=== PATIENT | male | born 1955 | race Caucasian/White ===

== ENCOUNTER 2017-04-13 12:36 | Inpatient (IN) | payer MEDICAID, OTHER ==
--- NOTE | 2017-04-13 12:58 | CPEKG ---
Heart Rate: 99 RR Interval: 606 P-R Interval: 136 QRSD Interval: 82 QT Interval: 348 QTC Interval: 447 P Stanton: 87 QRS Stanton: 95 T Wave Stanton: 62 EKG Severity - BORDERLINE ECG - EKG Impression: SINUS RHYTHM EKG Impression: RIGHT AXIS DEVIATION EKG Impression: BORDERLINE INFERIOR Q WAVES Electronically Signed By: Yaneli Mcfadden 13-Apr-2017 15:07:59
[2017-04-13] MEDS ORDERED: IPRATROPIUM/ALBUTEROL 3 ML DEYVIAL IH ONE (13:04)
[2017-04-13] MEDS ORDERED: ALBUTEROL 3 ML DEYVIAL IH ONE (13:04)
--- NOTE | 2017-04-13 13:04 | EDPHY ---
H & P Stated Complaint: SOB, difficulty with breathing for 2 weeks. Time Seen by Provider: 04/13/17 12:47 HPI/ROS: CHIEF COMPLAINT: "I can't breathe" HISTORY OF PRESENT ILLNESS: The patient is a 61 y/o male with a history of COPD complaining of progressive dyspnea and productive cough for the last 3 weeks. He describes profuse green sputum when coughing. SOB at rest and unable to sleep because of difficulty breathing. Sx similar, but worse than prior episodes of pneumonia. Admitted to [facility] in 2015 with septic shock and hypoxemic respiratory failure due to pneumonia. He denies fever , vomiting, diarrhea, abdominal pain, chest pain, urinary symptoms. He does not use home O2 normally nor does he use inhalers or other medication for his COPD. He is a daily smoker. He has some difficulty communicating history due to pronounced dyspnea and tachypnea. REVIEW OF SYSTEMS: Constitutional: No fever, no chills Eyes: No visual changes ENT: No sore throat Respiratory: see HPI Cardiac: No chest pain Gastrointestinal: No nausea, no vomiting, no abdominal pain Genitourinary: No hematuria, no dysuria Musculoskeletal: No leg pain or swelling Skin: No rash Neurological: No headache Psychiatric: depression - Personal History Current Tetanus Diphtheria and Acellular Pertussis (TDAP): Yes - Medical/Surgical History PMH: PMH includes: 1. COPD 2. Hepatitis C 3. Prior pneumonia admissions with septic shock and acute hypoxemic failure 4. Chronic back pain 5. History of IV drug abuse and active tobacco abuse Prior medical records reviewed including admission 01/17/16 for septic shock secondary to pneumonia Hx Asthma: No Hx Chronic Respiratory Disease: Yes Hx Diabetes: No Hx Cardiac Disease: No Hx Renal Disease: No Hx Cirrhosis: No Hx Alcoholism: No Hx HIV/AIDS: No Hx Splenectomy or Spleen Trauma: No Other PMH: chronic back pain. COPD. Pnuemonia - Social History Smoking Status: Current some day smoker Additional Social History: Daily smoker. Partner at bedside. Lives in [place]. Disabled. - Physical Exam Exam: General Appearance: Alert, moderate respiratory distress, 2-3 word dyspnea. HR 106, RR 28, 89% on room air Eyes: Pupils equal and round, no conjunctival pallor or injection ENT, Mouth: Mucous membranes moist Neck: Normal inspection Respiratory: Decreased air exchange diffusely, occasional expiratory wheezing, tachypneic, increased work of breathing. Cardiovascular: Regular tachycardia Gastrointestinal: Abdomen is soft and non-tender Neurological: A&O, nonfocal exam Skin: Warm and dry Extremities: Nontender, no pedal edema Psychiatric: Anxious Constitutional: Initial Vital Signs Temperature (C) 36.7 C 04/13/17 12:37 Heart Rate 106 H 04/13/17 12:37 Respiratory Rate 28 H 04/13/17 12:37 Blood Pressure 111/87 H 04/13/17 12:37 O2 Sat (%) 89 L 04/13/17 12:37 O2 Delivery Mode Room Air O2 (L/minute) 2 Allergies/Adverse Reactions: No Known Allergies Allergy (Unverified 09/20/10 21:06) Home Medications: Medication Instructions Recorded NK [No Known Home Meds] 04/13/17 Medical Decision Making - Diagnostics EKG Interpretation: EKG interpreted by me reveals normal sinus rhythm, rate 99, inferior Q-waves, no ST or T segment changes. Imaging Results: Imaging Impressions Chest X-Ray 04/13/17 12:47 Impression: Diffuse bilateral lower lobe interstitial infiltrates suggesting interstitial pneumonitis. Small left apical pneumothorax. Results called to Dr. Mcfadden at 2:00 PM. Imaging: I viewed and interpreted images myself ED Course/Re-evaluation: This is a n ill-appearing 61 y/o male with COPD and prior pneumonia who is a daily smoker and presents with a 3-week history of progressive productive cough and dyspnea. On exam, he is quite tachypneic with increased respiratory effort, hypoxemia at 89% on room air, and diminished air movement bilateral with some expiratory wheezes. He meets initial SIRS criteria. Plan for IV, sepsis labs, respiratory pathogen panel, chest x-ray, continuous nebulizer treatment, and 125mg IV Solumedrol. Lactate elevated 2.2, will repeat. 1L IV NS currently infusing. Plan for frequent reassessments. 1330: continuous Albuterol, O2 sat 99%, still quite tachypneic, better air exchange, more expiratory wheezing Chest x-ray-no definite infiltrate. Blood cultures drawn and Levaquin IV given for possible pneumonia. Spoke with hospitalist service. Dr. Franco accepts admission to the [facility] for COPD exacerbation. 750mg IV Levaquin ordered. Chest x-ray shows possible apical pneumothorax. Discussed with Dr. Ramirez and Dr. Franco. Plan for repeat chest x-ray during admission to monitor. Repeat lactate is normal at 1.7. Repeat x-ray reveals no evidence of pneumothorax. 3pm: repeat exam, much more comfortable and less tachypneic, on O2 2l NC, O2 sat 93%, Chest-diffuse expiratory wheezing. Critical care time spent by me, Dr. Mcfadden, exclusively with this patient was 35 minutes, exclusive of PA time and exclusive of procedures. The organ system at risk was pulmonary. Time spent in serial assessments of the patient, consideration of interventions, and review of imaging and labs. Differential Diagnosis: Differential diagnosis includes though it is not limited to pneumonia, pneumothorax, pulmonary embolism, aortic dissection, pericarditis, acute coronary syndrome. - Data Points Laboratory Results: Laboratory Results 04/13/17 12:56 04/13/17 12:56 04/13/17 04/13/17 04/13/17 13:50 12:56 12:56 WBC RBC Hgb Hct MCV MCH MCHC RDW Plt Count MPV Neut % (Auto) Lymph % (Auto) [place] % (Auto) Eos % (Auto) Baso % (Auto) Nucleat RBC Rel Count Absolute Neuts (auto) Absolute Lymphs (auto) Absolute Monos (auto) Absolute Eos (auto) Absolute Basos (auto) Absolute Nucleated RBC Immature Gran % Immature Gran # VBG Lactic Acid 1.7 mmol/L mmol/L 2.2 mmol/L H mmol/L (0.7-2.1) (0.7-2.1) Sodium 140 mEq/L mEq/L (135-145) Potassium 4.1 mEq/L mEq/L (3.5-5.2) Chloride 102 mEq/L mEq/L (97-110) Carbon Dioxide 26 mEq/l mEq/l (22-31) Anion Gap 12 mEq/L mEq/L (8-16) BUN 4 mg/dL L mg/dL (7-23) Creatinine 0.6 mg/dL L mg/dL (0.7-1.3) Estimated GFR > 60 Glucose 109 mg/dL H mg/dL (70-100) Calcium 8.7 mg/dL mg/dL (8.5-10.4) 04/13/17 12:56 WBC 14.31 10^3/uL H 10^3/uL (3.80-9.50) RBC 5.55 10^6/uL 10^6/uL (4.40-6.38) Hgb 15.9 g/dL g/dL (13.7-17.5) Hct 48.2 % % (40.0-51.0) MCV 86.8 fL fL (81.5-99.8) MCH 28.6 pg pg (27.9-34.1) MCHC 33.0 g/dL g/dL (32.4-36.7) RDW 15.0 % % (11.5-15.2) Plt Count 352 10^3/uL 10^3/uL (150-400) MPV 9.0 fL fL (8.7-11.7) Neut % (Auto) 82.4 % H % (39.3-74.2) Lymph % (Auto) 9.2 % L % (15.0-45.0) [place] % (Auto) 6.0 % % (4.5-13.0) Eos % (Auto) 1.3 % % (0.6-7.6) Baso % (Auto) 0.5 % % (0.3-1.7) Nucleat RBC Rel Count 0.0 % % (0.0-0.2) Absolute Neuts (auto) 11.81 10^3/uL H 10^3/uL (1.70-6.50) Absolute Lymphs (auto) 1.31 10^3/uL 10^3/uL (1.00-3.00) Absolute Monos (auto) 0.86 10^3/uL H 10^3/uL (0.30-0.80) Absolute Eos (auto) 0.18 10^3/uL 10^3/uL (0.03-0.40) Absolute Basos (auto) 0.07 10^3/uL 10^3/uL (0.02-0.10) Absolute Nucleated RBC 0.00 10^3/uL 10^3/uL (0-0.01) Immature Gran % 0.6 % % (0.0-1.1) Immature Gran # 0.08 10^3/uL 10^3/uL (0.00-0.10) VBG Lactic Acid Sodium Potassium Chloride Carbon Dioxide Anion Gap BUN Creatinine Estimated GFR Glucose Calcium Microbiology Results: MICROBIOLOGY 04/13/17 12:58 Nasal, Sinus - Swab Respiratory Panel (PCR) - Final No Organism Detected Medications Given: Discontinued Medications Albuterol (Proventil Neb) 9 ml IH EDNOW ONE Stop: 04/13/17 13:05 Last Admin: 04/13/17 13:23 Dose: 9 ml Albuterol/Ipratropium (Duoneb) 3 ml IH EDNOW ONE Stop: 04/13/17 13:05 Last Admin: 04/13/17 13:26 Dose: 3 ml Sodium Chloride (Ns) 1,000 mls @ 0 mls/hr IV ONCE ONE; Wide Open PRN Reason: Protocol Stop: 04/13/17 13:19 Last Admin: 04/13/17 13:27 Dose: 1,000 mls Methylprednisolone Sodium Succinate (Solu-Medrol) 125 mg IVP EDNOW ONE Stop: 04/13/17 13:06 Last Admin: 04/13/17 13:25 Dose: 125 mg Departure - Departure Disposition: [facility] Inpatient Acute Clinical Impression: COPD exacerbation Sepsis Qualifiers: Sepsis type: sepsis due to unspecified organism Qualified Code(s): A41.9 - Sepsis, unspecified organism Respiratory failure with hypoxia Qualifiers: Chronicity: acute Qualified Code(s): J96.01 - Acute respiratory failure with hypoxia Condition: Serious Report Scribed for: Yaneli Mcfadden Report Scribed by: Tricia Tripathi Date of Report: 04/13/17 Time of Report: 13:06 Physician Review and Approval Statement: 04/13/17 13:06 Portions of this note were transcribed by a medical staff director. I personally performed a history, physical exam, medical decision making, and confirmed accuracy of information the transcribed note.
[2017-04-13] MEDS ORDERED: methylPREDNISolone SOD SUCC 125 MG/2 ML VIAL IVP ONE (13:05)
[2017-04-13 13:10] LABS: PLATELET COUNT 352 10^3/uL (150-400)
[2017-04-13] MEDS ORDERED: NS 1,000 ML IV ONE (13:18)
[2017-04-13] MEDS ORDERED: ALBUTEROL 3 ML DEYVIAL IH PRN (14:13)
[2017-04-13] MEDS ORDERED: ONDANSETRON DISINTEGRATING 4 MG TAB PO PRN (14:13)
[2017-04-13] MEDS ORDERED: ONDANSETRON 4 MG/2 ML VIAL IVP PRN (14:13)
[2017-04-13] MEDS ORDERED: NS 1,000 ML IV SCH (14:15)
--- NOTE | 2017-04-13 15:02 | GHP ---
[f rep st] HISTORY AND PHYSICAL DATE OF ADMISSION: 04/13/2017 The patient is a 61-year-old gentleman with a history of COPD and hepatitis C, who presented to the E with increased work of breathing. He was admitted here in January with pneumonia. The patient notes that his breathing has been getting progressively worse over the last 3 weeks. He is only smoking 2 or 3 cigarettes a day. He has had chills. No fever. Did not get a flu shot this year. He has had a cough productive of green sputum. He is down to just 2 or 3 cigarettes a day. D enies alcohol, vomiting. He has pain in his chest. He has not fallen. REVIEW OF SYSTEMS: Complete 10-point review of systems conducted, negative as noted in the HPI. PAST MEDICAL HISTORY: 1. COPD. He has borderline chronic hypoxemic respiratory failure. 2. Chronic back pain. 3. Hepatitis C. 4. History of IV drug use. MEDICATIONS: None. ALLERGIES: None. CODE: Full. SOCIAL HISTORY: He had been homeless previously. Got an apartment. He has a friend present with geronimo gonzalez. FAMILY HISTORY: Parents . PHYSICAL EXAM: VITAL SIGNS: Temp 36.7, blood pressure 111/87, pulse 106. Breathing 20 times a keri te, 89% on room air. GENERAL: Thin, cachectic. Increased work of breathing. HEENT: Sclerae anict akiko. Oropharynx clear. Mucous membranes dry. NECK: Supple without lymphadenopathy or JVD. LUNGS : Decreased air movement with scattered wheezes bilaterally. Per the ER doctor with whom I discusse d the case, it is improved from presentation. HEART: S1, S2. Tachycardic. ABDOMEN: Soft, nontend er, nondistended. LOWER EXTREMITIES: Without edema. Calves nontender. SKIN: Without rash. NEURO LOGIC: Nonfocal. LABS: Sodium 140, potassium 4.1, chloride 102, bicarb 26, BUN 4, creatinine 0.6, glucose 109. White count 14, hematocrit 48, platelets are 352,000. Lactate was 2.2, now 1.7. He has a history of hepatitis C antibody positive in January. EKG interpreted by oh shows sinus at 99 with normal axis and intervals. There are no ST or T-wave ch anges. Chest x-ray interpreted by me shows hyperinflation, small apical left pneumothorax. I discussed the case Dr. Angeles Mcfadden. ASSESSMENT AND PLAN: A 61-year-old gentleman with chronic obstructive pulmonary disease presents wit h chronic obstructive pulmonary disease exacerbation, increased work of breathing, small pneumothorax . 1. Pneumothorax. We will follow his chest x-ray today, repeat it today and then follow it daily. C ertainly, I think at its current size it is probably low risk for contributing to his increased work of breathing, but certainly if it becomes larger it can cause respiratory collapse. He does not need a chest tube at this time. 2. Chronic obstructive pulmonary disease exacerbation. I suspect viral illness. Will check influen za and a respiratory panel. I will give him doxycycline, steroids and nebulizer. I recommend smokin g cessation. 3. Hepatitis C. Patient does not have cirrhosis. Will follow. 4. Prophylaxis. Pharmacologic prophylaxis indicated. 5. Code status: A brief code status discussion with this patient yielded full code. I think it may be worth pursuing discussing the risks, benefits of intubation in this gentleman with advanced lung disease, but too tachypneic and acute right now to do so. I will defer that to the day provider. DISPOSITION: Step-down unit, inpatient status. /[id number]/MODL
[2017-04-13] MEDS ORDERED: levOFLOXACIN 750 MG/DEXTROSE/150 ML BAG IV ONE (16:06)
[2017-04-13] MEDS: ACETAMINOPHEN 325 MG TAB PO PRN (16:18)
[2017-04-13] MEDS: IPRATROPIUM/ALBUTEROL 3 ML DEYVIAL IH SCH ×2 (16:30→19:51)
[2017-04-13] MEDS ORDERED: DOXYCYCLINE INJ 100 MG in NS 250 ML IV ONE (17:15)
--- NOTE | 2017-04-13 18:29 | HOSPPROG ---
Hospitalist Progress Note Assessment/Plan: follow up cxr demonstrates no pneumothorax Objective: Vital Signs Temp Pulse Resp BP Pulse Ox 36.5 C 92 40 H 87/45 L 92 04/13/17 18:18 04/13/17 18:18 04/13/17 18:18 04/13/17 18:18 04/13/17 18:18 04/12/17 04/13/17 04/14/17 05:59 05:59 05:59 Intake Total 2250 Balance 2250 ICD10 Worksheet Patient Problems: Problems Problem Status Onset COPD exacerbation Acute Respiratory failure with hypoxia Acute Sepsis Acute Pneumonia Acute
[2017-04-13] MEDS ORDERED: NS 500 ML IV ONE (22:19)
[2017-04-13] MEDS: methylPREDNISolone SOD SUCC 125 MG/2 ML VIAL IVP SCH (22:26)
[2017-04-13] MEDS: NICOTINE 14 MG/24 HR PATCH TD SCH (22:26)
[2017-04-13] MEDS: MELATONIN 3 MG TAB PO PRN (22:33)
[2017-04-14] MEDS: methylPREDNISolone SOD SUCC 125 MG/2 ML VIAL IVP SCH ×5 (04:20→23:21)
[2017-04-14 05:16] LABS: PLATELET COUNT 279 10^3/uL (150-400)
[2017-04-14] MEDS: IPRATROPIUM/ALBUTEROL 3 ML DEYVIAL IH SCH ×4 (05:32→21:02)
[2017-04-14] MEDS: DOXYCYCLINE INJ 100 MG in NS 250 ML IV SCH ×2 (05:52→17:36)
--- NOTE | 2017-04-14 08:29 | HOSPPROG ---
Hospitalist Progress Note Assessment/Plan: DIAGNOSES: -acute resp failure, hypoxemic -hypotension, pleuritic CP, raises concern for PE -chronic interstitial pulmonary infiltrates on CXR appear similar to 2016, likely chronic pulm fibrosis but will check CT chest; -? current pulm infection: no fever, procalcitonin is upper limit nl, resp pathogen panel negative -is on antibiotic empirically for now -past hx IVDA -chronic Hep C, appears stable -homelessness I have reviewed this case in detail today with Dr Renny Tong Also seen by me on multidisc rounds PLANS: -CT angio chest to look for PE, further assess possible pneumonia -For now continue empiric abx -continue steroid and bronchodilators -follow BPs closely, consider need for specific therapy for that; at present this does not appear to represent sepsis, not really clear he has any infection -will recheck chemistry to see if sugars are increasing on steroid; follow white blood cell count closely SUBJECTIVE: Patient still feels short of breath Does admit to some sharp pleuritic type chest pain as well as feeling that his breathing is "tight " Still has cough, nonproductive No chills or sweats OBJECTIVE Vitals reviewed: No fever, blood pressures have been low throughout the night and remain low the morning, quite tachypneic on oxygen [employer]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[employer], 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 rhythm variable rate Exam: alert oriented skin warm dry color ok resps not labored lungs clear BSs heart regular abd soft nondistended nontender, bowel sounds present limbs warm, no edema iv site ok I reviewed CXR from ER: I see diffuse emphysematous change and diffuse abnormal interstitial markings, and I compared last xray of 2016 which shows similar markings Lab data: White blood cell count remains elevated 13,000 Mild anemia now apparent, normocytic Renal function and electrolytes good; sugar slightly high likely due to steroids I ordered procalcitonin and this comes back at 0.11 right at the upper limit of normal Respiratory pathogen panel and cultures are all negative so far Objective: Vital Signs Temp Pulse Resp BP Pulse Ox 36.4 C 64 30 H 120/83 H 100 04/13/17 20:00 04/14/17 05:32 04/14/17 05:32 04/13/17 20:00 04/14/17 05:32 Laboratory Results 04/14/17 05:05 04/14/17 05:05 02/10/2104/14/17 04/15/17 06:59 06:59 06:59 Intake Total 4019 Output Total 950 Balance 3069 - Time Spent With Patient Time Spent with Patient: greater than 35 minutes Time Spent with Patient: Greater than 35 minutes spent on this patients care, greater than 50% of time spent counseling, educating, and coordinating care regarding the above mentioned plan. ICD10 Worksheet Patient Problems: Problems Problem Status Onset COPD exacerbation Acute Respiratory failure with hypoxia Acute Sepsis Acute Pneumonia Acute
[2017-04-14] MEDS ORDERED: IOPAMIDOL (ISOVUE 370) 100 ML BTL IV ONE (08:32)
--- NOTE | 2017-04-14 09:34 | ASMTCASEMG ---
Living Arrangements What is your living Answers: Alone arrangement? Who do you live with? Type Of Residence What kind of residence do Answers: Apartment you live in? Discharge Plan Comments Coordination Status Comments Notes: Patient is a 61yo single male who was admitted for chronic obstructive pulmonary disease and a pneumothorax. Patient was homeless but has recently secured an apartment. PT/OT have been ordered. D/C needs TBD. CM will follow. Date Signed: 04/14/2017 09:33 AM Electronically Signed By:Anu Acevedo LCSW
[2017-04-14] MEDS ORDERED: PNEUMOCOCCAL 0.5ML VACCINE VIAL IM ONE (10:49)
[2017-04-14] MEDS: ENOXAPARIN 40 MG/0.4 ML SYR SC SCH (10:52)
[2017-04-14] MEDS: LORazepam 0.5 MG TAB PO PRN ×3 (10:53→22:03)
[2017-04-14] MEDS: NICOTINE 14 MG/24 HR PATCH TD SCH (10:54)
--- NOTE | 2017-04-14 11:14 | PDMN ---
Medical Necessity Medical necessity: est los>2mn for COPD exacerbation, and small pneumothorax; admit for IV abx, IV steroids, and nebs; comorbid hep C, chronic back pain, and hx IVDA; per order and H&P 04/13/17
[2017-04-14] MEDS: FAMOTIDINE 20 MG TAB PO SCH ×2 (11:23→22:02)
--- NOTE | 2017-04-14 14:36 | GCON ---
[f rep st] CONSULTATION PULMONARY CRITICAL CARE NOTE. DATE OF CONSULTATION: 04/14/2017 REASON FOR CONSULTATION: Chronic obstructive pulmonary disease exacerbation. HISTORY: The patient is a pleasant 61-year-old gentleman who has severe underlying COPD and emphysem a. He states he has had a cough productive of green sputum over the last 3 weeks. Symptoms have bee n progressive and he has been increasingly short of breath. He presented to the emergency department . Chest x-ray was unremarkable for evidence of pneumonia. He was started on antibiotics, steroids, and bronchodilator therapy and admitted to the intensive care unit. Initial chest x-ray suggested a possible small pneumothorax, however, followup chest x-ray showed this likely to be artifactual. He has had a subsequent CT angiogram of the chest. There are no infiltrates, no pulmonary emboli. Ther e is severe emphysema with bullous changes and marked bronchial wall thickening. The patient remains somewhat dyspneic. He is on 3 L of oxygen. He was last admitted to [facility] in 2016 with pneumonia. He was discharged on inha lers and apparently was given a prescription for oxygen which he never filled. Once he finished the inhalers he did not refill them. He does not recall whether they resulted in any benefit. He has be en followed at [facility] in the past, apparently not recently. PAST MEDICAL HISTORY: Remarkable only for his lung disease. MEDICATIONS: He was on no medications at that time of admission. REVIEW OF SYSTEMS: Negative except as mentioned above. He denies hypertension, diabetes, known hear t disease, thromboembolic disease or other problems. 10-point review of systems is negative. He sylvie arently did not get the flu vaccine this year but likely had pneumococcal vaccines in the past. DRUG ALLERGIES: None known. SOCIAL HISTORY: Originally from [facility]. He has been in [place] for over 35 years. He had a [employer] business. He is . His ex- and 2 of his 4 children live in [place]. The o ther children are in other states. He continues to smoke cigarettes but has recently cut down. He d enies significant alcohol or drugs. He apparently lives in an apartment or home now with roommates. FAMILY HISTORY: Negative/noncontributory. PHYSICAL EXAMINATION: GENERAL: Reveals a gentleman who is mildly dyspneic, lying in bed. He is thi n, with a barrel chest. VITAL SIGNS: Respiratory rate is approximately 25 to 30. Blood pressure is 100/60, heart rate 90 with sinus rhythm on the monitor. He is afebrile. On 3 L saturations are 96% . HEENT: Unremarkable for lymphadenopathy or thyromegaly. Mucous membranes are somewhat dry. Jugu lar venous pressure is increased. The chest reveals markedly decreased breath sounds bilaterally wit h a prolonged expiratory phase. There is some central congestion/rhonchi with cough and a few scatte red forced expiratory wheezes. The heart tones are distant. P2 appears to be increased. A gallop c ould not be heard. ABDOMEN: Scaphoid, soft, nontender. Bowel sounds are present. EXTREMITIES: Un remarkable for edema, or cords. SKIN: Without significant lesions or rash. NEUROLOGIC: Nonfocal. DATA BASE: Radiologic studies are as outlined above. LABORATORY: White blood cell count is 13,000, hematocrit 38, platelets 279,000. Venous lactates hav e been about 2. Basic metabolic panel is within normal limits with the exception of a mildly elevate d glucose and an albumin of 2.4. Procalcitonin was borderline elevated on admission at 0.11. ASSESSMENT: 1. Acute bronchitis. 2. Exacerbation of severe underlying chronic obstructive pulmonary disease/emphysema. 3. Hypoxemia: Likely chronic. I would imagine he likely has needed oxygen as an outpatient for kirstie te some time but this has never been initiated. 4. Prophylaxis: On enoxaparin and famotidine. 5. Ongoing tobacco abuse: He is currently on a nicotine patch. PLAN AND RECOMMENDATIONS: The patient will be kept in the intensive care unit on step-down status fo r now. He can be transitioned to a medical-surgical bed possibly later today or tomorrow depending o n his progress. Doxycycline will be continued. A sputum culture will be ordered. Steroids can be c ontinued but reduced. Bronchodilator therapies will be continued. Further plans and recommendations will be made based on his progress over the next 12-24 hours. Post discharge I will offer him followup in our Pulmonary Clinic. Inhaled therapies as an outpatient prob ably are going to be beneficial. He likely will require oxygen on discharge. /[id number]/MODL
[2017-04-14] MEDS: MELATONIN 3 MG TAB PO PRN (22:02)
[2017-04-15] MEDS: LORazepam 0.5 MG TAB PO PRN ×4 (01:37→23:58)
[2017-04-15] MEDS: methylPREDNISolone SOD SUCC 125 MG/2 ML VIAL IVP SCH ×2 (05:13→11:39)
[2017-04-15] MEDS: DOXYCYCLINE INJ 100 MG in NS 250 ML IV SCH (05:13)
[2017-04-15] MEDS: IPRATROPIUM/ALBUTEROL 3 ML DEYVIAL IH SCH ×4 (05:30→21:29)
[2017-04-15 06:03] LABS: PLATELET COUNT 299 10^3/uL (150-400)
[2017-04-15] MEDS: NICOTINE 14 MG/24 HR PATCH TD SCH (08:47)
[2017-04-15] MEDS: ENOXAPARIN 40 MG/0.4 ML SYR SC SCH (08:47)
[2017-04-15] MEDS: FAMOTIDINE 20 MG TAB PO SCH ×2 (08:47→21:02)
--- NOTE | 2017-04-15 09:59 | HOSPPROG ---
Hospitalist Progress Note Assessment/Plan: DIAGNOSES: -acute resp failure, hypoxemic -hypotension, pleuritic CP, raises concern for PE -chronic interstitial pulmonary infiltrates on CXR appear similar to 2016, likely chronic pulm fibrosis but will check CT chest; -? current pulm infection: no fever, procalcitonin is upper limit nl, resp pathogen panel negative -is on antibiotic empirically for now -past hx IVDA -chronic Hep C, appears stable -homelessness I have reviewed this case in detail today with Dr Renny Tong Also seen by me on multidisc rounds PLANS: -For now continue empiric abx -continue steroid and bronchodilators -follow BPs closely, consider need for specific therapy for that; at present this does not appear to represent sepsis, not really clear he has any infection -can move out of ICU today He should be on some chronic long-acting bronchodilator steroid combination for prevention of hospital admission and other severe exacerbations on a chronic basis. I have discussed this with the patient in detail. Will probably need to work directly with [facility] to trying get him on such medicine and I did encourage him that he will need very close ongoing follow-up in order to be able to stay on this medication at home. 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, 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 rhythm variable rate Exam: alert oriented skin warm dry color ok resps not labored lungs nearly absent but otherwise clear BSs heart regular abd soft nondistended nontender, bowel sounds present limbs warm, no edema iv site ok I reviewed his CT scan images of the chest, and there is no notable P pneumonia or pulmonary embolism; there is severe emphysema as the primary abnormality and again I question a possible pleural-based mass on the left Lab data: White blood cell count notably higher likely due to steroid Mild anemia now apparent, normocytic stable today Chemistries are stable Respiratory pathogen panel and cultures are all negative so far Objective: Vital Signs Temp Pulse Resp BP Pulse Ox 36.6 C 83 24 H 106/67 96 04/15/17 08:00 04/15/17 09:14 04/15/17 09:14 04/15/17 09:14 04/15/17 09:14 Microbiology 04/14/17 17:35 - Final Sputum, Expectorated Laboratory Results 04/15/17 05:20 04/15/17 05:20 04/14/17 04/15/17 04/16/17 06:59 06:59 06:59 Intake Total 4019 3803 400 Output Total 950 1650 1100 Balance 3069 2153 -700 - Time Spent With Patient Time Spent with Patient: greater than 35 minutes Time Spent with Patient: Greater than 35 minutes spent on this patients care, greater than 50% of time spent counseling, educating, and coordinating care regarding the above mentioned plan. ICD10 Worksheet Patient Problems: Problems Problem Status Onset COPD exacerbation Acute Respiratory failure with hypoxia Acute Sepsis Acute Pneumonia Acute
--- NOTE | 2017-04-15 11:25 | PDINTPN ---
[facility] Progress Note Assessment/Plan: Assessment: Severe underlying COPD and emphysema. With exacerbation.. On steroids, bronchodilator therapies. Acute bronchitis. Possible mild left lower lobe infiltrate/pneumonia by CT scan. On doxycycline Hypoxemia: Secondary to 1. He does not have oxygen at home and he did not need this on discharge with his pneumonia and COPD exacerbation in January of 2016. He may need this on discharge now? Prophylaxis: On enoxaparin, famotidine. Ongoing tobacco abuse: On a nicotine patch. Metabolic: No issues identified. Disposition: He now lives in a house with roommates. He has his own room that he shares with his girlfriend. Plan: Continue present therapies. Can decrease steroids. Continue doxycycline and bronchodilator therapies. Increase mobilization, ambulate. Wean oxygen as tolerated. Can transfer to a medical-surgical bed/status today. I would be happy to follow the patient as an outpatient in our pulmonary clinic. 25 min of critical care time spent directly with the patient. Discussed issues with the patient, hospitalist, in the ICU multi disciplinary team. Subjective: Feels that his breathing is somewhat better. Remains short of breath. Still coughing up some green mucus. Objective: Vital Signs Temp Pulse Resp BP Pulse Ox 36.6 C 86 22 H 106/67 95 04/15/17 08:00 04/15/17 11:01 04/15/17 11:01 04/15/17 09:14 04/15/17 11:01 Microbiology 04/14/17 17:35 - Final Sputum, Expectorated Laboratory Results 04/15/17 05:20 04/15/17 05:20 04/14/17 04/15/17 04/16/17 05:59 05:59 05:59 Intake Total 4019 3803 400 Output Total 950 1650 1300 Balance 3069 2153 -900 Laboratory Tests 04/15/17 05:20 Calcium 8.2 L Physical Exam - Physical Exam General Appearance: alert, no apparent distress, thin, other (Up in the chair eating breakfast) EENT: PERRL/EOMI, other (Nasal cannula in place at 2 L) Neck: normal inspection (No JVD) Respiratory: lungs clear, decreased breath sounds (Markedly decreased breath sounds bilaterally), prolonged expiration, No rales, No rhonchi Cardiac/Chest: regular rate, rhythm, other (Distant heart tones, increased P2) Abdomen: normal bowel sounds, non-tender, soft Male Genitalia: other (Using urinal, good urine output.) Skin: normal color, warm/dry Extremities: No pedal edema Neuro/Psych: no motor/sensory deficits, No cognition abnormalities ICD10 Worksheet Patient Problems: Problems Problem Status Onset COPD exacerbation Acute Respiratory failure with hypoxia Acute Sepsis Acute Pneumonia Acute
[2017-04-15] MEDS: predniSONE 20 MG TAB PO SCH (18:00)
[2017-04-15] MEDS: DOXYCYCLINE HYCLATE 100 MG CAP/TAB PO SCH (21:00)
[2017-04-15] MEDS: MELATONIN 3 MG TAB PO PRN (23:59)
[2017-04-16] MEDS: LORazepam 0.5 MG TAB PO PRN ×3 (04:52→20:52)
[2017-04-16] MEDS: IPRATROPIUM/ALBUTEROL 3 ML DEYVIAL IH SCH ×4 (05:39→21:36)
[2017-04-16] MEDS: FAMOTIDINE 20 MG TAB PO SCH ×2 (09:49→20:53)
[2017-04-16] MEDS: DOXYCYCLINE HYCLATE 100 MG CAP/TAB PO SCH ×2 (09:49→20:53)
[2017-04-16] MEDS: predniSONE 20 MG TAB PO SCH ×2 (09:49→23:46)
[2017-04-16] MEDS: ENOXAPARIN 40 MG/0.4 ML SYR SC SCH (09:49)
[2017-04-16] MEDS: NICOTINE 14 MG/24 HR PATCH TD SCH (09:51)
--- NOTE | 2017-04-16 14:25 | HOSPPROG ---
Hospitalist Progress Note Assessment/Plan: DIAGNOSES: -acute resp failure, hypoxemic -acute COPD exacerbation -chronic interstitial pulmonary infiltrates on CXR appear similar to 2016, likely chronic pulm fibrosis -? current pulm infection: no fever, procalcitonin is upper limit nl, resp pathogen panel negative, cultures remain negative -is on antibiotic empirically for now -deconditioning and gait instability -past hx IVDA -chronic Hep C, appears stable -homelessness PLANS: -For now continue empiric abx -continue steroid and bronchodilators -increase activity as able -currently requiring oxygen therapy -requires ongoing inpatient care at this time due to weakness and dyspnea He should be on some chronic long-acting bronchodilator steroid combination for prevention of hospital admission and other severe exacerbations on a chronic basis. I have discussed this with the patient in detail. Will probably need to work directly with [facility] to trying get him on such medicine and I did encourage him that he will need very close ongoing follow-up in order to be able to stay on this medication at home. SUBJECTIVE: Feels the same today, no improvement in dyspnea or weakness since yesterday Less cough No fever symptoms and no chest pain OBJECTIVE Vitals reviewed: No fever, still with tachypnea, blood pressure is notably better Machine Tender, 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 rhythm variable rate Exam: alert oriented skin warm dry color ok resps not labored lungs nearly absent but otherwise clear BSs heart regular abd soft nondistended nontender, bowel sounds present limbs warm, no edema Lab data: Metabolic panel stable today Microbiology data: Respiratory pathogen panel and cultures are all negative so far Objective: Vital Signs Temp Pulse Resp BP Pulse Ox 36.3 C 78 15 112/73 95 04/16/17 09:34 04/16/17 09:34 04/16/17 09:34 04/16/17 09:34 04/16/17 09:34 Microbiology 04/14/17 17:35 - Final Sputum, Expectorated Sputum Culture - Final Laboratory Results 04/15/17 05:20 04/16/17 04:50 04/15/17 04/16/17 04/17/17 06:59 06:59 06:59 Intake Total 3803 3041 Output Total 1650 2525 550 Balance 2153 516 -550 ICD10 Worksheet Patient Problems: Problems Problem Status Onset COPD exacerbation Acute Respiratory failure with hypoxia Acute Sepsis Acute Pneumonia Acute
--- NOTE | 2017-04-16 18:40 | SOAPPROG ---
SOAP Progress Note Assessment/Plan: Assessment: 61-year-old with severe underlying COPD/emphysema admitted 04/13 with bronchitis/pneumonia Severe underlying COPD and emphysema. With exacerbation. On steroids, bronchodilator therapies. Acute bronchitis/left lower lobe infiltrate/pneumonia by CT scan and follow-up x -ray. On doxycycline. Sputum culture mixed meche. Hypoxemia: Secondary to 1. He does not have oxygen at home and he did not need this on discharge with his pneumonia and COPD exacerbation in January of 2016. He may need this on discharge now? Prophylaxis: On enoxaparin, famotidine. Ongoing tobacco abuse: On a nicotine patch. Metabolic: No issues identified. Disposition: He now lives in a house with roommates. He has his own room that he shares with his girlfriend. Plan: Continue present therapies as an inpatient. Continue doxycycline and bronchodilator therapies, and prednisone. Increase mobilization, ambulate. Wean oxygen as tolerated. I would be happy to follow the patient as an outpatient in our pulmonary clinic. Subjective: Remains short of breath however he has been more ambulatory, walked in the halls. Cough and mucus are improving Objective: Vital Signs Temp Pulse Resp BP Pulse Ox 36.4 C 104 H 28 H 93/59 L 90 L 04/16/17 15:17 04/16/17 16:10 04/16/17 16:10 04/16/17 15:17 04/16/17 16:10 Microbiology 04/14/17 17:35 - Final Sputum, Expectorated Sputum Culture - Final Laboratory Results 04/15/17 05:20 04/16/17 04:50 04/15/17 04/16/17 04/17/17 05:59 05:59 05:59 Intake Total 3803 3041 900 Output Total 1650 2525 730 Balance 2153 516 170 Physical Exam - Physical Exam General Appearance: alert, mild distress (To kidney a) EENT: PERRL/EOMI, other (Nasal cannula in place at 2-3 L) Neck: normal inspection Respiratory: lungs clear, decreased breath sounds, prolonged expiration, No rales, No rhonchi, No wheezing Cardiac/Chest: regular rate, rhythm (Distant heart tones, a probable increased P2) Abdomen: normal bowel sounds, non-tender, soft Skin: normal color, warm/dry Extremities: No pedal edema Neuro/Psych: no motor/sensory deficits, No cognition abnormalities ICD10 Worksheet Patient Problems: Problems Problem Status Onset Pneumonia Acute COPD exacerbation Acute Sepsis Acute Respiratory failure with hypoxia Acute
[2017-04-16] MEDS: MELATONIN 3 MG TAB PO PRN (20:52)
[2017-04-17] MEDS: IPRATROPIUM/ALBUTEROL 3 ML DEYVIAL IH SCH ×4 (06:12→20:16)
[2017-04-17] MEDS: DOXYCYCLINE HYCLATE 100 MG CAP/TAB PO SCH (10:53)
[2017-04-17] MEDS: ENOXAPARIN 40 MG/0.4 ML SYR SC SCH (10:54)
[2017-04-17] MEDS: FAMOTIDINE 20 MG TAB PO SCH ×2 (10:54→21:17)
[2017-04-17] MEDS: NICOTINE 14 MG/24 HR PATCH TD SCH (10:54)
[2017-04-17] MEDS: predniSONE 20 MG TAB PO SCH ×2 (10:59→18:43)
[2017-04-17] MEDS: LORazepam 0.5 MG TAB PO PRN ×3 (11:00→21:18)
[2017-04-17] MEDS: ACETAMINOPHEN 325 MG TAB PO PRN ×2 (13:31→21:17)
[2017-04-17] MEDS: BENZONATATE 100 MG CAP PO PRN ×2 (15:58→21:17)
[2017-04-17] MEDS: guaiFENesin/CODEINE PHOS 10 ML UDCUP PO PRN ×2 (15:58→21:16)
[2017-04-17] MEDS: guaiFENesin 600 MG TAB.ER PO SCH ×2 (16:01→21:18)
--- NOTE | 2017-04-17 16:52 | ASMTCMCOM ---
CM Note CM Note Notes: Reviewed chart. Pt cleared by PT to dc home. Anticipate pt will dc home independantly when medically ready. CM will follow for needs/changes. Date Signed: 04/17/2017 04:51 PM Electronically Signed By:Yolis Clifford RN
--- NOTE | 2017-04-17 17:31 | HOSPPROG ---
Hospitalist Progress Note Assessment/Plan: Assessment: 61 yo M p/w acute hypoxic resp failure in setting of acute COPD exacerbation, possible pneumonia Plan: # Acute resp failure, hypoxemic. Acutely worsening today, evidenced by SpO2 84% , objective tachypnea (RR 40+), symptomatic shortness of breath, pursed lip breathing, use of accessory muscles, 2/2 acute COPD exacerbation - cont tx COPD, adjust Abx to cover atypicals - repeat CXR now to evaluate for evolving infiltrate - CTA w/o PE - repeat labs - recommend outpt f/u w/ Dr. Tong # Possible PNA. CXR w/ diffuse interstitial infiltrates (personally interpreted ) w/o focal consolidation, adjust from doxy to levofloxacin 750 given that he has significant sx today - RVP neg - D#03/10 Levo # Acute COPD exacerbation. Poor exp air movement, tachypnea, cough - cont duonebs scheduled - add anti-tussives and mucolytic - will require likely chronic Advair - will need outpt f/u appt at [facility] # HCV. Chronic, rec outpt ID f/u Diet. Reg PPx. High risk, lovenox 40 Code. Full Dispo. ADD uncertain, remains clinically unresolved Subjective: patient significantly short of breath w/ minimal ambulation Objective: Vital Signs Temp Pulse Resp BP Pulse Ox 36.3 C 100 30 H 97/62 L 92 04/17/17 15:36 04/17/17 15:36 04/17/17 15:36 04/17/17 15:36 04/17/17 15:36 Microbiology 04/14/17 17:35 - Final Sputum, Expectorated Sputum Culture - Final Laboratory Results 04/15/17 05:20 04/16/17 04:50 04/16/17 04/17/17 04/18/17 05:59 05:59 05:59 Intake Total 3041 1600 Output Total 2525 1580 1440 Balance 516 20 -1440 - Physical Exam Constitutional: chronically ill appearing, uncomfortable, cachectic, No no apparent distress (moderate distress) Cardiovascular: tachycardia, No systolic murmur, No irregularly irregular, No edema Respiratory: reduced air movement (on exp bilat, triggers cough), respiratory distress (pursed lip breathing, accessory muscle use), No inspiratory crackles Gastrointestinal: normoactive bowel sounds, soft, non-tender abdomen, no palpable masses, No distension Neurologic: AAOx3, sensation intact bilaterally, No weakness Psychiatric: not encephalopathic, thought process linear, anxious, flat affect, No agitated ICD10 Worksheet Patient Problems: Problems Problem Status Onset COPD exacerbation Acute Respiratory failure with hypoxia Acute Sepsis Acute Pneumonia Acute
--- NOTE | 2017-04-17 19:02 | SOAPPROG ---
SOAP Progress Note Assessment/Plan: Assessment: 61-year-old with severe underlying COPD/emphysema admitted 04/13 with bronchitis/pneumonia Severe underlying COPD and emphysema. With exacerbation. On steroids, bronchodilator therapies. Overall improved however he continues to complain of shortness of breath. On 2 L of oxygen. I expect him to remain relatively dyspneic due to his severe underlying disease. He is approaching end stage. Acute bronchitis/left lower lobe infiltrate/pneumonia by CT scan and follow-up x -ray. On doxycycline initially, changed to Levaquin empirically today but likely will not add much. Sputum culture mixed meche. Hypoxemia: Secondary to 1. He does not have oxygen at home and he did not need this on discharge with his pneumonia and COPD exacerbation in January of 2016. He likely will need low flow oxygen at discharge. Prophylaxis: On enoxaparin, famotidine. Ongoing tobacco abuse: On a nicotine patch. Metabolic: No issues identified. Disposition: He now lives in a house with roommates. He has his own room that he shares with his girlfriend. Plan: Continue present therapies as an inpatient. Continue antibiotics, bronchodilator therapies, and prednisone. Increase mobilization, ambulate. Continue oxygen, keeping saturations approximately 90 as he is likely a significant CO2 retainer. Recommend discharge to home on oxygen, completion of antibiotics, bronchodilator therapy by nebulizer, and a slow steroid taper in the next 1 -2 days. I would be happy to follow the patient as an outpatient in our pulmonary clinic. Subjective: Overall about the same. Remains dyspneic. Has some cough in residual mucus but seems to be improved. Objective: Vital Signs Temp Pulse Resp BP Pulse Ox 36.3 C 100 30 H 97/62 L 92 04/17/17 15:36 04/17/17 15:36 04/17/17 15:36 04/17/17 15:36 04/17/17 15:36 Microbiology 04/14/17 17:35 - Final Sputum, Expectorated Sputum Culture - Final Laboratory Results 04/15/17 05:20 04/16/17 04:50 04/16/17 04/17/17 04/18/17 05:59 05:59 05:59 Intake Total 3041 1600 600 Output Total 2525 1580 1440 Balance 516 20 -840 Physical Exam - Physical Exam General Appearance: alert, no apparent distress, thin EENT: PERRL/EOMI, other (Nasal cannula oxygen in place at 2 L) Neck: normal inspection (No obvious jugular venous distension) Respiratory: lungs clear (Anteriorly), decreased breath sounds, rales (Few, scattered comma basilar lung zones. Nonspecific), prolonged expiration, No rhonchi, No wheezing Cardiac/Chest: regular rate, rhythm (High 90s), other Abdomen: normal bowel sounds, non-tender, soft Skin: normal color, warm/dry Extremities: No pedal edema Neuro/Psych: no motor/sensory deficits, No cognition abnormalities ICD10 Worksheet Patient Problems: Problems Problem Status Onset Pneumonia Acute COPD exacerbation Acute Sepsis Acute Respiratory failure with hypoxia Acute
[2017-04-17] MEDS: MELATONIN 3 MG TAB PO PRN (21:18)
[2017-04-18 05:41] LABS: PLATELET COUNT 280 10^3/uL (150-400)
[2017-04-18] MEDS: IPRATROPIUM/ALBUTEROL 3 ML DEYVIAL IH SCH ×4 (05:59→20:30)
[2017-04-18] MEDS: predniSONE 20 MG TAB PO SCH ×2 (09:15→18:39)
[2017-04-18] MEDS: FAMOTIDINE 20 MG TAB PO SCH ×2 (09:15→21:05)
[2017-04-18] MEDS: LORazepam 0.5 MG TAB PO PRN ×3 (09:15→21:04)
[2017-04-18] MEDS: guaiFENesin 600 MG TAB.ER PO SCH ×2 (09:16→21:04)
[2017-04-18] MEDS: NICOTINE 14 MG/24 HR PATCH TD SCH (09:16)
[2017-04-18] MEDS: ENOXAPARIN 40 MG/0.4 ML SYR SC SCH (09:21)
[2017-04-18] MEDS: guaiFENesin/CODEINE PHOS 10 ML UDCUP PO PRN ×3 (09:33→21:05)
--- NOTE | 2017-04-18 12:48 | PDHOMEO2F ---
Home Oxygen Face to Face Home Orders: I certify that a physician or a nurse practitioner or physician's senior agricultural assistant has had a [id number] encounter with this patient on the date of this order due to the diagnosis listed, which relates to the primary reason the patient requires home oxygen. Alternative treatments have been tried, or considered, and deemed ineffective. It is anticipated that supplemental oxygen will result in improvement with treatment. Home oxygen qualifying diagnosis: COPD SpO2 on room air (%): 88 Frequency of home oxygen needed: continuous Home oxygen liters per minute: 2 Home oxygen delivery device: nasal cannula Concentrator: Yes E-tanks for mobility and back up: Yes If ordering portable O2, is the patient mobile in the home?: Yes I certify that, based on these findings, the home oxygen is medically necessary for this patient for the following length of time. Length of time home oxygen needed: 99 years
--- NOTE | 2017-04-18 17:42 | HOSPPROG ---
Hospitalist Progress Note Assessment/Plan: Assessment: 61 yo M p/w acute hypoxic resp failure in setting of acute COPD exacerbation, possible pneumonia Plan: # Acute resp failure, hypoxemic. Evidenced by SpO2 84%, objective tachypnea (RR 40+), symptomatic shortness of breath, pursed lip breathing, use of accessory muscles, 2/2 acute COPD exacerbation - cont tx COPD, adjusted Abx to cover atypicals - CTA w/o PE - recommend outpt f/u w/ Dr. Tong after he establishes care at [facility] , needs outpt PFTs -d/w RT, plan for home o2, F2F and Rx written # Possible PNA. CXR w/ diffuse interstitial infiltrates w/o focal consolidation , adjusted from doxy to levofloxacin 750 given that he had ongoing significant sx - RVP neg - D#2 Levo # Acute COPD exacerbation. Poor exp air movement, tachypnea, cough - cont duonebs scheduled, plan to send home w/ Rx for scheduled duonebs q6, plan for steroid taper given duration of symptoms - added anti-tussives and mucolytic - will require likely chronic Advair, can be ordered through [facility] - will need outpt f/u appt at [facility], arranging for this Monday # HCV. Chronic, rec outpt ID f/u Diet. Reg PPx. High risk, lovenox 40 Code. Full Dispo. ADD 04/19, patient does not feel well enough to safely discharge today, encouraged to continue strength training w/ PT/OT Subjective: patient reports ongoing SOB w/ exertion, gen weakness Objective: Vital Signs Temp Pulse Resp BP Pulse Ox 36.3 C 105 H 22 H 99/65 L 91 L 04/18/17 16:44 04/18/17 16:44 04/18/17 16:44 04/18/17 16:44 04/18/17 16:44 Laboratory Results 04/18/17 05:15 04/18/17 05:15 04/17/17 04/18/17 04/19/17 05:59 05:59 05:59 Intake Total 1600 1640 650 Output Total 1580 2940 600 Balance 20 -1300 50 - Pending Discharge Pending Discharge Within 24 Hours: Yes Pending Discharge Date: 04/19/17 Pending Discharge Time: 11:00 - Physical Exam Constitutional: no apparent distress, not in pain, chronically ill appearing, No uncomfortable Cardiovascular: regular rate and rhythym, no murmur, rub, or gallop, No edema Respiratory: reduced air movement (on expiration), other (overall improved from day prior), No expiratory wheeze, No inspiratory crackles, No bronchial breath sounds, No respiratory distress Gastrointestinal: normoactive bowel sounds, soft, non-tender abdomen, no palpable masses Neurologic: AAOx3, sensation intact bilaterally, No weakness Psychiatric: not anxious, not encephalopathic, flat affect, No agitated ICD10 Worksheet Patient Problems: Problems Problem Status Onset Pneumonia Acute COPD exacerbation Acute Sepsis Acute Respiratory failure with hypoxia Acute
[2017-04-18] MEDS: MELATONIN 3 MG TAB PO PRN (21:05)
[2017-04-18] MEDS: BENZONATATE 100 MG CAP PO PRN (21:08)
[2017-04-19] MEDS: guaiFENesin/CODEINE PHOS 10 ML UDCUP PO PRN ×2 (02:17→08:24)
[2017-04-19] MEDS: LORazepam 0.5 MG TAB PO PRN ×2 (02:17→08:25)
[2017-04-19] MEDS: BENZONATATE 100 MG CAP PO PRN (04:57)
[2017-04-19] MEDS: IPRATROPIUM/ALBUTEROL 3 ML DEYVIAL IH SCH ×2 (05:56→12:05)
[2017-04-19 06:01] VITALS: O2SAT 92
[2017-04-19] MEDS: guaiFENesin 600 MG TAB.ER PO SCH (08:19)
[2017-04-19] MEDS: ENOXAPARIN 40 MG/0.4 ML SYR SC SCH (08:20)
[2017-04-19] MEDS: FAMOTIDINE 20 MG TAB PO SCH (08:20)
[2017-04-19] MEDS: predniSONE 20 MG TAB PO SCH (08:20)
[2017-04-19] MEDS: NICOTINE 14 MG/24 HR PATCH TD SCH (08:21)
[2017-04-19 08:40] VITALS: BP 123/82; PULSE 87; RESP 22; TEMP 96.9
--- NOTE | 2017-04-19 20:15 | GDS ---
[f rep st] DISCHARGE SUMMARY DISCHARGE DIAGNOSES: 1. Chronic obstructive pulmonary disease exacerbation. 2. Acute bronchitis. HISTORY: This is a 61-year-old male presenting with increasing shortness of breath. HOSPITAL COURSE: The patient was admitted, initially appeared that he might have a pneumothorax on c hest x-ray, although CT scan did not confirm this. Did not have significant amounts of infiltrate. He was treated with steroids as well as nebulizers. He slowly improved, although he requires oxygen currently he is moving fair amounts of air without any wheezing. He will need home oxygen. He is fe eling well and has been stable and will be discharged home. DISPOSITION: Home. DISCHARGE MEDICATIONS: Prednisone taper, Levaquin 750 mg daily for 4 more days, Combivent 4 times a day, Flovent, guaifenesin, Tessalon Perles, home nebulizer has been also ordered for the patient as w ell as home oxygen. FOLLOW UP INSTRUCTIONS: He has an appointment with [facility] tomorrow. TIME SPENT: Greater than 35 minutes was spent on discharge. /[id number]
== END 2017-04-19 15:14 | disposition home or self-care (01) | DRG 192 ==
LOC: F2N 18:29 → F1N 04-15 17:00
PROVIDERS: ADMIT Student in an Organized Health Care Education/Training Program; ATTEND Student in an Organized Health Care Education/Training Program
DX: J44.1 Chronic obstructive pulmonary disease with (acute) exacerbation (principal); G89.29 Other chronic pain; B19.20 Unspecified viral hepatitis C without hepatic coma; Z72.0 Tobacco use; Z23 Encounter for immunization
CPT/HCPCS: 96374; 97110-GP; 97116-GP; 97161-GP; 97165-GO; 97530-GO; 97530-GP; 97535-GO; G0009; J1650; J1956; J2930; J7512; J7613; Q9967

== ENCOUNTER 2017-05-01 11:48 | Inpatient (IN) | payer MEDICAID ==
[2017-05-01] MEDS ORDERED: IPRATROPIUM/ALBUTEROL 3 ML DEYVIAL IH ONE ×2 (12:28→12:29)
--- NOTE | 2017-05-01 13:02 | EDPHY ---
H & P Time Seen by Provider: 05/01/17 12:58 HPI/ROS: Chief complaint. Shortness of breath HPI. Patient is a 61-year-old male with history of COPD. He was discharged April 19 for COPD exacerbation. He says he has continued to be short of breath since then. He is using his nebulizer. He was prescribed home oxygen but he is not using it because his roommates all smoke and they do not want an explosion from him using his oxygen so he has not been using it. He continues to have productive cough of green sputum. No fever. He has some tightness in his chest. No abdominal pain or nausea vomiting. ROS Constitutional. no fever/chills, no weakness Eyes. no problems with vision ENT. no sore throat, no nasal drainage Cardiovascular. Chest tightness Respiratory. Shortness of breath with cough Abdominal. no abdominal pain, no nausea/vomiting, no diarrhea . no problems urinating MS. no calf pain/swelling, no neck/back pain, no joint pain Skin. no rash Lymph. no swollen glands Neuro. no headache, no dizziness, no difficulty walking or with speech Past Medical/Surgical History: COPD, hep C, IVDA, pneumonia Social History: [place], daily smoker, no alcohol Smoking Status: Current every day smoker Physical Exam: General Appearance: Alert well-developed male moderate distress vital signs significant for Respiratory rate of about 30 Eyes: Pupils equal and round no pallor or injection. ENT, Mouth: Mucous membranes are moist. Respiratory: Tachypnea and inspiratory expiratory rhonchi Cardiovascular: Regular rate and rhythm. Gastrointestinal: Abdomen is soft and nontender, no masses, bowel sounds normal. Neurological: Awake and alert, sensory and motor exams grossly normal. Skin: Warm and dry, no rashes. Musculoskeletal: Neck is supple nontender. Extremities symmetrical, full range of motion. Psychiatric: Patient is oriented X 3, there is no agitation. Constitutional: Initial Vital Signs Temperature (C) 36.3 C 05/01/17 12:01 Heart Rate 89 05/01/17 12:01 Respiratory Rate 30 H 05/01/17 12:01 Blood Pressure 125/86 H 05/01/17 12:01 O2 Sat (%) 93 05/01/17 12:01 O2 Delivery Mode Nasal Cannula O2 (L/minute) 3 Allergies/Adverse Reactions: No Known Allergies Allergy (Verified 05/01/17 15:49) Home Medications: Medication Instructions Recorded NK [No Known Home Meds] 05/01/17 Medical Decision Making - Diagnostics EKG Interpretation: EKG interpreted by me shows normal sinus rhythm with normal interval and axis. QRS is normal there is no significant ST elevation or depression. There is no arrhythmia. The rate is 75 Imaging Results: Imaging Impressions Chest X-Ray 05/01/17 12:30 Impression: Improvement but mild persistent pneumonia in the lingula. Underlying emphysema. Chest x-ray reviewed by me shows persistent pneumonia in the lingula with underlying COPD Procedures: DuoNeb updraft x2. Septic workup including blood cultures. IV Solu-Medrol 3:10 p.m. Severe sepsis declared now. Fluid bolus is ordered. Rocephin ordered. ED Course/Re-evaluation: Serial evaluations patient is stable. Respiratory rate is coming down somewhat. I discussed imaging and lab results with the patient. We discussed treatment plan including recommendation for admission. He expresses understanding and agreement I consulted and discussed the case with , hospitalist, who agrees to the admission. Differential Diagnosis: Patient has severe COPD. He has been given multiple nebulizer treatments without improvement of his tachypnea. It has been given IV Solu-Medrol. Chest x-ray shows pneumonia. Sepsis workup shows increase lactate and evidence of severe sepsis. Critical Care Time: Critical care time exclusive procedures 40 min - Data Points Laboratory Results: Laboratory Results 05/01/17 13:45 05/01/17 13:45 05/01/17 05/01/17 05/01/17 13:45 13:45 13:20 WBC 16.56 10^3/uL H 10^3/uL (3.80-9.50) RBC 5.75 10^6/uL 10^6/uL (4.40-6.38) Hgb 16.9 g/dL g/dL (13.7-17.5) Hct 50.1 % % (40.0-51.0) MCV 87.1 fL fL (81.5-99.8) MCH 29.4 pg pg (27.9-34.1) MCHC 33.7 g/dL g/dL (32.4-36.7) RDW 17.5 % H % (11.5-15.2) Plt Count 148 10^3/uL L 10^3/uL (150-400) MPV 9.6 fL fL (8.7-11.7) Neut % (Auto) 78.7 % H % (39.3-74.2) Lymph % (Auto) 15.5 % % (15.0-45.0) [place] % (Auto) 4.3 % L % (4.5-13.0) Eos % (Auto) 0.8 % % (0.6-7.6) Baso % (Auto) 0.2 % L % (0.3-1.7) Nucleat RBC Rel Count 0.0 % % (0.0-0.2) Absolute Neuts (auto) 13.02 10^3/uL H 10^3/uL (1.70-6.50) Absolute Lymphs (auto) 2.56 10^3/uL 10^3/uL (1.00-3.00) Absolute Monos (auto) 0.71 10^3/uL 10^3/uL (0.30-0.80) Absolute Eos (auto) 0.14 10^3/uL 10^3/uL (0.03-0.40) Absolute Basos (auto) 0.04 10^3/uL 10^3/uL (0.02-0.10) Absolute Nucleated RBC 0.00 10^3/uL 10^3/uL (0-0.01) Immature Gran % 0.5 % % (0.0-1.1) Immature Gran # 0.09 10^3/uL 10^3/uL (0.00-0.10) VBG Lactic Acid 2.2 mmol/L H mmol/L (0.7-2.1) Sodium 141 mEq/L mEq/L (135-145) Potassium 4.2 mEq/L mEq/L (3.5-5.2) Chloride 109 mEq/L mEq/L (97-110) Carbon Dioxide 18 mEq/l L mEq/l (22-31) Anion Gap 14 mEq/L mEq/L (8-16) BUN 13 mg/dL mg/dL (7-23) Creatinine 0.6 mg/dL L mg/dL (0.7-1.3) Estimated GFR > 60 Glucose 86 mg/dL mg/dL (70-100) Calcium 9.2 mg/dL mg/dL (8.5-10.4) Medications Given: Albuterol/Ipratropium (Duoneb) 3 ml IH Q6 ARLETTE Stop: 10/28/17 17:59 Last Admin: 05/01/17 17:48 Dose: 3 ml Sodium Chloride (Ns) 1,000 mls @ 100 mls/hr IV CONT ARLETTE Stop: 10/28/17 17:29 Last Admin: 05/01/17 19:30 Dose: 1,000 mls Azithromycin 500 mg/ Dextrose 255 mls @ 255 mls/hr IV DAILY ARLETTE PRN Reason: Protocol Stop: 05/02/17 10:00 Last Admin: 05/01/17 19:30 Dose: 255 mls Discontinued Medications Albuterol/Ipratropium (Duoneb) 3 ml IH EDNOW ONE Stop: 05/01/17 12:29 Last Admin: 05/01/17 12:28 Dose: 3 ml Albuterol/Ipratropium (Duoneb) 3 ml IH EDNOW ONE Stop: 05/01/17 12:30 Last Admin: 05/01/17 12:29 Dose: 3 ml Sodium Chloride (Ns) 1,000 mls @ 0 mls/hr IV ONCE ONE; Wide Open PRN Reason: Protocol Stop: 05/01/17 13:15 Last Admin: 05/01/17 14:48 Dose: 1,000 mls Ceftriaxone Sodium/Dextrose (Rocephin 1 Gm (Premix)) 50 mls @ 100 mls/hr IV EDNOW ONE PRN Reason: Protocol Stop: 05/01/17 15:43 Last Admin: 05/01/17 15:20 Dose: 50 mls Sodium Chloride (Ns) 1,900 mls @ 3,800 mls/hr 30 ml/kg infuse over 30 min ( 1900 ml) IV EDNOW ONE PRN Reason: Protocol Stop: 05/01/17 15:43 Last Admin: 05/01/17 15:21 Dose: 900 mls Azithromycin 500 mg/ Sodium (Chloride) 255 mls @ 255 mls/hr IV DAILY ARLETTE PRN Reason: Protocol Stop: 05/31/17 17:29 Last Admin: 05/01/17 18:29 Dose: Not Given Sodium Chloride (Ns) 1,000 mls @ 0 mls/hr IV ONCE ONE PRN Reason: Wide Open Stop: 05/01/17 19:23 Last Admin: 05/01/17 20:18 Dose: 1,000 mls Methylprednisolone Sodium Succinate (Solu-Medrol) 125 mg IVP EDNOW ONE Stop: 05/01/17 13:15 Last Admin: 05/01/17 14:48 Dose: 125 mg Departure - Departure Disposition: [facility] Acute Clinical Impression: Severe sepsis Pneumonia Qualifiers: Pneumonia type: due to unspecified organism Lung location: lower lobe of lung Condition: Fair
[2017-05-01] MEDS ORDERED: NS 1,000 ML IV ONE ×2 (13:14→19:22)
[2017-05-01] MEDS ORDERED: methylPREDNISolone SOD SUCC 125 MG/2 ML VIAL IVP ONE (13:14)
[2017-05-01 13:52] LABS: PLATELET COUNT 148 10^3/uL (150-400)
[2017-05-01] MEDS ORDERED: NS 1,900 ML IV ONE (15:14)
--- NOTE | 2017-05-01 16:53 | CPEKG ---
Heart Rate: 75 RR Interval: 800 P-R Interval: 164 QRSD Interval: 76 QT Interval: 388 QTC Interval: 434 P [place]: 73 QRS [place]: 95 T Wave [place]: 67 EKG Severity - OTHERWISE NORMAL ECG - EKG Impression: SINUS RHYTHM EKG Impression: RIGHT AXIS DEVIATION Electronically Signed By: Kang Jay 01-May-2017 22:34:38
[2017-05-01] MEDS ORDERED: ONDANSETRON 4 MG/2 ML VIAL IVP PRN (17:23)
[2017-05-01] MEDS ORDERED: ACETAMINOPHEN 325 MG TAB PO PRN (17:23)
[2017-05-01] MEDS ORDERED: PROMETHAZINE HCL 25 MG/ML INJ IVP PRN (17:23)
[2017-05-01] MEDS ORDERED: oxyCODONE IR 5 MG TAB PO PRN (17:23)
[2017-05-01] MEDS ORDERED: IBUPROFEN 600 MG TAB PO PRN (17:23)
[2017-05-01] MEDS ORDERED: HYDROmorphONE/DILAUDID 2 MG/ML INJ IVP PRN (17:23)
[2017-05-01] MEDS ORDERED: AZITHROMYCIN IV 500 MG in NS 250 ML IV SCH (17:30)
[2017-05-01] MEDS: IPRATROPIUM/ALBUTEROL 3 ML DEYVIAL IH SCH ×2 (17:48→23:47)
--- NOTE | 2017-05-01 18:00 | GHP ---
[f rep st] HISTORY AND PHYSICAL DATE OF ADMISSION: 05/01/2017 CHIEF COMPLAINT: Shortness of breath. HISTORY: The patient is a 61-year-old male just discharged from the hospital April 19 with COPD e xacerbation. He was discharged on steroids, nebulizers, home oxygen, and a course of antibiotics. Shannan vargas completed his course of Levaquin, as well as his steroids. He wore his oxygen for the first couple of days. He lives with some roommates who all smoke. His roommates told him that, if he continues to wear oxygen, they will kick him out of the home with only 3 days notice because they are all smoke rs, and they do not want the house to blow up. The patient also continues to smoke 2 cigarettes per day. He never got all the way back to normal since last hospital discharge and has persistent shortn ess of breath throughout that entire time. He did not notice this worsening when he stopped wearing the oxygen. He has persistent cough since discharge of a green sputum. He denies any fever. He kimball s have some persistent midsternal chest pain due to cough. PAST MEDICAL HISTORY: 1. COPD. 2. Hepatitis C. MEDICATIONS: Please see computer record for full detailed list. ALLERGIES: No known drug allergies. SOCIAL HISTORY: He was a heavy smoker in the past, currently down to 2 cigarettes per day. Previous history of IV drug abuse, but I do not think it is current. He was previously homeless but now live s with roommates in an apartment. REVIEW OF SYSTEMS: Complete review of systems obtained. Review of systems negative for constitution al, HEENT, GI, pulmonary, vascular, , hematology, skin, musculoskeletal, endocrine, psych except fo r positives as in HPI. FAMILY HISTORY: Reviewed, noncontributory to presenting complaint. PHYSICAL EXAMINATION: GENERAL: Well-developed, well-nourished male, in no distress. VITAL SIGNS: Temperature 36.6, pulse 65, blood pressure 106/68, satting 97% on 3 L. Eyes: Normal c onjunctivae. Pupils equal and react to light. ENT: Normal ears and nose. Hearing intact. Normal teeth. Oropharynx moist. NECK: Trachea midline. No thyromegaly. CHEST: Normal respiratory effor t. Decreased breath sounds bilaterally. No wheeze. CARDIOVASCULAR: Regular rhythm. No murmur. N o extremity edema. ABDOMEN: Soft, nontender. No hepatosplenomegaly. SKIN: Warm, dry, intact. No rash. MUSCULOSKELETAL: No cyanosis or clubbing. Strength 5/5 upper and lower extremities. NEURO: Cranial nerves intact. Normal sensation to light touch. PSYCH: Alert and oriented x3. Normal af fect. Normal judgment. Normal memory. LABORATORY/IMAGING DATA: White count 16.56, hematocrit 50.1, platelets 158. Sodium 141, potassium 4 .2, chloride 109, bicarb 18, BUN 13, creatinine 0.6, glucose 86, lactate 2.2. Chest x-ray shows COPD with an improved infiltrate in the lingula. EKG shows normal sinus rhythm with right axis deviation , no acute ST-T wave changes. Medical record reviewed. He recently had a CT angiogram of the chest, performed April 14, 2017, presumably during his last hospitalization. It does show severe bullous emphysema and no pulmonary embolus. ASSESSMENT/PLAN: 1. Chronic obstructive pulmonary disease exacerbation. This persists possibly due to his oxygen non compliance. He did have a CTA of the chest which was negative for pulmonary embolus during this last hospitalization, so I do not think it needs to be repeated. I will check a respiratory PCR. Will r esume steroids and nebulizer treatments. Will need to involve Case Management, as he may need a diff erent living situation, as I anticipate he will need lifelong home O2. 2. Pneumonia. Patient is re-initiated on antibiotics, ceftriaxone and azithromycin. 3. Tobacco dependence. Will offer nicotine patch. 4. Hepatitis C, previous IV drug abuse. I do not believe that he is currently using. 5. Lactic acid elevation. I really do not think he is septic. He may be a little hypovolemic. Solis l hydrate with IV fluid and recheck. CODE STATUS: Full. ADMISSION STATUS: Will admit to inpatient. Anticipate greater than 2 midnights for stabilization. DVT PROPHYLAXIS: He is high risk. Will place him on subcu Lovenox. /[id number]/MODL
[2017-05-01] MEDS ORDERED: AZITHROMYCIN IV 500 MG in D5W 250 ML IV SCH (18:30)
[2017-05-01] MEDS: NS 1,000 ML IV SCH (19:30)
[2017-05-02 05:02] LABS: PLATELET COUNT 129 10^3/uL (150-400)
[2017-05-02 05:23] LABS: INR 0.98 (0.83-1.16); PROTIME(PATIENT) 13.2 SEC (12.0-15.0)
[2017-05-02] MEDS: IPRATROPIUM/ALBUTEROL 3 ML DEYVIAL IH SCH ×4 (05:24→21:55)
[2017-05-02] MEDS: NS 1,000 ML IV SCH ×2 (07:45→18:33)
[2017-05-02] MEDS ORDERED: NS 1,000 ML IV ONE (08:58)
[2017-05-02] MEDS ORDERED: cefTRIAXone 1 GM in STERILE WATER INJ 10 ML IV SCH ×2 (09:00→19:15)
[2017-05-02] MEDS: predniSONE 20 MG TAB PO SCH (09:15)
[2017-05-02] MEDS: ENOXAPARIN 40 MG/0.4 ML SYR SC SCH (09:16)
[2017-05-02] MEDS: NICOTINE 7 MG/24 HR PATCH TD SCH (09:17)
--- NOTE | 2017-05-02 10:31 | ASMTCASEMG ---
Living Arrangements What is your living Answers: Alone arrangement? Who do you live with? Type Of Residence What kind of residence do Answers: House you live in? Discharge Plan Comments Coordination Status Comments Notes: Patient is a 61yo single male who was just discharged from the hospital April 19, 2017 with a COPD exacerbation. He has returned for pneumonia, COPD exacerbation, Hep C, and lactic acid elevation. Patient has a living situation where his roommates are smoking in the house and do not want an explosion. As a result patient has not been using his home oxygen. OT/PT have been ordered. D/C needs TBD. CM will follow. Date Signed: 05/02/2017 10:30 AM Electronically Signed By:Anu Acevedo LCSW
--- NOTE | 2017-05-02 12:18 | PDMN ---
Medical Necessity Medical necessity: est los>2 mn for COPD exacerbation, and PNA; admit for IV abx , steroids, supplemental O2, IVF; comorbid hep C, tobacco abuse; current living situation incompatible with O2 use; per order and H&P 05/01/17
[2017-05-02] MEDS ORDERED: ALBUTEROL 3 ML DEYVIAL IH PRN (13:26)
[2017-05-02] MEDS ORDERED: BENZONATATE 100 MG CAP PO PRN (13:30)
[2017-05-02] MEDS: guaiFENesin/CODEINE PHOS 10 ML UDCUP PO PRN ×2 (13:39→22:34)
[2017-05-02] MEDS ORDERED: IOPAMIDOL (ISOVUE 370) 100 ML BTL IV ONE (13:41)
--- NOTE | 2017-05-02 16:29 | ECHO ---
[email or web address] [address] [address] Main: [phone] Fax: [email or web address] Echocardiogram Name: ALEXA ROBERTSON MR#: [id number] Study Date: 05/02/2017 Study Time: 01:49 PM Date of : 1955 Age: 61 year(s) Height: 172.7 cm (68 in.) Weight: 56.25 kg (124 lb.) BSA: 1.67 m2 Gender: Male Examination: Indication: COPD, Sepsis, Pnemonia Image Quality: Contrast: Requested by: Davon Priest BP: 113 mmHg/65 mmHg Heart Rate: Rhythm: Normal sinus rhythm Indication: COPD, Sepsis, Pnemonia Procedure Staff Business Analytics Manager: Sergei Whitfield RDCS Reading Physician: Flavio Smith MD Requesting Provider: Conclusions: Normal size left ventricle. No LV hypertrophy. Global hypercontractility of the left ventricle. No regional wall motion abnormality. Diastolic dysfunction is present. . Normal RV function. The mitral valve is normal in appearance and function. No mitral stenosis is present. There is no mitral valve regurgitation. Mild aortic cusp calcification is noted. There is no aortic valve regurgitation. Trivial tricuspid valve regurgitation. Measurements: Chambers Valvular Assessment AV/MV Valvular Assessment TV/PV Normal Normal Normal Name Value Range Name Value Range Name Value Range IVSd (2D): 0.7 cm (0.6 cm-1.1 AV Vmax: 2.10 m/s (1 m/s-1.7 PV Vmax: 1.40 m/s (0.6 m/s-0.9 cm) m/s) m/s) LVDd (2D): 3.8 cm (4.2 cm-5.9 AV maxP mmHg ( - ) PV PGmax: 8 mmHg ( - ) cm) LVOT Vmax: 0.96 m/s (0.7 m/s-1.1 LVDs (2D): 2.5 cm (2.1 cm-4 m/s) cm) MV E Vmax: 0.44 m/s ( - ) LVPWd (2D): 0.9 cm (0.6 cm-1 MV A Vmax: 0.55 m/s ( - ) cm) MV E/A: 0.80 ( - ) Continued Measurements: Valvular Assessment AV/MV Patient: ALEXA ROBERTSON Study Date: 05/02/2017 Page 1 of 2 01:49 PM Name Value MV E' Septal: 0.07 m/s MV E/E' Septal: 6.20 MV E/E' Lateral: 4.70 Findings: Left Ventricle: Normal size left ventricle. No LV hypertrophy. Global hypercontractility of the left ventricle. No regional wall motion abnormality. Diastolic dysfunction is present. . Right Ventricle: Upper normal size right ventricle. Normal RV function. Left Atrium: The left atrium is normal in size. Right Atrium: The right atrium is normal in size. Mitral Valve: The mitral valve is normal in appearance and function. No mitral stenosis is present. There is no mitral valve regurgitation. Aortic Valve: The aortic valve is tri-leaflet. Mild aortic cusp calcification is noted. There is no aortic valve regurgitation. Tricuspid Valve: The tricuspid valve appears normal. Trivial tricuspid valve regurgitation. Pulmonic Valve: The pulmonic valve is normal in appearance and function. Aorta: The aorta is normal. Pericardium: Trivial pericardial effusion. (No Signature Object) Patient: ALEXA ROBERTSON Study Date: 05/02/2017 Page 2 of 2 01:49 PM [id number]
--- NOTE | 2017-05-02 18:53 | HOSPPROG ---
Hospitalist Progress Note Assessment/Plan: Assessment: 61-year-old male presents with acute COPD exacerbation in the setting of suspected chronic hypoxic respiratory failure, complicated by acute lactic acidosis Plan: 1. Acute COPD exacerbation. Evidenced by poor expiratory air movement comma expiratory wheezes, shortness of breath, most likely secondary to incompletely resolved initial COPD exacerbation as well as ongoing smoke exposure, kinney virus -day 2 prednisone 40, consider prolonged taper given that this is his 2nd hospitalization for this issue -continue scheduled duo nebs, p.r.n. Albuterol -supportive care with antitussives, mucolytic -given that is most likely from a viral precipitant, will hold on additional antibiotics -chest x-ray demonstrated decreasing prominence of lingular airspace disease, personally interpreted -CT angiogram ruled out pulmonary embolism, ruled out pneumonia 2. Metabolic/Lactic acidosis. Acute, new problem this provider, further workup indicated. Most likely secondary to hypovolemia and hypoperfusion with systolic blood pressures ranging in the 80-90 range, lactic peaking at 4, intermittently elevated -downtrending, repeat level at 8:00 p.m. -infectious workup included negative procalcitonin, normal ESR, normal CT of the abdomen -hemodynamic workup included echocardiogram with diastolic dysfunction but no other valvular issues, no evidence of CHF -increase IV fluid rate to normal saline 150 an hour, trending lactic acid -currently receiving steroid challenge, cortisol level abnormally low, will attempt an a.m. Cosyntropin stim test, but the result should be viewed in context of receiving prednisone 3. Kinney virus. Viral syndrome, continue supportive care with antitussives, mucolytic, likely provoking cause of COPD exacerbation 4. Suspected chronic hypoxic respiratory failure. Patient recently discharged on supplemental oxygen, has underlying history of COPD, will likely require ongoing supplemental oxygen and has roommates who are not supportive of this -recommend case management involvement tomorrow to start working on alternative living situations for the patient as well as a temporary [place] [facility] facility placement given that his roommates have essentially given him notice and told him that he will not be able to live with them 5. Peripheral arterial disease. Chronic iliac occlusion on CT, get lipid panel , initiate aspirin 81 mg daily -given his ongoing shortness of breath, evaluate for cardiac ischemic causes with a troponin level, EKG -if patient's respiratory status has stabilized tomorrow a.m., would recommend cardiac risk stratification given the possibility of underlying coronary disease contributing to his ongoing shortness of breath Diet. Regular Prophylaxis. High risk patient, Lovenox 40 Code. Full Disposition. Anticipated discharge uncertain, continues to have lactic acidosis , continue to evaluate Subjective: ongoing shortness of breath w/ any movement Objective: Vital Signs Temp Pulse Resp BP Pulse Ox 36.5 C 98 18 94/66 L 94 05/02/17 16:03 05/02/17 18:07 05/02/17 18:07 05/02/17 16:03 05/02/17 18:07 Microbiology 05/01/17 17:26 - Final Sputum, Expectorated 05/01/17 20:00 Respiratory Panel (PCR) - Final Nasal, Sinus - Swab Coronavirus [id number] Detected Laboratory Results 05/02/17 14:38 05/02/17 04:35 05/01/17 05/02/17 05/03/17 05:59 05:59 05:59 Intake Total 1140 3633 Output Total 875 2250 Balance 265 1383 PT 13.2 SEC (12.0-15.0) 05/02/17 04:35 INR 0.98 (0.83-1.16) 05/02/17 04:35 - Physical Exam Constitutional: not in pain, chronically ill appearing, uncomfortable, unkempt Cardiovascular: No systolic murmur (distant heart sounds), No irregularly irregular, No tachycardia, No edema Respiratory: reduced air movement (on expiration bilat), respiratory distress ( pursed lip breathing w/ visible tachypnea), No expiratory wheeze, No inspiratory crackles, No bronchial breath sounds Gastrointestinal: normoactive bowel sounds, soft, non-tender abdomen, no palpable masses, No distension Neurologic: AAOx3, sensation intact bilaterally, No weakness Psychiatric: interacting appropriately, not anxious, not encephalopathic, thought process linear ICD10 Worksheet Patient Problems: Problems Problem Status Onset Pneumonia Acute COPD exacerbation Acute Sepsis Acute Respiratory failure with hypoxia Acute COPD (chronic obstructive pulmonary disease) Acute Severe sepsis Acute
[2017-05-02] MEDS ORDERED: AZITHROMYCIN IV 500 MG in NS 250 ML IV SCH (19:30)
[2017-05-02] MEDS: ASPIRIN EC 81 MG TAB PO SCH (20:43)
[2017-05-02] MEDS: guaiFENesin 600 MG TAB.ER PO SCH (20:43)
[2017-05-02] MEDS: MELATONIN 3 MG TAB PO SCH (20:43)
[2017-05-03] MEDS: NS 1,000 ML IV SCH ×2 (02:56→10:12)
[2017-05-03 05:35] LABS: PLATELET COUNT 103 10^3/uL (150-400)
[2017-05-03] MEDS: IPRATROPIUM/ALBUTEROL 3 ML DEYVIAL IH SCH ×4 (05:40→21:48)
[2017-05-03] MEDS ORDERED: COSYNTROPIN 0.25 MG/2 ML SYRINGE IVP ONE (06:00)
[2017-05-03] MEDS ORDERED: AZITHROMYCIN IV 500 MG in NS 250 ML IV SCH (09:00)
--- NOTE | 2017-05-03 09:10 | CPEKG ---
Heart Rate: 75 RR Interval: 800 P-R Interval: 160 QRSD Interval: 70 QT Interval: 388 QTC Interval: 434 P [place]: 81 QRS [place]: 82 T Wave [place]: 69 EKG Severity - OTHERWISE NORMAL ECG - EKG Impression: SINUS RHYTHM EKG Impression: BORDERLINE RIGHT AXIS DEVIATION Electronically Signed By: Davon Mason 03-May-2017 09:08:14
[2017-05-03] MEDS: NICOTINE 7 MG/24 HR PATCH TD SCH (10:06)
[2017-05-03] MEDS: predniSONE 20 MG TAB PO SCH (10:06)
[2017-05-03] MEDS: guaiFENesin 600 MG TAB.ER PO SCH ×2 (10:07→20:46)
[2017-05-03] MEDS: ASPIRIN EC 81 MG TAB PO SCH (10:07)
[2017-05-03] MEDS: ENOXAPARIN 40 MG/0.4 ML SYR SC SCH (10:08)
--- NOTE | 2017-05-03 16:26 | HOSPPROG ---
Hospitalist Progress Note Assessment/Plan: DIAGNOSES: -acute hypoxemic respiratory failure, with known COPD and likely chronic hypoxemic respiratory failure -acute COPD exacerbation -acute kinney virus infection -recent pneumonia with possible bacterial infection, completed course of Levaquin -acute lactic acidosis likely due to above -severe peripheral artery disease with bilateral severe iliac disease, chronic with collaterals formed At this time the patient is improving as expected with steroids and bronchodilators. Given his normalized procalcitonin and his improved lung imaging studies as well as his completed course of Levaquin, I do not think there is any evidence that further bacterial infection is present or that further antibiotics will be of any value. Notably the patient was recently discharged with prescriptions for some inhalers and he reports that only the Flovent haler was available to him at the pharmacy when he arrived there. As he came back to the hospital for this admission he listed that is is only home medication. Clearly he would benefit greatly from having and albuterol and should also be on a long-acting steroid bronchodilator inhaler. Will look into his Medicaid drug coverage and see what his benefits will cover for him in the outpatient setting and make sure he gets these and falls up closely in clinic. He does mention to me that his symptoms do include some orthopnea and some significant exertional dyspnea as well as having had some significant leg swelling at home. Given his severe peripheral artery disease in his smoking history would strongly suspect coronary disease. At this point a Lexiscan stress test would be the most beneficial assessment for that, however we will not want to do that when he is in the midst of this severe respiratory exacerbation. Will need see better improvement before scheduling that. Will check a lipid panel however and he clearly should be on statins PLANS: -continue current steroids and inhaled medications -discharge when he is ready on albuterol as well as long-acting inhaled medications -will slowly taper oral steroids at discharge -check lipid panel now and begin statin therapy -Lexiscan stress test probably at the time of this discharge given better improvement in his respiratory status SUBJECTIVE: Still quite short of breath but slowly improving No chest pains Does admit that at home he was getting leg swelling and some orthopnea OBJECTIVE Vitals reviewed: Still tachypneic in needing oxygen otherwise stable without fever Exam: alert oriented skin warm dry color ok resps remain labored lungs markedly diminished breath sounds with significant expiratory wheeze and prolonged expiration heart regular: No jugular venous distension abd soft nondistended nontender, bowel sounds present limbs warm, no edema at this time iv site ok Laboratory data: Notably his procalcitonin here is normal at this time I reviewed echocardiogram from his previous hospitalization and that look very good I reviewed his CT scan images from this hospitalization in the previous hospitalization. Is not clear to me that a ever really had an alveolar infiltrate. Certainly there is evidence of bronchitis and severe COPD with market emphysema Objective: Vital Signs Temp Pulse Resp BP Pulse Ox 36.5 C 102 H 24 H 98/68 L 93 05/03/17 14:43 05/03/17 14:43 05/03/17 14:43 05/03/17 14:43 05/03/17 14:43 Microbiology 05/01/17 17:26 - Final Sputum, Expectorated Sputum Culture - Final Laboratory Results 05/03/17 05:10 05/03/17 05:10 05/02/17 05/03/17 05/04/17 06:59 06:59 06:59 Intake Total 1140 5528 Output Total 1150 3450 1475 Balance -10 2078 -1475 PT 13.2 SEC (12.0-15.0) 05/02/17 04:35 INR 0.98 (0.83-1.16) 05/02/17 04:35 - Time Spent With Patient Time Spent with Patient: greater than 35 minutes Time Spent with Patient: Greater than 35 minutes spent on this patients care, greater than 50% of time spent counseling, educating, and coordinating care regarding the above mentioned plan. ICD10 Worksheet Patient Problems: Problems Problem Status Onset Pneumonia Acute Severe sepsis Acute COPD (chronic obstructive pulmonary disease) Acute COPD exacerbation Acute Respiratory failure with hypoxia Acute Sepsis Acute
[2017-05-03] MEDS: LIDOCAINE 4%/MENTHOL 1% PATCH TD SCH (16:28)
[2017-05-03] MEDS: traMADol 50 MG TAB PO PRN (16:28)
[2017-05-03] MEDS: PATCH REMOVAL 1 EA PATCH TD SCH (20:46)
[2017-05-03] MEDS: MELATONIN 3 MG TAB PO SCH (20:46)
[2017-05-04 05:32] LABS: PLATELET COUNT 114 10^3/uL (150-400)
[2017-05-04] MEDS: IPRATROPIUM/ALBUTEROL 3 ML DEYVIAL IH SCH ×4 (05:46→21:27)
[2017-05-04] MEDS: NICOTINE 7 MG/24 HR PATCH TD SCH (08:36)
[2017-05-04] MEDS: guaiFENesin 600 MG TAB.ER PO SCH ×2 (08:36→20:13)
[2017-05-04] MEDS: ASPIRIN EC 81 MG TAB PO SCH (08:36)
[2017-05-04] MEDS: predniSONE 20 MG TAB PO SCH (08:36)
[2017-05-04] MEDS: LIDOCAINE 4%/MENTHOL 1% PATCH TD SCH (08:37)
[2017-05-04] MEDS: ENOXAPARIN 40 MG/0.4 ML SYR SC SCH (08:38)
--- NOTE | 2017-05-04 12:50 | HOSPPROG ---
Hospitalist Progress Note Assessment/Plan: DIAGNOSES: -acute hypoxemic respiratory failure, with known COPD and likely chronic hypoxemic respiratory failure -acute COPD exacerbation -acute kinney virus infection -orthopnea and edema he experience at home raise question of possible left ventricular heart disease, and with his known peripheral vascular disease worry about coronary disease -recent pneumonia with possible bacterial infection, completed course of Levaquin -acute lactic acidosis likely due to above -severe peripheral artery disease with bilateral severe iliac disease, chronic with collaterals formed Little change from yesterday, still with rest dyspnea as well as increased exertional dyspnea. Again giving his imaging studies, his recent Levaquin, and has normalized procalcitonin I do not think he has bacterial infection at this time and will keep off antibiotics. I did review the medication situation at home between admissions with our case management coordinator and she is going to look into his medication benefits from Medicaid to be sure that he will be able to get the recommended inhalers which can be quite expensive. He does mention to me that his symptoms do include some orthopnea and some significant exertional dyspnea as well as having had some significant leg swelling at home. Given his severe peripheral artery disease in his smoking history would strongly suspect coronary disease. At this point a Lexiscan stress test would be the most beneficial assessment for that, however we will not want to do that when he is in the midst of this severe respiratory exacerbation. Will need see better improvement before scheduling that. Will check a lipid panel however and he clearly should be on statins PLANS: -continue current steroids and inhaled medications -discharge when he is ready on albuterol as well as long-acting inhaled medications -will slowly taper oral steroids at discharge -check lipid panel now and begin statin therapy -Lexiscan stress test probably at the time of this discharge given better improvement in his respiratory status -will begin Lipitor at this time -daily aspirin SUBJECTIVE: Overall no real change in his swelling from yesterday. No angina type symptoms no leg swelling, still with some orthopnea OBJECTIVE Vitals reviewed: Still tachypneic in needing oxygen otherwise stable without fever Oxygen decreased from 3 L to 2 L Exam: alert oriented skin warm dry color ok resps remain labored lungs markedly diminished breath sounds less wheeze today than yesterday heart regular: No jugular venous distension abd soft nondistended nontender, bowel sounds present limbs warm, no edema at this time iv site ok Laboratory data: Notably his procalcitonin here is normal at this time Slightly decreased white blood cell count today, stable anemia and thrombocytopenia Metabolic panel stable Microbiology data: Blood and sputum cultures negative at this point with blood cultures not final yet Objective: Vital Signs Temp Pulse Resp BP Pulse Ox 37.1 C 84 2 L 101/72 94 05/04/17 10:13 05/04/17 11:30 05/04/17 11:30 05/04/17 10:13 05/04/17 11:30 Microbiology 05/01/17 17:26 - Final Sputum, Expectorated Sputum Culture - Final Laboratory Results 05/04/17 04:40 05/04/17 04:40 05/03/17 05/04/17 05/05/17 06:59 06:59 06:59 Intake Total 5528 2136 Output Total 3450 3450 700 Balance 2078 -1314 -700 PT 13.2 SEC (12.0-15.0) 05/02/17 04:35 INR 0.98 (0.83-1.16) 05/02/17 04:35 ICD10 Worksheet Patient Problems: Problems Problem Status Onset Pneumonia Acute Severe sepsis Acute COPD (chronic obstructive pulmonary disease) Acute COPD exacerbation Acute Respiratory failure with hypoxia Acute Sepsis Acute
--- NOTE | 2017-05-04 17:45 | ASMTCMCOM ---
CM Note CM Note Notes: Met w/pt to discuss dc poc. Pt states he will dc back to apt that he is staying in with roomates. They received a notice to vacate in 1 month. CM questioned pt if he got his inhalers at last dc, he said yes he had an ihaler and a steroid, but also says when he went to [facility] to [facility], they were not there. So pt's memory of his discharge is not completely clear as he went to the ER the next day and may be confusing events. In any case, CM will work with pt to make sure he has all inhalers before discharging home. PT/OT recommend home, no therapies. DC Plan: Independent Date Signed: 05/04/2017 05:44 PM Electronically Signed By:Zena Ramirez RN
[2017-05-04] MEDS: MELATONIN 3 MG TAB PO SCH (20:13)
[2017-05-04] MEDS: PATCH REMOVAL 1 EA PATCH TD SCH (20:13)
[2017-05-05] MEDS: IPRATROPIUM/ALBUTEROL 3 ML DEYVIAL IH SCH ×4 (05:32→23:07)
[2017-05-05 05:37] LABS: PLATELET COUNT 120 10^3/uL (150-400)
[2017-05-05] MEDS: ATORVASTATIN CALCIUM 10 MG TAB PO SCH (08:06)
[2017-05-05] MEDS: ENOXAPARIN 40 MG/0.4 ML SYR SC SCH (08:06)
[2017-05-05] MEDS: predniSONE 20 MG TAB PO SCH (08:06)
[2017-05-05] MEDS: ASPIRIN EC 81 MG TAB PO SCH (08:06)
[2017-05-05] MEDS: NICOTINE 7 MG/24 HR PATCH TD SCH (08:07)
[2017-05-05] MEDS: LIDOCAINE 4%/MENTHOL 1% PATCH TD SCH (08:07)
[2017-05-05] MEDS: guaiFENesin 600 MG TAB.ER PO SCH ×2 (08:07→21:05)
--- NOTE | 2017-05-05 11:28 | HOSPPROG ---
Hospitalist Progress Note Assessment/Plan: DIAGNOSES: -acute hypoxemic respiratory failure, with known COPD and likely chronic hypoxemic respiratory failure -acute COPD exacerbation -acute kinney virus infection -orthopnea and edema he experience at home raise question of possible left ventricular heart disease, and with his known peripheral vascular disease worry about coronary disease -recent pneumonia with possible bacterial infection, completed course of Levaquin -acute lactic acidosis likely due to above -severe peripheral artery disease with bilateral severe iliac disease, chronic with collaterals formed Continues very slow improvement in terms of his respiratory issues Will plan on proceeding with myocardial perfusion imaging stress test to assess his respiratory symptoms and vascular disease PLANS: -continue current steroids and inhaled medications -discharge when he is ready on albuterol as well as long-acting inhaled medications -will slowly taper oral steroids at discharge -statin therapy -Lexiscan stress test tomorrow, had caffeine this morning -daily aspirin SUBJECTIVE: Still has fair bit of dyspnea at rest though does not notice that he walked more easily yesterday afternoon and this morning than prior No chest discomfort, cough, fever symptoms OBJECTIVE Vitals reviewed: Still tachypneic and needing oxygen otherwise stable without fever Oxygen remains at 2 L Exam: alert oriented skin warm dry color ok resps remain labored lungs markedly diminished breath sounds but no audible wheeze today heart regular: No jugular venous distension abd soft nondistended nontender, bowel sounds present limbs warm, no edema at this time iv site ok Laboratory data: White blood cell count the slightly decreased but remains elevated at 11.8 Platelets slightly improved Chem panel stable Microbiology data: Blood and sputum cultures negative at this point with blood cultures not final yet Kinney virus on viral test confirmed Objective: Vital Signs Temp Pulse Resp BP Pulse Ox 36.6 C 84 16 107/68 92 05/05/17 07:46 05/05/17 07:46 05/05/17 07:46 05/05/17 07:46 05/05/17 07:46 Laboratory Results 05/05/17 04:45 05/05/17 04:45 05/04/17 05/05/17 05/06/17 06:59 06:59 06:59 Intake Total 2136 800 Output Total 3450 1300 625 Balance -1314 -500 -625 PT 13.2 SEC (12.0-15.0) 05/02/17 04:35 INR 0.98 (0.83-1.16) 05/02/17 04:35 ICD10 Worksheet Patient Problems: Problems Problem Status Onset Pneumonia Acute Severe sepsis Acute COPD (chronic obstructive pulmonary disease) Acute COPD exacerbation Acute Respiratory failure with hypoxia Acute Sepsis Acute
[2017-05-05] MEDS: PATCH REMOVAL 1 EA PATCH TD SCH (21:05)
[2017-05-05] MEDS: MELATONIN 3 MG TAB PO SCH (21:05)
[2017-05-06] MEDS: IPRATROPIUM/ALBUTEROL 3 ML DEYVIAL IH SCH ×4 (05:13→21:30)
[2017-05-06] MEDS: ENOXAPARIN 40 MG/0.4 ML SYR SC SCH (08:42)
[2017-05-06] MEDS: NICOTINE 7 MG/24 HR PATCH TD SCH (08:42)
[2017-05-06] MEDS: predniSONE 20 MG TAB PO SCH (08:43)
[2017-05-06] MEDS: ASPIRIN EC 81 MG TAB PO SCH (08:43)
[2017-05-06] MEDS: LIDOCAINE 4%/MENTHOL 1% PATCH TD SCH (08:43)
[2017-05-06] MEDS: ATORVASTATIN CALCIUM 10 MG TAB PO SCH (08:43)
[2017-05-06] MEDS: guaiFENesin 600 MG TAB.ER PO SCH ×2 (08:44→20:29)
[2017-05-06] MEDS ORDERED: REGADENOSON 0.4 MG/5 ML SYR IVP ONE (09:52)
--- NOTE | 2017-05-06 10:47 | CPR ---
[f rep st] NONINVASIVE CARDIAC PROCEDURE REPORT Lexiscan injection of Lexiscan MPI study INDICATION FOR STRESS TESTING: Dyspnea, orthopnea, unable to run on treadmill. PROCEDURE IN DETAIL: After obtaining informed consent and ensuring patient's n.p.o. status of caffei ne for greater than 12 hours, patient was placed on electrocardiogram. Initial electrocardiogram zachery ws sinus rhythm, normal axis, nonspecific Q-wave abnormalities in lead II and III, and inverted T-wav es in aVL. The patient denies any chest pain, does report shortness of breath, but reports this has been this way since his admission. No other symptoms suggesting cardiac ischemia. Initial blood pre ssure is 100/66, saturating 92% on 2 L nasal cannula. INJECTION: Patient was given Lexiscan slow IV push followed by nuclear isotope, within 2 minutes, ahsan jon reporting increased shortness of breath, but no chest pressure or pain, saturation remained sta ble at 93%, no significant electrocardiographic besides increased heart rate, no other significant EK G changes. Within 4 minutes, patient reports continuation of symptoms. Caffeine beverage was given, and within 5-6 minutes post injection, patient reported symptoms subsided, back to baseline. Final heart rate was 109 BPM, no significant EKG changes, final blood pressure 106/73 and saturation 93%. IMPRESSION: A 61-year-old male with noted respiratory disease, being evaluated for coronary artery d isease, unable to run on treadmill. No significant electrocardiogram changes with Lexiscan injection . Mild shortness of breath which resolved within 6 minutes post injection. No other symptoms. Curr ently, vital signs are stable. He is asymptomatic. His symptoms suggest ischemia. He will be taken down to Nuclear Medicine for post-stress injection. /[id number]/MODL
--- NOTE | 2017-05-06 12:51 | HOSPPROG ---
Hospitalist Progress Note Assessment/Plan: DIAGNOSES: -acute hypoxemic respiratory failure, with known COPD and likely chronic hypoxemic respiratory failure -acute COPD exacerbation -acute kinney virus infection -orthopnea and edema he experience at home raise question of possible left ventricular heart disease, and with his known peripheral vascular disease worry about coronary disease * abnormal stress myocardial perfusion imaging, concern for coronary artery disease with exertional dyspnea, * will need to get resting imaging tomorrow -recent pneumonia with possible bacterial infection, completed course of Levaquin -acute lactic acidosis likely due to above -severe peripheral artery disease with bilateral severe iliac disease, chronic with collaterals formed Continues very slow improvement in terms of his respiratory issues PLANS: -continue current steroids and inhaled medications -discharge when he is ready on albuterol as well as long-acting inhaled medications -will slowly taper oral steroids at discharge -statin therapy -resting myocardial perfusion images tomorrow, had caffeine this morning -daily aspirin SUBJECTIVE: His breathing is noticeably better today, and he is able to get up and walk No angina Has had his Lexiscan stress which was well tolerated OBJECTIVE Vitals reviewed: Less tachypneic still needing oxygen otherwise stable without fever Oxygen remains at 2 L Exam: alert oriented skin warm dry color ok resps somewhat last labored lungs markedly diminished breath sounds but no audible wheeze today heart regular: No jugular venous distension abd soft nondistended nontender, bowel sounds present limbs warm, no edema at this time iv site ok I reviewed the Lexiscan nuclear stress images with Dr. Ochoa, there is evidence of some perfusion abnormality and he will need resting images Microbiology data: Blood and sputum cultures negative at this point with blood cultures not final yet Kinney virus on viral test confirmed Objective: Vital Signs Temp Pulse Resp BP Pulse Ox 35.9 C L 88 20 96/74 L 94 05/06/17 08:00 05/06/17 10:30 05/06/17 10:30 05/06/17 08:00 05/06/17 10:30 Laboratory Results 05/05/17 04:45 05/05/17 04:45 05/05/17 05/06/17 05/07/17 06:59 06:59 06:59 Intake Total 800 500 Output Total 1300 1200 Balance -500 -700 PT 13.2 SEC (12.0-15.0) 05/02/17 04:35 INR 0.98 (0.83-1.16) 05/02/17 04:35 ICD10 Worksheet Patient Problems: Problems Problem Status Onset Pneumonia Acute Severe sepsis Acute COPD (chronic obstructive pulmonary disease) Acute COPD exacerbation Acute Respiratory failure with hypoxia Acute Sepsis Acute
--- NOTE | 2017-05-06 17:03 | ASMTCMCOM ---
CM Note CM Note Notes: Pt had abnormal stress test, further testing required. Otherwise pt is independent and told CM that he will dc back to the apt that he shares with roomates. CM to make sure pt has rx for short and long acting inhalers filled before leaving hospital. PT/OT cleared pt for home DC Plan: Independent Date Signed: 05/06/2017 05:02 PM Electronically Signed By:Zena Ramirez RN
[2017-05-06] MEDS: PATCH REMOVAL 1 EA PATCH TD SCH (20:29)
[2017-05-06] MEDS: MELATONIN 3 MG TAB PO SCH (20:29)
[2017-05-07] MEDS: IPRATROPIUM/ALBUTEROL 3 ML DEYVIAL IH SCH ×4 (06:10→22:20)
[2017-05-07] MEDS: LIDOCAINE 4%/MENTHOL 1% PATCH TD SCH (09:11)
[2017-05-07] MEDS: predniSONE 20 MG TAB PO SCH (09:11)
[2017-05-07] MEDS: ATORVASTATIN CALCIUM 10 MG TAB PO SCH (09:11)
[2017-05-07] MEDS: NICOTINE 7 MG/24 HR PATCH TD SCH (09:11)
[2017-05-07] MEDS: ENOXAPARIN 40 MG/0.4 ML SYR SC SCH (09:11)
[2017-05-07] MEDS: guaiFENesin 600 MG TAB.ER PO SCH ×2 (09:11→20:57)
[2017-05-07] MEDS: ASPIRIN EC 81 MG TAB PO SCH (09:11)
--- NOTE | 2017-05-07 13:24 | HOSPPROG ---
Hospitalist Progress Note Assessment/Plan: DIAGNOSES: -acute hypoxemic respiratory failure, with known COPD and likely chronic hypoxemic respiratory failure -acute COPD exacerbation -acute kinney virus infection -reversible myocardial perfusion imaging with stress anterior wall, orthopnea and edema he experience at home raise question of possible left ventricular heart disease, and with his known peripheral vascular disease worry about coronary disease * I reviewed with Dr. Jarrell Argueta today, cardiology will consult in the morning and consider angiography * Will leave NPO in case he is going to have angiography * Have added Lipitor continue aspirin -recent pneumonia with possible bacterial infection, completed course of Levaquin -severe peripheral artery disease with bilateral severe iliac disease, chronic with collaterals formed, currently asymptomatic; Lipitor added Continues very slow improvement in terms of his respiratory issues Is probably as close to baseline as we can get him in the inpatient setting, may have some further resolution of pulmonary issues over time with appropriate inhalers and a slow taper of steroid, abstinence from tobacco Will want to do angiogram before he leaves the hospital if he is going to have PLANS: -continue current steroids and inhaled medications -Cardiology consultation in the morning, consider angiography to evaluate LAD disease -will slowly taper oral steroids at discharge -statin therapy has been started -continue daily aspirin -upon discharge he should be prescribed albuterol inhalers and would recommend also long acting combination steroid bronchodilator; his Pulmicort was not holding him at home after his most recent discharge last week and for some reason albuterol inhaler had not been sent to pharmacy as was expected by the patient DISPO: Should be able to discharge the patient once we have all of his cardiology assessments and acute treatments complete SUBJECTIVE: Little change today still with some shortness of breath both at rest and ambulation but better than at admission No chest pains overnight or leg swelling No fever symptoms OBJECTIVE Vitals reviewed: Vitals overall stable without fever Oxygen remains at 2 L today but did require 5 L overnight Exam: alert oriented skin warm dry color ok resps mildly labored lungs markedly diminished breath sounds but no audible wheeze today heart regular: No jugular venous distension abd soft nondistended nontender, bowel sounds present limbs warm, no edema at this time iv site ok I reviewed the Lexiscan nuclear stress images with [place], he has a reversible perfusion defect along the anterior wall from about the apex to 2/[address] up to the base Microbiology data: Blood and sputum cultures negative at this point Kinney virus on viral test confirmed Objective: Vital Signs Temp Pulse Resp BP Pulse Ox 36.8 C 102 H 24 H 99/75 L 94 05/07/17 07:44 05/07/17 11:30 05/07/17 11:30 05/07/17 07:44 05/07/17 11:30 Laboratory Results 05/05/17 04:45 05/05/17 04:45 05/06/17 05/07/17 05/08/17 06:59 06:59 06:59 Intake Total 500 820 Output Total 1200 475 Balance -700 345 PT 13.2 SEC (12.0-15.0) 05/02/17 04:35 INR 0.98 (0.83-1.16) 05/02/17 04:35 - Time Spent With Patient Time Spent with Patient: greater than 35 minutes Time Spent with Patient: Greater than 35 minutes spent on this patients care, greater than 50% of time spent counseling, educating, and coordinating care regarding the above mentioned plan. ICD10 Worksheet Patient Problems: Problems Problem Status Onset Pneumonia Acute Severe sepsis Acute COPD (chronic obstructive pulmonary disease) Acute COPD exacerbation Acute Respiratory failure with hypoxia Acute Sepsis Acute
--- NOTE | 2017-05-07 16:18 | ASMTCMCOM ---
CM Note CM Note Notes: CM met with patient, he states he is aware of stress test tomorrow. Patient had difficult time carrying conversation without shortness of breath. CM asked if patient about housing plans after the lease is up, he states he hopes to find another place. He receives SSDI and recently re-certified. He states his Primary Care is at [facility], CM informed member they have Case Management and also gave patient contact info to [facility] [phone](Medicaid CM). Patient does not have a working phone at this time, he had a [employer] phone in the past and states he should be eligible for a new phone. CM left message at [phone] [employer] to place a LTC Medicaid referral. Per hospitalist progress notes patient should be able to discharge when acute treatments and cardiology assessments are complete. CM to follow for discharge needs. Date Signed: 05/07/2017 04:17 PM Electronically Signed By:Laquita Delgadillo
[2017-05-07] MEDS: MELATONIN 3 MG TAB PO SCH (20:57)
[2017-05-07] MEDS: PATCH REMOVAL 1 EA PATCH TD SCH (20:58)
[2017-05-08] MEDS: IPRATROPIUM/ALBUTEROL 3 ML DEYVIAL IH SCH ×3 (06:06→16:01)
[2017-05-08] MEDS: FLUTICASONE/SALMETER 250/50MCG DISKUS IH SCH ×3 (09:52→22:06)
[2017-05-08] MEDS: TIOTROPIUM INHALER 18 MCG/DOSE 5 DOSE/MDI IH SCH ×2 (09:53→11:24)
[2017-05-08] MEDS: LIDOCAINE 4%/MENTHOL 1% PATCH TD SCH (10:42)
[2017-05-08] MEDS: ATORVASTATIN CALCIUM 10 MG TAB PO SCH (10:44)
[2017-05-08] MEDS: guaiFENesin 600 MG TAB.ER PO SCH ×2 (10:44→20:26)
[2017-05-08] MEDS: ALBUTEROL 60 PUFFS/8 GM MDI IH PRN ×2 (11:23→22:05)
[2017-05-08] MEDS ORDERED: DIAZEPAM 5 MG TAB PO ONE (12:44)
[2017-05-08] MEDS ORDERED: NITROGLYCERIN 0.4 MG BTL SL PRN (12:44)
[2017-05-08] MEDS ORDERED: ASPIRIN EC 325 MG TAB PO ONE (12:44)
[2017-05-08] MEDS ORDERED: FAMOTIDINE 20 MG TAB PO ONE ×2 (12:44→14:00)
[2017-05-08] MEDS ORDERED: diphenhydrAMINE 25 MG CAP PO ONE ×2 (12:44→14:00)
[2017-05-08] MEDS ORDERED: TEMAZEPAM 15 MG CAP PO PRN (12:44)
[2017-05-08] MEDS ORDERED: NS 1,000 ML IV SCH ×2 (12:45→14:00)
--- NOTE | 2017-05-08 13:32 | CPEKG ---
Heart Rate: 63 RR Interval: 952 P-R Interval: 140 QRSD Interval: 72 QT Interval: 416 QTC Interval: 426 P [place]: 80 QRS [place]: 84 T Wave [place]: 74 EKG Severity - BORDERLINE ECG - EKG Impression: SINUS RHYTHM EKG Impression: BORDERLINE RIGHT AXIS DEVIATION EKG Impression: BORDERLINE ST ELEVATION, INFERIOR LEADS Electronically Signed By: Davon Mason 09-May-2017 11:09:33
[2017-05-08] MEDS ORDERED: LIDOCAINE 1% 300 MG/30 ML SDV ONE (13:50)
[2017-05-08] MEDS ORDERED: fentaNYL 100 MCG/2 ML INJ ONE (13:50)
[2017-05-08] MEDS ORDERED: MIDAZOLAM 2 MG/2 ML VIAL ONE (13:50)
[2017-05-08] MEDS ORDERED: IOPAMIDOL (ISOVUE-370) 150 ML BTL IV ONE (13:50)
--- NOTE | 2017-05-08 14:05 | PDPROPOC ---
Sedation Plan of Care Sedation Plan of Care: vital signs stable, mental status noted, patient educated of risks, benefits, alternatives, patient can tolerate sedation ASA Classification: ASA 2 Planned drugs: fentanyl, midazolam Mallampati Score: Class 2 Mallampati Reference Image: Patient passed 3-3-2 rule?: Yes
--- NOTE | 2017-05-08 14:10 | PDCARCONS ---
Cardiology Consult Reason for Consult: Abnormal stress testing with ischaemia Chief Complaint: shortness of breath (admission on 05-01-17) Requesting Physician: Hospitalist crew History of Present Illness: Patient is a 61 y/o male with history of COPD (ongoing tobacco use), Hep C ( from prior IV drug abuse), but no prior history of CAD, HTN, HLP, or DM, who represented to [facility] with complaints of shortness of breath. Patient with recent admission on 04-19-17, thought to be a COPD exacerbation with concomitant pneumonia. Treatment with antibiotics, steroids, and supplemental oxygen did make the patient feel somewhat better, but the shortness of breath returned, and continued to be noted with minimal activity. Over the weekend, the patient had MPI testing, which revealed a perfusion defect to the anterior wall (distal ) with extension into the anteroapical region. This region was completely reversible. Ejection fraction was noted to be normal (hyperdynamic). No olimpia complaints of chest pains or pressure, but the ongoing, progressive nature of the shortness of breath, in the setting of well treated pulmonary issues was of concern. The patient also has ongoing coronavirus pulmonary infection. Today, the patient is doing fair, but is moderately upset with the NPO status ( understandable). 12 point review of systems is otherwise unremarkable (no fevers or chills, no nausea or emesis, no lower extremity swelling, no PND or orthopnea). History Information - Allergies/Home Medication List Allergies/Adverse Reactions: No Known Allergies Allergy (Verified 05/01/17 15:49) Home Medications: NK [No Known Home Meds] 05/01/17 [Last Taken Unknown] I have personally reviewed and updated: family history, medical history, social history, surgical history Past Medical History: - Past Medical History COPD Additional medical history: pneumonia. Hep C - Surgical History Reports: no pertinent surgical hx - Family History Positive for: non-pertinent - Social History Smoking Status: Current every day smoker Alcohol Use: None Drug Use: None Cardiac History - Cardiac History Cardiac Risk Factors: current cigarette smoker, male Timing/Duration: Weeks Severity: moderate Severity Scale: 4 Location: substernal Activities at Onset: activity Modifying Factors: improves with: oxygen, rest Associated Symptoms: cough, shortness of breath NAHUM Risk Evaluation age greater or equal to 65: no greater or equal to 3 CAD risk factors: no known CAD(stenosis greater or eqaul to 50%): no ASA use in past 7 days: yes severe angina(greater or equal to 2 episodes in 24hrs): no EKG ST changes greater or equal to 0.5mm: no positive cardiac marker: no Total Score: 1 NAHUM Score: 4.7% risk Physical Exam Physical Exam: Temp Pulse Resp BP Pulse Ox 36.9 C 67 12 96/62 L 95 05/08/17 07:55 05/08/17 11:33 05/08/17 11:33 05/08/17 08:37 05/08/17 11:33 O2 (L/minute) 3 Constitutional: no apparent distress, not in pain, chronically ill appearing, unkempt Eyes: PERRL Ears, Nose, Mouth, Throat: moist mucous membranes, hearing normal Cardiovascular: regular rate and rhythym, no murmur, rub, or gallop, systolic murmur, pulses symmetric bilaterally, No JVD, No edema Peripheral Pulses: 2+: dorsalis-pedis (R), dorsalis-pedis (L) Respiratory: reduced air movement, expiratory wheeze, inspiratory crackles Gastrointestinal: normoactive bowel sounds Skin: warm, normal color, No rash Musculoskeletal: full muscle strength, normal joint ROM Neurologic: AAOx3, sensation intact bilaterally, CN II-XII Intact, No weakness Psychiatric: interacting appropriately, anxious Lab and Imaging 05/05/17 04:45 05/05/17 04:45 WBC 11.46 10^3/uL (3.80-9.50) H 05/05/17 04:45 RBC 4.46 10^6/uL (4.40-6.38) 05/05/17 04:45 Hgb 13.0 g/dL (13.7-17.5) L 05/05/17 04:45 Hct 39.0 % (40.0-51.0) L 05/05/17 04:45 MCV 87.4 fL (81.5-99.8) 05/05/17 04:45 MCH 29.1 pg (27.9-34.1) 05/05/17 04:45 MCHC 33.3 g/dL (32.4-36.7) 05/05/17 04:45 RDW 16.7 % (11.5-15.2) H 05/05/17 04:45 Plt Count 120 10^3/uL (150-400) L 05/05/17 04:45 MPV 9.9 fL (8.7-11.7) 05/05/17 04:45 Neut % (Auto) 70.7 % (39.3-74.2) 05/05/17 04:45 Lymph % (Auto) 22.6 % (15.0-45.0) 05/05/17 04:45 [place] % (Auto) 5.5 % (4.5-13.0) 05/05/17 04:45 Eos % (Auto) 0.5 % (0.6-7.6) L 05/05/17 04:45 Baso % (Auto) 0.1 % (0.3-1.7) L 05/05/17 04:45 Nucleat RBC Rel Count 0.0 % (0.0-0.2) 05/05/17 04:45 Absolute Neuts (auto) 8.10 10^3/uL (1.70-6.50) H 05/05/17 04:45 Absolute Lymphs (auto) 2.59 10^3/uL (1.00-3.00) 05/05/17 04:45 Absolute Monos (auto) 0.63 10^3/uL (0.30-0.80) 05/05/17 04:45 Absolute Eos (auto) 0.06 10^3/uL (0.03-0.40) 05/05/17 04:45 Absolute Basos (auto) 0.01 10^3/uL (0.02-0.10) L 05/05/17 04:45 Absolute Nucleated RBC 0.00 10^3/uL (0-0.01) 05/05/17 04:45 Immature Gran % 0.6 % (0.0-1.1) 05/05/17 04:45 Immature Gran # 0.07 10^3/uL (0.00-0.10) 05/05/17 04:45 ESR 8 MM/HR (0-20) 05/02/17 14:38 PT 13.2 SEC (12.0-15.0) 05/02/17 04:35 INR 0.98 (0.83-1.16) 05/02/17 04:35 D-Dimer 1.48 ug/mLFEU (0.00-0.50) H 05/02/17 04:35 VBG Lactic Acid 1.2 mmol/L (0.7-2.1) D 05/03/17 05:10 Sodium 141 mEq/L (135-145) 05/05/17 04:45 Potassium 4.6 mEq/L (3.5-5.2) 05/05/17 04:45 Chloride 104 mEq/L (97-110) 05/05/17 04:45 Carbon Dioxide 29 mEq/l (22-31) D 05/05/17 04:45 Anion Gap 8 mEq/L (8-16) 05/05/17 04:45 BUN 20 mg/dL (7-23) 05/05/17 04:45 Creatinine 0.6 mg/dL (0.7-1.3) L 05/05/17 04:45 Estimated GFR > 60 05/05/17 04:45 Glucose 80 mg/dL (70-100) 05/05/17 04:45 Calcium 8.3 mg/dL (8.5-10.4) L 05/05/17 04:45 Total Bilirubin 0.1 mg/dL (0.1-1.4) 05/02/17 04:35 Conjugated Bilirubin 0.1 mg/dL (0.0-0.5) 05/02/17 04:35 Unconjugated Bilirubin 0.0 mg/dL (0.0-1.1) 05/02/17 04:35 AST 14 IU/L (17-59) L 05/02/17 04:35 ALT 27 IU/L (21-72) 05/02/17 04:35 Alkaline Phosphatase 60 IU/L (38-126) 05/02/17 04:35 Lactate Dehydrogenase 343 IU/L (313-618) 05/02/17 14:38 Troponin I < 0.012 ng/mL (0.000-0.034) 05/02/17 19:24 Total Protein 5.0 g/dL (6.3-8.2) L 05/02/17 04:35 Albumin 2.5 g/dL (3.5-5.0) L 05/02/17 04:35 Triglycerides 137 mg/dL (40-150) 05/03/17 05:10 Cholesterol 142 mg/dL (140-220) 05/03/17 05:10 Cholesterol Risk Factr 0.8 (0.2-1.0) 05/03/17 05:10 LDL Cholesterol, Calc 79 mg/dL (80-100) L 05/03/17 05:10 LDL Risk Factor 0.8 (0.2-1.0) 05/03/17 05:10 VLDL Cholesterol 27 mg/dL (8-25) H 05/03/17 05:10 Non-HDL Cholesterol 106 mg/dL (90-129) 05/03/17 05:10 HDL Cholesterol 36 mg/dL (40-65) L 05/03/17 05:10 LDL/HDL Ratio 2.19 RATIO (1.00-3.64) 05/03/17 05:10 Cholesterol/HDL Ratio 3.94 RATIO (1.00-4.97) 05/03/17 05:10 Procalcitonin 0.03 ng/mL (0.02-0.10) 05/02/17 14:38 TSH 0.477 uIU/mL (0.465-4.680) 05/02/17 14:38 Cortisol AM Sample 16.3 ug/dL (4.5-22.7) 05/03/17 06:10 Visualized and Interpreted Chest x-ray results: Yes Chest X-ray Interpretation: no infiltrate, normal heart size Visualized and Interpreted imaging results: Yes EKG Interpretation: Positive for: normal sinsus rhythm, NS ST wave abnormalities Telemetry: normal sinus rhythm Echocardiogram: normal LVEF. no gross valve pathology was noted A/P Assessment: Patient is a 61 y/o male with Hep C, COPD, and ongoing, progressive dyspnea. Initial thoughts of COPD exacerbation with concomitant pneumonia was treated, but patient continued to have symptoms. MPI testing with reversibility noted ( anterior wall). Plans over weekend, with abnormal stress testing, were for patient to have angiogram today. Risks and benefits of the procedure were discussed with the patient, who was in agreement with these plans. Plan: Angiogram is scheduled. Further recommendations to follow ASA therapy should continue Statins to continue (with annual assessment of cholesterol and LFTs) Strong recommendations for smoking cessation.
[2017-05-08] MEDS: ENOXAPARIN 40 MG/0.4 ML SYR SC SCH (14:27)
[2017-05-08] MEDS: ASPIRIN EC 81 MG TAB PO SCH (14:27)
[2017-05-08 14:36] LABS: PLATELET COUNT 143 10^3/uL (150-400)
[2017-05-08 14:48] LABS: INR 0.95 (0.83-1.16); PROTIME(PATIENT) 12.9 SEC (12.0-15.0)
--- NOTE | 2017-05-08 14:49 | PDDXCAT ---
Diagnostic Cath Note - . Date: 05/08/17 Eligibility Services Representative: Isabella High-risk criteria on non-invasive testing: stress-induced moderate-size multiple perfusion defects - Procedure Access: right groin Procedure: left heart catheterization, coronary angiography, left ventriculogram - Materials Left Heart Cath size: 6F Left Heart Cath materials: standard multipack (JL4, JR4, pigtail) - Findings-Left Heart Catheterization LM: Medium diameter vessel with bifurcation into the LAD and LCX. No luminal irregularities were noted. LAD: Medium diameter vessel with an early, large diagonial (D1). D1 with bifurcation into similar sized vessel mid vessl. Calcification is noted in the proximal portion of the vessel. There was diffuse disease of 10-20% throughout the LAD. There is a smallish D2 noted very distally. LCX: Small diameter vessel with two obtuse marginals. No significant luminal irregularities were noted. RCA: Large diameter vessel with 40% stenosis in the mid and distal vessel. Calcium noted proximal and mid vessel. PDA and KVNG are supplied by this vessel. EDP: 10 mm Hg LVEF: 65% Wall motion: normal wall motion Complications: none Estimated blood loss: <50ml Closure method: manual pressure (given the degree of PVD noted in the area of access) Assessment: 61 y/o male with history of Hep C, COPD (on supplemental oxygen occasionally), with abnromal MPI (anterior wall). No critical CAD was noted, but diffused CAD to the LAD and RCA was noted (up to 40% in the RCA). Normal LVEF. There was a gradient on pull back of the LV cath (about 18 mm Hg). Echocardiogram did not reveal , but sclerosis was appreciated. Plan: Strong recommendations for patient to discontinue smoking. Would maintain therapy on ASA and statins given the CAD that was noted - no critical, but present, nonetheless. Would continue current therapy for COPD exacerbation in the setting of viral infection. Outpatient follow up with cardiology PA in one week is recommended. Intervention: none Patient Problems: Problems Problem Status Onset Pneumonia Acute Severe sepsis Acute COPD (chronic obstructive pulmonary disease) Acute COPD exacerbation Acute Respiratory failure with hypoxia Acute Sepsis Acute
[2017-05-08] MEDS ORDERED: ATROPINE SULFATE 1 MG/10 ML SYR IVP PRN (15:50)
[2017-05-08] MEDS: predniSONE 20 MG TAB PO SCH (17:02)
[2017-05-08] MEDS: guaiFENesin/CODEINE PHOS 10 ML UDCUP PO PRN (17:14)
[2017-05-08] MEDS: NICOTINE 7 MG/24 HR PATCH TD SCH (17:29)
--- NOTE | 2017-05-08 18:56 | HOSPPROG ---
Hospitalist Progress Note Assessment/Plan: Assessment: 61-year-old male presents with acute COPD exacerbation in the setting of chronic hypoxic respiratory failure, complicated by acute lactic acidosis Plan: 1. Acute COPD exacerbation. Evidenced by poor expiratory air movement, expiratory wheezes, shortness of breath, most likely secondary to incompletely resolved initial COPD exacerbation as well as ongoing smoke exposure, kinney virus viral syndrome - CTA r/o PE and PNA (personally interpreted) - cont pred, plan 10 day taper - added spiriva/advair/alb inhalers today, educated patient 2. Metabolic/Lactic acidosis. Acute, likely 2/2 hypovolemia, received IVF, resolved 3. Kinney virus Viral syndrome, continue supportive care with antitussives, mucolytic, likely provoking cause of COPD exacerbation 4. Chronic hypoxic respiratory failure. D/w patient, he will be permitted to return to previous residence w/ plan to relocate in 1 month 5. Peripheral arterial disease. Chronic iliac occlusion on CT, cont ASA/statin 6. CAD. Acute ischemia on nuc stress, new problem to this provider, further w/u indicated. Chest pain on presentation - d/w Dr. Mason, cards consult appreciated, he will cath today to further eval Diet. Regular Prophylaxis. High risk patient, Lovenox 40 Code. Full Disposition. Anticipated discharge 05/09, s/p cath. Subjective: ongoing ant chest discomfort w/ cough Objective: Vital Signs Temp Pulse Resp BP Pulse Ox 36.9 C 64 20 130/74 H 96 05/08/17 17:17 05/08/17 17:17 05/08/17 17:17 05/08/17 17:17 05/08/17 17:17 Laboratory Results 05/08/17 14:30 05/07/17 05/08/17 05/09/17 05:59 05:59 05:59 Intake Total 820 Output Total 475 1450 Balance 345 -1450 PT 12.9 SEC (12.0-15.0) 05/08/17 14:30 INR 0.95 (0.83-1.16) 05/08/17 14:30 - Physical Exam Constitutional: no apparent distress, not in pain, chronically ill appearing, uncomfortable Cardiovascular: regular rate and rhythym, no murmur, rub, or gallop, No tachycardia, No edema Respiratory: reduced air movement (poor exp air movement), No expiratory wheeze , No inspiratory crackles, No bronchial breath sounds, No respiratory distress Gastrointestinal: normoactive bowel sounds, soft, non-tender abdomen, no palpable masses Neurologic: AAOx3, sensation intact bilaterally, No weakness Psychiatric: interacting appropriately, not anxious, not encephalopathic, thought process linear ICD10 Worksheet Patient Problems: Problems Problem Status Onset Pneumonia Acute COPD exacerbation Acute Sepsis Acute Respiratory failure with hypoxia Acute COPD (chronic obstructive pulmonary disease) Acute Severe sepsis Acute
[2017-05-08] MEDS: PATCH REMOVAL 1 EA PATCH TD SCH (20:26)
[2017-05-08] MEDS: MELATONIN 3 MG TAB PO SCH (20:26)
[2017-05-09] MEDS: IPRATROPIUM/ALBUTEROL 3 ML DEYVIAL IH SCH ×4 (02:35→18:15)
[2017-05-09] MEDS: ALBUTEROL 60 PUFFS/8 GM MDI IH PRN ×2 (05:39→10:33)
[2017-05-09] MEDS: ASPIRIN EC 81 MG TAB PO SCH (08:06)
[2017-05-09] MEDS: ATORVASTATIN CALCIUM 10 MG TAB PO SCH (08:06)
[2017-05-09] MEDS: predniSONE 20 MG TAB PO SCH (08:07)
[2017-05-09] MEDS: guaiFENesin 600 MG TAB.ER PO SCH ×2 (08:07→20:21)
[2017-05-09] MEDS: traMADol 50 MG TAB PO PRN ×2 (08:08→14:18)
[2017-05-09] MEDS: NICOTINE 7 MG/24 HR PATCH TD SCH (08:09)
[2017-05-09] MEDS: ENOXAPARIN 40 MG/0.4 ML SYR SC SCH (08:09)
[2017-05-09] MEDS: LIDOCAINE 4%/MENTHOL 1% PATCH TD SCH (08:10)
[2017-05-09] MEDS: TIOTROPIUM INHALER 18 MCG/DOSE 5 DOSE/MDI IH SCH (10:32)
[2017-05-09] MEDS: FLUTICASONE/SALMETER 250/50MCG DISKUS IH SCH ×2 (10:32→20:22)
[2017-05-09] MEDS ORDERED: HYDROmorphONE/DILAUDID 1 MG/ML INJ IVP PRN (10:45)
[2017-05-09] MEDS ORDERED: HYDROmorphONE/DILAUDID 2 MG/ML INJ IVP PRN (10:48)
[2017-05-09] MEDS: HYDROmorphONE/DILAUDID 2 MG TAB PO PRN ×3 (10:55→20:21)
[2017-05-09] MEDS: guaiFENesin/CODEINE PHOS 10 ML UDCUP PO PRN (11:59)
--- NOTE | 2017-05-09 12:10 | ASMTCMCOM ---
CM Note CM Note Notes: CM met w/ pt for dispo planning. Pt is not interested in having HC at this time. Pt reports that he will wear oxygen if he needs to. Pt reports that he will find alternative housing once his lease is up. No needs identified at this time. CM available for changes. Plan: Independent Date Signed: 05/09/2017 12:09 PM Electronically Signed By:CASTRO Nunez
--- NOTE | 2017-05-09 12:18 | ASMTCMCOM ---
CM Note CM Note Notes: CM met w/ pt for dispo planning. PT is recommending SNF. Awaiting recommendation from OT. Pt reports that he is uncertain if he is agreeable to the 30 day stay at this time. CM to check in tomorrow. Plan: TBD Date Signed: 05/09/2017 12:18 PM Electronically Signed By:CASTRO Nunez
--- NOTE | 2017-05-09 16:35 | PDCARPN ---
Cardiology Progress Note Chief Complaint: Reports of right groin pains (post angiogram) this morning Assessment/Plan: Assessment: 05-09-17 Patient doing well this morning, but did have complaints of right groin discomfort in the region of the angiogram access. Mild ecchymosis was noted, but no overt swelling or clear evidence for haematoma. Uneventful night. Angiography yesterday without critical lesions identified (there was stenosis up to 40% in the RCA). Normal LVEF was also noted. Patient ate dinner last night and had no issues with sleep. Given the discomfort that was noted to the right groin, post angiogram, cardiology recommended ultrasound assessment for haematoma, aneurysm, and pseudoaneurysm. This was completed earlier today, and no pathology was appreciated. 05-08-17 Patient is a 61 y/o male with history of COPD (ongoing tobacco use), Hep C ( from prior IV drug abuse), but no prior history of CAD, HTN, HLP, or DM, who represented to [facility] with complaints of shortness of breath. Patient with recent admission on 04-19-17, thought to be a COPD exacerbation with concomitant pneumonia. Treatment with antibiotics, steroids, and supplemental oxygen did make the patient feel somewhat better, but the shortness of breath returned, and continued to be noted with minimal activity. Over the weekend, the patient had MPI testing, which revealed a perfusion defect to the anterior wall (distal ) with extension into the anteroapical region. This region was completely reversible. Ejection fraction was noted to be normal (hyperdynamic). No olimpia complaints of chest pains or pressure, but the ongoing, progressive nature of the shortness of breath, in the setting of well treated pulmonary issues was of concern. The patient also has ongoing coronavirus pulmonary infection. Today, the patient is doing fair, but is moderately upset with the NPO status ( understandable). Plan: (1) Aggressive CV risk factor modification (2) Smoking cessation is a must (3) Would continue therapy on ASA (male over the age of 50 with CV risks) (4) Continue therapy on statins for HLP, and have annual assessment of cholesterol and LFTs (5) Would have patient follow up with cardiology in one week Subjective: No cardiovascular complaints were voiced this morning, but there was some discomfort to the right groin Reviewed/Discussed With: hospitalist Objective: Vital Signs (8 Hrs) Temp Pulse Resp BP Pulse Ox 05/09/17 15:42 36.4 C 98 16 120/77 95 05/09/17 14:32 86 H 18 L 05/09/17 11:50 36.8 C 94 20 114/73 94 05/09/17 10:33 110 H 34 H 92 Intake/Output (24 Hrs) 05/08/17 05/09/17 05/10/17 05:59 05:59 05:59 Intake Total 1220 Output Total 1450 625 775 Balance -1450 -625 445 Intake: Oral (ml) 1220 Output: Urine (ml) 1450 625 775 Toilet 400 Urinal 1450 625 375 Other: Intake Quantity Yes Yes Yes Sufficient Number of Voids Urinal 3 Number of Stools Toilet 1 Result Diagrams: 05/08/17 14:30 05/08/17 13:30 EKG: normal sinus rhythm - Physical Exam Constitutional: WDWN, healthy appearing, no apparent distress Eyes: PERRL, EOMI Ears, Nose, Mouth, Throat: moist mucous membranes Cardiovascular: regular rate and rhythm, no murmurs, pulses symmetric bilat Peripheral Pulses: 2+: dorsalis-pedis (R), dorsalis-pedis (L) Respiratory: reduced air movement, expiratory wheeze Gastrointestinal: normoactive bowel sounds Skin: no rashes, no edema Musculoskeletal: no muscular tenderness Neurologic: AAOx3, CN II-XII grossly intact Psychiatric: cooperative, interactive, following commands ICD10 Worksheet Patient Problems: Problems Problem Status Onset Pneumonia Acute Severe sepsis Acute COPD (chronic obstructive pulmonary disease) Acute COPD exacerbation Acute Respiratory failure with hypoxia Acute Sepsis Acute
--- NOTE | 2017-05-09 18:36 | HOSPPROG ---
Hospitalist Progress Note Assessment/Plan: Assessment: 61-year-old male presents with acute COPD exacerbation in the setting of chronic hypoxic respiratory failure, complicated by acute lactic acidosis, abnormal stress test, and post-cath inguinal pain Plan: 1. Acute COPD exacerbation. Evidenced by poor expiratory air movement, expiratory wheezes, shortness of breath, most likely secondary to incompletely resolved initial COPD exacerbation as well as ongoing smoke exposure + kinney virus viral syndrome - cont pred, plan 10 day taper at discharge - added spiriva/advair/alb inhaler, educated patient, he will discharge w/ those physical inhalers to ensure adherence 2. Metabolic/Lactic acidosis. Acute, likely 2/2 hypovolemia, received IVF, resolved 3. Kinney virus Viral syndrome, continue supportive care with antitussives, mucolytic, likely provoking cause of COPD exacerbation 4. Chronic hypoxic respiratory failure. D/w patient, he will be permitted to return to previous residence w/ plan to relocate in 1 month - today patient expressed that his roommates may propose that he not use o2 at home, and this would be disastrous - I asked case mgmt/RN to revisit this w/ patient, b/c it would be unsafe to discharge him to a location where he cannot use o2 5. Peripheral arterial disease. Chronic iliac occlusion on CT, cont ASA/statin 6. CAD. Moderate multivessel disease on cath w/o culprit lesion, Cards rec ASA/ statin 7. Inguinal pain. Acute, new problem, further w/u indicated. At cath site, no physical e/o hematoma, but at risk for pseudoaneurysm/hematoma - d/w Dr. Mason, he recommends US - tx supportively w/ PO dilaudid PRN - cont reassess Diet. Regular Prophylaxis. High risk patient, Lovenox 40 Code. Full Disposition. Anticipated discharge 05/10, if groin site stable, can have home o2. Subjective: R groin pain Objective: Vital Signs Temp Pulse Resp BP Pulse Ox 36.4 C 98 16 120/77 95 05/09/17 15:42 05/09/17 15:42 05/09/17 15:42 05/09/17 15:42 05/09/17 15:42 Laboratory Results 05/08/17 14:30 05/08/17 14:30 05/08/17 05/09/17 05/10/17 05:59 05:59 05:59 Intake Total 1220 Output Total 1450 625 775 Balance -1450 -625 445 PT 12.9 SEC (12.0-15.0) 05/08/17 14:30 INR 0.95 (0.83-1.16) 05/08/17 14:30 - Pending Discharge Pending Discharge Within 24 Hours: Yes Pending Discharge Date: 05/10/17 Pending Discharge Time: 11:00 - Physical Exam Constitutional: chronically ill appearing, uncomfortable, cachectic, No not in pain (moderate) Cardiovascular: tachycardia, No systolic murmur, No irregularly irregular, No edema Respiratory: reduced air movement (poor exp air movement), respiratory distress (visible tachypnea), No expiratory wheeze, No inspiratory crackles, No bronchial breath sounds Gastrointestinal: normoactive bowel sounds, soft, non-tender abdomen, no palpable masses, No distension Skin: other (no fluctuance or ecchymoses/erythema, tenderness at cath site) Neurologic: AAOx3, sensation intact bilaterally, No weakness Psychiatric: interacting appropriately, not anxious, not encephalopathic, thought process linear ICD10 Worksheet Patient Problems: Problems Problem Status Onset Pneumonia Acute COPD exacerbation Acute Sepsis Acute Respiratory failure with hypoxia Acute COPD (chronic obstructive pulmonary disease) Acute Severe sepsis Acute
[2017-05-09] MEDS: MELATONIN 3 MG TAB PO SCH (20:21)
[2017-05-09] MEDS: PATCH REMOVAL 1 EA PATCH TD SCH (20:23)
[2017-05-09 22:34] VITALS: RESP 18
[2017-05-10] MEDS: guaiFENesin/CODEINE PHOS 10 ML UDCUP PO PRN ×2 (00:08→09:46)
[2017-05-10] MEDS: HYDROmorphONE/DILAUDID 2 MG TAB PO PRN ×4 (00:08→12:21)
[2017-05-10] MEDS: IPRATROPIUM/ALBUTEROL 3 ML DEYVIAL IH SCH ×3 (02:49→09:38)
[2017-05-10 07:52] VITALS: BP 102/76; TEMP 97.9
[2017-05-10] MEDS: ASPIRIN EC 81 MG TAB PO SCH (08:13)
[2017-05-10] MEDS: NICOTINE 7 MG/24 HR PATCH TD SCH (08:13)
[2017-05-10] MEDS: predniSONE 20 MG TAB PO SCH (08:13)
[2017-05-10] MEDS: ATORVASTATIN CALCIUM 10 MG TAB PO SCH (08:13)
[2017-05-10] MEDS: guaiFENesin 600 MG TAB.ER PO SCH (08:13)
[2017-05-10] MEDS: LIDOCAINE 4%/MENTHOL 1% PATCH TD SCH (08:14)
[2017-05-10] MEDS: ENOXAPARIN 40 MG/0.4 ML SYR SC SCH (08:15)
[2017-05-10] MEDS: ALBUTEROL 60 PUFFS/8 GM MDI IH PRN (09:36)
[2017-05-10] MEDS: FLUTICASONE/SALMETER 250/50MCG DISKUS IH SCH (09:36)
[2017-05-10] MEDS: TIOTROPIUM INHALER 18 MCG/DOSE 5 DOSE/MDI IH SCH (09:36)
[2017-05-10 09:44] VITALS: PULSE 85; O2SAT 92
--- NOTE | 2017-05-10 12:54 | HOSPPROG ---
Hospitalist Progress Note Assessment/Plan: Assessment: 61-year-old male presents with acute COPD exacerbation in the setting of chronic hypoxic respiratory failure, complicated by acute lactic acidosis, abnormal stress test, and post-cath inguinal pain Plan: 1. Acute COPD exacerbation. Evidenced by poor expiratory air movement, expiratory wheezes, shortness of breath, most likely secondary to incompletely resolved initial COPD exacerbation as well as ongoing smoke exposure + kinney virus viral syndrome - cont pred, plan 10 day taper at discharge - added spiriva/advair/alb inhaler, educated patient, he will discharge w/ those physical inhalers to ensure adherence 2. Metabolic/Lactic acidosis. Acute, likely 2/2 hypovolemia, received IVF, resolved 3. Kinney virus Viral syndrome, continue supportive care with antitussives, mucolytic, likely provoking cause of COPD exacerbation 4. Chronic hypoxic respiratory failure. D/w patient, he will be permitted to return to previous residence w/ plan to relocate in 1 month - today patient expressed that his roommates may propose that he not use o2 at home, and this would be disastrous - I asked case mgmt/RN to revisit this w/ patient, b/c it would be unsafe to discharge him to a location where he cannot use o2 5. Peripheral arterial disease. Chronic iliac occlusion on CT, cont ASA/statin 6. CAD. Moderate multivessel disease on cath w/o culprit lesion, Cards rec ASA/ statin 7. Inguinal pain. Acute, new problem, further w/u indicated. At cath site, no physical e/o hematoma, but at risk for pseudoaneurysm/hematoma - d/w Dr. Mason, he recommends US - tx supportively w/ PO dilaudid PRN - cont reassess Diet. Regular Prophylaxis. High risk patient, Lovenox 40 Code. Full Disposition. home today > 30 minutes Subjective: ready for dc. groin u/s neg for pseudoaneurysm Objective: Vital Signs Temp Pulse Resp BP Pulse Ox 36.6 C 85 18 102/76 92 05/10/17 07:50 05/10/17 09:30 05/10/17 09:30 05/10/17 07:50 05/10/17 09:30 Laboratory Results 05/08/17 14:30 05/08/17 14:30 05/09/17 05/10/17 05/11/17 05:59 05:59 05:59 Intake Total 1220 Output Total 625 1375 Balance -625 -155 PT 12.9 SEC (12.0-15.0) 05/08/17 14:30 INR 0.95 (0.83-1.16) 05/08/17 14:30 - Physical Exam Constitutional: no apparent distress, appears nourished Eyes: PERRL, anicteric sclera Ears, Nose, Mouth, Throat: moist mucous membranes, hearing normal Cardiovascular: regular rate and rhythym, no murmur, rub, or gallop Respiratory: no respiratory distress, no rales or rhonchi Gastrointestinal: normoactive bowel sounds, soft, non-tender abdomen Genitourinary: no bladder fullness, No barboza in urethra Skin: warm, normal color Musculoskeletal: full muscle strength Neurologic: AAOx3 ICD10 Worksheet Patient Problems: Problems Problem Status Onset Pneumonia Acute Severe sepsis Acute COPD (chronic obstructive pulmonary disease) Acute COPD exacerbation Acute Respiratory failure with hypoxia Acute Sepsis Acute
--- NOTE | 2017-05-10 13:04 | PDHOMEO2F ---
Home Oxygen Face to Face Home Orders: I certify that a physician or a nurse practitioner or physician's starch treating assistant has had a [id number] encounter with this patient on the date of this order due to the diagnosis listed, which relates to the primary reason the patient requires home oxygen. Alternative treatments have been tried, or considered, and deemed ineffective. It is anticipated that supplemental oxygen will result in improvement with treatment. Home oxygen qualifying diagnosis: copd SpO2 on room air (%): 81 Frequency of home oxygen needed: continuous Home oxygen liters per minute: 2 Home oxygen delivery device: nasal cannula Concentrator: No E-tanks for mobility and back up: Yes If ordering portable O2, is the patient mobile in the home?: Yes I certify that, based on these findings, the home oxygen is medically necessary for this patient for the following length of time. Length of time home oxygen needed: 99 years
--- NOTE | 2017-05-10 13:51 | PDCARPN ---
Cardiology Progress Note Chief Complaint: No cardiovascular complaints today. Ecchymosis to the cath site, but no swelling Assessment/Plan: Assessment: 05-10-17 Patient comfortable this morning. Ultrasound to the right groin site without gross pathology noted. Patient continues to have minor tenderness appreciated. No chest pains or pressure noted. Overall, patient doing well today. PO appetite has been good. Sleep overnight was good (per patient reports). 05-09-17 Patient doing well this morning, but did have complaints of right groin discomfort in the region of the angiogram access. Mild ecchymosis was noted, but no overt swelling or clear evidence for haematoma. Uneventful night. Angiography yesterday without critical lesions identified (there was stenosis up to 40% in the RCA). Normal LVEF was also noted. Patient ate dinner last night and had no issues with sleep. Given the discomfort that was noted to the right groin, post angiogram, cardiology recommended ultrasound assessment for haematoma, aneurysm, and pseudoaneurysm. This was completed earlier today, and no pathology was appreciated. 05-08-17 Patient is a 61 y/o male with history of COPD (ongoing tobacco use), Hep C ( from prior IV drug abuse), but no prior history of CAD, HTN, HLP, or DM, who represented to [facility] with complaints of shortness of breath. Patient with recent admission on 04-19-17, thought to be a COPD exacerbation with concomitant pneumonia. Treatment with antibiotics, steroids, and supplemental oxygen did make the patient feel somewhat better, but the shortness of breath returned, and continued to be noted with minimal activity. Over the weekend, the patient had MPI testing, which revealed a perfusion defect to the anterior wall (distal ) with extension into the anteroapical region. This region was completely reversible. Ejection fraction was noted to be normal (hyperdynamic). No olimpia complaints of chest pains or pressure, but the ongoing, progressive nature of the shortness of breath, in the setting of well treated pulmonary issues was of concern. The patient also has ongoing coronavirus pulmonary infection. Today, the patient is doing fair, but is moderately upset with the NPO status ( understandable). Plan: (1) Aggressive CV risk factor modification (2) Smoking cessation is a must (3) Would continue therapy on ASA (male over the age of 50 with CV risks) (4) Continue therapy on statins for HLP, and have annual assessment of cholesterol and LFTs (5) Would have patient follow up with cardiology in one week Subjective: No cardiovascular complaints Reviewed/Discussed With: multidisciplinary team Objective: Vital Signs (8 Hrs) Temp Pulse Resp BP Pulse Ox 05/10/17 09:30 85 18 92 05/10/17 07:50 36.6 C 78 18 102/76 91 L Intake/Output (24 Hrs) 05/09/17 05/10/17 05/11/17 05:59 05:59 05:59 Intake Total 1220 Output Total 625 1375 Balance -625 -155 Intake: Oral (ml) 1220 Output: Urine (ml) 625 1375 Toilet 400 Urinal 625 975 Other: Intake Quantity Yes Yes Sufficient Result Diagrams: 05/08/17 14:30 05/08/17 13:30 - Physical Exam Constitutional: WDWN, healthy appearing, no apparent distress Eyes: PERRL, EOMI Ears, Nose, Mouth, Throat: moist mucous membranes Cardiovascular: regular rate and rhythm, no murmurs Peripheral Pulses: 2+: dorsalis-pedis (R), dorsalis-pedis (L) Respiratory: reduced air movement, inspiratory crackles Skin: no edema Musculoskeletal: no muscular tenderness Neurologic: AAOx3, CN II-XII grossly intact Psychiatric: cooperative, interactive, following commands ICD10 Worksheet Patient Problems: Problems Problem Status Onset Pneumonia Acute Severe sepsis Acute COPD (chronic obstructive pulmonary disease) Acute COPD exacerbation Acute Respiratory failure with hypoxia Acute Sepsis Acute
--- NOTE | 2017-05-10 13:58 | GDS ---
[f rep st] DISCHARGE SUMMARY DISCHARGE DIAGNOSES: 1. Chronic obstructive pulmonary disease exacerbation. 2. Tobacco use. 3. Chronic hypoxemic respiratory failure. 4. Coronary artery disease. Please see admission History and Physical by Dr. Yamileth Pierre. Patient presented with shortness o f breath. He was recently hospitalized. He was felt to have a COPD exacerbation. He had negative C TA. He had an echocardiogram showing diastolic dysfunction only. Did not have pulmonary hypertensio n. 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 The patient was treated with steroids. He underwent a stress test, which showed inferior isch emia. Subsequent catheterization showed a 40% RCA lesion. No intervention was made. The patient ndiaye s chronic hypoxemic respiratory failure. He was given Spiriva, Advair, and albuterol, as well as an aspirin and statin. He is discharged home with home oxygen. /[id number]/MODL
--- NOTE | 2017-05-10 15:14 | ASMTCMCOM ---
CM Note CM Note Notes: Spoke w/, pt will dc home today. Medications, including inhalers delivered to pt, via [facility]. Appt scheduled with the [facility] for Monday at 12pm. CM will arrange for transport home with Medicaid. DC Plan: Independent Date Signed: 05/10/2017 03:13 PM Electronically Signed By:Zena Ramirez RN
--- NOTE | 2017-05-10 18:12 | ASDISCHSUM ---
Discharge Information Plan Status:Home with DME or Oxygen Medically Cleared to Leave: Discharge Date:05/10/2017 04:42 PM CM D/C Disposition:Home, Routine, Self-Care ADT D/C Disposition:Home, Routine, Self-Care Projected Discharge Date:05/07/2017 11:00 AM Transportation at D/C:Medicaid Transportation Discharge Delay Reason: Follow-Up Date:05/07/2017 11:00 AM Discharge Slot: Final Diagnosis: Placement Information Referral Type:*Home Health Care Services Referral ID:[id number] Provider Name: Address 1: Phone Number: Address 2: Fax Number: City: Selection Factors: State: Patient Contact Information Contact Name:MATT Relationship:Friend Address:[address] [place] [address] [facility] City:[place] Alternate Phone: [facility]/Zip Code:[place] [address] Email: Financial Information Financial Class:Medicaid Primary Plan Desc[place] Primary Plan Number:[id number] Secondary Plan Desc: Secondary Plan Number: Assessment Information [facility] Initial CM Assessment Living Arrangements What is your living Answers: Alone arrangement? Who do you live with? Type Of Residence What kind of residence do Answers: House you live in? Discharge Plan Comments Coordination Status Comments Notes: Patient is a 61yo single male who was just discharged from the hospital April 19, 2017 with a COPD exacerbation. He has returned for pneumonia, COPD exacerbation, Hep C, and lactic acid elevation. Patient has a living situation where his roommates are smoking in the house and do not want an explosion. As a result patient has not been using his home oxygen. OT/PT have been ordered. D/C needs TBD. CM will follow. Date Signed: 05/02/2017 10:30 AM Electronically Signed By:Anu Acevedo LCSW [facility] CM Progress Note CM Note CM Note Notes: Met w/pt to discuss dc poc. Pt states he will dc back to apt that he is staying in with lj. They received a notice to vacate in 1 month. CM questioned pt if he got his inhalers at last dc, he said yes he had an ihaler and a steroid, but also says when he went to [facility] to [facility] med[facility], they were not there. So pt's memory of his discharge is not completely clear as he went to the ER the next day and may be confusing events. In any case, CM will work with pt to make sure he has all inhalers before discharging home. PT/OT recommend home, no therapies. DC Plan: Independent Date Signed: 05/04/2017 05:44 PM Electronically Signed By:Zena Ramirez RN [facility] MARK Progress Note CM Note MARK Note Notes: Pt had abnormal stress test, further testing required. Otherwise pt is independent and told CM that he will dc back to the apt that he shares with lj. CM to make sure pt has rx for short and long acting inhalers filled before leaving hospital. PT/OT cleared pt for home DC Plan: Independent Date Signed: 05/06/2017 05:02 PM Electronically Signed By:Zena Ramirez RN [facility] MARK Progress Note CM Note CM Note Notes: CM met with patient, he states he is aware of stress test tomorrow. Patient had difficult time carrying conversation without shortness of breath. CM asked if patient about housing plans after the lease is up, he states he hopes to find another place. He receives SSDI and recently re-certified. He states his Primary Care is at [facility], CM informed member they have Case Management and also gave patient contact info to [facility] [phone](Medicaid CM). Patient does not have a working phone at this time, he had a [employer] phone in the past and states he should be eligible for a new phone. CM left message at [employer] to place a LT Medicaid referral. Per hospitalist progress notes patient should be able to discharge when acute treatments and cardiology assessments are complete. CM to follow for discharge needs. Date Signed: 05/07/2017 04:17 PM Electronically Signed By:Laquita Delgadillo [facility] CM Progress Note CM Note CM Note Notes: CM met w/ pt for dispo planning. Pt is not interested in having HC at this time. Pt reports that he will wear oxygen if he needs to. Pt reports that he will find alternative housing once his lease is up. No needs identified at this time. CM available for changes. Plan: Independent Date Signed: 05/09/2017 12:09 PM Electronically Signed By:CASTRO Nunez [facility] CM Progress Note CM Note CM Note Notes: Spoke w/, pt will dc home today. Medications, including inhalers delivered to pt, via [facility]. Appt scheduled with the [facility] for Monday at 12pm. CM will arrange for transport home with Medicaid. DC Plan: Independent Date Signed: 05/10/2017 03:13 PM Electronically Signed By:Zena Ramirez RN Case Management Discharge Plan Note Case Management Discharge Discharge Order Complete? Answers: Yes Patient to Obtain Answers: Other Notes: RXs given to patient Medications Transportation Arranged Answers: Other Notes: [place] (medicaid transportation) Transport will Pick (Date 05/10/2017 04:00 PM & Time) Discharge Comments Notes: Pt's transport arranged for pt with [facility], auth # [id number] Date Signed: 05/10/2017 03:41 PM Electronically Signed By:Zena Ramirez RN Intervention Information
== END 2017-05-10 16:42 | disposition home or self-care (01) | DRG 189 ==
LOC: INTOOBSV 15:22 → OBSVTOIN 15:35 → F3E 17:05
PROVIDERS: ADMIT Internal Medicine; ATTEND Internal Medicine
PROC: 4A023N7 Measurement of Cardiac Sampling and Pressure, Left Heart, Percutaneous Approach (ICD-10-PCS; principal; 2017-05-08)
PROC: B2111ZZ Fluoroscopy of Multiple Coronary Arteries using Low Osmolar Contrast (ICD-10-PCS; principal; 2017-05-08)
PROC: B2151ZZ Fluoroscopy of Left Heart using Low Osmolar Contrast (ICD-10-PCS; principal; 2017-05-08)
DX: J96.21 Acute and chronic respiratory failure with hypoxia (principal); J44.1 Chronic obstructive pulmonary disease with (acute) exacerbation; E87.2 Acidosis; I25.10 Atherosclerotic heart disease of native coronary artery without angina pectoris; F17.200 Nicotine dependence, unspecified, uncomplicated; B19.20 Unspecified viral hepatitis C without hepatic coma; I73.9 Peripheral vascular disease, unspecified; B97.29 Other coronavirus as the cause of diseases classified elsewhere; Z91.14 Patient's other noncompliance with medication regimen
CPT/HCPCS: 96374; 97116-GP; 97161-GP; 97165-GO; 97535-GO; A9500; J0456; J0696; J0834; J1644; J1650; J2250; J2270; J2785; J2930; J3010; J7512; Q9967

== ENCOUNTER 2017-06-18 10:00 | Inpatient (IN) | payer MEDICAID ==
[2017-06-18] MEDS ORDERED: IPRATROPIUM/ALBUTEROL 3 ML DEYVIAL ONE (10:09)
--- NOTE | 2017-06-18 10:09 | CPEKG ---
Heart Rate: 91 RR Interval: 659 P-R Interval: 144 QRSD Interval: 74 QT Interval: 348 QTC Interval: 429 P [place]: 83 QRS [place]: 95 T Wave [place]: 70 EKG Severity - ABNORMAL ECG - EKG Impression: SINUS RHYTHM EKG Impression: RIGHT AXIS DEVIATION EKG Impression: PROBABLE INFERIOR INFARCT, OLD EKG Impression: BORDERLINE T ABNORMALITIES, ANT-LAT LEADS Electronically Signed By: Yanna Mcdaniel 18-Jun-2017 14:45:50
[2017-06-18] MEDS ORDERED: NS 500 ML IV ONE ×2 (10:10→22:25)
[2017-06-18] MEDS ORDERED: methylPREDNISolone SOD SUCC 125 MG/2 ML VIAL IVP ONE (10:10)
[2017-06-18] MEDS ORDERED: IPRATROPIUM/ALBUTEROL 3 ML DEYVIAL IH ONE (10:10)
--- NOTE | 2017-06-18 10:15 | EDPHY ---
H & P Time Seen by Provider: 06/18/17 10:03 HPI/ROS: CHIEF COMPLAINT: Shortness of breath HISTORY OF PRESENT ILLNESS: Patient is a 61-year-old male with a history of COPD who presents emergency department with increasing shortness of breath. The patient was discharged from the hospital on 05/10/2017 after having a COPD exacerbation. The patient states he has been at his baseline. However, over the past 3 days had increasing shortness of breath. He has oxygen at home but has not been using it. He states his nebulized inhalers are not improving his symptoms. He does not know if he is currently taking steroids. He reports a nonproductive cough. Patient still smokes cigarettes heavily. He denies chest pain. No leg pain or swelling. No fevers or chills. REVIEW OF SYSTEMS: My complete review of systems is negative except as mentioned in the HPI. Past Medical/Surgical History: Includes COPD, tobacco use, hypoxemic respiratory failure, coronary artery disease, hepatitis-C Social history: The patient smokes cigarettes. Smoking Status: Current every day smoker Physical Exam: Vitals noted GENERAL: Moderate acute distress, alert. HEENT: Eyes normal to inspection, normal pharynx, no signs of dehydration. NECK: [No thyromegaly, no lymphadenopathy, supple. RESPIRATORY: Increased work of breathing. Pursing lips. Accessory muscle use. Diffuse wheeze. Poor air movement. No rales or rhonchi. CVS: Regular rate and rhythm, no rubs, murmurs, or gallops. ABDOMEN: Soft, nontender, nondistended, no organomegaly. BACK: Normal to inspection, no CVA tenderness. SKIN: Normal color, no rash, warm, dry. No pallor. EXTREMITIES: No pedal edema, no calf tenderness, no Homans sign or cords, no joint swelling. NEURO/PSYCH: Alert and oriented x3, normal mood and affect, normal motor sensory exam. No obvious cranial nerve deficit. Constitutional: Initial Vital Signs Temperature (C) 36.8 C 06/18/17 10:06 Heart Rate 97 06/18/17 10:06 Respiratory Rate 16 06/18/17 10:06 Blood Pressure 160/90 H 06/18/17 10:06 O2 Sat (%) 98 06/18/17 10:06 O2 Delivery Mode Room Air Allergies/Adverse Reactions: No Known Allergies Allergy (Verified 05/01/17 15:49) Home Medications: Medication Instructions Recorded Albuterol [Proventil Inhaler HFA 2 puffs IH Q4HRS PRN #1 mdi 05/10/17 (*)] Aspirin EC [Aspirin EC 81 mg (*)] 81 mg PO DAILY tab 05/10/17 Atorvastatin Calcium [Lipitor 10 10 mg PO DAILY #30 tab 05/10/17 mg (*)] Fluticasone/Salmeter 250/50Mcg 1 puffs IH BID #1 disk 05/10/17 [Advair 250/50 (*)] HYDROmorphone HCL [Dilaudid 2 mg 2 mg PO Q4HRS PRN #10 tab 05/10/17 (*)] Tiotropium Inhaler [Spiriva 18 mcg IH DAILY #1 mdi 05/10/17 Handihaler] guaiFENesin [Mucinex 600 MG (*)] 1,200 mg PO BID #60 tab.er 05/10/17 Medical Decision Making - Diagnostics Imaging Results: Imaging Impressions Chest X-Ray 06/18/17 10:10 Impression: COPD with chronic perihilar bronchitis and bibasilar interstitial changes, with continued interval improvement (though incomplete clearing) of a lingular infiltrate, compared to studies in April. ED Course/Re-evaluation: In the emergency department I met the patient on arrival. I was called to the patient's room by the nurse who felt that he was having significant respiratory distress. Patient was placed on a nasal cannula. His oxygen saturation was 97% . Patient had IV placed. EKG, chest x-ray and labs were ordered. The patient was given a DuoNeb. Patient was given Solu-Medrol 125 mg orally. I reviewed the patient's previous medical record. Of note on his previous hospitalization he did have a negative CTA. He had a cardiac echo which revealed diastolic dysfunction. He did not have any pulmonary hypertension. Sinus rhythm at 91. Right axis deviation. Q-wave in III and AVF. Flipped T- waves V1 through V3. This EKG is abnormal. Chest x-ray: Please refer the dictated report. Patient has COPD with chronic perihilar bronchitis and bibasilar interstitial changes with continued interval improvement of lingular infiltrate. I discussed the results with the patient. I answered all his questions. Patient's work of breathing improved. I do not feel he needs BiPAP or CPAP at this time. Patient was noted to have an improving x-ray from his previous, he is afebrile, his white count is 9. I discussed antibiotic treatment with Dr. Toscano. At this time we will hold off on antibiotics. He did have an elevated lactic acid but this could be secondary to his work of breathing. Differential Diagnosis: My differential includes but is not limited to COPD exacerbation, bronchitis, pneumonia, PE, ACS, acute LA, bacteremia, sepsis Critical Care Time: Patient required 35 min of critical care time. This was exclusive of any unbundled procedure. This was due to the patient's significant respiratory distress on arrival, time spent at the patient's bedside treating and assessing the patient, frequent rechecks, and admission. - Data Points Laboratory Results: Laboratory Results 06/18/17 10:20 06/18/17 10:20 06/18/17 06/18/17 06/18/17 10:20 10:20 10:20 WBC 9.48 10^3/uL 10^3/uL (3.80-9.50) RBC 5.50 10^6/uL 10^6/uL (4.40-6.38) Hgb 15.9 g/dL g/dL (13.7-17.5) Hct 48.6 % % (40.0-51.0) MCV 88.4 fL fL (81.5-99.8) MCH 28.9 pg pg (27.9-34.1) MCHC 32.7 g/dL g/dL (32.4-36.7) RDW 16.1 % H % (11.5-15.2) Plt Count 213 10^3/uL 10^3/uL (150-400) MPV 9.5 fL fL (8.7-11.7) Neut % (Auto) 75.9 % H % (39.3-74.2) Lymph % (Auto) 13.4 % L % (15.0-45.0) Barber % (Auto) 7.8 % % (4.5-13.0) Eos % (Auto) 1.8 % % (0.6-7.6) Baso % (Auto) 0.8 % % (0.3-1.7) Nucleat RBC Rel Count 0.0 % % (0.0-0.2) Absolute Neuts (auto) 7.19 10^3/uL H 10^3/uL (1.70-6.50) Absolute Lymphs (auto) 1.27 10^3/uL 10^3/uL (1.00-3.00) Absolute Monos (auto) 0.74 10^3/uL 10^3/uL (0.30-0.80) Absolute Eos (auto) 0.17 10^3/uL 10^3/uL (0.03-0.40) Absolute Basos (auto) 0.08 10^3/uL 10^3/uL (0.02-0.10) Absolute Nucleated RBC 0.00 10^3/uL 10^3/uL (0-0.01) Immature Gran % 0.3 % % (0.0-1.1) Immature Gran # 0.03 10^3/uL 10^3/uL (0.00-0.10) VBG Lactic Acid 3.3 mmol/L H mmol/L (0.7-2.1) Sodium 144 mEq/L mEq/L (135-145) Potassium 4.2 mEq/L mEq/L (3.5-5.2) Chloride 105 mEq/L mEq/L (97-110) Carbon Dioxide 23 mEq/l mEq/l (22-31) Anion Gap 16 mEq/L mEq/L (8-16) BUN 12 mg/dL mg/dL (7-23) Creatinine 0.7 mg/dL mg/dL (0.7-1.3) Estimated GFR > 60 Glucose 100 mg/dL mg/dL (70-100) Calcium 8.8 mg/dL mg/dL (8.5-10.4) Troponin I < 0.012 ng/mL ng/mL (0.000-0.034) NT-Pro-B Natriuret Pep 723 pg/mL H pg/mL (0-125) Medications Given: Discontinued Medications Albuterol/Ipratropium (Duoneb) 3 ml IH EDNOW ONE Stop: 06/18/17 10:11 Last Admin: 06/18/17 10:40 Dose: 3 ml Sodium Chloride (Ns) 500 mls @ 1,000 mls/hr IV EDNOW ONE PRN Reason: Protocol Stop: 06/18/17 10:39 Last Admin: 06/18/17 10:40 Dose: 500 mls Methylprednisolone Sodium Succinate (Solu-Medrol) 125 mg IVP EDNOW ONE Stop: 06/18/17 10:11 Last Admin: 06/18/17 10:40 Dose: 125 mg Departure - Departure Disposition: [facility] Inpatient Acute Clinical Impression: Chronic obstructive pulmonary disease with acute exacerbation Condition: Good Referrals: NONE *PRIMARY CARE P,. [Primary Care Provider] - As per Instructions
[2017-06-18 10:37] LABS: PLATELET COUNT 213 10^3/uL (150-400)
[2017-06-18] MEDS ORDERED: NICOTINE POLACRILEX 2 MG GUM B PRN (12:26)
[2017-06-18] MEDS ORDERED: ONDANSETRON 4 MG/2 ML VIAL IVP PRN (12:26)
[2017-06-18] MEDS ORDERED: ACETAMINOPHEN 325 MG TAB PO PRN (12:26)
[2017-06-18] MEDS ORDERED: ONDANSETRON DISINTEGRATING 4 MG TAB PO PRN (12:26)
[2017-06-18] MEDS ORDERED: ALBUTEROL 3 ML DEYVIAL IH PRN (12:26)
[2017-06-18] MEDS: NICOTINE 21 MG/24 HR PATCH TD SCH (13:20)
--- NOTE | 2017-06-18 15:08 | PDGENHP ---
History and Physical - Chief Complaint sob, cough - History of Present Illness 61 yo M with PMH of copd and hep c and recent admit for copd exacerbation admitted with sob, cough, increased sputum production. Patient is minimally verbally interactive with me at the time of my evaluation, states he is tired and needs to sleep. He does note that he felt better after his last hospitalization but then began feeling sob in the last several days. He states he has not been using o2 at home though after his last hospitalization he was discharged with supplemental o2. He denies fevers or chills, denies chest pain. History Information - Allergies/Home Medication List Allergies/Adverse Reactions: No Known Allergies Allergy (Verified 05/01/17 15:49) I have personally reviewed and updated: family history, medical history, social history, surgical history - Past Medical History coronary artery disease (non obstructive), COPD Additional medical history: pneumonia. Hep C - Surgical History Reports: no pertinent surgical hx - Family History Positive for: non-pertinent - Social History Smoking Status: Current every day smoker Alcohol Use: Occasionally Drug Use: None Review of Systems Review of Systems: ROS: 10pt was reviewed & negative except for what was stated in HPI & below Physical Exam Physical Exam: Temp Pulse Resp BP Pulse Ox 36.5 C 82 28 H 124/70 H 94 06/18/17 12:37 06/18/17 12:37 06/18/17 12:37 06/18/17 12:37 06/18/17 12:37 O2 (L/minute) 4 Constitutional: no apparent distress, appears nourished, unkempt Eyes: PERRL Ears, Nose, Mouth, Throat: moist mucous membranes, poor dentition Cardiovascular: regular rate and rhythym, no murmur, rub, or gallop Respiratory: no respiratory distress, reduced air movement, expiratory wheeze Gastrointestinal: normoactive bowel sounds, soft, non-tender abdomen Genitourinary: no bladder tenderness Skin: warm, normal color Musculoskeletal: full muscle strength Neurologic: AAOx3 Psychiatric: interacting appropriately, not anxious, not encephalopathic Lab Data & Imaging Review 06/18/17 10:20 06/18/17 10:20 WBC 9.48 10^3/uL (3.80-9.50) 06/18/17 10:20 RBC 5.50 10^6/uL (4.40-6.38) 06/18/17 10:20 Hgb 15.9 g/dL (13.7-17.5) 06/18/17 10:20 Hct 48.6 % (40.0-51.0) 06/18/17 10:20 MCV 88.4 fL (81.5-99.8) 06/18/17 10:20 MCH 28.9 pg (27.9-34.1) 06/18/17 10:20 MCHC 32.7 g/dL (32.4-36.7) 06/18/17 10:20 RDW 16.1 % (11.5-15.2) H 06/18/17 10:20 Plt Count 213 10^3/uL (150-400) 06/18/17 10:20 MPV 9.5 fL (8.7-11.7) 06/18/17 10:20 Neut % (Auto) 75.9 % (39.3-74.2) H 06/18/17 10:20 Lymph % (Auto) 13.4 % (15.0-45.0) L 06/18/17 10:20 [place] % (Auto) 7.8 % (4.5-13.0) 06/18/17 10:20 Eos % (Auto) 1.8 % (0.6-7.6) 06/18/17 10:20 Baso % (Auto) 0.8 % (0.3-1.7) 06/18/17 10:20 Nucleat RBC Rel Count 0.0 % (0.0-0.2) 06/18/17 10:20 Absolute Neuts (auto) 7.19 10^3/uL (1.70-6.50) H 06/18/17 10:20 Absolute Lymphs (auto) 1.27 10^3/uL (1.00-3.00) 06/18/17 10:20 Absolute Monos (auto) 0.74 10^3/uL (0.30-0.80) 06/18/17 10:20 Absolute Eos (auto) 0.17 10^3/uL (0.03-0.40) 06/18/17 10:20 Absolute Basos (auto) 0.08 10^3/uL (0.02-0.10) 06/18/17 10:20 Absolute Nucleated RBC 0.00 10^3/uL (0-0.01) 06/18/17 10:20 Immature Gran % 0.3 % (0.0-1.1) 06/18/17 10:20 Immature Gran # 0.03 10^3/uL (0.00-0.10) 06/18/17 10:20 VBG Lactic Acid 3.3 mmol/L (0.7-2.1) H 06/18/17 10:20 Sodium 144 mEq/L (135-145) 06/18/17 10:20 Potassium 4.2 mEq/L (3.5-5.2) 06/18/17 10:20 Chloride 105 mEq/L (97-110) 06/18/17 10:20 Carbon Dioxide 23 mEq/l (22-31) 06/18/17 10:20 Anion Gap 16 mEq/L (8-16) 06/18/17 10:20 BUN 12 mg/dL (7-23) 06/18/17 10:20 Creatinine 0.7 mg/dL (0.7-1.3) 06/18/17 10:20 Estimated GFR > 60 06/18/17 10:20 Glucose 100 mg/dL (70-100) 06/18/17 10:20 Calcium 8.8 mg/dL (8.5-10.4) 06/18/17 10:20 Troponin I < 0.012 ng/mL (0.000-0.034) 06/18/17 10:20 NT-Pro-B Natriuret Pep 723 pg/mL (0-125) H 06/18/17 10:20 Visualized and Interpreted Chest x-ray results: Yes Chest X-Ray results: other (copd, lingular opacity) Visualized and Interpreted EKG results: Yes EKG Interpretation: Positive for: normal sinsus rhythm Assessment & Plan Assessment: Chronic obstructive pulmonary disease with acute exacerbation (Acute) 61 yo M with hx of copd and recent admit for copd exacerbation admitted for copd exacerbation # copd exacerbation: with sob, wheeze and decreased bs noted. Given IV steroids and BD in ER without significant improvement. Recent admission for same. Does have small infiltrate appreciated as next. Resp pcr panel negative. # pna: lingular infiltrate improved from prior but still present, will start levofloxacin and repeat cxr in am to see if anything more evident post volume resuc. # acute hypoxic resp failure: requiring 3-4L to maintain o2 sats > 90, in setting of above, will monitor # hx of CAD: non obstructive on recent cath, ecg non ischemic # tobacco dependency: nicotine patch and gum # dispo: observation status Patient new to my care. Old records reviewed and summarized as above. Care plan reviewed with ER doc including plans for BD.
[2017-06-18] MEDS: IPRATROPIUM/ALBUTEROL 3 ML DEYVIAL IH SCH ×2 (15:39→21:43)
[2017-06-18] MEDS: predniSONE 20 MG TAB PO SCH (16:14)
[2017-06-18] MEDS: HYDROCODONE/APAP 5/325 TAB PO PRN ×3 (16:14→21:36)
[2017-06-18] MEDS ORDERED: NS 1,000 ML IV ONE (19:49)
[2017-06-18] MEDS: guaiFENesin 600 MG TAB.ER PO SCH (20:23)
[2017-06-18] MEDS: FLUTICASONE/SALMETER 250/50MCG DISKUS IH SCH (21:50)
[2017-06-18] MEDS: MELATONIN 3 MG TAB PO PRN (22:46)
[2017-06-19] MEDS: HYDROCODONE/APAP 5/325 TAB PO PRN ×4 (01:38→16:17)
[2017-06-19 04:54] LABS: PLATELET COUNT 157 10^3/uL (150-400)
[2017-06-19] MEDS: IPRATROPIUM/ALBUTEROL 3 ML DEYVIAL IH SCH ×4 (05:30→21:27)
[2017-06-19] MEDS ORDERED: NS 500 ML IV ONE (06:30)
[2017-06-19] MEDS: ATORVASTATIN CALCIUM 10 MG TAB PO SCH (09:05)
[2017-06-19] MEDS: NICOTINE 21 MG/24 HR PATCH TD SCH (09:06)
[2017-06-19] MEDS: guaiFENesin 600 MG TAB.ER PO SCH ×2 (09:06→20:10)
[2017-06-19] MEDS: predniSONE 20 MG TAB PO SCH (09:06)
[2017-06-19] MEDS: ASPIRIN EC 81 MG TAB PO SCH (09:06)
[2017-06-19] MEDS: ENOXAPARIN 40 MG/0.4 ML SYR SC SCH (09:07)
[2017-06-19] MEDS: FLUTICASONE/SALMETER 250/50MCG DISKUS IH SCH ×2 (09:13→21:29)
--- NOTE | 2017-06-19 10:49 | ASMTCASEMG ---
Living Arrangements What is your living Answers: With Other (Not Family) arrangement? Who do you live with? Type Of Residence What kind of residence do Answers: Long-Term you live in? Discharge Plan Comments Coordination Status Comments Notes: Patient is a 61yo single male with a hx of COPD and hep C who has been admitted obs for a COPD exacerbation. Patient had a recent hospitalization for COPD exacerbation and was discharged with supplemental O2. Patient states he has not been using his supplemental O2 at home. D/C plan TBD. CM will follow. Date Signed: 06/19/2017 10:49 AM Electronically Signed By:Anu Acevedo LCSW
--- NOTE | 2017-06-19 14:27 | HOSPPROG ---
Hospitalist Progress Note Assessment/Plan: 61 yo M with hx of copd and recent admit for copd exacerbation admitted for copd exacerbation # copd exacerbation: with sob, wheeze and decreased bs noted. Recent admission for same. Does have small infiltrate appreciated as next with pna likely etiology for recurrent exacerbation. Resp pcr panel negative. Some improvement in sxs overnight. # pna: lingular infiltrate improved from prior but still present, started on levofloxacin and monitoring # acute on chronic hypoxic resp failure: requiring 2L to maintain o2 sats > 90, in setting of above, patient does have o2 at home but states he does not use it , would consider using it this time if necessary. # hx of CAD: non obstructive on recent cath, ecg non ischemic # tobacco dependency: nicotine patch and gum # dispo: IP status, will need > 48 hours for eval/mgmt of above Subjective: no significant overnight events, patient feels a little better but still sob Objective: Vital Signs Temp Pulse Resp BP Pulse Ox 36.6 C 88 34 H 113/75 98 06/19/17 11:08 06/19/17 11:08 06/19/17 11:08 06/19/17 11:08 06/19/17 11:08 Microbiology 06/18/17 11:20 Respiratory Panel (PCR) - Final Nasal, Sinus - Swab No Organism Detected Laboratory Results 06/19/17 04:30 06/19/17 04:30 06/18/17 06/19/17 06/20/17 05:59 05:59 05:59 Intake Total 1570 Output Total 675 Balance 895 Constitutional: no apparent distress, appears nourished, unkempt Eyes: PERRL Ears, Nose, Mouth, Throat: moist mucous membranes, poor dentition Cardiovascular: regular rate and rhythym, no murmur, rub, or gallop Respiratory: no respiratory distress, reduced air movement, expiratory wheeze Gastrointestinal: normoactive bowel sounds, soft, non-tender abdomen Genitourinary: no bladder tenderness Skin: warm, normal color Musculoskeletal: full muscle strength Neurologic: AAOx3 Psychiatric: interacting appropriately, not anxious, not encephalopathic ICD10 Worksheet Patient Problems: Problems Problem Status Onset Chronic obstructive pulmonary disease with acute exacerbation Acute COPD (chronic obstructive pulmonary disease) Acute COPD exacerbation Acute Pneumonia Acute Respiratory failure with hypoxia Acute Sepsis Acute Severe sepsis Acute
--- NOTE | 2017-06-19 14:48 | PDMN ---
Medical Necessity Medical necessity: Change to IP, as of 06/19/17, per MD; los >2 mn for ongoing management of COPD exacerbation, pneumonia & acute on chronic respiratory failure; admit for further monitoring, respiratory supportive care & med management; hx COPD, pneumonia & hep C; per progress note & order 06/19/17
[2017-06-19] MEDS: MELATONIN 3 MG TAB PO PRN (20:10)
[2017-06-20] MEDS: HYDROCODONE/APAP 5/325 TAB PO PRN ×5 (00:02→19:32)
[2017-06-20] MEDS: IPRATROPIUM/ALBUTEROL 3 ML DEYVIAL IH SCH ×4 (06:13→20:57)
[2017-06-20] MEDS: NICOTINE 21 MG/24 HR PATCH TD SCH (08:12)
[2017-06-20] MEDS: guaiFENesin 600 MG TAB.ER PO SCH ×2 (08:12→20:01)
[2017-06-20] MEDS: ATORVASTATIN CALCIUM 10 MG TAB PO SCH (08:12)
[2017-06-20] MEDS: ASPIRIN EC 81 MG TAB PO SCH (08:12)
[2017-06-20] MEDS: ENOXAPARIN 40 MG/0.4 ML SYR SC SCH (08:13)
[2017-06-20] MEDS: predniSONE 20 MG TAB PO SCH (08:14)
[2017-06-20] MEDS: FLUTICASONE/SALMETER 250/50MCG DISKUS IH SCH ×2 (10:19→20:58)
--- NOTE | 2017-06-20 11:29 | HOSPPROG ---
Hospitalist Progress Note Assessment/Plan: 61 yo M with hx of copd and recent admit for copd exacerbation admitted for copd exacerbation. First encounter, chart reviewed. # copd exacerbation: with sob, wheeze and decreased bs noted. Recent admission for same. Does have small infiltrate appreciated as next with pna likely etiology for recurrent exacerbation. Resp pcr panel negative. # pna: lingular infiltrate improved from prior but still present, started on levofloxacin and monitoring # acute on chronic hypoxic resp failure: requiring 2L to maintain o2 sats > 90, in setting of above, patient does have o2 at home but states he does not use it, would consider using it this time if necessary. # hx of CAD: non obstructive on recent cath, ecg non ischemic # tobacco dependency: nicotine patch and gum # dispo: IP status, will need > 48 hours for eval/mgmt of above Subjective: Didn't sleep well last nght. Breathing feeling a bit better. Objective: Vital Signs Temp Pulse Resp BP Pulse Ox 37.0 C 85 18 112/70 93 06/20/17 11:04 06/20/17 11:04 06/20/17 11:04 06/20/17 11:04 06/20/17 11:04 Laboratory Results 06/19/17 04:30 06/19/17 04:30 06/19/17 06/20/17 06/21/17 05:59 05:59 05:59 Intake Total 1570 1500 Output Total 675 600 Balance 895 900 - Physical Exam Constitutional: not in pain, chronically ill appearing, cachectic Eyes: PERRL, anicteric sclera, EOMI Ears, Nose, Mouth, Throat: moist mucous membranes, hearing normal, ears appear normal Cardiovascular: No JVD, No tachycardia, No edema Respiratory: no respiratory distress, no rales or rhonchi, reduced air movement Gastrointestinal: No tenderness, No ascites, No guarding Skin: warm, normal color, No mottled Musculoskeletal: normal joint ROM, no joint effusions, generalized weakness Neurologic: AAOx3 Psychiatric: interacting appropriately, not anxious, poor insight, poor judgement ICD10 Worksheet Patient Problems: Problems Problem Status Onset Pneumonia Acute COPD exacerbation Acute Sepsis Acute Respiratory failure with hypoxia Acute COPD (chronic obstructive pulmonary disease) Acute Severe sepsis Acute Chronic obstructive pulmonary disease with acute exacerbation Acute
[2017-06-20] MEDS: MELATONIN 3 MG TAB PO PRN (21:56)
[2017-06-21] MEDS: HYDROCODONE/APAP 5/325 TAB PO PRN ×3 (02:31→15:43)
[2017-06-21] MEDS: IPRATROPIUM/ALBUTEROL 3 ML DEYVIAL IH SCH ×4 (05:22→21:27)
[2017-06-21] MEDS: guaiFENesin 600 MG TAB.ER PO SCH ×2 (09:16→21:18)
[2017-06-21] MEDS: predniSONE 20 MG TAB PO SCH (09:16)
[2017-06-21] MEDS: ATORVASTATIN CALCIUM 10 MG TAB PO SCH (09:16)
[2017-06-21] MEDS: ASPIRIN EC 81 MG TAB PO SCH (09:16)
[2017-06-21] MEDS: ENOXAPARIN 40 MG/0.4 ML SYR SC SCH (09:17)
[2017-06-21] MEDS: NICOTINE 21 MG/24 HR PATCH TD SCH (09:17)
[2017-06-21] MEDS: FLUTICASONE/SALMETER 250/50MCG DISKUS IH SCH ×3 (10:35→21:19)
[2017-06-21] MEDS ORDERED: IBUPROFEN 600 MG TAB PO PRN (11:12)
--- NOTE | 2017-06-21 12:47 | HOSPPROG ---
Hospitalist Progress Note Assessment/Plan: 61 yo M with hx of copd and recent admit for copd exacerbation admitted for copd exacerbation. # copd exacerbation: with sob, wheeze and decreased bs noted. Recent admission for same. Does have small infiltrate appreciated as next with pna likely etiology for recurrent exacerbation. Resp pcr panel negative. # pna: lingular infiltrate improved from prior but still present, started on levofloxacin and monitoring # acute on chronic hypoxic resp failure: requiring 2L to maintain o2 sats > 90, in setting of above, patient does have o2 at home but states he does not use it, refuses O2 at DC # hx of CAD: non obstructive on recent cath, ecg non ischemic # tobacco dependency: nicotine patch and gum # dispo: IP status, will need > 48 hours for eval/mgmt of above plan for DC in am if conts to do well D/W CM Subjective: Still feeling ill. No pain. Stil coughing. Objective: Vital Signs Temp Pulse Resp BP Pulse Ox 36.6 C 102 H 16 123/72 H 93 06/21/17 11:38 06/21/17 11:38 06/21/17 11:38 06/21/17 11:38 06/21/17 11:38 Laboratory Results 06/19/17 04:30 06/19/17 04:30 06/20/17 06/21/17 06/22/17 05:59 05:59 05:59 Intake Total 1500 500 Output Total 600 1200 Balance 900 -700 - Physical Exam Constitutional: no apparent distress, chronically ill appearing, cachectic Eyes: PERRL, anicteric sclera, EOMI Ears, Nose, Mouth, Throat: moist mucous membranes, hearing normal, ears appear normal Cardiovascular: tachycardia, No JVD, No edema Respiratory: reduced air movement, expiratory wheeze, rhonchi Gastrointestinal: normoactive bowel sounds, No tenderness, No ascites Skin: warm, normal color, No mottled Musculoskeletal: normal joint ROM, no joint effusions, generalized weakness Neurologic: AAOx3 Psychiatric: not anxious, not encephalopathic, poor insight, poor judgement ICD10 Worksheet Patient Problems: Problems Problem Status Onset Pneumonia Acute COPD exacerbation Acute Sepsis Acute Respiratory failure with hypoxia Acute COPD (chronic obstructive pulmonary disease) Acute Severe sepsis Acute Chronic obstructive pulmonary disease with acute exacerbation Acute
[2017-06-21] MEDS: MELATONIN 3 MG TAB PO PRN (22:45)
[2017-06-22] MEDS: IPRATROPIUM/ALBUTEROL 3 ML DEYVIAL IH SCH ×2 (05:19→10:15)
[2017-06-22] MEDS: HYDROCODONE/APAP 5/325 TAB PO PRN (08:39)
[2017-06-22] MEDS: ASPIRIN EC 81 MG TAB PO SCH (08:39)
[2017-06-22] MEDS: ATORVASTATIN CALCIUM 10 MG TAB PO SCH (08:39)
[2017-06-22] MEDS: guaiFENesin 600 MG TAB.ER PO SCH (08:39)
[2017-06-22] MEDS: predniSONE 20 MG TAB PO SCH (08:39)
[2017-06-22] MEDS: ENOXAPARIN 40 MG/0.4 ML SYR SC SCH (08:40)
[2017-06-22] MEDS: NICOTINE 21 MG/24 HR PATCH TD SCH (08:40)
[2017-06-22 08:51] VITALS: BP 142/99
[2017-06-22] MEDS: FLUTICASONE/SALMETER 250/50MCG DISKUS IH SCH (10:15)
--- NOTE | 2017-06-22 14:36 | GDS ---
[f rep st] DISCHARGE SUMMARY DISCHARGE DIAGNOSES: 1. Chronic obstructive pulmonary disease exacerbation. 2. Pneumonia. 3. Acute on chronic hypoxemic respiratory failure. 4. History of coronary artery disease. 5. Tobacco dependency. PHYSICAL EXAM: GENERAL: The patient is alert VITAL SIGNS: Afebrile at 36.2, pulse is 84, respirat ory rate is 20, blood pressure is 142/99. He is saturating 91% on room air. I have seen and evaluat ed the patient on the day of discharge. HOSPITAL COURSE: Patient is a 61-year-old male who presented to the emergency room with complaints o f shortness of breath. He was evaluated and diagnosed with: 1. Chronic obstructive pulmonary disease exacerbation. During this hospitalization, he has responde d to steroid treatment. His wheezing has resolved. He is tolerating room air and will continue ster oids at the time of disposition. 2. Community-acquired pneumonia. He has, again, responded to antibiotic therapy. He has been treat ed with Levaquin. We will continue Levaquin at the time of disposition. 3. Acute on chronic hypoxemic respiratory failure. The patient has been told in the past that he re quires supplemental oxygen. He refuses to wear this because he resides with people who smoke and/or is homeless. I have educated him with regard to the importance of oxygen therapy. He does understan d this. 4. History of coronary artery disease. This was stable. 5. Tobacco dependency. Cessation education has been provided during this hospitalization. DISPOSITION: Patient will be discharged to the homeless longterm. I have discussed this with Case Kendrick douglas, who is assisting in obtaining a bed for him. There are no pending studies. DISCHARGE MEDICATIONS: Please refer to EMR form. I have provided the patient a prescription for Lev aquin 750 mg as well as prednisone 20 mg. FOLLOWUP: Will be at [facility] with the patient's primary care physician. I spent greater than 35 minutes in the care, coordination, and management of this patient's dispositi on. /[id number]/MODL
--- NOTE | 2017-06-22 17:46 | ASMTCMCOM ---
CM Note CM Note Notes: CM spoke w/pt re; dc poc. Will discharge to skilled nursing, CM reserved bed. Offered bus pass but pt left before receiving it. DC Plan: [facility] Date Signed: 06/22/2017 05:45 PM Electronically Signed By:Zena Ramirez RN
--- NOTE | 2017-06-22 17:47 | ASMTLACE ---
LACE Length of stay for Answers: 3 days current admission Acuity / Level of Answers: Yes Care: Did the patient have an inpatient admission? Comorbidities - select Answers: Chronic pulmonary disease all that apply Other Notes: COPD exacerbation # of Emergency department Answers: 3-4 visits in the last 6 months Social determinants Answers: Homelessness (street, long term) Lack of community resources and/or lack of social support (no pcp, lives alone, transportation, luanne d) Score: 19 Date Signed: 06/22/2017 05:46 PM Electronically Signed By:Zena Ramirez RN
== END 2017-06-22 14:00 | disposition home or self-care (01) | DRG 140 ==
LOC: OBSVTOIN 11:13 → F3E 12:06
PROVIDERS: ADMIT Internal Medicine; ATTEND Internal Medicine
DX: J44.1 Chronic obstructive pulmonary disease with (acute) exacerbation (principal); J96.21 Acute and chronic respiratory failure with hypoxia; J18.8 Other pneumonia, unspecified organism; I25.10 Atherosclerotic heart disease of native coronary artery without angina pectoris; F17.200 Nicotine dependence, unspecified, uncomplicated; Z59.0 Homelessness; B19.20 Unspecified viral hepatitis C without hepatic coma
CPT/HCPCS: 96374; G0378; J1650; J2930; J7512

== ENCOUNTER 2017-07-11 15:31 | Inpatient (IN) | payer MEDICAID ==
[2017-07-11] MEDS ORDERED: IPRATROPIUM/ALBUTEROL 3 ML DEYVIAL ONE (15:58)
[2017-07-11] MEDS ORDERED: IPRATROPIUM/ALBUTEROL 3 ML DEYVIAL IH ONE (15:59)
[2017-07-11 16:00] LABS: PLATELET COUNT 243 10^3/uL (150-400)
--- NOTE | 2017-07-11 16:04 | CPEKG ---
Heart Rate: 100 RR Interval: 600 P-R Interval: 148 QRSD Interval: 74 QT Interval: 356 QTC Interval: 460 P [place]: 84 QRS [place]: 103 T Wave [place]: 68 EKG Severity - ABNORMAL ECG - EKG Impression: SINUS TACHYCARDIA EKG Impression: RIGHT AXIS DEVIATION EKG Impression: PROBABLE INFERIOR INFARCT, OLD Electronically Signed By: Yaneli Mcfadden 11-Jul-2017 18:47:11
[2017-07-11] MEDS ORDERED: methylPREDNISolone SOD SUCC 125 MG/2 ML VIAL IVP ONE (16:17)
[2017-07-11] MEDS ORDERED: ALBUTEROL 3 ML DEYVIAL IH ONE (16:17)
--- NOTE | 2017-07-11 16:28 | EDPHY ---
H & P Stated Complaint: SOB x 2 days, copd hx & recent pna admission Time Seen by Provider: 07/11/17 15:45 HPI/ROS: CHIEF COMPLAINT: Shortness of breath HISTORY OF PRESENT ILLNESS: 61-year-old male with oxygen-dependent COPD and recent pneumonia presents with shortness of breath. He was admitted in June 2017 for COPD exacerbation and community-acquired pneumonia. He was discharged home on prednisone and Levaquin. He was doing well until 4 days ago when he developed recurrent shortness of breath. Associated with a chronic cough, newly productive of yellowish sputum. No fever. He has an inhaler at home, but has not used it recently. He is also supposed to use oxygen at home, but has not been using oxygen. REVIEW OF SYSTEMS: complete 10 point ROS negative except at noted in the HPI - Medical/Surgical History Hx Asthma: No Hx Chronic Respiratory Disease: Yes Hx Diabetes: No Hx Cardiac Disease: No Hx Renal Disease: No Hx Cirrhosis: No Hx Alcoholism: No Hx HIV/AIDS: No Hx Splenectomy or Spleen Trauma: No Other PMH: chronic back pain. COPD. Pneumonia - Social History Smoking Status: Current every day smoker Additional Social History: Homeless - Physical Exam Exam: General Appearance: Alert, pleasant, speaks in full sentences Eyes: Pupils equal and round, no conjunctival pallor or injection ENT, Mouth: Mucous membranes moist Neck: Normal inspection Respiratory: Tachypnea, decreased air exchange, expiratory wheezing at the bases Cardiovascular: Regular rate and rhythm Gastrointestinal: Abdomen is soft and nontender Neurological: A&O, nonfocal exam Skin: Warm and dry Extremities: Normal inspection Psychiatric: Mood and affect normal Constitutional: Initial Vital Signs Temperature (C) 36.5 C 07/11/17 15:35 Heart Rate 108 H 07/11/17 15:35 Respiratory Rate 26 H 07/11/17 15:35 Blood Pressure 125/96 H 07/11/17 15:35 O2 Sat (%) 92 07/11/17 15:35 O2 Delivery Mode Nasal Cannula O2 (L/minute) 2 Allergies/Adverse Reactions: No Known Allergies Allergy (Verified 05/01/17 15:49) Home Medications: Medication Instructions Recorded NK [No Known Home Meds] 07/11/17 Medical Decision Making - Diagnostics EKG Interpretation: EKG interpreted by me reveals sinus tachycardia, rate 100, inferior Q-waves consistent with old inferior [place]. Interpretation: Abnormal EKG Imaging Results: Imaging Impressions Chest X-Ray 07/11/17 15:46 Impression: 1. Diffuse chronic interstitial lung disease with chronically large lung volumes. 2. If it is clinically important to exclude acute superimposed infiltrate, then consider noncontrast CT. Imaging: I viewed and interpreted images myself ED Course/Re-evaluation: Patient presents with shortness of breath, consistent with COPD exacerbation. He has increased work of breathing and a normal oxygen saturation. He was placed on oxygen by nasal cannula and a DuoNeb was given. This was followed by a continuous albuterol neb and Solu-Medrol 125 mg IV. Better after the nebulized breathing treatments. Continues to have tachypnea and decreased air exchange. Chest x-ray reveals no evidence of pneumonia. Will need admission for further stabilization and treatment of COPD exacerbation. The hospitalist service was consulted for admission. Differential Diagnosis: Differential diagnosis includes though it is not limited to pneumonia, pneumothorax, pulmonary embolism, aortic dissection, pericarditis, acute coronary syndrome. - Data Points Laboratory Results: Laboratory Results 07/11/17 15:50 07/11/17 15:50 07/11/17 07/11/17 15:50 15:50 WBC 10.82 10^3/uL H 10^3/uL (3.80-9.50) RBC 5.74 10^6/uL 10^6/uL (4.40-6.38) Hgb 16.5 g/dL g/dL (13.7-17.5) Hct 48.8 % % (40.0-51.0) MCV 85.0 fL fL (81.5-99.8) MCH 28.7 pg pg (27.9-34.1) MCHC 33.8 g/dL g/dL (32.4-36.7) RDW 14.8 % % (11.5-15.2) Plt Count 243 10^3/uL 10^3/uL (150-400) MPV 9.4 fL fL (8.7-11.7) Neut % (Auto) 67.1 % % (39.3-74.2) Lymph % (Auto) 18.6 % % (15.0-45.0) [place] % (Auto) 9.5 % % (4.5-13.0) Eos % (Auto) 4.1 % % (0.6-7.6) Baso % (Auto) 0.5 % % (0.3-1.7) Nucleat RBC Rel Count 0.0 % % (0.0-0.2) Absolute Neuts (auto) 7.27 10^3/uL H 10^3/uL (1.70-6.50) Absolute Lymphs (auto) 2.01 10^3/uL 10^3/uL (1.00-3.00) Absolute Monos (auto) 1.03 10^3/uL H 10^3/uL (0.30-0.80) Absolute Eos (auto) 0.44 10^3/uL H 10^3/uL (0.03-0.40) Absolute Basos (auto) 0.05 10^3/uL 10^3/uL (0.02-0.10) Absolute Nucleated RBC 0.00 10^3/uL 10^3/uL (0-0.01) Immature Gran % 0.2 % % (0.0-1.1) Immature Gran # 0.02 10^3/uL 10^3/uL (0.00-0.10) Sodium 140 mEq/L mEq/L (135-145) Potassium 4.4 mEq/L mEq/L (3.5-5.2) Chloride 105 mEq/L mEq/L (97-110) Carbon Dioxide 22 mEq/l mEq/l (22-31) Anion Gap 13 mEq/L mEq/L (8-16) BUN 11 mg/dL mg/dL (7-23) Creatinine 0.7 mg/dL mg/dL (0.7-1.3) Estimated GFR > 60 Glucose 89 mg/dL mg/dL (70-100) Calcium 8.8 mg/dL mg/dL (8.5-10.4) Medications Given: Discontinued Medications Albuterol (Proventil Neb) 9 ml I[facility] EDNOW ONE Stop: 07/11/17 16:18 Last Admin: 07/11/17 16:33 Dose: 9 ml Albuterol/Ipratropium (Duoneb) 3 ml [facility] EDNOW ONE Stop: 07/11/17 16:00 Last Admin: 07/11/17 15:59 Dose: 3 ml Methylprednisolone Sodium Succinate (Solu-Medrol) 125 mg IVP EDNOW ONE Stop: 07/11/17 16:18 Last Admin: 07/11/17 16:33 Dose: 125 mg Departure - Departure Disposition: [facility] Acute Clinical Impression: COPD exacerbation Condition: Fair
[2017-07-11] MEDS ORDERED: IBUPROFEN 200 MG TAB PO PRN (16:49)
[2017-07-11] MEDS ORDERED: ALBUTEROL 60 PUFFS/8 GM MDI IH PRN (16:49)
[2017-07-11] MEDS ORDERED: ONDANSETRON 4 MG/2 ML VIAL IVP PRN (16:49)
[2017-07-11] MEDS ORDERED: ONDANSETRON DISINTEGRATING 4 MG TAB PO PRN (16:49)
--- NOTE | 2017-07-11 17:47 | GHP ---
[f rep st] HISTORY AND PHYSICAL DATE OF ADMISSION: 07/11/2017 CHIEF COMPLAINT: Shortness of breath. Patient states, "I can't breathe." HISTORY OF PRESENT ILLNESS: The patient is a 61-year-old gentleman who presented to the emergency room with complaints of feeling worsening shortness of breath. His symptoms started 4 days ago. He has been coughing frequently which is causing him to have more pain in his abdomen and chest. He has new production of yellow sputum. He denies any fever or chills. On his last admission, he left his inhaler here. During my interview, he was getting a continuous nebulizer because he was extremely short of breath. Of note, he was admitted in June of 2017 for COPD exacerbation and community-acquired pneumonia. He was discharged home on prednisone and Levaquin. This is his fourth admission this year. He is supposed to be using oxygen but is not using it because he is homeless. He has a history of smoking. He cut back to 4 cigarettes a day. PAST MEDICAL HISTORY: 1. COPD. 2. Hepatitis C. 3. History of frequent bouts of pneumonia. SURGICAL HISTORY: Patient reports no pertinent or recent surgery. FAMILY HISTORY: Reviewed and noncontributory. SOCIAL HISTORY: He has been heavy smoker in the past. He is currently down to 4 cigarettes a day. He has a history of IV drug abuse. He does not use any drugs at this time. He is currently homeless, and his significant other is at the bedside. They have been in a relationship for the past 10 years. He has 3 children. ALLERGIES: No known allergies. HOME MEDICATIONS: None listed. REVIEW OF SYSTEMS: A 10-point review of system was performed and was negative other than pertinent positives in HPI and past medical history. PHYSICAL EXAM: GENERAL: The patient is a 61-year-old male who appears to be in very poor health and appears to have significant work of breathing. VITAL SIGNS: Blood pressure is 128/69, heart rate is 81, respiratory rate is 24, O2 sats on 1 L 93%, temperature is 36.5 Celsius. HEENT: Eyes, pupils are equal reactive. EOMs are intact. He has positive conjunctival injection. He has normal ears, hearing intact. NECK: Trachea is midline. CARDIOVASCULAR: He is in a regular rate and rhythm. No murmurs, rubs, or gallops noted. CHEST/ LUNGS: He has increase of work of breathing. His lung sounds are diminished from the mid lobes down. ABDOMEN: Soft, nontender. SKIN: No rashes seen. MUSCULOSKELETAL: Not evaluated. PSYCHIATRIC: He is alert and oriented but very anxious. He appears to have normal insight and normal judgment. DATA: Reviewed. CBC shows a white blood cell count of 10.82, hemoglobin 16.5, hematocrit of 48, platelet count 243. Chemistry shows sodium 140, potassium 4.4 , CO2 of 22, BUN 11, creatinine 0.7, glucose of 89. Chest x-ray was performed which shows diffuse chronic interstitial lung disease with chronically large lung volumes. They were unable to exclude a superimposed infiltrate. EKG, which I evaluated myself, showed sinus tachycardia with a right axis deviation. I reviewed his care with Dr. Yaneli Mcfadden, the ER admitting physician. ASSESSMENT/PLAN: 1. Moderate to severe chronic obstructive pulmonary disease exacerbation. This is his fourth admission this year for chronic obstructive pulmonary disease exacerbation. He also has underlying cardiac disease. Will treat him with Levaquin daily. Will place him on intravenous steroids. Will put him on nebulizers and supplemental oxygen. I will also check a respiratory PCR. 2. Tobacco dependence. Have offered him a nicotine patch. 3. Hepatitis C. He has a previous history of intravenous drug use. I am not sure if he has had this treated. 4. Homelessness. I suspect that he is doing poorly on the streets and that is why he returns to the emergency room frequently. 5. Underweight. He has a body mass index of 19.2. Will ask Dietary to see him. 6. Length of stay. I suspect he will require greater than a 2-midnight stay. The patient appears to be acutely ill. 7. Deep venous thrombosis prophylaxis. Low risk. This can be initiated if the patient is not mobilizing well. 8. Code status: Full. /[id number]/MODL MTDD
--- NOTE | 2017-07-11 18:11 | ASMTCMCOM ---
CM Note CM Note Notes: Pt presented to the ED for SOB x 2days. Pt has hx of COPD and was recently admitted for PNA; pt d/c'd 06/22/17 with prescriptions, to stay in one of [facility]'s reserved beds at the [facility] and to follow up with [facility]. Spoke w/pt and he says he has been sleeping on the streets. Pt states he completed the Coordinated Entry program and was referred to the [facility] to Home sheltering services and not referred to [facility] due to only being homeless for the past month or so. Pt states he has not followed back up with [facility] Case Mgmt. Pt states he has never had a doctor and didn't know anything about following up with [facility]. Per chart review, pt also admitted to [facility] in Apr and May 2017. Per CM notes, pt has been provided information on [facility] and also info for [facility]. This CM e-mailed Zenia Mike w/ [facility] requesting someone to check in with patient about providing additional outpatient Medicaid support/assistance. Pt still does not have a cell phone. 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 Pt and Quin were living in a trailer that Quin had for more than 20 years but when it was torn down, they became homeless and staying with friends or in motels. Pt has been provided supplemental oxygen in the past but has not been using it due to previous living situation and now homelessness. Pt states he is trying to quit smoking and is down to 3-4 cigarettes/day. Exact DC needs unknown. Anticipate pt needing reserved bed at [facility], [facility] CM coordination, supplemental oxygen, nebulizer, inhalers, other meds, appt at [facility], [facility] involvement, etc. CM to follow. Date Signed: 07/11/2017 06:10 PM Electronically Signed By:Lita Anderson RN
--- NOTE | 2017-07-11 18:13 | ASMTLACE ---
ABDON Acuity / Level of Answers: Yes Care: Did the patient have an inpatient admission? Comorbidities - select Answers: Chronic pulmonary disease all that apply Moderate or severe liver or renal disease Other Notes: Hep C # of Emergency department Answers: 5-8 visits in the last 6 months Social determinants Answers: Homelessness (street, retirement) Lack of community resources and/or lack of social support (no pcp, lives alone, transportation, luanne d) Score: 21 Date Signed: 07/11/2017 06:13 PM Electronically Signed By:Lita Anderson RN
[2017-07-11] MEDS: HYDROCODONE/APAP 5/325 TAB PO PRN ×3 (18:26→23:59)
[2017-07-11] MEDS: methylPREDNISolone SOD SUCC 125 MG/2 ML VIAL IVP SCH ×2 (18:27→23:12)
[2017-07-11] MEDS: NICOTINE 14 MG/24 HR PATCH TD SCH (18:28)
[2017-07-11] MEDS: NS 1,000 ML IV SCH (18:30)
[2017-07-11] MEDS: IPRATROPIUM/ALBUTEROL 3 ML DEYVIAL IH SCH (21:52)
[2017-07-12] MEDS: HYDROCODONE/APAP 5/325 TAB PO PRN ×5 (04:02→22:05)
[2017-07-12] MEDS: IPRATROPIUM/ALBUTEROL 3 ML DEYVIAL IH SCH ×4 (05:38→21:42)
[2017-07-12] MEDS: methylPREDNISolone SOD SUCC 125 MG/2 ML VIAL IVP SCH ×3 (06:04→17:43)
[2017-07-12] MEDS: NICOTINE 14 MG/24 HR PATCH TD SCH (09:01)
--- NOTE | 2017-07-12 11:26 | PDMN ---
Medical Necessity Medical necessity: est los>2mn for moderate to severe COPD exacerbation; admit for IV steroids, IV abx, supplemental O2, and nebs; comorbid hep C, homelessness, and BMI 19.2; per order and H&P 07/11/17
[2017-07-12] MEDS: NS 1,000 ML IV SCH ×2 (13:04→22:06)
--- NOTE | 2017-07-12 16:11 | HOSPPROG ---
Hospitalist Progress Note Assessment/Plan: DIAGNOSES: -acute hypoxemic respiratory failure -acute COPD exacerbation -increase in productive cough suggesting possible bacterial respiratory infection despite no infiltrates on x-ray and no fever -noncompliance with recommended medications for his COPD and known noncritical coronary disease -continued tobacco abuse PLANS: -continue steroids and bronchodilators -will check a prolactin level to see if he might potentially response to antibiotic -will resume inhaled steroid which she had stopped using at home having lost it -resume daily aspirin and statin medication because of his known coronary disease -ongoing counseling regarding tobacco cessation was started today -ongoing counseling regarding need for medication compliance and medical follow- up again started today SUBJECTIVE: Complains of severe ongoing shortness of breath, productive cough Some pain with coughing OBJECTIVE Vitals reviewed: Tachypneic but otherwise stable vital signs without fever [employer]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 He has pulmonary hypertension. Objective: Vital Signs Temp Pulse Resp BP Pulse Ox 36.8 C 89 20 113/63 97 07/12/17 15:37 07/12/17 15:37 07/12/17 15:37 07/12/17 15:37 07/12/17 15:37 Microbiology 07/11/17 18:30 Respiratory Panel (PCR) - Final Nasal, Sinus - [facility] Viral Transport No Organism Detected 07/11/17 07/12/17 07/13/17 06:59 06:59 06:59 Intake Total 350 Balance 350 - Time Spent With Patient Time Spent with Patient: greater than 35 minutes Time Spent with Patient: Greater than 35 minutes spent on this patients care, greater than 50% of time spent counseling, educating, and coordinating care regarding the above mentioned plan. ICD10 Worksheet Patient Problems: Problems Problem Status Onset COPD exacerbation Acute COPD (chronic obstructive pulmonary disease) Acute Chronic obstructive pulmonary disease with acute exacerbation Acute Pneumonia Acute Respiratory failure with hypoxia Acute Sepsis Acute Severe sepsis Acute
[2017-07-13] MEDS: methylPREDNISolone SOD SUCC 125 MG/2 ML VIAL IVP SCH ×5 (00:20→23:31)
[2017-07-13] MEDS: HYDROCODONE/APAP 5/325 TAB PO PRN (02:12)
[2017-07-13] MEDS: IPRATROPIUM/ALBUTEROL 3 ML DEYVIAL IH SCH ×4 (05:19→21:25)
[2017-07-13] MEDS: NS 1,000 ML IV SCH ×2 (05:56→23:31)
[2017-07-13] MEDS: oxyCODONE IR 5 MG TAB PO PRN ×5 (06:10→23:31)
[2017-07-13] MEDS: NICOTINE 14 MG/24 HR PATCH TD SCH (08:04)
--- NOTE | 2017-07-13 09:54 | HOSPPROG ---
Hospitalist Progress Note Assessment/Plan: DIAGNOSES: -acute hypoxemic respiratory failure -acute COPD exacerbation -increase in productive cough suggesting possible bacterial respiratory infection despite no infiltrates on x-ray and no fever -known noncritical coronary disease, diffuse with a 40% lad lesion, not currently taking his aspirin or statin at home -noncompliance with recommended medications for his COPD and known noncritical coronary disease -continued tobacco abuse PLANS: -continue steroids and bronchodilators -will check a prolactin level to see if he might potentially respond to antibiotic -will resume inhaled steroid which she had stopped using at home having lost it -resume daily aspirin and statin medication because of his known coronary disease -ongoing counseling regarding tobacco cessation was started today -ongoing counseling regarding need for medication compliance and medical follow- up again started today (he sees a doctor at [facility]) SUBJECTIVE: Still quite short of breath today with moderately high oxygen use, only able to walk as far as his commode without having to stop for rest No chest pain, no fevers Still coughing, productive OBJECTIVE Vitals reviewed: Intermittently still very Tachypneic, blood pressure is a bit low but not tachycardic, 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, 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 Exam: alert oriented looks exhausted skin warm dry color ok resps quite labored lungs severely diminished breath sounds with a few audible rhonchi heart regular abd soft nondistended nontender, bowel sounds present limbs warm, no edema iv site ok Objective: Vital Signs Temp Pulse Resp BP Pulse Ox 36.8 C 65 20 88/65 L 96 07/13/17 07:30 07/13/17 07:30 07/13/17 07:30 07/13/17 07:30 07/13/17 07:30 07/12/17 07/13/17 07/14/17 06:59 06:59 06:59 Intake Total 4548 Balance 4548 - Time Spent With Patient Time Spent with Patient: greater than 35 minutes Time Spent with Patient: Greater than 35 minutes spent on this patients care, greater than 50% of time spent counseling, educating, and coordinating care regarding the above mentioned plan. ICD10 Worksheet Patient Problems: Problems Problem Status Onset COPD exacerbation Acute COPD (chronic obstructive pulmonary disease) Acute Chronic obstructive pulmonary disease with acute exacerbation Acute Pneumonia Acute Respiratory failure with hypoxia Acute Sepsis Acute Severe sepsis Acute
[2017-07-13] MEDS: ASPIRIN EC 81 MG TAB PO SCH (10:27)
[2017-07-13] MEDS: ATORVASTATIN CALCIUM 10 MG TAB PO SCH (10:27)
[2017-07-13] MEDS: BUDESONIDE/FORMOTEROL 160/4.5 60 PUFFS/MDI IH SCH ×2 (11:10→21:27)
[2017-07-13] MEDS: ENOXAPARIN 40 MG/0.4 ML SYR SC SCH (15:25)
[2017-07-14] MEDS: oxyCODONE IR 5 MG TAB PO PRN ×5 (03:56→21:23)
[2017-07-14] MEDS: methylPREDNISolone SOD SUCC 125 MG/2 ML VIAL IVP SCH ×2 (05:20→11:30)
[2017-07-14] MEDS: IPRATROPIUM/ALBUTEROL 3 ML DEYVIAL IH SCH ×4 (05:40→20:49)
[2017-07-14] MEDS: ATORVASTATIN CALCIUM 10 MG TAB PO SCH (09:11)
[2017-07-14] MEDS: NICOTINE 14 MG/24 HR PATCH TD SCH (09:11)
[2017-07-14] MEDS: ASPIRIN EC 81 MG TAB PO SCH (09:11)
[2017-07-14] MEDS: ENOXAPARIN 40 MG/0.4 ML SYR SC SCH (09:11)
[2017-07-14] MEDS: BUDESONIDE/FORMOTEROL 160/4.5 60 PUFFS/MDI IH SCH ×2 (09:38→20:52)
[2017-07-14] MEDS: predniSONE 20 MG TAB PO SCH (17:22)
[2017-07-14] MEDS: NS 1,000 ML IV SCH (17:23)
--- NOTE | 2017-07-14 18:34 | HOSPPROG ---
Hospitalist Progress Note Assessment/Plan: * Acute respiratory failure -no improvement -check CT chest rule out PE * COPD exacerbation -steroids, nebs * CAD - 40% LAD lesion -med mgmt * Tobacco dependency -advise cessation Subjective: Very SOB, no better since admission Objective: Vital Signs Temp Pulse Resp BP Pulse Ox 36.6 C 102 H 20 126/81 H 96 07/14/17 15:35 07/14/17 15:35 07/14/17 15:35 07/14/17 15:35 07/14/17 15:35 07/13/17 07/14/17 07/15/17 05:59 05:59 05:59 Intake Total 4548 1410 1697 Balance 4548 1410 1697 EKG viewed, my personal interpretation is - RAD, sinus tachy CXR - large lung volumes ddimer positive > 1 - Physical Exam Constitutional: appears nourished, uncomfortable, No no apparent distress, No cachectic Cardiovascular: regular rate and rhythym, no murmur, rub, or gallop Respiratory: respiratory distress, No expiratory wheeze, No inspiratory crackles , No rhonchi Gastrointestinal: normoactive bowel sounds, soft, non-tender abdomen, no palpable masses Skin: no rashes or abrasions, no fluctuance, no induration Neurologic: AAOx3, sensation intact bilaterally Psychiatric: interacting appropriately, not anxious, not encephalopathic, thought process linear ICD10 Worksheet Patient Problems: Problems Problem Status Onset COPD exacerbation Acute COPD (chronic obstructive pulmonary disease) Acute Chronic obstructive pulmonary disease with acute exacerbation Acute Pneumonia Acute Respiratory failure with hypoxia Acute Sepsis Acute Severe sepsis Acute
[2017-07-14] MEDS ORDERED: IOPAMIDOL (ISOVUE 370) 100 ML BTL IV ONE (19:10)
[2017-07-14] MEDS: ZOLPIDEM TARTRATE 5 MG TAB PO PRN (21:23)
[2017-07-15] MEDS: oxyCODONE IR 5 MG TAB PO PRN ×6 (01:49→22:55)
[2017-07-15] MEDS: IPRATROPIUM/ALBUTEROL 3 ML DEYVIAL IH SCH ×4 (05:29→21:21)
[2017-07-15 06:12] LABS: PLATELET COUNT 191 10^3/uL (150-400)
[2017-07-15] MEDS: ASPIRIN EC 81 MG TAB PO SCH (08:14)
[2017-07-15] MEDS: ATORVASTATIN CALCIUM 10 MG TAB PO SCH (08:14)
[2017-07-15] MEDS: predniSONE 20 MG TAB PO SCH ×2 (08:14→09:48)
[2017-07-15] MEDS: NICOTINE 14 MG/24 HR PATCH TD SCH (08:15)
[2017-07-15] MEDS: ENOXAPARIN 40 MG/0.4 ML SYR SC SCH (08:15)
[2017-07-15] MEDS ORDERED: NS 1,000 ML IV SCH (09:00)
[2017-07-15] MEDS: BUDESONIDE/FORMOTEROL 160/4.5 60 PUFFS/MDI IH SCH ×2 (12:20→21:29)
--- NOTE | 2017-07-15 14:58 | HOSPPROG ---
Hospitalist Progress Note Assessment/Plan: * Acute on chronic respiratory failure -needs home O2 chronically but homeless status is a barrier * COPD exacerbation -steroids, nebs -DC abx - s/p 6 days Levaquin * CAD - 40% LAD lesion -med mgmt * Tobacco dependency -advise cessation * Hep C Subjective: Still SOB, pleuritic CP continues Objective: Vital Signs Temp Pulse Resp BP Pulse Ox 36.9 C 92 18 131/80 H 93 07/14/17 22:42 07/15/17 12:12 07/15/17 05:33 07/14/17 22:42 07/15/17 12:12 Laboratory Results 07/15/17 04:47 07/15/17 04:47 07/14/17 07/15/17 07/16/17 05:59 05:59 05:59 Intake Total 1410 1697 Balance 1410 1697 - Physical Exam Constitutional: no apparent distress, appears nourished, not in pain Cardiovascular: regular rate and rhythym, no murmur, rub, or gallop Respiratory: no respiratory distress, no rales or rhonchi, clear to auscultation Gastrointestinal: normoactive bowel sounds, soft, non-tender abdomen, no palpable masses Skin: no rashes or abrasions, no fluctuance, no induration Neurologic: AAOx3, sensation intact bilaterally Psychiatric: interacting appropriately, not anxious, not encephalopathic, thought process linear ICD10 Worksheet Patient Problems: Problems Problem Status Onset COPD exacerbation Acute COPD (chronic obstructive pulmonary disease) Acute Chronic obstructive pulmonary disease with acute exacerbation Acute Pneumonia Acute Respiratory failure with hypoxia Acute Sepsis Acute Severe sepsis Acute
--- NOTE | 2017-07-15 18:14 | ASMTCMCOM ---
CM Note CM Note Notes: Spoke with pt and his friend, they are homeless. Pt states they stayed in a motel until the money ran out, he won't get money until August 04. Otherwise they have been sleeping outside. Pt situation is further complicated as he chronically needs O2, pt does not remember O2 company but states he has about 5 tanks in a storage unit. Per ED CM note, pt has not followed up with a [facility] to [facility]. DC uncertain, pt states he filled out an application for a new place but does not have a phone or bank account. data analysis manager to follow up with pt on Monday, maybe try [facility]. DC Plan: TBD Date Signed: 07/15/2017 06:14 PM Electronically Signed By:Zena Ramirez RN
[2017-07-15] MEDS: ZOLPIDEM TARTRATE 5 MG TAB PO PRN (22:20)
[2017-07-16] MEDS: oxyCODONE IR 5 MG TAB PO PRN ×3 (02:55→12:50)
[2017-07-16 06:18] LABS: PLATELET COUNT 160 10^3/uL (150-400)
[2017-07-16] MEDS: IPRATROPIUM/ALBUTEROL 3 ML DEYVIAL IH SCH ×4 (06:21→21:58)
[2017-07-16] MEDS: ATORVASTATIN CALCIUM 10 MG TAB PO SCH (08:17)
[2017-07-16] MEDS: ASPIRIN EC 81 MG TAB PO SCH (08:17)
[2017-07-16] MEDS: ENOXAPARIN 40 MG/0.4 ML SYR SC SCH (08:17)
[2017-07-16] MEDS: predniSONE 20 MG TAB PO SCH (08:17)
[2017-07-16] MEDS: NICOTINE 14 MG/24 HR PATCH TD SCH (08:18)
[2017-07-16] MEDS: BUDESONIDE/FORMOTEROL 160/4.5 60 PUFFS/MDI IH SCH ×2 (11:14→22:05)
--- NOTE | 2017-07-16 12:57 | HOSPPROG ---
Hospitalist Progress Note Assessment/Plan: * Acute on chronic respiratory failure -needs home O2 chronically but homeless status is a barrier * COPD exacerbation -steroids, nebs -DC abx - s/p 6 days Levaquin * CAD - 40% LAD lesion -med mgmt * Tobacco dependency -advise cessation * Hep C Subjective: still very sob Objective: Vital Signs Temp Pulse Resp BP Pulse Ox 36.6 C 84 22 H 106/83 H 91 L 07/16/17 08:00 07/16/17 11:14 07/16/17 11:14 07/16/17 08:00 07/16/17 11:14 Laboratory Results 07/16/17 04:50 07/15/17 04:47 07/15/17 07/16/17 07/17/17 05:59 05:59 05:59 Intake Total 1697 Balance 1697 - Physical Exam Constitutional: no apparent distress, appears nourished, not in pain Cardiovascular: regular rate and rhythym, no murmur, rub, or gallop Respiratory: respiratory distress, No expiratory wheeze, No inspiratory crackles , No rhonchi Gastrointestinal: normoactive bowel sounds, soft, non-tender abdomen, no palpable masses Skin: no rashes or abrasions, no fluctuance, no induration Neurologic: AAOx3, sensation intact bilaterally Psychiatric: interacting appropriately, not anxious, not encephalopathic, thought process linear ICD10 Worksheet Patient Problems: Problems Problem Status Onset COPD exacerbation Acute COPD (chronic obstructive pulmonary disease) Acute Chronic obstructive pulmonary disease with acute exacerbation Acute Pneumonia Acute Respiratory failure with hypoxia Acute Sepsis Acute Severe sepsis Acute
[2017-07-16] MEDS: LORazepam 0.5 MG TAB PO PRN ×2 (16:07→21:52)
[2017-07-16] MEDS: IBUPROFEN 600 MG TAB PO PRN ×2 (16:07→21:51)
[2017-07-16] MEDS: ZOLPIDEM TARTRATE 5 MG TAB PO PRN (19:55)
[2017-07-17] MEDS: IPRATROPIUM/ALBUTEROL 3 ML DEYVIAL IH SCH ×4 (06:21→21:29)
[2017-07-17] MEDS: IBUPROFEN 600 MG TAB PO PRN ×2 (06:28→12:30)
[2017-07-17] MEDS: LORazepam 0.5 MG TAB PO PRN ×2 (06:29→13:54)
[2017-07-17] MEDS: ATORVASTATIN CALCIUM 10 MG TAB PO SCH (10:38)
[2017-07-17] MEDS: ASPIRIN EC 81 MG TAB PO SCH (10:38)
[2017-07-17] MEDS: predniSONE 20 MG TAB PO SCH (10:38)
[2017-07-17] MEDS: ENOXAPARIN 40 MG/0.4 ML SYR SC SCH (10:38)
[2017-07-17] MEDS: NICOTINE 14 MG/24 HR PATCH TD SCH (10:39)
[2017-07-17] MEDS: BUDESONIDE/FORMOTEROL 160/4.5 60 PUFFS/MDI IH SCH ×2 (10:50→21:30)
--- NOTE | 2017-07-17 12:19 | ASMTCMCOM ---
CM Note CM Note Notes: Spoke with patient who states he gets $900/mo and his partner gets $700/mo but they are out of money until August. Patient states he has been trying to find a room they can rent but it has been difficult to do without his check. He and his partner stayed in hotel rooms through most of the bad weather. Encouraged patient to continue his search for a room to rent as this is so much cheaper than hotel rooms. Also discussed setting up meals on wheels for them if they find a place to stay. Patient states he can't sleep on floors at warming centers anymore because it leads to COPD exacerbation. He must have a bed. Patient has already been referred to [facility]. Discharge plan is alf bed at this time. CM will follow. Date Signed: 07/17/2017 12:19 PM Electronically Signed By:Anu Acevedo LCSW
[2017-07-17] MEDS ORDERED: LORazepam 0.5 MG TAB PO PRN (15:35)
[2017-07-17] MEDS: traMADol 50 MG TAB PO PRN (16:11)
--- NOTE | 2017-07-17 16:56 | HOSPPROG ---
Hospitalist Progress Note Assessment/Plan: * Acute on chronic respiratory failure -needs home O2 chronically but homeless status is a barrier -still very SOB - recheck CXR * COPD exacerbation -steroids, nebs -DC abx - s/p 6 days Levaquin * CAD - 40% LAD lesion -med mgmt * Tobacco dependency -advise cessation * Hep C Subjective: Very SOB, no better since admission, pleuritic CP continues Objective: Vital Signs Temp Pulse Resp BP Pulse Ox 36.5 C 100 20 119/72 92 07/17/17 15:53 07/17/17 16:10 07/17/17 16:10 07/17/17 15:53 07/17/17 16:10 Laboratory Results 07/16/17 04:50 07/15/17 04:47 07/16/17 07/17/17 07/18/17 05:59 05:59 05:59 Intake Total 850 500 Balance 850 500 OLD chart reviewed regarding previous cardiac status - cath recently (2018) CAD but not enough to stent, ECHO looks okay - Physical Exam Constitutional: no apparent distress, appears nourished, not in pain Cardiovascular: regular rate and rhythym, no murmur, rub, or gallop Respiratory: no respiratory distress, no rales or rhonchi, clear to auscultation Gastrointestinal: normoactive bowel sounds, soft, non-tender abdomen, no palpable masses Skin: no rashes or abrasions, no fluctuance, no induration Neurologic: AAOx3, sensation intact bilaterally Psychiatric: interacting appropriately, not anxious, not encephalopathic, thought process linear ICD10 Worksheet Patient Problems: Problems Problem Status Onset COPD exacerbation Acute COPD (chronic obstructive pulmonary disease) Acute Chronic obstructive pulmonary disease with acute exacerbation Acute Pneumonia Acute Respiratory failure with hypoxia Acute Sepsis Acute Severe sepsis Acute
[2017-07-17] MEDS: oxyCODONE IR 5 MG TAB PO PRN ×2 (18:33→22:51)
[2017-07-18] MEDS: traMADol 50 MG TAB PO PRN ×2 (01:32→08:49)
[2017-07-18] MEDS: oxyCODONE IR 5 MG TAB PO PRN ×4 (04:53→20:43)
[2017-07-18] MEDS: IPRATROPIUM/ALBUTEROL 3 ML DEYVIAL IH SCH ×4 (05:41→20:55)
[2017-07-18 06:27] LABS: PLATELET COUNT 187 10^3/uL (150-400)
[2017-07-18] MEDS: ATORVASTATIN CALCIUM 10 MG TAB PO SCH (08:46)
[2017-07-18] MEDS: ENOXAPARIN 40 MG/0.4 ML SYR SC SCH (08:46)
[2017-07-18] MEDS: predniSONE 20 MG TAB PO SCH (08:46)
[2017-07-18] MEDS: NICOTINE 14 MG/24 HR PATCH TD SCH (08:46)
[2017-07-18] MEDS: ASPIRIN EC 81 MG TAB PO SCH (08:46)
[2017-07-18] MEDS: IBUPROFEN 600 MG TAB PO PRN (08:49)
[2017-07-18] MEDS: BUDESONIDE/FORMOTEROL 160/4.5 60 PUFFS/MDI IH SCH ×2 (10:41→20:55)
[2017-07-18] MEDS: LORazepam 1 MG TAB PO PRN (15:58)
--- NOTE | 2017-07-18 17:14 | HOSPPROG ---
Hospitalist Progress Note Assessment/Plan: * Acute on chronic respiratory failure -needs home O2 chronically but homeless status is a barrier -89 % RA is his baseline -finding dispo plan that involves O2 has been impossible -keep inpatient until back to baseline * COPD exacerbation -steroids, nebs -DC abx - s/p 6 days Levaquin * CAD - 40% LAD lesion -med mgmt * Tobacco dependency -advise cessation * Hep C Subjective: 87% RA with SOB when room air trial today Objective: Vital Signs Temp Pulse Resp BP Pulse Ox 36.6 C 87 20 112/75 93 07/18/17 14:09 07/18/17 14:09 07/18/17 14:09 07/18/17 14:09 07/18/17 14:09 Laboratory Results 07/18/17 05:00 07/18/17 05:00 07/17/17 07/18/17 07/19/17 05:59 05:59 05:59 Intake Total 850 1250 Balance 850 1250 - Physical Exam Constitutional: no apparent distress, appears nourished, not in pain Cardiovascular: regular rate and rhythym, no murmur, rub, or gallop Respiratory: no respiratory distress, no rales or rhonchi, clear to auscultation Gastrointestinal: normoactive bowel sounds, soft, non-tender abdomen, no palpable masses Skin: no rashes or abrasions, no fluctuance, no induration Neurologic: AAOx3, sensation intact bilaterally Psychiatric: interacting appropriately, not anxious, not encephalopathic, thought process linear ICD10 Worksheet Patient Problems: Problems Problem Status Onset COPD exacerbation Acute COPD (chronic obstructive pulmonary disease) Acute Chronic obstructive pulmonary disease with acute exacerbation Acute Pneumonia Acute Respiratory failure with hypoxia Acute Sepsis Acute Severe sepsis Acute
--- NOTE | 2017-07-18 17:45 | ASMTCMCOM ---
MARK Note CM Note Notes: Made an appointment for patient to get follow up care with [facility]. His appointment is Monday at 11:[address] Yanna Castle at the [address] [place] [address] address. He is to report to the blue side of the building. This was written down for patient and given to him today. He needs to take his discharge papers from the hospital with him as it will have his medications listed. Patient continues to have O2 issues we are trying to stabilize. Patient is refusing any accomodations that will not also be provided for his friend, Quin. He will not qualify for medical respite under these conditions and he won't go to the long-term beds unless she has one too. Since we need beds for patient's, this doesn't seem a viable option. There is also the issue of home oxygen which cannot be provided when he does not have a place to live. The case has been escalated to Manager Nat. MARK will follow. Date Signed: 07/18/2017 05:45 PM Electronically Signed By:Anu Acevedo LCSW
[2017-07-18] MEDS: ZOLPIDEM TARTRATE 5 MG TAB PO PRN (20:43)
[2017-07-19] MEDS: oxyCODONE IR 5 MG TAB PO PRN ×5 (00:49→20:44)
[2017-07-19] MEDS: IPRATROPIUM/ALBUTEROL 3 ML DEYVIAL IH SCH ×4 (06:11→20:35)
[2017-07-19] MEDS: ATORVASTATIN CALCIUM 10 MG TAB PO SCH (08:02)
[2017-07-19] MEDS: ENOXAPARIN 40 MG/0.4 ML SYR SC SCH (08:02)
[2017-07-19] MEDS: LORazepam 1 MG TAB PO PRN (08:02)
[2017-07-19] MEDS: ASPIRIN EC 81 MG TAB PO SCH (08:02)
[2017-07-19] MEDS: predniSONE 20 MG TAB PO SCH (08:02)
[2017-07-19] MEDS: NICOTINE 14 MG/24 HR PATCH TD SCH (08:03)
--- NOTE | 2017-07-19 09:27 | HOSPPROG ---
Hospitalist Progress Note Assessment/Plan: Acute on chronic respiratory failure -needs home O2 chronically but homeless status is a barrier -89 % RA is his baseline -finding dispo plan that involves O2 difficult as no home address (says he has tanks in storage though) * COPD exacerbation -steroids, nebs -s/p 6 days Levaquin -resp panel neg -suspect this may be baseline or close to baseline for him * CAD - 40% LAD lesion -med mgmt * Tobacco dependency -strongly advise cessation * Hep C DISPO- CM working on issues PCP-[facility] Subjective: Says his breathing seems worse, but denies n/v/d/abd pain/CP. Per nursing- breathing about same as prev (my first day seeing him). Objective: Vital Signs Temp Pulse Resp BP Pulse Ox 97.8 F 83 20 96/76 L 93 07/19/17 07:45 07/19/17 07:45 07/19/17 07:45 07/19/17 07:45 07/19/17 07:45 Laboratory Results 07/18/17 05:00 07/18/17 05:00 07/17/17 07/18/17 07/19/17 11:59 11:59 11:59 Intake Total 1350 750 850 Balance 1350 750 850 - Physical Exam Constitutional: chronically ill appearing, unkempt, cachectic Eyes: anicteric sclera Ears, Nose, Mouth, Throat: moist mucous membranes Cardiovascular: regular rate and rhythym Respiratory: no respiratory distress, no rales or rhonchi, reduced air movement Gastrointestinal: normoactive bowel sounds, soft, non-tender abdomen Skin: warm Psychiatric: interacting appropriately, not encephalopathic, flat affect, poor insight, poor judgement ICD10 Worksheet Patient Problems: Problems Problem Status Onset COPD exacerbation Acute COPD (chronic obstructive pulmonary disease) Acute Chronic obstructive pulmonary disease with acute exacerbation Acute Pneumonia Acute Respiratory failure with hypoxia Acute Sepsis Acute Severe sepsis Acute
[2017-07-19] MEDS: BUDESONIDE/FORMOTEROL 160/4.5 60 PUFFS/MDI IH SCH ×2 (10:24→20:35)
[2017-07-19] MEDS: ZOLPIDEM TARTRATE 5 MG TAB PO PRN (20:44)
[2017-07-20] MEDS: LORazepam 1 MG TAB PO PRN (00:26)
[2017-07-20] MEDS: oxyCODONE IR 5 MG TAB PO PRN ×5 (03:09→20:24)
[2017-07-20] MEDS: IPRATROPIUM/ALBUTEROL 3 ML DEYVIAL IH SCH ×4 (05:41→21:16)
[2017-07-20] MEDS: ENOXAPARIN 40 MG/0.4 ML SYR SC SCH (08:20)
[2017-07-20] MEDS: predniSONE 20 MG TAB PO SCH (08:22)
[2017-07-20] MEDS: ASPIRIN EC 81 MG TAB PO SCH (08:22)
[2017-07-20] MEDS: ATORVASTATIN CALCIUM 10 MG TAB PO SCH (08:22)
[2017-07-20] MEDS: NICOTINE 14 MG/24 HR PATCH TD SCH (08:23)
[2017-07-20] MEDS: BUDESONIDE/FORMOTEROL 160/4.5 60 PUFFS/MDI IH SCH ×2 (10:17→21:18)
--- NOTE | 2017-07-20 16:56 | HOSPPROG ---
Hospitalist Progress Note Assessment/Plan: Acute on chronic respiratory failure -needs home O2 chronically but homeless status is a barrier -89 % RA is his baseline, stable on 2L here -finding dispo plan that involves O2 difficult as no home address (says he has tanks in storage though) * COPD exacerbation, severe emphysema on CT chest -steroids, nebs -s/p 6 days Levaquin -resp panel neg -suspect this may be baseline or close to baseline for him * CAD - 40% LAD lesion -med mgmt * Tobacco dependency -strongly advise cessation * Hep C Check labs in AM. DISPO- CM working on issues PCP-[facility] Subjective: Still says 'breathing hard' but noticed varies quite a bit while I am in room- but mostly breathing easily/no distress. No CP/n/v/d/abd pain. Objective: Vital Signs Temp Pulse Resp BP Pulse Ox 98.5 F 106 H 24 H 119/76 92 07/20/17 15:31 07/20/17 16:20 07/20/17 16:20 07/20/17 15:31 07/20/17 16:20 Laboratory Results 07/18/17 05:00 07/18/17 05:00 07/19/17 07/20/17 07/21/17 11:59 11:59 11:59 Intake Total 850 900 Balance 850 900 - Physical Exam Constitutional: chronically ill appearing, unkempt, cachectic Eyes: anicteric sclera Ears, Nose, Mouth, Throat: moist mucous membranes Cardiovascular: regular rate and rhythym Respiratory: no respiratory distress, no rales or rhonchi, reduced air movement Gastrointestinal: normoactive bowel sounds, soft, non-tender abdomen Skin: warm Psychiatric: not encephalopathic, flat affect, poor insight, poor judgement ICD10 Worksheet Patient Problems: Problems Problem Status Onset COPD exacerbation Acute COPD (chronic obstructive pulmonary disease) Acute Chronic obstructive pulmonary disease with acute exacerbation Acute Pneumonia Acute Respiratory failure with hypoxia Acute Sepsis Acute Severe sepsis Acute
[2017-07-20] MEDS: ZOLPIDEM TARTRATE 5 MG TAB PO PRN (20:24)
[2017-07-20] MEDS: IBUPROFEN 600 MG TAB PO PRN (20:24)
[2017-07-21] MEDS: oxyCODONE IR 5 MG TAB PO PRN ×5 (00:44→21:25)
[2017-07-21] MEDS: IPRATROPIUM/ALBUTEROL 3 ML DEYVIAL IH SCH ×4 (05:19→21:47)
[2017-07-21 06:35] LABS: PLATELET COUNT 132 10^3/uL (150-400)
[2017-07-21] MEDS: NICOTINE 14 MG/24 HR PATCH TD SCH (08:49)
[2017-07-21] MEDS: ENOXAPARIN 40 MG/0.4 ML SYR SC SCH (08:49)
[2017-07-21] MEDS: ATORVASTATIN CALCIUM 10 MG TAB PO SCH (08:50)
[2017-07-21] MEDS: predniSONE 20 MG TAB PO SCH (08:50)
[2017-07-21] MEDS: ASPIRIN EC 81 MG TAB PO SCH (08:50)
--- NOTE | 2017-07-21 11:28 | HOSPPROG ---
Hospitalist Progress Note Assessment/Plan: 61 yo M w chronic hypoxemic resp failure Acute on chronic respiratory failure -needs home O2 chronically but homeless status is a barrier -89 % RA is his baseline, stable on 2L here -finding dispo plan that involves O2 difficult as no home address (says he has tanks in storage though) leukocytosis: new not attributable to steroids as has been on them cxr 2 days ago w no infiltrate (images interp by me) no diarrhea, but scenario s/o cdiff repeat cxr send stool for cdiff if diarrhea COPD exacerbation, severe emphysema on CT chest -steroids, nebs -s/p 6 days Levaquin -resp panel neg -suspect this may be baseline or close to baseline for him CAD - 40% LAD lesion -med mgmt Tobacco dependency -strongly advise cessation Hep C DISPO- CM working on issues PCP-[facility] Subjective: rising white count noted. no diarrhea Objective: Vital Signs Temp Pulse Resp BP Pulse Ox 36.8 C 97 22 H 119/62 89 L 07/21/17 08:00 07/21/17 08:00 07/21/17 08:00 07/21/17 08:00 07/21/17 08:00 Laboratory Results 07/21/17 05:01 07/21/17 05:01 07/20/17 07/21/17 07/22/17 05:59 05:59 05:59 Intake Total 900 Balance 900 - Physical Exam Constitutional: no apparent distress, appears nourished Eyes: PERRL, anicteric sclera Ears, Nose, Mouth, Throat: moist mucous membranes, hearing normal Cardiovascular: regular rate and rhythym, no murmur, rub, or gallop Respiratory: no respiratory distress, no rales or rhonchi, reduced air movement Gastrointestinal: normoactive bowel sounds, soft, non-tender abdomen Genitourinary: no bladder fullness, No barboza in urethra Skin: warm, normal color Musculoskeletal: full muscle strength, no muscle tenderness Neurologic: AAOx3 ICD10 Worksheet Patient Problems: Problems Problem Status Onset COPD exacerbation Acute COPD (chronic obstructive pulmonary disease) Acute Chronic obstructive pulmonary disease with acute exacerbation Acute Pneumonia Acute Respiratory failure with hypoxia Acute Sepsis Acute Severe sepsis Acute
[2017-07-21] MEDS: BUDESONIDE/FORMOTEROL 160/4.5 60 PUFFS/MDI IH SCH ×2 (12:03→21:48)
[2017-07-21] MEDS: IBUPROFEN 600 MG TAB PO PRN (13:08)
[2017-07-21] MEDS ORDERED: CEFEPIME HCL 2 GM in STERILE WATER INJ 12.5 ML IV SCH (15:55)
--- NOTE | 2017-07-21 17:03 | ASMTCMCOM ---
CM Note CM Note Notes: Please refer to SW note on 07/18. Pt continues to have O2 issues but states has O2 tanks in a storage unit. Pt has appt at the [facility] on Monday, if pt doesn't dc CM will need to reschedule. Otherwise plan is to cab pt to [facility], pt has refused senior living if we cannot get his female friend in as well. Date Signed: 07/21/2017 05:02 PM Electronically Signed By:Zena Ramirez RN
[2017-07-21] MEDS: CEFEPIME HCL 2 GM in STERILE WATER INJ 12.5 ML IV SCH (17:06)
[2017-07-21] MEDS: ZOLPIDEM TARTRATE 5 MG TAB PO PRN (21:25)
[2017-07-22] MEDS: oxyCODONE IR 5 MG TAB PO PRN ×5 (04:33→21:05)
[2017-07-22] MEDS: CEFEPIME HCL 2 GM in STERILE WATER INJ 12.5 ML IV SCH ×2 (04:35→17:06)
[2017-07-22 05:35] LABS: PLATELET COUNT 129 10^3/uL (150-400)
[2017-07-22] MEDS: IPRATROPIUM/ALBUTEROL 3 ML DEYVIAL IH SCH ×4 (06:25→21:20)
[2017-07-22] MEDS: NICOTINE 14 MG/24 HR PATCH TD SCH (09:06)
[2017-07-22] MEDS: predniSONE 20 MG TAB PO SCH (09:07)
[2017-07-22] MEDS: ASPIRIN EC 81 MG TAB PO SCH (09:07)
[2017-07-22] MEDS: BUDESONIDE/FORMOTEROL 160/4.5 60 PUFFS/MDI IH SCH ×2 (09:07→21:24)
[2017-07-22] MEDS: ATORVASTATIN CALCIUM 10 MG TAB PO SCH (09:07)
[2017-07-22] MEDS: ENOXAPARIN 40 MG/0.4 ML SYR SC SCH (09:11)
--- NOTE | 2017-07-22 09:14 | HOSPPROG ---
Hospitalist Progress Note Assessment/Plan: 61 yo M w chronic hypoxemic resp failure Acute on chronic respiratory failure -needs home O2 chronically but homeless status is a barrier -89 % RA is his baseline, stable on 2L here -finding dispo plan that involves O2 difficult as no home address (says he has tanks in storage though) leukocytosis: new not attributable to steroids as has been on them for days cxr w LLL infiltrate- treat as HCAP no diarrhea, but scenario s/o cdiff send stool if diarrhea check lft's and lipase given abdominal pain COPD exacerbation, severe emphysema on CT chest -steroids, nebs -s/p 6 days Levaquin -resp panel neg -suspect this may be baseline or close to baseline for him CAD - 40% LAD lesion -med mgmt Tobacco dependency -strongly advise cessation Hep C DISPO- CM working on issues PCP-[facility] Subjective: no diarrhea. generalized abdominal pain. d/o SOB Objective: Vital Signs Temp Pulse Resp BP Pulse Ox 36.5 C 79 20 109/65 91 L 07/22/17 07:50 07/22/17 07:50 07/22/17 07:50 07/22/17 07:50 07/22/17 07:50 Laboratory Results 07/22/17 04:40 07/21/17 05:01 - Physical Exam Constitutional: no apparent distress, appears nourished Eyes: PERRL, anicteric sclera Ears, Nose, Mouth, Throat: moist mucous membranes, hearing normal Cardiovascular: regular rate and rhythym, no murmur, rub, or gallop Respiratory: other (rhoncorous breath sounds b/l. rare crackles L base) Gastrointestinal: normoactive bowel sounds, soft, non-tender abdomen Genitourinary: no bladder fullness, No barboza in urethra Skin: warm, normal color Musculoskeletal: full muscle strength, no muscle tenderness Neurologic: AAOx3 ICD10 Worksheet Patient Problems: Problems Problem Status Onset COPD exacerbation Acute COPD (chronic obstructive pulmonary disease) Acute Chronic obstructive pulmonary disease with acute exacerbation Acute Pneumonia Acute Respiratory failure with hypoxia Acute Sepsis Acute Severe sepsis Acute
[2017-07-22] MEDS: ZOLPIDEM TARTRATE 5 MG TAB PO PRN (21:05)
[2017-07-23] MEDS: oxyCODONE IR 5 MG TAB PO PRN ×5 (01:34→21:33)
[2017-07-23] MEDS: CEFEPIME HCL 2 GM in STERILE WATER INJ 12.5 ML IV SCH ×2 (04:30→17:32)
[2017-07-23 05:16] LABS: PLATELET COUNT 127 10^3/uL (150-400)
[2017-07-23] MEDS: IPRATROPIUM/ALBUTEROL 3 ML DEYVIAL IH SCH ×4 (06:25→21:37)
[2017-07-23] MEDS: ATORVASTATIN CALCIUM 10 MG TAB PO SCH (09:30)
[2017-07-23] MEDS: predniSONE 20 MG TAB PO SCH (09:30)
[2017-07-23] MEDS: ASPIRIN EC 81 MG TAB PO SCH (09:30)
[2017-07-23] MEDS: NICOTINE 14 MG/24 HR PATCH TD SCH (09:31)
[2017-07-23] MEDS: ENOXAPARIN 40 MG/0.4 ML SYR SC SCH (09:32)
[2017-07-23] MEDS: BUDESONIDE/FORMOTEROL 160/4.5 60 PUFFS/MDI IH SCH ×2 (10:08→21:37)
--- NOTE | 2017-07-23 11:39 | HOSPPROG ---
Hospitalist Progress Note Assessment/Plan: 61 yo M w chronic hypoxemic resp failure Acute on chronic respiratory failure -needs home O2 chronically but homeless status is a barrier -89 % RA is his baseline, stable on 2L here -finding dispo plan that involves O2 difficult as no home address (says he has tanks in storage though) leukocytosis: new not attributable to steroids as has been on them for days cxr w LLL infiltrate- treat as HCAP day 3/5 cefepime no diarrhea, but scenario s/o cdiff send stool if diarrhea check lft's and lipase given abdominal pain COPD exacerbation, severe emphysema on CT chest -steroids, nebs -s/p 6 days Levaquin -resp panel neg -suspect this may be baseline or close to baseline for him CAD - 40% LAD lesion -med mgmt Tobacco dependency -strongly advise cessation Hep C DISPO- CM working on issues PCP-[facility] Subjective: white count improving Objective: Vital Signs Temp Pulse Resp BP Pulse Ox 36.6 C 82 24 H 115/68 85 L 07/23/17 08:00 07/23/17 10:09 07/23/17 10:09 07/23/17 08:00 07/23/17 10:09 Laboratory Results 07/23/17 04:55 07/23/17 04:55 07/22/17 07/23/17 07/24/17 05:59 05:59 05:59 Intake Total 300 Balance 300 - Physical Exam Constitutional: no apparent distress, appears nourished Eyes: PERRL, anicteric sclera Ears, Nose, Mouth, Throat: moist mucous membranes, hearing normal Cardiovascular: regular rate and rhythym, no murmur, rub, or gallop Respiratory: no respiratory distress, no rales or rhonchi Gastrointestinal: normoactive bowel sounds, soft, non-tender abdomen Genitourinary: no bladder fullness, No barboza in urethra Skin: warm, normal color Musculoskeletal: full muscle strength, no muscle tenderness Neurologic: AAOx3 ICD10 Worksheet Patient Problems: Problems Problem Status Onset COPD exacerbation Acute COPD (chronic obstructive pulmonary disease) Acute Chronic obstructive pulmonary disease with acute exacerbation Acute Pneumonia Acute Respiratory failure with hypoxia Acute Sepsis Acute Severe sepsis Acute
[2017-07-23] MEDS: ZOLPIDEM TARTRATE 5 MG TAB PO PRN (21:33)
[2017-07-24] MEDS: oxyCODONE IR 5 MG TAB PO PRN ×5 (01:11→20:57)
[2017-07-24] MEDS: CEFEPIME HCL 2 GM in STERILE WATER INJ 12.5 ML IV SCH ×2 (05:14→16:52)
[2017-07-24] MEDS: IPRATROPIUM/ALBUTEROL 3 ML DEYVIAL IH SCH ×4 (06:09→21:01)
[2017-07-24] MEDS: ENOXAPARIN 40 MG/0.4 ML SYR SC SCH (08:45)
[2017-07-24] MEDS: ATORVASTATIN CALCIUM 10 MG TAB PO SCH (08:45)
[2017-07-24] MEDS: NICOTINE 14 MG/24 HR PATCH TD SCH (08:45)
[2017-07-24] MEDS: ASPIRIN EC 81 MG TAB PO SCH (08:45)
[2017-07-24] MEDS: BUDESONIDE/FORMOTEROL 160/4.5 60 PUFFS/MDI IH SCH ×2 (10:53→21:02)
--- NOTE | 2017-07-24 13:08 | HOSPPROG ---
Hospitalist Progress Note Assessment/Plan: 61 yo M w chronic hypoxemic resp failure Acute on chronic respiratory failure -needs home O2 chronically but homeless status is a barrier -89 % RA is his baseline, stable on 2L here -finding dispo plan that involves O2 difficult as no home address (says he has tanks in storage though) 07/25: RA challenge today leukocytosis: new not attributable to steroids as has been on them for days cxr w LLL infiltrate- treat as HCAP day 06/08 cefepime (last day 07/25) no diarrhea, but scenario s/o cdiff send stool if diarrhea check lft's and lipase given abdominal pain COPD exacerbation, severe emphysema on CT chest -steroids, nebs -s/p 6 days Levaquin -resp panel neg -suspect this may be baseline or close to baseline for him CAD - 40% LAD lesion -med mgmt Tobacco dependency -strongly advise cessation Hep C DISPO- CM working on issues PCP-[facility] Objective: Vital Signs Temp Pulse Resp BP Pulse Ox 36.7 C 82 14 107/70 91 L 07/24/17 08:00 07/23/17 23:04 07/24/17 08:00 07/24/17 08:00 07/24/17 08:00 Laboratory Results 07/23/17 04:55 07/23/17 04:55 07/23/17 07/24/17 07/25/17 05:59 05:59 05:59 Intake Total 300 500 Balance 300 500 ICD10 Worksheet Patient Problems: Problems Problem Status Onset COPD exacerbation Acute COPD (chronic obstructive pulmonary disease) Acute Chronic obstructive pulmonary disease with acute exacerbation Acute Pneumonia Acute Respiratory failure with hypoxia Acute Sepsis Acute Severe sepsis Acute
--- NOTE | 2017-07-24 14:38 | ASMTCMCOM ---
CM Note CM Note Notes: Spoke with Dr. Franco who states patient will be ready to d/c tomorrow. Patient continues to refuse our long term bed because we aren't going to provide for his friend Quin as well. Patient will most likely d/c to the street. CM available to look at any creative solution that might arise.CM rescheduled patient's follow-up appointment with [facility] for July @ 14:00 (2:00PM) at the [address] [place] [address]. Patient will be seeing Dr. Yanna Castle. This information was given to patient. CM will follow. Date Signed: 07/24/2017 02:37 PM Electronically Signed By:Anu Acevedo LCSW
[2017-07-24] MEDS: ZOLPIDEM TARTRATE 5 MG TAB PO PRN (20:57)
[2017-07-25] MEDS: CEFEPIME HCL 2 GM in STERILE WATER INJ 12.5 ML IV SCH ×2 (03:57→17:55)
[2017-07-25] MEDS: oxyCODONE IR 5 MG TAB PO PRN ×4 (03:57→19:49)
[2017-07-25] MEDS: IPRATROPIUM/ALBUTEROL 3 ML DEYVIAL IH SCH ×4 (05:30→20:44)
[2017-07-25 09:16] LABS: PLATELET COUNT 138 10^3/uL (150-400)
--- NOTE | 2017-07-25 10:18 | HOSPPROG ---
Hospitalist Progress Note Assessment/Plan: # acute on chronic resp failure d/t pna and COPD exacerbation - does not appear ready for dc to me today given his level of dyspnea - baseline 89% on RA # HCAP - currently on cefepime - will cont for another day - had received levaquin # COPD exacerbation - severe emphysema on CT - completed course of steroids - cont inhalers # leukocytosis - much improved # homeless - complicates his care overall # tobacco use - needs cessation # CAD - med management - cont asa/statin # HCV Subjective: breathing still feels short; has a productive cough Objective: Vital Signs Temp Pulse Resp BP Pulse Ox 36.4 C 77 16 108/74 92 07/25/17 07:42 07/25/17 07:42 07/25/17 07:42 07/25/17 07:42 07/25/17 07:42 Laboratory Results 07/25/17 08:50 07/23/17 04:55 07/24/17 07/25/17 07/26/17 05:59 05:59 05:59 Intake Total 500 [address] reviewed CXR personally reviewed chart reviewed - Physical Exam Constitutional: chronically ill appearing Cardiovascular: regular rate and rhythym, no murmur, rub, or gallop Respiratory: respiratory distress (mod), other (decresaed BS bilat), No expiratory wheeze, No inspiratory crackles, No rhonchi Gastrointestinal: normoactive bowel sounds, soft, non-tender abdomen, no palpable masses ICD10 Worksheet Patient Problems: Problems Problem Status Onset COPD exacerbation Acute COPD (chronic obstructive pulmonary disease) Acute Chronic obstructive pulmonary disease with acute exacerbation Acute Pneumonia Acute Respiratory failure with hypoxia Acute Sepsis Acute Severe sepsis Acute
[2017-07-25] MEDS: BUDESONIDE/FORMOTEROL 160/4.5 60 PUFFS/MDI IH SCH ×2 (10:35→20:45)
[2017-07-25] MEDS: ASPIRIN EC 81 MG TAB PO SCH (11:21)
[2017-07-25] MEDS: ATORVASTATIN CALCIUM 10 MG TAB PO SCH (11:22)
[2017-07-25] MEDS: ENOXAPARIN 40 MG/0.4 ML SYR SC SCH (11:22)
[2017-07-25] MEDS: NICOTINE 14 MG/24 HR PATCH TD SCH (11:29)
--- NOTE | 2017-07-25 11:55 | ASMTCMCOM ---
CM Note CM Note Notes: Patient is not ready for d/c today. CM to provide taxi voucher to patient and his friend at d/c going to [facility] where they can both sign up for services. This remains the d/c plan to date. CM will follow. Date Signed: 07/25/2017 11:54 AM Electronically Signed By:Anu Acevedo LCSW
[2017-07-25] MEDS: ZOLPIDEM TARTRATE 5 MG TAB PO PRN (19:49)
[2017-07-26] MEDS: oxyCODONE IR 5 MG TAB PO PRN ×7 (00:01→21:00)
[2017-07-26] MEDS: CEFEPIME HCL 2 GM in STERILE WATER INJ 12.5 ML IV SCH ×2 (04:40→16:43)
[2017-07-26] MEDS: IPRATROPIUM/ALBUTEROL 3 ML DEYVIAL IH SCH ×4 (05:02→20:11)
[2017-07-26] MEDS ORDERED: HYDROmorphONE/DILAUDID 1 MG/ML INJ IVP ONE (08:36)
--- NOTE | 2017-07-26 08:45 | HOSPPROG ---
Hospitalist Progress Note Assessment/Plan: # chest pain - acute this am, suspect pleurisy or rib fracture but cannot r/o ACS at this point - will get stat ECG, CXR with ribs, troponin, BMP, CBC - place on tele # acute on chronic resp failure d/t pna and COPD exacerbation - baseline 89% on RA # HCAP - currently on cefepime - will cont for now pending above workup for CP - had received a course of levaquin # COPD exacerbation - severe emphysema on CT - completed course of steroids - cont inhalers # leukocytosis - much improved # homeless - complicates his care overall # tobacco use - needs cessation # CAD - med management - cont asa/statin # HCV Subjective: called urgently to bedside for severe sharp, stabbing, pleuritic chest pain; patient reports that this started at 3am but got acutely worse about 1 hour ago Objective: Vital Signs Temp Pulse Resp BP Pulse Ox 36.4 C 99 18 105/75 90 L 07/26/17 08:24 07/26/17 08:24 07/26/17 05:03 07/26/17 08:24 07/26/17 08:24 Laboratory Results 07/25/17 08:50 07/23/17 04:55 07/25/17 07/26/17 07/27/17 05:59 05:59 05:59 Intake Total 400 Balance 400 35 mins of floor critical care time managing acute chest pain in a patient with severe COPD and CAD with a high risk of decompensation depending on the etiology of chest pain - Physical Exam Constitutional: no apparent distress, appears nourished Cardiovascular: regular rate and rhythym, no murmur, rub, or gallop Respiratory: no rales or rhonchi, respiratory distress (mod), No expiratory wheeze, No inspiratory crackles Gastrointestinal: normoactive bowel sounds, soft, non-tender abdomen, no palpable masses ICD10 Worksheet Patient Problems: Problems Problem Status Onset Pneumonia Acute COPD exacerbation Acute Sepsis Acute Respiratory failure with hypoxia Acute COPD (chronic obstructive pulmonary disease) Acute Severe sepsis Acute Chronic obstructive pulmonary disease with acute exacerbation Acute
[2017-07-26] MEDS: ASPIRIN EC 81 MG TAB PO SCH (08:53)
[2017-07-26] MEDS: ATORVASTATIN CALCIUM 10 MG TAB PO SCH (08:53)
[2017-07-26] MEDS: NICOTINE 14 MG/24 HR PATCH TD SCH (08:53)
[2017-07-26] MEDS: ENOXAPARIN 40 MG/0.4 ML SYR SC SCH (08:53)
[2017-07-26 09:11] LABS: PLATELET COUNT 151 10^3/uL (150-400)
--- NOTE | 2017-07-26 09:57 | CPEKG ---
Heart Rate: 94 RR Interval: 638 P-R Interval: 152 QRSD Interval: 68 QT Interval: 332 QTC Interval: 416 P [place]: 75 QRS [place]: 81 T Wave [place]: 67 EKG Severity - BORDERLINE ECG - EKG Impression: SINUS RHYTHM EKG Impression: BORDERLINE RIGHT AXIS DEVIATION EKG Impression: BORDERLINE T ABNORMALITIES, ANT-LAT LEADS Electronically Signed By: Jarrell Argueta 27-Jul-2017 15:27:18
[2017-07-26] MEDS: BUDESONIDE/FORMOTEROL 160/4.5 60 PUFFS/MDI IH SCH ×2 (10:03→20:11)
[2017-07-26] MEDS ORDERED: LACTULOSE 20 GM/30 ML UDCUP PO PRN (11:51)
[2017-07-26] MEDS ORDERED: MAGNESIUM HYDROXIDE 30 ML UDCUP PO PRN (11:51)
[2017-07-26] MEDS ORDERED: BISACODYL 10 MG SUPP PR PRN (11:51)
[2017-07-26] MEDS ORDERED: POLYETHYLENE GLYCOL 3350 17 GM PKT PO PRN (11:51)
[2017-07-26] MEDS: SENNOSIDES/DOCUSATE SODIUM TAB PO SCH ×2 (12:17→20:14)
[2017-07-26] MEDS: ACETAMINOPHEN 325 MG TAB PO PRN ×2 (14:14→18:01)
[2017-07-26] MEDS: KETOROLAC 15 MG/1 ML SDV IVP PRN ×2 (15:07→21:00)
[2017-07-26] MEDS: ZOLPIDEM TARTRATE 5 MG TAB PO PRN (22:58)
[2017-07-27] MEDS: oxyCODONE IR 5 MG TAB PO PRN ×5 (02:37→22:30)
[2017-07-27] MEDS: KETOROLAC 15 MG/1 ML SDV IVP PRN ×3 (03:09→20:10)
[2017-07-27] MEDS: BUDESONIDE/FORMOTEROL 160/4.5 60 PUFFS/MDI IH SCH ×2 (05:41→21:29)
[2017-07-27] MEDS: IPRATROPIUM/ALBUTEROL 3 ML DEYVIAL IH SCH ×4 (05:41→21:29)
[2017-07-27] MEDS: ATORVASTATIN CALCIUM 10 MG TAB PO SCH (08:16)
[2017-07-27] MEDS: ASPIRIN EC 81 MG TAB PO SCH (08:17)
[2017-07-27] MEDS: ENOXAPARIN 40 MG/0.4 ML SYR SC SCH (08:18)
[2017-07-27] MEDS: NICOTINE 14 MG/24 HR PATCH TD SCH (08:20)
--- NOTE | 2017-07-27 11:27 | HOSPPROG ---
Hospitalist Progress Note Assessment/Plan: # chest pain - this is rib pain - workup from yesterday negative # acute on chronic resp failure d/t pna and COPD exacerbation - baseline 89% on RA # HCAP - completed course of cefepime # COPD exacerbation - severe emphysema on CT - completed course of steroids - cont inhalers # leukocytosis - much improved # homeless - complicates his care overall # tobacco use - needs cessation # CAD - med management - cont asa/statin # HCV # dispo - still quite dyspneic; possible dc tomorrow Subjective: still feels SOB; pain in ribs better today Objective: Vital Signs Temp Pulse Resp BP Pulse Ox 36.8 C 77 28 H 113/69 93 07/27/17 07:37 07/27/17 10:59 07/27/17 10:59 07/27/17 07:37 07/27/17 10:59 Laboratory Results 07/26/17 09:00 07/26/17 09:00 07/26/17 07/27/17 07/28/17 05:59 05:59 05:59 Intake Total 1060 Balance 1060 - Physical Exam Constitutional: uncomfortable Cardiovascular: regular rate and rhythym, no murmur, rub, or gallop Respiratory: reduced air movement (bilat), respiratory distress (mild), No expiratory wheeze, No inspiratory crackles, No bronchial breath sounds Gastrointestinal: soft, non-tender abdomen, no palpable masses ICD10 Worksheet Patient Problems: Problems Problem Status Onset Pneumonia Acute COPD exacerbation Acute Sepsis Acute Respiratory failure with hypoxia Acute COPD (chronic obstructive pulmonary disease) Acute Severe sepsis Acute Chronic obstructive pulmonary disease with acute exacerbation Acute
--- NOTE | 2017-07-27 11:44 | ASMTCMCOM ---
CM Note CM Note Notes: Spoke w/MD, pt not discharging today, maybe tomorrow. Plan is for pt to go to [facility] and get set up with a [facility]. DC Plan: Independent Date Signed: 07/27/2017 11:44 AM Electronically Signed By:Zena Ramirez RN
[2017-07-27] MEDS: SENNOSIDES/DOCUSATE SODIUM TAB PO SCH ×2 (11:46→20:42)
[2017-07-27] MEDS: ZOLPIDEM TARTRATE 5 MG TAB PO PRN (20:10)
[2017-07-28] MEDS: IPRATROPIUM/ALBUTEROL 3 ML DEYVIAL IH SCH ×4 (05:30→21:04)
[2017-07-28 08:47] LABS: PLATELET COUNT 141 10^3/uL (150-400)
[2017-07-28] MEDS: ENOXAPARIN 40 MG/0.4 ML SYR SC SCH (09:31)
[2017-07-28] MEDS: ASPIRIN EC 81 MG TAB PO SCH (09:31)
[2017-07-28] MEDS: NICOTINE 14 MG/24 HR PATCH TD SCH (09:31)
[2017-07-28] MEDS: ATORVASTATIN CALCIUM 10 MG TAB PO SCH (09:31)
[2017-07-28] MEDS: SENNOSIDES/DOCUSATE SODIUM TAB PO SCH ×2 (09:31→23:39)
[2017-07-28] MEDS: oxyCODONE IR 5 MG TAB PO PRN ×4 (09:31→23:01)
[2017-07-28] MEDS: BUDESONIDE/FORMOTEROL 160/4.5 60 PUFFS/MDI IH SCH ×2 (09:35→21:04)
--- NOTE | 2017-07-28 12:04 | HOSPPROG ---
Hospitalist Progress Note Assessment/Plan: # chest pain - this is rib pain - workup from yesterday negative - cont PO pain control, add lidoderm patch today # acute on chronic resp failure d/t pna and COPD exacerbation - baseline 89% on RA - will add mucinex today - will give another trial of prednisone # HCAP - completed course of cefepime as well as levaquin # COPD exacerbation - severe emphysema on CT - cont inhalers, restart prednisone # leukocytosis - much improved # homeless - complicates his care overall # tobacco use - needs cessation # CAD - med management - cont asa/statin # HCV # dispo - still quite dyspneic; plan is to take a taxi to [facility] when ready for discharge Subjective: still does not feel any better Objective: Vital Signs Temp Pulse Resp BP Pulse Ox 36.9 C 84 18 105/74 94 07/28/17 07:43 07/28/17 11:40 07/28/17 11:40 07/28/17 07:43 07/28/17 11:40 Laboratory Results 07/28/17 08:25 07/28/17 08:25 07/27/17 07/28/17 07/29/17 05:59 05:59 05:59 Intake Total 1060 Balance 1060 CXR personally reviewed tele personally reviewed - Physical Exam Constitutional: uncomfortable, unkempt Cardiovascular: regular rate and rhythym, no murmur, rub, or gallop Respiratory: reduced air movement (bilat), respiratory distress (mod with tachypnea) Gastrointestinal: soft, non-tender abdomen, no palpable masses, No guarding, No rebound, No distension ICD10 Worksheet Patient Problems: Problems Problem Status Onset COPD exacerbation Acute COPD (chronic obstructive pulmonary disease) Acute Chronic obstructive pulmonary disease with acute exacerbation Acute Pneumonia Acute Respiratory failure with hypoxia Acute Sepsis Acute Severe sepsis Acute
[2017-07-28] MEDS: LIDOCAINE 4%/MENTHOL 1% PATCH TD SCH (12:41)
[2017-07-28] MEDS: predniSONE 20 MG TAB PO SCH (12:41)
[2017-07-28] MEDS: guaiFENesin 600 MG TAB.ER PO SCH ×2 (12:41→23:03)
[2017-07-28] MEDS: traMADol 50 MG TAB PO PRN (15:43)
--- NOTE | 2017-07-28 15:49 | ASMTCMCOM ---
CM Note CM Note Notes: Met w/pt, will not discharge today. Pt still visibly ill looking and has laboured breathing, reviewed plan that he would go to [facility], [facility] when medically stable. MARK w/f. DC Plan: [facility], MARK to call for cab Date Signed: 07/28/2017 03:48 PM Electronically Signed By:Zena Ramirez RN
[2017-07-28] MEDS: ZOLPIDEM TARTRATE 5 MG TAB PO PRN (23:02)
[2017-07-29] MEDS: PATCH REMOVAL 1 EA PATCH TD SCH ×2 (00:57→22:09)
[2017-07-29] MEDS: IPRATROPIUM/ALBUTEROL 3 ML DEYVIAL IH SCH ×4 (06:11→20:42)
[2017-07-29] MEDS: ENOXAPARIN 40 MG/0.4 ML SYR SC SCH (09:23)
[2017-07-29] MEDS: ASPIRIN EC 81 MG TAB PO SCH (09:23)
[2017-07-29] MEDS: predniSONE 20 MG TAB PO SCH (09:23)
[2017-07-29] MEDS: guaiFENesin 600 MG TAB.ER PO SCH ×2 (09:23→22:08)
[2017-07-29] MEDS: SENNOSIDES/DOCUSATE SODIUM TAB PO SCH ×2 (09:23→22:10)
[2017-07-29] MEDS: ATORVASTATIN CALCIUM 10 MG TAB PO SCH (09:23)
[2017-07-29] MEDS: LIDOCAINE 4%/MENTHOL 1% PATCH TD SCH (09:24)
[2017-07-29] MEDS: NICOTINE 14 MG/24 HR PATCH TD SCH (09:24)
[2017-07-29] MEDS: oxyCODONE IR 5 MG TAB PO PRN ×4 (09:26→22:08)
--- NOTE | 2017-07-29 09:42 | HOSPPROG ---
Hospitalist Progress Note Assessment/Plan: #Atypical CP: due to rib pain. Lidoderm patch #COPD exacerbation: cont nebs, steroids #HCAP: completed course abx #CAD: med management. ASA, statin #Leukocytosis: resolved #Homelessness: makes DC difficult. 4 admissions this year #Diet: regular #DVT ppx: Lovenox #Disp: cont inpatient admission for pulse, PT. Providing oxygen is barrier with homelessness. Will DC once weaned off O2 Subjective: still weak, but SOB improved Objective: Vital Signs Temp Pulse Resp BP Pulse Ox 36.7 C 71 18 121/74 H 97 07/29/17 07:45 07/29/17 07:45 07/29/17 07:45 07/29/17 07:45 07/29/17 07:45 Laboratory Results 07/28/17 08:25 07/28/17 08:25 - Time Spent With Patient Time Spent with Patient: greater than 25 minutes Time Spent with Patient: Greater than 25 minutes spent on this patients care, greater than 50% of time spent counseling, educating, and coordinating care regarding the above mentioned plan. - Physical Exam Constitutional: unkempt Eyes: PERRL Ears, Nose, Mouth, Throat: moist mucous membranes Cardiovascular: regular rate and rhythym, no murmur, rub, or gallop Respiratory: no respiratory distress, no rales or rhonchi, No expiratory wheeze , No inspiratory crackles Gastrointestinal: normoactive bowel sounds, soft, non-tender abdomen Genitourinary: no bladder fullness Skin: warm Musculoskeletal: full muscle strength Neurologic: AAOx3 Psychiatric: interacting appropriately ICD10 Worksheet Patient Problems: Problems Problem Status Onset COPD exacerbation Acute COPD (chronic obstructive pulmonary disease) Acute Chronic obstructive pulmonary disease with acute exacerbation Acute Pneumonia Acute Respiratory failure with hypoxia Acute Sepsis Acute Severe sepsis Acute
[2017-07-29] MEDS: BUDESONIDE/FORMOTEROL 160/4.5 60 PUFFS/MDI IH SCH ×2 (10:28→20:43)
[2017-07-29] MEDS: ZOLPIDEM TARTRATE 5 MG TAB PO PRN (22:08)
[2017-07-30] MEDS: oxyCODONE IR 5 MG TAB PO PRN ×6 (01:55→22:11)
[2017-07-30] MEDS: IPRATROPIUM/ALBUTEROL 3 ML DEYVIAL IH SCH ×4 (05:32→20:57)
[2017-07-30] MEDS: LIDOCAINE 4%/MENTHOL 1% PATCH TD SCH (08:35)
[2017-07-30] MEDS: predniSONE 20 MG TAB PO SCH (08:36)
[2017-07-30] MEDS: ENOXAPARIN 40 MG/0.4 ML SYR SC SCH (08:36)
[2017-07-30] MEDS: ATORVASTATIN CALCIUM 10 MG TAB PO SCH (08:36)
[2017-07-30] MEDS: guaiFENesin 600 MG TAB.ER PO SCH ×2 (08:36→20:07)
[2017-07-30] MEDS: NICOTINE 14 MG/24 HR PATCH TD SCH (08:36)
[2017-07-30] MEDS: ASPIRIN EC 81 MG TAB PO SCH (08:36)
[2017-07-30] MEDS: SENNOSIDES/DOCUSATE SODIUM TAB PO SCH ×2 (08:42→20:07)
[2017-07-30] MEDS: BUDESONIDE/FORMOTEROL 160/4.5 60 PUFFS/MDI IH SCH ×2 (10:37→20:58)
[2017-07-30] MEDS ORDERED: BENZONATATE 100 MG CAP PO PRN (10:46)
--- NOTE | 2017-07-30 16:45 | HOSPPROG ---
Hospitalist Progress Note Assessment/Plan: #Atypical CP: due to rib pain. Lidoderm patch #COPD exacerbation: cont nebs, steroids #AHRF: due to COPD/PNA. Still dropping 83-86%. He is homeless, thus no access to home Oxygen. Will cont to work with CM for any other options; cont to wean as tolerated #HCAP: completed course abx #CAD: med management. ASA, statin #Leukocytosis: resolved #Homelessness: makes DC difficult. 4 admissions this year #Diet: regular #DVT ppx: Lovenox #Disp: cont inpatient admission for pulse, PT. Providing oxygen is barrier with homelessness. Will DC once weaned off O2 Subjective: still very winded with walking. Coughing Objective: Vital Signs Temp Pulse Resp BP Pulse Ox 36.4 C 105 H 22 H 126/77 H 94 07/30/17 15:51 07/30/17 15:51 07/30/17 15:51 07/30/17 15:51 07/30/17 15:51 Laboratory Results 07/28/17 08:25 07/28/17 08:25 - Time Spent With Patient Time Spent with Patient: greater than 25 minutes Time Spent with Patient: Greater than 25 minutes spent on this patients care, greater than 50% of time spent counseling, educating, and coordinating care regarding the above mentioned plan. - Physical Exam Constitutional: chronically ill appearing Eyes: PERRL Ears, Nose, Mouth, Throat: moist mucous membranes, hearing normal Cardiovascular: regular rate and rhythym Respiratory: no respiratory distress, reduced air movement, No expiratory wheeze , No inspiratory crackles Gastrointestinal: normoactive bowel sounds, soft, non-tender abdomen Genitourinary: no bladder fullness Skin: warm Musculoskeletal: full muscle strength Neurologic: AAOx3 ICD10 Worksheet Patient Problems: Problems Problem Status Onset COPD exacerbation Acute COPD (chronic obstructive pulmonary disease) Acute Chronic obstructive pulmonary disease with acute exacerbation Acute Pneumonia Acute Respiratory failure with hypoxia Acute Sepsis Acute Severe sepsis Acute
[2017-07-30] MEDS: PATCH REMOVAL 1 EA PATCH TD SCH (20:12)
[2017-07-30] MEDS: ZOLPIDEM TARTRATE 5 MG TAB PO PRN (22:12)
[2017-07-31] MEDS: oxyCODONE IR 5 MG TAB PO PRN ×5 (02:21→20:18)
[2017-07-31] MEDS: IPRATROPIUM/ALBUTEROL 3 ML DEYVIAL IH SCH ×4 (06:09→20:34)
[2017-07-31] MEDS: ATORVASTATIN CALCIUM 10 MG TAB PO SCH (07:58)
[2017-07-31] MEDS: guaiFENesin 600 MG TAB.ER PO SCH ×2 (07:58→20:19)
[2017-07-31] MEDS: ENOXAPARIN 40 MG/0.4 ML SYR SC SCH (07:59)
[2017-07-31] MEDS: NICOTINE 14 MG/24 HR PATCH TD SCH (07:59)
[2017-07-31] MEDS: SENNOSIDES/DOCUSATE SODIUM TAB PO SCH ×2 (07:59→22:07)
[2017-07-31] MEDS: ASPIRIN EC 81 MG TAB PO SCH (07:59)
[2017-07-31] MEDS: predniSONE 20 MG TAB PO SCH (07:59)
[2017-07-31] MEDS: LIDOCAINE 4%/MENTHOL 1% PATCH TD SCH (08:00)
[2017-07-31] MEDS ORDERED: NS 1,000 ML IV SCH (09:00)
[2017-07-31] MEDS: BUDESONIDE/FORMOTEROL 160/4.5 60 PUFFS/MDI IH SCH ×2 (10:19→20:36)
--- NOTE | 2017-07-31 12:33 | HOSPPROG ---
Hospitalist Progress Note Assessment/Plan: #Atypical CP: improved. Due to rib pain. Lidoderm patch #COPD exacerbation: improved symptoms. Cont nebs, steroids #AHRF: due to COPD/PNA. O2 still low, but using less oxygen. He is homeless, thus no access to oxygen -he gets check on 1st and could get hotel and use oxygen there #HCAP: completed course abx #CAD: med management. ASA, statin #Leukocytosis: resolved #Homelessness: makes DC difficult. 4 admissions this year #Diet: regular #DVT ppx: Lovenox #Disp: cont inpatient admission for pulse, PT. Providing oxygen is barrier with homelessness. Will DC once weaned off O2 Subjective: SOB improving slowly Objective: Vital Signs Temp Pulse Resp BP Pulse Ox 36.5 C 72 18 91/70 L 90 L 07/31/17 08:08 07/31/17 10:15 07/31/17 10:15 07/31/17 08:08 07/31/17 10:15 Laboratory Results 07/28/17 08:25 07/28/17 08:25 - Time Spent With Patient Time Spent with Patient: greater than 25 minutes Time Spent with Patient: Greater than 25 minutes spent on this patients care, greater than 50% of time spent counseling, educating, and coordinating care regarding the above mentioned plan. - Physical Exam Constitutional: no apparent distress Eyes: PERRL Ears, Nose, Mouth, Throat: moist mucous membranes Cardiovascular: regular rate and rhythym Respiratory: no respiratory distress, reduced air movement, No expiratory wheeze Gastrointestinal: normoactive bowel sounds Genitourinary: no bladder fullness Skin: warm Musculoskeletal: full muscle strength Neurologic: AAOx3, CN II-XII Intact Psychiatric: interacting appropriately ICD10 Worksheet Patient Problems: Problems Problem Status Onset COPD exacerbation Acute COPD (chronic obstructive pulmonary disease) Acute Chronic obstructive pulmonary disease with acute exacerbation Acute Pneumonia Acute Respiratory failure with hypoxia Acute Sepsis Acute Severe sepsis Acute
--- NOTE | 2017-07-31 16:19 | ASMTCMCOM ---
CM Note CM Note Notes: Spoke with patient's nurse today who states patient has been on room air all day and may be able to d/c tomorrow. D/C plan remains taxi to [facility] early in the day so patient and his friend can apply for services. Patient's disability check will come August 04, 2017. CM will follow. Date Signed: 07/31/2017 04:19 PM Electronically Signed By:Anu Acevedo LCSW
[2017-07-31] MEDS: ZOLPIDEM TARTRATE 5 MG TAB PO PRN (20:18)
[2017-07-31] MEDS: PATCH REMOVAL 1 EA PATCH TD SCH (22:07)
[2017-08-01] MEDS: oxyCODONE IR 5 MG TAB PO PRN ×4 (04:22→11:59)
[2017-08-01] MEDS: IPRATROPIUM/ALBUTEROL 3 ML DEYVIAL IH SCH ×2 (04:25→10:00)
[2017-08-01 07:29] VITALS: BP 108/88
[2017-08-01] MEDS: ASPIRIN EC 81 MG TAB PO SCH (08:58)
[2017-08-01] MEDS: guaiFENesin 600 MG TAB.ER PO SCH (08:58)
[2017-08-01] MEDS: ATORVASTATIN CALCIUM 10 MG TAB PO SCH (08:58)
[2017-08-01] MEDS: NICOTINE 14 MG/24 HR PATCH TD SCH (08:58)
[2017-08-01] MEDS: predniSONE 20 MG TAB PO SCH (08:58)
[2017-08-01] MEDS: LIDOCAINE 4%/MENTHOL 1% PATCH TD SCH (08:59)
[2017-08-01] MEDS: ENOXAPARIN 40 MG/0.4 ML SYR SC SCH (08:59)
[2017-08-01] MEDS: SENNOSIDES/DOCUSATE SODIUM TAB PO SCH (09:03)
[2017-08-01] MEDS: BUDESONIDE/FORMOTEROL 160/4.5 60 PUFFS/MDI IH SCH (10:00)
--- NOTE | 2017-08-01 15:20 | ASMTCMCOM ---
CM Note CM Note Notes: Patient is ready for d/c as he has been on room air for over 24 hours. Mapped patient's medications including his inhalers. 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 Provided a taxi voucher to take patient and his friend to [facility] where they can sign up for services together.No further d/c needs. Date Signed: 08/01/2017 03:20 PM Electronically Signed By:Anu Acevedo LCSW
--- NOTE | 2017-08-01 15:21 | GDS ---
[f rep st] DISCHARGE SUMMARY DISCHARGE DIAGNOSES: Include: 1. Acute hypoxic respiratory failure, secondary to chronic obstructive pulmonary disease. 2. Acute chronic obstructive pulmonary disease exacerbation. 3. Healthcare associated pneumonia. 4. Coronary artery disease. 5. Acute rib pain. 6. Homelessness. HISTORY OF PRESENT ILLNESS: This is a 61-year-old male who presents on 07/11/2017, with complaints o f shortness of breath. For details of the patient's initial presentation, please see the history and physical dated 07/11/2017. CONSULTATIVE SERVICES: None. PROCEDURES: On 07/14/2017, patient had a CT-A of the chest that showed no pulmonary emboli. On 07/05, patient had a rib series x-ray that showed bibasilar opacities. No acute rib fractures. HOSPITAL COURSE: 1. Healthcare associated pneumonia. Patient completed a full course of antibiotics prior to disposi tion. White count 9.6 on the day of disposition and has come down from 30.2 on 07/21/2017. 2. Acute hypoxic respiratory failure, secondary to COPD and pneumonia. The patient has been weaned off oxygen and is saturating in the low 90s on the day of disposition. 3. Acute COPD exacerbation, likely triggered by infection. Patient was treated with pulse dose ster oids. He is being discharged on a wean of prednisone with outpatient followup. He will continue inh aled beta agonists, and steroids post disposition. 4. Acute rib pain. Patient did not have fracture, but did have described trauma to the chest, treat ed with nonnarcotic pain medications for discharge. MEDICATIONS AT TIME OF TRANSFER: Please reference the medication reconciliation printed on 8. PENDING STUDIES: At the time of this dictation are none. FOLLOWUP APPOINTMENTS: Include at [facility] in the next 1-2 weeks for post disposition followu p. Patient is being provided with resources from Case Management for housing and financial support. I spent greater than 30 minutes in the planning and coordination of this discharge. /[id number]/MODL
--- NOTE | 2017-08-01 15:26 | ASDISCHSUM ---
Discharge Information Plan Status:Homeless/Half-Way Medically Cleared to Leave:08/01/2017 Discharge Date:08/01/2017 03:18 PM CM D/C Disposition:Streets (Homeless) ADT D/C Disposition:Home, Routine, Self-Care Projected Discharge Date:08/01/2017 03:18 PM Transportation at D/C:Cab Voucher Discharge Delay Reason: Follow-Up Date:08/01/2017 03:18 PM Discharge Slot:2 - 12:01 pm - 18:00 pm Final Diagnosis: Placement Information Patient Contact Information Contact Name:MATT Relationship:Friend Address:[address] [place], [place] [id number] City:[place] Alternate Phone: [facility]/Zip Code:[place] [address] Email: Financial Information Financial Class:Medicaid Primary Plan Desc:[place] Primary Plan Number:[id number] Secondary Plan Desc: Secondary Plan Number: Assessment Information [facility] CM Progress Note CM Note CM Note Notes: Pt presented to the ED for SOB x 2days. Pt has hx of COPD and was recently admitted for PNA; pt d/c'd 06/22/17 with prescriptions, to stay in one of [facility]'s reserved beds at the [facility] and to follow up with [facility]. Spoke w/pt and he says he has been sleeping on the streets. Pt states he completed the [facility] Entry program and was referred to the [facility] shelter[facility] services and not referred to [facility] due to only being homeless for the past month or so. Pt states he has not followed back up with [facility] Case Mgmt. Pt states he has never had a doctor and didn't know anything about following up with [facility]. Per chart review, pt also admitted to [facility] in Apr and May 2017. Per CM notes, pt has been provided information on [facility] and also info for [facility]. This CM e-mailed Zenia Mike w/ [facility] requesting someone to check in with patient about providing additional outpatient Medicaid support/assistance. Pt still does not have a cell phone. 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 Pt and Quin were living in a trailer that Quin had for more than 20 years but when it was torn down, they became homeless and staying with friends or in motels. Pt has been provided supplemental oxygen in the past but has not been using it due to previous living situation and now homelessness. Pt states he is trying to quit smoking and is down to 3-4 cigarettes/day. Exact DC needs unknown. Anticipate pt needing reserved bed at [facility], [facility] coordination, supplemental oxygen, nebulizer, inhalers, other meds, appt at [facility], [facility] involvement, etc. CM to follow. Date Signed: 07/11/2017 06:10 PM Electronically Signed By:Lita Anderson RN LACE LACSherry Acuity / Level of Answers: Yes Care: Did the patient have an inpatient admission? Comorbidities - select Answers: Chronic pulmonary disease all that apply Moderate or severe liver or renal disease Other Notes: Hep C # of Emergency department Answers: 5-8 visits in the last 6 months Social determinants Answers: Homelessness (street, fpc) Lack of community resources and/or lack of social support (no pcp, lives alone, transportation, luanne d) Score: 21 Date Signed: 07/11/2017 06:13 PM Electronically Signed By:Lita Anderson RN [facility] CM Progress Note CM Note CM Note Notes: Spoke with pt and his friend, they are homeless. Pt states they stayed in a motel until the money ran out, he won't get money until August 04. Otherwise they have been sleeping outside. Pt situation is further complicated as he chronically needs O2, pt does not remember O2 company but states he has about 5 tanks in a storage unit. Per ED CM note, pt has not followed up with a [facility]. DC uncertain, pt states he filled out an application for a new place but does not have a phone or bank account. appointment manager to follow up with pt on Monday, maybe try [facility]. DC Plan: TBD Date Signed: 07/15/2017 06:14 PM Electronically Signed By:Zena Ramirez RN [facility] Progress Note CM Note CM Note Notes: Spoke with patient who states he gets $900/mo and his partner gets $700/mo but they are out of money until August. Patient states he has been trying to find a room they can rent but it has been difficult to do without his check. He and his partner stayed in hotel rooms through most of the bad weather. Encouraged patient to continue his search for a room to rent as this is so much cheaper than hotel rooms. Also discussed setting up meals on wheels for them if they find a place to stay. Patient states he can't sleep on floors at warming centers anymore because it leads to COPD exacerbation. He must have a bed. Patient has already been referred to [facility]. Discharge plan is fpc bed at this time. CM will follow. Date Signed: 07/17/2017 12:19 PM Electronically Signed By:Anu Acevedo LCSW [facility] CM Progress Note CM Note CM Note Notes: Made an appointment for patient to get follow up care with [facility]. His appointment is Monday at 11:[address] Yanna Castle at the [address] [place] [address] address. He is to report to the blue side of the building. This was written down for patient and given to him today. He needs to take his discharge papers from the hospital with him as it will have his medications listed. Patient continues to have O2 issues we are trying to stabilize. Patient is refusing any accomodations that will not also be provided for his friend, Quin. He will not qualify for medical respite under these conditions and he won't go to the fpc beds unless she has one too. Since we need beds for patient's, this doesn't seem a viable option. There is also the issue of home oxygen which cannot be provided when he does not have a place to live. The case has been escalated to Nat, . CM will follow. Date Signed: 07/18/2017 05:45 PM Electronically Signed By:Anu Acevedo LCSW [facility] Progress Note CM Note CM Note Notes: Please refer to SW note on 07/18. Pt continues to have O2 issues but states has O2 tanks in a storage unit. Pt has appt at the [facility] on Monday, if pt doesn't dc CM will need to reschedule. Otherwise plan is to cab pt to coordinated entry, pt has refused fpc if we cannot get his female friend in as well. Date Signed: 07/21/2017 05:02 PM Electronically Signed By:Zena Ramirez RN [facility] Progress Note CM Note CM Note Notes: Spoke with Dr. Franco who states patient will be ready to d/c tomorrow. Patient continues to refuse our fpc bed because we aren't going to provide for his friend Quin as well. Patient will most likely d/c to the street. CM available to look at any creative solution that might arise.CM rescheduled patient's follow-up appointment with [facility] for July @ 14:00 (2:00PM) at the [address] [place] [address]. Patient will be seeing Dr. Yanna Castle. This information was given to patient. CM will follow. Date Signed: 07/24/2017 02:37 PM Electronically Signed By:Anu Acevedo LCSW [facility] CM Progress Note CM Note CM Note Notes: Patient is not ready for d/c today. CM to provide taxi voucher to patient and his friend at d/c going to [facility] where they can both sign up for services. This remains the d/c plan to date. CM will follow. Date Signed: 07/25/2017 11:54 AM Electronically Signed By:Anu Acevedo LCSW [facility] CM Progress Note CM Note CM Note Notes: Spoke w/, pt not discharging today, maybe tomorrow. Plan is for pt to go to Coordinated Entry and get set up with a [facility]. DC Plan: Independent Date Signed: 07/27/2017 11:44 AM Electronically Signed By:Zena Ramirez RN [facility] MARK Progress Note CM Note CM Note Notes: Met w/pt, will not discharge today. Pt still visibly ill looking and has laboured breathing, reviewed plan that he would go to [facility], coordinated entry when medically stable. CM w/f. DC Plan: [facility], CM to call for cab Date Signed: 07/28/2017 03:48 PM Electronically Signed By:Zena Ramirez RN [facility] MARK Progress Note CM Note CM Note Notes: Spoke with patient's nurse today who states patient has been on room air all day and may be able to d/c tomorrow. D/C plan remains taxi to [facility] early in the day so patient and his friend can apply for services. Patient's disability check will come August 04, 2017. CM will follow. Date Signed: 07/31/2017 04:19 PM Electronically Signed By:Anu Acevedo LCSW [facility] Progress Note CM Note CM Note Notes: Patient is ready for d/c as he has been on room air for over 24 hours. Mapped patient's medications including his inhalers. Provided patient with 2 bus passes to return tomorrow to pick and shovel man an additional inhaler the pharmacy did not have today. Provided a taxi voucher to take patient and his friend to [facility] where they can sign up for services together.No further d/c needs. Date Signed: 08/01/2017 03:20 PM Electronically Signed By:Anu Acevedo LCSW Case Management Discharge Plan Note Case Management Discharge Discharge Order Complete? Answers: Yes Patient to Obtain Answers: Other Notes: [facility] Medications Transportation Arranged Answers: Taxi - Voucher Transport will Pick (Date 08/01/2017 12:00 AM & Time) Family Notified Answers: Yes Notes: friendQuin Discharge Comments Notes: Patient d/c'ed to [facility] today where he and his friend can sign up for services together[facility] Patient provided 2 bus passes to return tomorrow to pick and shovel man his last inhaler. Patient was also provided his medications through the [employer] program. No further needs Date Signed: 08/01/2017 03:24 PM Electronically Signed By:Anu Acevedo LCSW Intervention Information
== END 2017-08-01 15:18 | disposition home or self-care (01) | DRG 140 ==
LOC: OBSVTOIN 16:23 → F3E 17:45
PROVIDERS: ADMIT Internal Medicine; ATTEND Internal Medicine
DX: J44.1 Chronic obstructive pulmonary disease with (acute) exacerbation (principal); J18.9 Pneumonia, unspecified organism; J96.01 Acute respiratory failure with hypoxia; R07.81 Pleurodynia; R63.6 Underweight; Z68.1 Body mass index [BMI] 19.9 or less, adult; I25.10 Atherosclerotic heart disease of native coronary artery without angina pectoris; F17.210 Nicotine dependence, cigarettes, uncomplicated; B19.20 Unspecified viral hepatitis C without hepatic coma; Z99.81 Dependence on supplemental oxygen; Z59.0 Homelessness
CPT/HCPCS: 96374; 97116-GP; 97161-GP; 97165-GO; J0692; J1170; J1650; J1885; J1956; J2930; J7512; J7613; Q9967

== ENCOUNTER 2017-08-02 16:27 | Inpatient (IN) | payer MEDICAID ==
--- NOTE | 2017-08-02 16:27 | EDPHY ---
HPI/HX/ROS/PE/MDM Narrative: CHIEF COMPLAINT: Chest pain, COPD exacerbation HISTORY OF PRESENT ILLNESS: The patient is a 61 y/o male with a history of COPD and CAD arriving via EMS for chest pain, shortness of breath, and a COPD exacerbation. For the past several months he has been admitted multiple times for COPD exacerbations. On , he was admitted to this hospital for a COPD exacerbation and pneumonia, but was not discharged until yesterday, 08/02/17. During this admission he had a CTA which was negative for pulmonary emboli or pneumothorax, was treated with pulse dose steroids, and completed an antibiotic course. He was discharged yesterday and advised to wean off of prednisone as an outpatient. This morning, he developed shortness of breath again. This afternoon he went to [facility] for a follow up appointment, however, EMS was called as the patient was more short of breath and complaining of chest pain. [facility] gave the patient 324mg PO Aspirin for chest pain. EMS gave the patient an albuterol treatment, which did not improve his shortness of breath. After placing the patient on a CPAP, his shortness of breath improved. No fever, chills, palpitations, vomiting, diarrhea, urinary complaints, headache , lightheadedness. Prior medical records reviewed including discharge summary on 08/01/17. REVIEW OF SYSTEMS: Aside from elements discussed in the HPI, a comprehensive 10-point review of systems was reviewed and is negative. PAST MEDICAL HISTORY: COPD, CAD, polysubstance abuse, hepatitis C, MRSA SOCIAL HISTORY: Homeless, single, smoker VITAL SIGNS: Reviewed by me GENERAL: Ill appearing, well-developed, well-nourished. Tachypneic, moderate respiratory distress. HEENT: Atraumatic. Eyes: No icterus, no injection. Mouth: moist mucous membranes. No erythema or lesions. Neck: supple with no adenopathy. LUNGS: Tachypneic, bilateral coarse wheezes, prolonged expiratory phase. Diminished breath sounds at the bases. CARDIAC: Borderline tachycardic, regular, no rubs, murmurs or gallops. ABDOMEN: Soft, nontender, nondistended, bowel sounds normal. BACK: No CVA tenderness. EXTREMITIES: No trauma. No edema. Range of motion is normal throughout. NEURO: Alert and oriented, grossly nonfocal. SKIN: Warm and dry, no rash. PSYCHIATRIC: Normal mentation, no agitation. Portions of this note were transcribed by a hospital medical assistant. I personally performed a history, physical exam, medical decision making, and confirmed accuracy of information the transcribed note. ED Course: The patient is a 61 y/o male with a history of COPD and CAD arriving via EMS on CPAP for chest pain, shortness of breath, and a COPD exacerbation. For the past several months he has been admitted multiple times for COPD exacerbations and was recently discharged yesterday after a 20 day admission. On exam, he is tachypneic, has bilateral coarse wheezes, and prolonged expiratory phase. He also has diminished breath sounds at the bases. Chest x-ray and labs ordered. Albuterol inhaler, DuoNeb, and 125mg IV Solu-Medrol administered. 1626: I met EMS upon arrival, respiratory therapy is in the room at this time. 1650: I reviewed patient's chest x-ray; radiologist reading still pending. [place] count [id number], troponin negative, chest x-ray no new findings on my interpretation. Radiology interpretation demonstrates some improvement in opacifications which may be resulted to improving atelectasis versus improving pneumonia. 1652: Patient is still tachypneic, slightly agitated, seems air hungry. 0.5mg IV Ativan given. O2 sats on BiPAP are 100%. 1733: Consulted with hospitalist service, Dr. Bryan accepts admission of this patient. MDM: Differential diagnosis for the patient's shortness of breath was considered including but not limited to pulmonary infectious processes, COPD exacerbation, pulmonary emboli, pulmonary edema, congestive heart failure, and cardiac causes. - Data Points Imaging Results: Imaging Impressions Chest X-Ray 08/02/17 16:39 Impression: Evidence of underlying interstitial lung disease. Interval improvement of the nodular opacification left lower lobe, which could be resolving pneumonia or atelectasis. Imaging: I viewed and interpreted images myself Laboratory Results: Laboratory Results 08/02/17 16:38 08/02/17 16:38 08/02/17 08/02/17 16:38 16:38 WBC 18.16 10^3/uL H 10^3/uL (3.80-9.50) RBC 5.62 10^6/uL 10^6/uL (4.40-6.38) Hgb 15.9 g/dL g/dL (13.7-17.5) Hct 47.4 % % (40.0-51.0) MCV 84.3 fL fL (81.5-99.8) MCH 28.3 pg pg (27.9-34.1) MCHC 33.5 g/dL g/dL (32.4-36.7) RDW 15.1 % % (11.5-15.2) Plt Count 270 10^3/uL 10^3/uL (150-400) MPV 9.9 fL fL (8.7-11.7) Neut % (Auto) 81.1 % H % (39.3-74.2) Lymph % (Auto) 9.9 % L % (15.0-45.0) Drew % (Auto) 6.8 % % (4.5-13.0) Eos % (Auto) 0.9 % % (0.6-7.6) Baso % (Auto) 0.4 % % (0.3-1.7) Nucleat RBC Rel Count 0.0 % % (0.0-0.2) Absolute Neuts (auto) 14.72 10^3/uL H 10^3/uL (1.70-6.50) Absolute Lymphs (auto) 1.80 10^3/uL 10^3/uL (1.00-3.00) Absolute Monos (auto) 1.24 10^3/uL H 10^3/uL (0.30-0.80) Absolute Eos (auto) 0.16 10^3/uL 10^3/uL (0.03-0.40) Absolute Basos (auto) 0.07 10^3/uL 10^3/uL (0.02-0.10) Absolute Nucleated RBC 0.00 10^3/uL 10^3/uL (0-0.01) Immature Gran % 0.9 % % (0.0-1.1) Immature Gran # 0.17 10^3/uL H 10^3/uL (0.00-0.10) Sodium 145 mEq/L mEq/L (135-145) Potassium 4.6 mEq/L mEq/L (3.3-5.0) Chloride 106 mEq/L mEq/L (97-110) Carbon Dioxide 24 mEq/l mEq/l (22-31) Anion Gap 15 mEq/L mEq/L (8-16) BUN 27 mg/dL H mg/dL (7-23) Creatinine 0.8 mg/dL mg/dL (0.7-1.3) Estimated GFR > 60 Glucose 89 mg/dL mg/dL (70-100) Calcium 9.3 mg/dL mg/dL (8.5-10.4) Total Bilirubin 0.6 mg/dL mg/dL (0.1-1.4) Conjugated Bilirubin 0.6 mg/dL H mg/dL (0.0-0.5) Unconjugated Bilirubin 0.0 mg/dL mg/dL (0.0-1.1) AST 35 IU/L IU/L (17-59) ALT 40 IU/L IU/L (21-72) Alkaline Phosphatase 71 IU/L IU/L (38-126) Troponin I < 0.012 ng/mL ng/mL (0.000-0.034) NT-Pro-B Natriuret Pep 353 pg/mL H pg/mL (0-125) Total Protein 7.4 g/dL g/dL (6.3-8.2) Albumin 4.0 g/dL g/dL (3.5-5.0) Medications Given: Acetaminophen (Tylenol) 650 mg PO Q4HRS PRN PRN Reason: Pain, Mild/Fever, Can Take PO Stop: 01/29/18 18:36 Last Admin: 08/02/17 21:35 Dose: 650 mg Lidocaine (Anecream 4% Cream) 1 sylvie TP QID PRN PRN Reason: Pain, Breakthrough Stop: 01/29/18 19:53 Last Admin: 08/02/17 21:35 Dose: 1 sylvie Methylprednisolone Sodium Succinate (Solu-Medrol) 60 mg IVP Q8HRS ARLETTE Stop: 01/29/18 21:59 Last Admin: 08/02/17 21:30 Dose: 60 mg Nicotine (Nicoderm Cq) 7 mg TD DAILY ARLETTE Stop: 01/29/18 21:29 Last Admin: 08/02/17 22:48 Dose: Not Given Zolpidem Tartrate (Ambien) 5 mg PO HS PRN PRN Reason: Sleep/Insomnia Stop: 01/29/18 19:56 Last Admin: 08/02/17 21:56 Dose: 5 mg Discontinued Medications Albuterol (Proventil Neb) 3 ml IH EDNOW ONE Stop: 08/02/17 16:39 Last Admin: 08/02/17 16:46 Dose: 3 ml Albuterol/Ipratropium (Duoneb) 3 ml IH EDNOW ONE Stop: 08/02/17 16:39 Last Admin: 08/02/17 16:46 Dose: 3 ml Lorazepam (Ativan Injection) 0.5 mg IVP EDNOW ONE Stop: 08/02/17 16:54 Last Admin: 08/02/17 16:56 Dose: 0.5 mg Methylprednisolone Sodium Succinate (Solu-Medrol) 125 mg IVP EDNOW ONE Stop: 08/02/17 16:39 Last Admin: 08/02/17 16:46 Dose: 125 mg Microbiology Results: MICROBIOLOGY 08/02/17 17:00 Nasal, Sinus - Swab Respiratory Panel (PCR) - Final No Organism Detected General Time Seen by Provider: 08/02/17 16:27 Initial Vital Signs: Initial Vital Signs Temperature (C) 36.8 C 08/02/17 16:37 Heart Rate 101 H 08/02/17 16:37 Respiratory Rate 28 H 08/02/17 16:37 Blood Pressure 130/100 H 08/02/17 16:37 O2 Sat (%) 96 08/02/17 16:37 O2 Delivery Mode Bi-Pap Allergies/Adverse Reactions: No Known Allergies Allergy (Verified 05/01/17 15:49) Home Medications: Medication Instructions Recorded Albuterol [Proventil Inhaler HFA 2 puffs IH Q4HRS PRN #1 mdi 08/01/17 (*)] Aspirin EC [Aspirin EC 81 mg (*)] 81 mg PO DAILY #30 tab 08/01/17 Atorvastatin Calcium [Lipitor 10 10 mg PO DAILY #30 tab 08/01/17 mg (*)] Budesonide/Formoterol 160/4.5 2 puffs IH BID #1 mdi 08/01/17 [Symbicort 160-4.5 Mcg Inh (*)] Fluticasone/Salmeter 250/50Mcg 1 puffs IH BID 08/02/17 [Advair 250/50 (*)] predniSONE 40 mg PO DAILY tablet 08/04/17 Departure - Departure Disposition: [facility] Inpatient Acute Clinical Impression: Shortness of breath, COPD exacerbation Chest pain Qualifiers: Chest pain type: other chest pain Qualified Code(s): R07.89 - Other chest pain Condition: Fair Report Scribed for: Madison Candelaria Report Scribed by: Darlene Singleton Date of Report: 08/02/17 Time of Report: 16:26
[2017-08-02] MEDS ORDERED: IPRATROPIUM/ALBUTEROL 3 ML DEYVIAL IH ONE (16:38)
[2017-08-02] MEDS ORDERED: ALBUTEROL 3 ML DEYVIAL IH ONE (16:38)
[2017-08-02] MEDS ORDERED: methylPREDNISolone SOD SUCC 125 MG/2 ML VIAL IVP ONE (16:38)
[2017-08-02 16:47] LABS: PLATELET COUNT 270 10^3/uL (150-400)
[2017-08-02] MEDS ORDERED: LORazepam 2 MG/ML INJ IVP ONE (16:53)
[2017-08-02] MEDS ORDERED: ONDANSETRON 4 MG/2 ML VIAL IVP PRN (18:37)
[2017-08-02] MEDS ORDERED: ONDANSETRON DISINTEGRATING 4 MG TAB PO PRN (18:37)
[2017-08-02] MEDS ORDERED: ACETAMINOPHEN 325 MG TAB PO PRN (18:37)
[2017-08-02] MEDS ORDERED: LIDOCAINE 4% 15 GM CREAM TP PRN (19:54)
[2017-08-02] MEDS: methylPREDNISolone SOD SUCC 125 MG/2 ML VIAL IVP SCH (21:30)
--- NOTE | 2017-08-02 21:33 | GHP ---
[f rep st] HISTORY AND PHYSICAL DATE OF ADMISSION: 08/02/2017 CHIEF COMPLAINT: Acute hypoxic respiratory failure. HISTORY OF PRESENT ILLNESS: A 61-year-old male with history of COPD, tobacco abuse, who was just dis charged yesterday after prolonged hospitalization, 07/11 through 08/01, for healthcare-associated pne umonia and COPD exacerbation. He required prolonged hospitalization due to social situation of homel essness and an inability to have oxygen. He was previously living in an apartment, but lost that, th us had nowhere that oxygen could be delivered. He was discharged yesterday on room air on a predniso ne taper. Today he was brought in by EMS for chest pain and shortness of breath. He went to his follow[facility], and they sent him directly here because he was having increased work of paul [employer] Ste[employer]. Chest pain is lower left ribs. No radiation, associated numbness or tingling, nausea or vomiting. I t feels better with oxygen. In the emergency room he required CPAP, and was transferred to step-down for further evaluation. No fevers, chills, or sweats. No nausea, vomiting, diarrhea. No cough. S till smoking 4 cigarettes a day. PAST MEDICAL HISTORY: COPD, coronary artery disease, polysubstance abuse, hepatitis C, history of MR VÁSQUEZ. PAST SURGICAL HISTORY: Wrist surgery, ankle surgery. FAMILY HISTORY: Noncontributory. SOCIAL HISTORY: He is homeless, currently living on [address]. Smokes 4 cigarettes a day. Denies alcohol or illicits. ALLERGIES: None. HOME MEDICATIONS: Prednisone, Advair, Symbicort, atorvastatin, aspirin, and albuterol. PHYSICAL EXAMINATION: VITAL SIGNS: Temperature 35.9, blood pressure 110/87, heart rate was 103 when he came in, respiration rate 29, 97% on BiPAP. Upon my exam, he is 93% on 4 L. GENERAL: He actual ly appears comfortable, in no acute distress. HEENT: PERRLA. Moist mucous membranes. CV: Regular rate/rhythm. LUNGS: Diminished breath sounds throughout. Poor air movement. No wheezes. ABDOMEN : Soft, nontender, nondistended. Positive bowel sounds. : No Hdz. MUSCULOSKELETAL: 5/5 uppe r/lower extremity strength. NEURO: 2-12 intact. PSYCH: Alert and oriented x3. LABORATORY DATA: WBC 18, hemoglobin 15, hematocrit 47, platelets 270. Sodium 145, potassium 4.6, ch loride 106, carbon dioxide 24, BUN 27, creatinine 0.8, glucose 89. LFTs within normal. BNP is 353. Troponin is less than 0.012. Chest x-ray is personally reviewed by me: Hyperexpanded, improvement of left lower lobe opacificatio n. ASSESSMENT AND PLAN: 1. Acute hypoxic respiratory failure: There is no evidence of acute infection. The patient is afeb rile, without pneumonia on x-ray. He likely needs oxygen chronically, which is an issue given his ho melessness. He has had several hospitalizations this year. I did speak to him about Palliative Care , who will consult him in the morning. Was dosed Solu-Medrol in the emergency room, but now more sta ble on 4 L, so will transition to prednisone tomorrow and will need a prolonged taper. Will need to work with Case Management to find ways to help provide oxygen to prevent further hospitalizations. H ad a CTA 07/14/2017, with no pulmonary embolus, but showed severe emphysema. 2. Chronic obstructive pulmonary diease. Plan as stated above. 3. Rib pain: He had an x-ray done 07/25 that was negative for fractures. Will use a Lidoderm patch . 4. Coronary artery disease: Statin, aspirin. 5. Diet: Regular. 6. Deep venous thrombosis prophylaxis: Lovenox. DISPOSITION: Patient warrants inpatient admission given acute on likely chronic hypoxemic respirator y failure requiring steroids, scheduled nebs, and evaluation by Pulmonology. /[id number]/MODL
[2017-08-02] MEDS: ZOLPIDEM TARTRATE 5 MG TAB PO PRN (21:56)
[2017-08-02] MEDS: NICOTINE 7 MG/24 HR PATCH TD SCH (22:48)
[2017-08-02] MEDS: IPRATROPIUM/ALBUTEROL 3 ML DEYVIAL IH SCH (23:27)
[2017-08-03] MEDS: methylPREDNISolone SOD SUCC 125 MG/2 ML VIAL IVP SCH (05:10)
[2017-08-03] MEDS: IPRATROPIUM/ALBUTEROL 3 ML DEYVIAL IH SCH ×4 (05:49→22:00)
[2017-08-03] MEDS: ATORVASTATIN CALCIUM 10 MG TAB PO SCH (09:57)
[2017-08-03] MEDS: ASPIRIN EC 81 MG TAB PO SCH (09:57)
[2017-08-03] MEDS: ENOXAPARIN 40 MG/0.4 ML SYR SC SCH (09:57)
[2017-08-03] MEDS: NICOTINE 7 MG/24 HR PATCH TD SCH (09:57)
[2017-08-03] MEDS: predniSONE 20 MG TAB PO SCH (09:59)
--- NOTE | 2017-08-03 12:47 | PDMN ---
Medical Necessity Medical necessity: est los>2mn for acute on chronic hypoxic resp failure, COPD, and rib pain; admit for supplemental O2, steroids, scheduled nebs, and pulmonary consult; comorbid CAD, homelessness w/inability to be on supplemental O2; per order and H&P 08/02/17
--- NOTE | 2017-08-03 15:42 | HOSPPROG ---
Hospitalist Progress Note Assessment/Plan: 61 yo M w severe copd admitted w acute on chronic respiratory failure, dyspnea resp failure: chronic resp failure w chronic 02 need unable to have outpt 02 secondary homelessness he has been offered SNF, refused continue recent HCAP: completed 5 day course of cefepime w improved cxr copd: slow steroid taper mdi rec smoking cessation proph: lmwh dispo: anticipate dc tomorrow Subjective: case d/w dr díaz. cxr w improving LLL infiltrate (interp by me) Objective: Vital Signs Temp Pulse Resp BP Pulse Ox 36.3 C 94 18 130/78 H 89 L 08/03/17 15:15 08/03/17 15:15 08/03/17 15:15 08/03/17 15:15 08/03/17 15:15 Laboratory Results 08/03/17 05:10 08/02/17 08/03/17 08/04/17 05:59 05:59 05:59 Intake Total 400 800 Output Total 650 Balance -250 800 - Physical Exam Constitutional: no apparent distress, appears nourished Eyes: PERRL, anicteric sclera Ears, Nose, Mouth, Throat: moist mucous membranes, hearing normal Cardiovascular: regular rate and rhythym, no murmur, rub, or gallop Respiratory: no respiratory distress, other (distant breath sounds, no wheeze, good air movement) Gastrointestinal: normoactive bowel sounds, soft, non-tender abdomen Genitourinary: No barboza in urethra Skin: warm, normal color Musculoskeletal: full muscle strength, no muscle tenderness Neurologic: AAOx3 ICD10 Worksheet Patient Problems: Problems Problem Status Onset COPD exacerbation Acute Chest pain Acute Shortness of breath Acute COPD (chronic obstructive pulmonary disease) Acute Chronic obstructive pulmonary disease with acute exacerbation Acute Pneumonia Acute Respiratory failure with hypoxia Acute Sepsis Acute Severe sepsis Acute
--- NOTE | 2017-08-03 16:06 | ASMTCASEMG ---
Living Arrangements What is your living Answers: Alone arrangement? Who do you live with? Type Of Residence What kind of residence do Answers: Homeless you live in? Discharge Plan Comments Coordination Status Comments Notes: Pt is a 61 y/o man admitted for acute hypoxic respiratory failure. Pt was recently d/c from [facility] on 08/01/17. CM spoke w/ Dr. Franco about this pt. CM met w/ pt for dispo planning. Pt is agreeable to having palliative. Pt reports that he does not have a cellphone at this time. CM made a referral to [facility] to see if they can help pt get a cellphone. CM spoke w/ Nat, vaccine manager about this case. [facility]erral sent to [facility] able to accept. CM scheduled pt a follow up at [facility] for Monday at 10:45AM w/ Misael Carter NP. CM to follow. Plan: [facility] Richardson Date Signed: 08/03/2017 04:05 PM Electronically Signed By:CASTRO Nunez
[2017-08-03] MEDS: ZOLPIDEM TARTRATE 5 MG TAB PO PRN (21:43)
[2017-08-04] MEDS: IPRATROPIUM/ALBUTEROL 3 ML DEYVIAL IH SCH ×2 (05:21→11:00)
[2017-08-04 07:28] VITALS: BP 114/75
[2017-08-04] MEDS: NICOTINE 7 MG/24 HR PATCH TD SCH (08:55)
[2017-08-04] MEDS: ATORVASTATIN CALCIUM 10 MG TAB PO SCH (08:55)
[2017-08-04] MEDS: predniSONE 20 MG TAB PO SCH (08:55)
[2017-08-04] MEDS: ENOXAPARIN 40 MG/0.4 ML SYR SC SCH (08:55)
[2017-08-04] MEDS: ASPIRIN EC 81 MG TAB PO SCH (08:55)
--- NOTE | 2017-08-04 13:13 | HOSPPROG ---
Hospitalist Progress Note Assessment/Plan: 61 yo M w severe copd admitted w acute on chronic respiratory failure, dyspnea resp failure: chronic resp failure w chronic 02 need unable to have outpt 02 secondary homelessness he has been offered SNF, refused continue 02 recent HCAP: completed 5 day course of cefepime w improved cxr copd: slow steroid taper mdi rec smoking cessation proph: lmwh dispo: home today > 30 minutes Subjective: declines SNF Objective: Vital Signs Temp Pulse Resp BP Pulse Ox 36.6 C 81 18 114/75 89 L 08/04/17 07:26 08/04/17 07:26 08/04/17 07:26 08/04/17 07:26 08/04/17 07:26 Laboratory Results 08/03/17 05:10 08/03/17 08/04/17 08/05/17 05:59 05:59 05:59 Intake Total 400 1300 400 Output Total 650 200 Balance -250 1100 400 - Physical Exam Constitutional: no apparent distress Eyes: PERRL Ears, Nose, Mouth, Throat: moist mucous membranes, hearing normal Cardiovascular: regular rate and rhythym, systolic murmur Respiratory: no respiratory distress Gastrointestinal: normoactive bowel sounds Genitourinary: no bladder fullness Skin: warm Musculoskeletal: full muscle strength ICD10 Worksheet Patient Problems: Problems Problem Status Onset COPD exacerbation Acute Chest pain Acute Shortness of breath Acute COPD (chronic obstructive pulmonary disease) Acute Chronic obstructive pulmonary disease with acute exacerbation Acute Pneumonia Acute Respiratory failure with hypoxia Acute Sepsis Acute Severe sepsis Acute
--- NOTE | 2017-08-04 13:27 | GDS ---
[f rep st] DISCHARGE SUMMARY DISCHARGE DIAGNOSES: 1. Severe chronic obstructive pulmonary disease. 2. Chronic hypoxemic respiratory failure. 3. Recent pneumonia. 4. Ongoing tobacco use. Please see admission history and physical by Dr. Tati Bryan. The patient presented a couple days after being discharged from a 22-day hospitalization with increasing shortness of breath. He has been offered and declined correction facility placement as he has a girlfriend that he takes care of. He continues to smoke as an outpatient. He was readmitted. His chest x-ray showed improving left lower lobe infiltrate. He was given steroids. He was not given antibiotics. His oxygen requirement is at his baseline of about 3-4 L. I again discussed the possibility of discharge to an inpatient facility, which he declined because he is taking care of his partner. He is, therefore, discharged, declining oxygen. He was given a prednisone taper. Greater than 30 minutes spent on this discharge summary. /[id number]/MODL MTDD
--- NOTE | 2017-08-04 14:29 | ASMTLACE ---
ANDREAE Length of stay for Answers: 2 days current admission Acuity / Level of Answers: Yes Care: Did the patient have an inpatient admission? Comorbidities - select Answers: Chronic pulmonary disease all that apply Coronary Artery Disease # of Emergency department Answers: 5-8 visits in the last 6 months Social determinants Answers: History of substance abuse (ETOH, street drugs, prescription drugs, etc.) Homelessness (street, long term) Score: 19 Date Signed: 08/04/2017 02:28 PM Electronically Signed By:CASTRO Nunez
--- NOTE | 2017-08-08 09:31 | PQFORM ---
PHYSICIAN QUERY FORM Needs Your Response This query form is being sent to you to assure this patient record is coded properly. 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 _X__ Yes ___ No ___ Other (please specify ) ___ Unable to determine Thank You Abigail LAMBERT Acquisitions Assistant INSTRUCTIONS FOR RESPONSE: Answer question by clicking on the "Edit Document" button. Move cursor to area below the stars. When complete, hit "Save." Click on the "Sign" button, then click "Sign" again. Type in your PIN and hit "Enter." MTDD
--- NOTE | 2017-08-08 09:34 | PQFORM ---
PHYSICIAN QUERY FORM Needs Your Response This query form is being sent to you to assure this patient record is coded properly. 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 Did this patient have Acute on Chronic Respiratory Failure? __X_ Yes ___ No ___ Other (please specify ) ___ Unable to determine Thank You Abigail LAMBERT Kiln Operator Helper INSTRUCTIONS FOR RESPONSE: Answer question by clicking on the "Edit Document" button. Move cursor to area below the stars. When complete, hit "Save." Click on the "Sign" button, then click "Sign" again. Type in your PIN and hit "Enter." MTDD
== END 2017-08-04 15:42 | disposition home or self-care (01) | DRG 140 ==
LOC: EDUNIT# → F2N 18:46 → F3E 08-03 11:53 → UNDODISIN 08-04 13:50
PROVIDERS: ADMIT Hospitalist; ATTEND Hospitalist
DX: J44.1 Chronic obstructive pulmonary disease with (acute) exacerbation (principal); J96.21 Acute and chronic respiratory failure with hypoxia; I25.10 Atherosclerotic heart disease of native coronary artery without angina pectoris; F17.210 Nicotine dependence, cigarettes, uncomplicated; B19.20 Unspecified viral hepatitis C without hepatic coma; Z86.14 Personal history of Methicillin resistant Staphylococcus aureus infection; Z59.0 Homelessness
CPT/HCPCS: 96374; J1650; J2060; J2930; J7512; J7613

== ENCOUNTER 2017-08-14 20:24 | Inpatient (IN) | payer MEDICAID ==
[2017-08-14] MEDS ORDERED: ALBUTEROL 3 ML DEYVIAL ONE (20:32)
[2017-08-14] MEDS ORDERED: ALBUTEROL 3 ML DEYVIAL IH ONE (20:32)
[2017-08-14 20:41] LABS: PLATELET COUNT 299 10^3/uL (150-400)
[2017-08-14] MEDS ORDERED: LORazepam 2 MG/ML INJ ONE (20:45)
[2017-08-14] MEDS ORDERED: LORazepam 2 MG/ML INJ IVP ONE (20:48)
--- NOTE | 2017-08-14 20:59 | CPEKG ---
Heart Rate: 115 RR Interval: 522 P-R Interval: 168 QRSD Interval: 72 QT Interval: 316 QTC Interval: 437 P [place]: 87 QRS [place]: 102 T Wave [place]: 59 EKG Severity - ABNORMAL ECG - EKG Impression: SINUS TACHYCARDIA EKG Impression: RIGHT ATRIAL ABNORMALITY EKG Impression: RIGHT AXIS DEVIATION EKG Impression: CONSIDER INFERIOR INFARCT Electronically Signed By: Yanna Mcdaniel 14-Aug-2017 22:32:53
[2017-08-14] MEDS: LORazepam 2 MG/ML INJ IVP ONE ×2 (21:05→21:08)
--- NOTE | 2017-08-14 21:26 | EDPHY ---
H & P Time Seen by Provider: 08/14/17 20:29 HPI/ROS: CHIEF COMPLAINT: Shortness of breath HISTORY OF PRESENT ILLNESS: Patient is a 62-year-old male with a history of COPD presents emergency department with increasing shortness of breath. Patient states he was doing well until earlier today. He began to have increasing shortness of breath work of breathing. He tried is single inhaler with no improvement. He denies fevers or chills. He has had a chronic cough. He denies chest pain. No abdominal pain. No nausea or vomiting. Patient states he has been admitted previously for COPD exacerbation. The patient still smokes cigarettes regularly. REVIEW OF SYSTEMS: My complete review of systems is negative except as mentioned in the HPI. Past Medical/Surgical History: Includes COPD Social history: Patient smokes Smoking Status: Current every day smoker Physical Exam: Vitals noted GENERAL: Acute respiratory distress, alert. HEENT: Eyes normal to inspection, normal pharynx, no signs of dehydration. NECK: [No thyromegaly, no lymphadenopathy, supple. RESPIRATORY: Poor air movement. Significant work of breathing. Accessory muscle use. Retractions. CVS: Regular rate and rhythm, no rubs, murmurs, or gallops. ABDOMEN: Soft, nontender, nondistended, no organomegaly. BACK: Normal to inspection, no CVA tenderness. SKIN: Normal color, no rash, warm, dry. No pallor. EXTREMITIES: No pedal edema, no calf tenderness, no Homans sign or cords, no joint swelling. NEURO/PSYCH: Alert and oriented x3, normal mood and affect, normal motor sensory exam. Constitutional: Initial Vital Signs Temperature (C) 36.6 C 08/14/17 20:29 Heart Rate 119 H 08/14/17 20:29 Respiratory Rate 30 H 08/14/17 20:29 Blood Pressure 134/107 H 08/14/17 20:29 O2 Sat (%) 98 08/14/17 20:29 O2 Delivery Mode Bi-Pap O2 (L/minute) 15 Allergies/Adverse Reactions: No Known Allergies Allergy (Verified 08/14/17 20:29) Home Medications: Medication Instructions Recorded Albuterol [Proventil Inhaler HFA 2 puffs IH Q4HRS PRN #1 mdi 08/01/17 (*)] Aspirin EC [Aspirin EC 81 mg (*)] 81 mg PO DAILY #30 tab 08/01/17 Atorvastatin Calcium [Lipitor 10 10 mg PO DAILY #30 tab 08/01/17 mg (*)] Budesonide/Formoterol 160/4.5 2 puffs IH BID #1 mdi 08/01/17 [Symbicort 160-4.5 Mcg Inh (*)] Fluticasone/Salmeter 250/50Mcg 1 puffs IH BID 08/02/17 [Advair 250/50 (*)] predniSONE 40 mg PO DAILY tablet 08/04/17 Medical Decision Making - Diagnostics Imaging Results: Imaging Impressions Chest X-Ray 08/14/17 20:33 Impression: Stable chest. Underlying interstitial lung disease and emphysema. ED Course/Re-evaluation: In the emergency department I met the patient on arrival. Laboratory studies, chest x-ray and EKG were ordered. Due the patient's increased work of breathing BiPAP was ordered. I discussed this with respiratory therapist. ABG was ordered. Patient's chemistry panel is notable for an elevated anion gap of 17. Patient's troponin is 0. BNP is 384. Patient's white count is elevated 16,000. Hematocrit is 47. Platelets are 299. Patient's pH was 7.48. PO2 318. P CO2 25. chest x-ray: Please refer the dictated report. No focal infiltrate. COPD. Sinus tachycardia 115. Right axis deviation. Q-wave II, III, AVF. I rechecked the patient on numerous occasions. He required multiple doses of 0.5 of Ativan due to his agitation and finding the BiPAP machine. 2114: Patient is doing much better. He is tolerating BiPAP. I discussed the case with the hospitalist service. Dr. Meza will admit. Differential Diagnosis: My differential includes but is not limited to COPD exacerbation, pneumonia, bronchitis, pneumothorax, hemothorax, bacteremia, sepsis Critical Care Time: Patient required 35 min of critical care time. This was exclusive of any unbundled procedure. This was due the patient's severe respiratory distress, need for frequent rechecks, time at the bedside and consultation with Respiratory therapy and Internal Medicine. - Data Points Laboratory Results: Laboratory Results 08/14/17 20:20 08/14/17 20:20 08/14/17 08/14/17 08/14/17 20:55 20:44 20:20 WBC RBC Hgb Hct MCV MCH MCHC RDW Plt Count MPV Neut % (Auto) Lymph % (Auto) [place] % (Auto) Eos % (Auto) Baso % (Auto) Nucleat RBC Rel Count Absolute Neuts (auto) Absolute Lymphs (auto) Absolute Monos (auto) Absolute Eos (auto) Absolute Basos (auto) Absolute Nucleated RBC Immature Gran % Immature Gran # Puncture Site LEFT RADIAL Patient Temperature 37.0 DEGREES DEGREES pCO2 25 mmHg L mmHg (34-38) pO2 318 mmHg H mmHg (65-75) Total CO2 19 mEq/L L mEq/L (23-27) ABG pH 7.48 H (7.35-7.45) ABG PO2/FiO2 Ratio 318 RATIO RATIO ABG HCO3 18 mEq/L L mEq/L (22-26) ABG O2 Saturation 100 % H % (92-95) ABG Base Excess -3.1 mEq/L L mEq/L (-2.5-2.5) O2 Concentration % 100 % % (0-100) Actual Respiration Rate 45 Expiratory Pressure 6 Inspiratory Pressure 22 Mode BiPAP YES Sodium 140 mEq/L mEq/L (135-145) Potassium 4.0 mEq/L mEq/L (3.3-5.0) Chloride 101 mEq/L mEq/L (97-110) Carbon Dioxide 22 mEq/l mEq/l (22-31) Anion Gap 17 mEq/L H mEq/L (8-16) BUN 13 mg/dL mg/dL (7-23) Creatinine 0.9 mg/dL mg/dL (0.7-1.3) Estimated GFR > 60 Glucose 157 mg/dL H mg/dL (70-100) Calcium 8.3 mg/dL L mg/dL (8.5-10.4) POC Troponin I 0.00 ng/mL ng/mL (0.00-0.08) NT-Pro-B Natriuret Pep 384 pg/mL H pg/mL (0-125) 08/14/17 20:20 WBC 16.02 10^3/uL H 10^3/uL (3.80-9.50) RBC 5.56 10^6/uL 10^6/uL (4.40-6.38) Hgb 15.7 g/dL g/dL (13.7-17.5) Hct 47.4 % % (40.0-51.0) MCV 85.3 fL fL (81.5-99.8) MCH 28.2 pg pg (27.9-34.1) MCHC 33.1 g/dL g/dL (32.4-36.7) RDW 17.2 % H % (11.5-15.2) Plt Count 299 10^3/uL 10^3/uL (150-400) MPV 9.6 fL fL (8.7-11.7) Neut % (Auto) 83.1 % H % (39.3-74.2) Lymph % (Auto) 9.2 % L % (15.0-45.0) [place] % (Auto) 6.4 % % (4.5-13.0) Eos % (Auto) 0.4 % L % (0.6-7.6) Baso % (Auto) 0.3 % % (0.3-1.7) Nucleat RBC Rel Count 0.0 % % (0.0-0.2) Absolute Neuts (auto) 13.31 10^3/uL H 10^3/uL (1.70-6.50) Absolute Lymphs (auto) 1.48 10^3/uL 10^3/uL (1.00-3.00) Absolute Monos (auto) 1.02 10^3/uL H 10^3/uL (0.30-0.80) Absolute Eos (auto) 0.06 10^3/uL 10^3/uL (0.03-0.40) Absolute Basos (auto) 0.05 10^3/uL 10^3/uL (0.02-0.10) Absolute Nucleated RBC 0.00 10^3/uL 10^3/uL (0-0.01) Immature Gran % 0.6 % % (0.0-1.1) Immature Gran # 0.10 10^3/uL 10^3/uL (0.00-0.10) Puncture Site Patient Temperature pCO2 pO2 Total CO2 ABG pH ABG PO2/FiO2 Ratio ABG HCO3 ABG O2 Saturation ABG Base Excess O2 Concentration % Actual Respiration Rate Expiratory Pressure Inspiratory Pressure Mode BiPAP Sodium Potassium Chloride Carbon Dioxide Anion Gap BUN Creatinine Estimated GFR Glucose Calcium POC Troponin I NT-Pro-B Natriuret Pep Medications Given: Discontinued Medications Albuterol (Proventil Neb) 3 ml IH EDNOW ONE Stop: 08/14/17 20:33 Last Admin: 08/14/17 20:47 Dose: 3 ml Lorazepam (Ativan Injection) 0.5 mg IVP EDNOW ONE Stop: 08/14/17 20:49 Last Admin: 08/14/17 20:48 Dose: 0.5 mg Lorazepam (Ativan Injection) 0.5 mg IVP EDNOW ONE Stop: 08/14/17 21:05 Last Admin: 08/14/17 21:08 Dose: 0.25 mg Point of Care Test Results: Chemistry 08/14/17 20:44 POC Troponin I 0.00 ng/mL ng/mL (0.00-0.08) Departure - Departure Disposition: [facility] Inpatient Acute Clinical Impression: COPD exacerbation Condition: Serious
[2017-08-14] MEDS ORDERED: ALBUTEROL 3 ML DEYVIAL IH PRN (22:35)
[2017-08-14] MEDS ORDERED: ONDANSETRON 4 MG/2 ML VIAL IVP PRN (22:35)
[2017-08-14] MEDS ORDERED: LORazepam 2 MG/ML INJ IVP PRN (22:35)
[2017-08-14] MEDS ORDERED: ACETAMINOPHEN 325 MG TAB PO PRN (22:35)
[2017-08-14] MEDS: methylPREDNISolone SOD SUCC 125 MG/2 ML VIAL IVP SCH (23:04)
[2017-08-14] MEDS: NS 1,000 ML IV SCH (23:09)
[2017-08-14] MEDS: NICOTINE 14 MG/24 HR PATCH TD SCH (23:09)
[2017-08-15] MEDS: AZITHROMYCIN IV 500 MG in NS 250 ML IV SCH
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
[2017-08-15] MEDS ORDERED: IBUPROFEN 600 MG TAB PO PRN (11:00)
[2017-08-15] MEDS ORDERED: IBUPROFEN 600 MG TAB PO ONE (11:09)
--- NOTE | 2017-08-15 22:31 | GCON ---
[f rep st] CONSULTATION PULMONARY CONSULTATION HISTORY OF PRESENT ILLNESS: This is a 62-year-old male with a history of COPD and possible interstit ial lung disease who has had multiple admissions to the hospital in the past. Of note, this dictatio n is occurring with very little computer data available as the [employer] system is undergoing repairs as we speak. In any case, he is homeless, continues to smoke, and has a long history of drug-seeking behavior in the hospital settings. He has had issues of chronic pain on multiple occasions in the p ast and has been plicated with low-dose narcotics. He has frequent hospital admissions very often re lated to shortness of breath, as well as chronic pain. The pain has been worked up in the past as be st as I can tell with largely no etiology underlying it. He was admitted yesterday with increasing s hortness of breath. On arrival into the Emergency Department was tachypneic and tripodding. His wor kup, however, was largely negative, but he was placed on BiPAP and given steroids, antibiotics, and n ebulizers. He slept most of the night and was quite stable off BiPAP at the time my exam this mornin g. Our initial conversation was calm and he showed no evidence of shortness of breath or discomfort in any way, and our discussion was mostly around his breathing issues. He has been discharged in the past to the street with hypoxemia, though he has been offered places to stay and homeless shelters a nd many social sciences lecturer for which he has declined. In the past, he has also been known to discard hi s previous medications. In any case, his primary complaint to me had to do with nonspecific pain con trol. He was unable to localize the pain on his own, but when pressed, he said it was in his back. I suggested that I was unlikely to provide narcotic pain medications. He became acutely agitated and said he was in severe pain and began writhing in the bed and lifting his legs up in the bed. He had been given Tylenol shortly before my arrival and I suggested ibuprofen at that time. He subsequentl y apparently settled down after I left despite not getting any narcotic medications. PAST MEDICAL HISTORY: Includes COPD, coronary artery disease, polysubstance abuse, hepatitis C, hist ory of MRSA, and drug-seeking behavior in the past. PAST SURGICAL HISTORY: Includes wrist surgery and ankle surgery. FAMILY HISTORY: Noncontributory. SOCIAL HISTORY: He is homeless and living on the street. Continues to smoke. Denies any alcohol or IV drug use. ALLERGIES: None. PHYSICAL EXAMINATION: VITAL SIGNS: Stable. He was on 2 L of oxygen with a saturation in the mid to upper 90%. GENERAL: Prior to the drug discussion, he was in no apparent distress and able to speak in full sentences without using accessory muscles for breathing. HEENT: Pupils are equally round a nd reactive to light. Nonicteric and noninjected. Mucous membranes moist without erythema or exudat e. NECK: Supple, without adenopathy or jugular vein distention. LUNGS: Breath sounds were mostly clear to auscultation with good air movement and equal on both sides. There was no obvious wheezing or rhonchi. HEART: Regular rate and rhythm without obvious murmurs, rubs, or gallops. ABDOMEN: So ft, nontender, nondistended without hepatosplenomegaly. EXTREMITIES: No clubbing, cyanosis, or mariela a. NEUROLOGIC: Exam was nonfocal, including cranial nerves and deep tendon reflexes. SKIN: Warm a nd dry, without evidence of rash. He did appear to be slightly unkempt during this time. OBJECTIVE DATA: Includes a chest x-ray that showed chronic, but unchanged background infiltrates wit hout new pneumonia or pleural effusion. Basic metabolic panel was essentially normal, as was a CBC with a white count of 6.5, a hematocrit of 50, and platelets of 143. ASSESSMENT/PLAN: 1. Chronic obstructive pulmonary disease exacerbation. Giving him the benefit of the doubt, this ma y certainly be an issue for somebody who is noncompliant with both medications and oxygen as an outpa tient. I think continuing nebulizers and steroids at this time is reasonable, though I would not adv ocate a prolonged course. In fact, if he remains stable, I might discontinue his steroids as early a s tomorrow and use nebulizers p.r.n. 2. Diffuse pain. My initial impression for his pain complaints is drug-seeking behavior as been ines denced on multiple other provider's notes in the past. I think that it is manipulative of him to con tinue to request his pain medications without an exact etiology. Through discussions with multiple [facility] members who know the patient well, he has had an extensive workup in the past, and there has anastasiya lly been no pathology identified. At this point, I am not willing to provide narcotics in this situa tion, recognizing that there is a possibility that he has a narcotic addiction problem. The best cou rse of action may be Behavioral Health to discuss this behavior with him and to further delineate how to manage these issues in the future. Had a detailed discussion on multidisciplinary rounds as well as with Dr. Priest concerning these issues. /[id number]/MODL
[2017-08-16] MEDS: IPRATROPIUM/ALBUTEROL 3 ML DEYVIAL IH SCH ×3 (04:50→11:20)
[2017-08-16] MEDS: BUDESONIDE 0.5 MG/2 ML AMPUL.NEB IH SCH (04:50)
[2017-08-16] MEDS: ENOXAPARIN 40 MG/0.4 ML SYR SC SCH ×2 (05:17→11:37)
[2017-08-16] MEDS: NICOTINE 14 MG/24 HR PATCH TD SCH ×2 (05:17→10:59)
[2017-08-16] MEDS: AZITHROMYCIN IV 500 MG in NS 250 ML IV SCH (05:17)
[2017-08-16] MEDS: NS 1,000 ML IV SCH (07:28)
[2017-08-16] MEDS ORDERED: predniSONE 20 MG TAB PO SCH ×2 (09:00→10:45)
[2017-08-16] MEDS ORDERED: FLUTICASONE/SALMETER 100/50MCG DISKUS IH SCH (09:00)
[2017-08-16] MEDS ORDERED: ALBUTEROL 60 PUFFS/8 GM MDI IH PRN (09:06)
--- NOTE | 2017-08-16 09:13 | CPEKG ---
Heart Rate: 92 RR Interval: 652 P-R Interval: 160 QRSD Interval: 64 QT Interval: 352 QTC Interval: 436 P Livingston: 80 QRS [place]ston: 79 T Wave [place]: 51 EKG Severity - NORMAL ECG - EKG Impression: SINUS RHYTHM EKG Impression: HEART RATE HAS SLOWED IN COMPARISON TO PRIOR ECG Electronically Signed By: Davon Mason 16-Aug-2017 20:32:38
[2017-08-16] MEDS ORDERED: FLUTICASONE/SALMETER 250/50MCG DISKUS IH SCH (09:15)
[2017-08-16] MEDS ORDERED: ATORVASTATIN CALCIUM 10 MG TAB PO SCH (09:15)
[2017-08-16] MEDS ORDERED: BUDESONIDE/FORMOTEROL 160/4.5 60 PUFFS/MDI IH SCH (09:15)
[2017-08-16] MEDS ORDERED: ASPIRIN EC 81 MG TAB PO SCH (09:15)
--- NOTE | 2017-08-16 09:36 | PDINTPN ---
Sourcing Associate Progress Note Assessment/Plan: 62 M with known history of COPD and poor compliance admitted after recent hospitalization with severe dyspnea. He was given bipap in the ED as well as steroids and bronchodilators. On HD#2 he was calm without evidence of respiratory distress until he was told that we would not supply narcotics. At that time he became markedly tachypneic and complained of generalized pain. This has been a pattern on multiple previous admissions, and has been complicated by chronic homelessness (refused housing referrals), polysubstance abuse, and noncompliance with both oxygen and inhalers. * COPD exacerbation- he looked tachypneic this am with pursed lip respirations, though his breath sounds were normal and robust. Will start ICS/LABA and check ABG to r/o CO2 retention. Continue O2 prn. Has refused PT and remains in bed despite encouragement for mobilization. * Narcotics addiction- he may need behavioral health to address this issue. No obvious withdrawal at this time, only agitation and frustration when he is not given the drug/dose of his choice. * * OK for floor Subjective: no events overnight. Patient c/o poor sleep and requested ambien Objective: Vital Signs Temp Pulse Resp BP Pulse Ox 36.3 C 93 26 H 126/104 H 92 08/16/17 08:00 08/16/17 08:00 08/16/17 08:00 08/16/17 08:00 08/16/17 08:00 Laboratory Results 08/15/17 08:00 08/15/17 08/16/17 08/17/17 05:59 05:59 05:59 Intake Total 30 2175 Output Total 1400 Balance 30 775 Physical Exam - Physical Exam General Appearance: alert, mild distress, other (unkempt) EENT: PERRL/EOMI Neck: supple Respiratory: lungs clear, decreased breath sounds, other (pursed lip respirations), No respiratory distress, No accessory muscle use, No rales, No rhonchi, No wheezing Cardiac/Chest: regular rate, rhythm, No edema Abdomen: non-tender, soft, No distended Skin: normal color, warm/dry, No cyanosis Lymphatic: no adenopathy Extremities: No pedal edema Neuro/Psych: alert, oriented x 3, cognition abnormalities (lack of insight), other (non-cooperative with standard process of disease management), No abnormal cerebellar tests ICD10 Worksheet Patient Problems: Problems Problem Status Onset COPD exacerbation Acute COPD (chronic obstructive pulmonary disease) Acute Chest pain Acute Chronic obstructive pulmonary disease with acute exacerbation Acute Pneumonia Acute Respiratory failure with hypoxia Acute Sepsis Acute Severe sepsis Acute Shortness of breath Acute
[2017-08-16 09:41] LABS: PLATELET COUNT 205 10^3/uL (150-400)
[2017-08-16 11:39] VITALS: BP 126/69
[2017-08-16] MEDS: methylPREDNISolone SOD SUCC 125 MG/2 ML VIAL IVP SCH (12:10)
[2017-08-16] MEDS ORDERED: GABAPENTIN 100 MG CAP PO ONE (12:14)
[2017-08-16] MEDS ORDERED: busPIRone 5 MG TAB PO SCH (12:15)
[2017-08-16] MEDS ORDERED: TIOTROPIUM INHALER 18 MCG/DOSE 5 DOSE/MDI IH SCH (13:45)
--- NOTE | 2017-08-16 13:52 | PDDCSUM ---
Discharge Summary Discharge Summary: DISCHARGE SUMMARY PLEASE REVIEW THOROUGHLY AND CONSIDER PRIOR TO DECIDING WHETHER TO ADMIT PATIENT OR PLACED ON POSITIVE PRESSURE VENTILATION FOLLOW-UP ITEMS: Outpatient primary care and mental health follow-up required DATE OF ADMISSION: 08/14/2017 DATE OF DISCHARGE: 08/16/2017 DISCHARGE DIAGNOSES: 1. Acute shortness of breath and primary hyperventilation 2. Atypical, noncardiac acute chest pain 3. Chronic COPD without acute exacerbation 4. Suspected underlying anxiety mood disorder 5. Chronic homelessness and medical non adherence 6. Chronic pulmonary fibrosis CONSULTATIONS: [facility], pulmonary critical care PROCEDURES / IMAGING: Chest x-ray demonstrating no focal infiltrates, chronic pulmonary fibrosis CHIEF COMPLAINT: Acute shortness of breath SUBJECTIVE: Patient reports that he is feeling anxious and experiencing shortness of breath at discharge, prior to us discussing discharge, the patient had otherwise been resting comfortably PHYSICAL EXAM ON DISCHARGE: Systolic blood pressure 100-120, heart rate 80-110, afebrile overnight, alert awake oriented x3, chronically ill-appearing, disheveled, lungs are clear on inspiration and expiration bilaterally with slightly reduced expiratory phase bilaterally, no expiratory wheezes, no bronchial breath sounds, patient engaging in pursed lipped rapid breathing, but there are no pulmonary abnormalities on his physical exam while he is breathing in this manner LABS ON DISCHARGE: Troponin negative x2, initial arterial blood gas 7.48/25/318, follow-up blood gas prior to discharge 7.46/32/75, creatinine 0.6 HOSPITAL COURSE BY PROBLEM: 1. Acute shortness of breath. Patient presented with acute shortness of breath and visible tachypnea in the emergency department. I believe that this was most likely secondary to a primary hyperventilation secondary to underlying under-treated anxiety mood disorder as well as potentially drug-seeking behavior. The patient was not demonstrably hypoxic, he was not demonstrating any evidence of carbon dioxide retention, and he in fact had respiratory alkalosis on presentation most likely secondary to hyperventilation. That being said, when patient was initially seen, it was unclear as to the etiology of his tachypnea, which appeared to be respiratory distress, and the patient was placed on BiPAP therapy given his history of COPD. He received DuoNeb treatments, IV steroids, and was admitted to the ICU. Review of the admission history and physical demonstrates no evidence of expiratory wheezes or bronchial breath sounds and, on my subsequent evaluation of the patient on 08/15 , he did not demonstrate any evidence of obstructive air movement. Throughout his stay, the shortness of breath was ongoing, and the patient received interim steroids, scheduled DuoNeb treatments, and a follow-up arterial blood gas on . This ABG was very similar to his presenting blood gas, demonstrating a respiratory alkalosis with evidence of low carbon dioxide level and demonstrative of primary hyperventilation. After discussing thoroughly with Dr. José Watters, our impression is that the patient exhibits a hyperventilatory breathing pattern secondary to his likely underlying anxiety disorder, likely chronic pain syndrome, and potentially drug-seeking behavior with secondary gain of fci. While it is completely appropriate to aggressively treat this patient on presentation if there are concerns of rapid deterioration, our advice would be to consult with the hospitalist and/or pulmonary marketing regional consultant prior to continuing aggressive positive pressure ventilation and prior to making any decision as to whether to admit the patient in the future, given our significant and well-founded concerns of secondary gain. In this situation, during this episode of care, the patient's treatment for COPD was de-escalated, as we found no evidence of ongoing acute exacerbation, and he will be discharged on chronic medications including Spiriva, Advair, as needed albuterol inhaler, and no additional steroids given the patient's poor tolerance of them in regards to his sleep patterns and his anxiety activation. 2. Chronic COPD. The patient does have underlying COPD as well as underlying chronic pulmonary fibrosis, and this renders the patient requiring oxygen chronically. However, despite our best efforts in the past to secure the patient supplemental oxygen at discharge, the patient has been non adherent, and uncooperative with establishing a location where he can receive said oxygen , and he therefore does not utilize the oxygen which is currently sitting in a storage locker. Prior to discharge, we intensified our social work and case management services, and believe we have offered the patient a realistic solution with one of the [facility] programs. The patient's oxygen sat is 92 % on room air at discharge, and he will not require supplemental oxygen at this time. We have also provided him with inhalers in hand for Spiriva and Advair, and the patient currently has an adequate supply of emergency albuterol inhaler as well. We recommend that he follow up with the [facility] for ongoing treatment of this issue and we recommend that the providers at [facility] review this discharge summary so that they are able to best treat the patient when he arrives with what will initially appear as significant tachypnea and shortness of breath, but may actually be primary hyperventilation as outlined above. 3. Noncardiac, atypical chest pain. The patient chronically experiences pain located in his chest, which brings him great distress. The etiology of his pain is noncardiac, and extensive cardiac workup has been performed in the past. He has undergone a cardiac catheterization by Dr. Davon Mason on 2017 which demonstrated normal ejection fraction, nonobstructive coronary disease in the RCA and LAD at approximately 40%. He has also undergone numerous CT angiograms which demonstrated no pulmonary embolism. He has also undergone a recent rib scan which demonstrated no rib fracture. I discussed the patient's chest pain with Dr. Olga Reveles during this hospitalization, and, given that the patient's EKG does not demonstrate any ischemic changes, and his troponin levels have been completely normal despite ongoing, active pain, we think that it is exceptionally unlikely that his chest pain is secondary to acute plaque rupture, as this would most certainly result in positive biomarkers. Consequently, we do not believe that a repeat cardiac catheterization is warranted 3 months out from his last one. I believe that the patient's chest pain is potentially secondary to his underlying pulmonary fibrosis, musculoskeletal discomfort secondary to hyperventilation, as well as a likely chronic pain syndrome. The patient regularly demonstrates drug- seeking behavior, visibly resting comfortably prior to providers checking on him , and then complaining of severe and uncontrolled pain as soon as providers make themselves available. The patient specifically asks for opiate medications and, based on my work with this patient in the past, he requests escalating doses of opiate pain medications if they are provided. Consequently , during this hospitalization, Dr. José Watters and I agreed to provide the patient with only Tylenol and ibuprofen, which the patient received. I would not recommend initiating opiates on this patient in the outpatient setting, as he is likely to develop an opiate abuse issue. 4. Suspected underlying anxiety mood disorder. The patient was seen in consultation by our Behavioral Health Resource nurse, Zena Church, and she did recognize a strong anxiety component, and recommended non benzodiazepine methods of anxiety control. She recommended initiation of gabapentin and buspirone, and these have been provided to the patient prior to discharge. We recommend that he follow up at [facility] for ongoing titration of his medications and reassessment of his symptoms. He will also be helpful for the patient to establish a formal diagnosis and reassessment of his mood is critical in order to accomplish this. 5. Homelessness and medical non adherence. 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 This co-dependency has resulted in the patient declining are offer for longterm facility in the past as well as declining offers for assistance with fci or outpatient services for the homeless. I have been very honest with the patient and this person that the patient's own health may be suffering a by declining services offered, but these 2 individuals are unable to reconcile any changes to the present situation. They have been offered extensive new services by the [facility], and it is our hope that the patient adheres to these moving forward. Patient will be taxiied to [facility] on the day of discharge for ongoing fci and intake program. DISCHARGE MEDICATIONS: Please see official discharge medication reconciliation sheet in chart, Advair twice daily, Spiriva daily, albuterol as needed, gabapentin 100 mg 3 times daily , buspirone 5 mg 3 times daily, as needed ibuprofen, as needed Tylenol. DISCHARGE INSTRUCTIONS: Please follow up at [facility] in establish care at [facility]. TIME SPENT: Greater than 75 minutes were spent on direct patient care, as well as discharge planning and preparation.
--- NOTE | 2017-08-16 14:35 | ASMTCMCOM ---
CM Note CM Note Notes: Patient's partner Quin is followed by Andre Ortiz, Adult Protection Relay Operator with [employer]. Andre states they serve as payee for her to cover her bills due to her TBI. Andre states they have not worked on housing for patient because there isn't any. He was not familiar with [facility] or [facility]. Andre states if Quin and Yuriy find a place to live, they will help to see the rent is paid. Andre's phone number is [phone] and his fax is [phone], email address [email or web address] Date Signed: 08/16/2017 02:34 PM Electronically Signed By:Anu Acevedo LCSW
--- NOTE | 2017-08-16 14:59 | ASMTCMCOM ---
[facility] Case Management CM Communcation Patient Name: ALEXA ROBERTSON Rpt#: [id number] MR#: [id number] Attending: Enio Meza MD Adm Date: 08/14/17 CM Note CM Note Notes: 62yr old male admitted for COPD exascerbation, Hypoxic resp failure. Has a Hx of polysubstance abuse: incl-smoking, Interstitial lung dis. Recent D/C from [facility] with similar dx. He has elected to return to streets and not go to Detention or SNF due to lack of placement for his girlfriend. Unable to use O2 due to Homelessness. Numerous admits to [facility]. CM to follow Date Signed: 08/15/2017 09:43 AM Electronically Signed By: Debra Conner LCSW
[2017-08-16] MEDS ORDERED: GABAPENTIN 100 MG CAP PO SCH (16:00)
--- NOTE | 2017-08-16 16:30 | ASMTCMCOM ---
CM Note CM Note Notes: Per [facility] liason Nellie Hansen, patient and partner showed up for services/bed and became agitated with [facility] staff. They left after patient's partner used foul language with staff. Date Signed: 08/16/2017 04:30 PM Electronically Signed By:Corie Brink RN
--- NOTE | 2017-08-16 17:59 | PDMN ---
Medical Necessity Medical necessity: change to IP; los>2mn for SOB, mild COPD, and chest pain; requires nebs, supplemental O2, and non-opiate pain meds; hx chronic resp failure w/multiple exacerbations, continuous O2 noncompliance r/t homelessness, MRSA, and substance abuse; per order and progress note 08/15/17
== END 2017-08-16 15:20 | disposition home or self-care (01) | DRG 145 ==
LOC: EDUNIT# → F2N 22:04 → OBSVTOIN 08-15 17:54
PROVIDERS: ADMIT Student in an Organized Health Care Education/Training Program; ATTEND Student in an Organized Health Care Education/Training Program
DX: R06.02 Shortness of breath (principal); R07.89 Other chest pain; R06.89 Other abnormalities of breathing; J84.10 Pulmonary fibrosis, unspecified; J44.9 Chronic obstructive pulmonary disease, unspecified; G89.29 Other chronic pain; F41.9 Anxiety disorder, unspecified; F39 Unspecified mood [affective] disorder; Z91.19 Patient's noncompliance with other medical treatment and regimen; I25.10 Atherosclerotic heart disease of native coronary artery without angina pectoris; F17.210 Nicotine dependence, cigarettes, uncomplicated; B19.20 Unspecified viral hepatitis C without hepatic coma; Z86.14 Personal history of Methicillin resistant Staphylococcus aureus infection; Z87.01 Personal history of pneumonia (recurrent); Z59.0 Homelessness
CPT/HCPCS: 84484-PO; 96374; G0378; J0456; J2060; J7512; J7613; J7626

== ENCOUNTER 2018-02-17 11:02 | Emergency (ER) | payer OTHER ==
[~2018-02-17 11:02] MED LIST: predniSONE 20 MG TAB PO SCH
[2018-02-17] MEDS ORDERED: IPRATROPIUM/ALBUTEROL 3 ML DEYVIAL ONE (11:06)
[2018-02-17] MEDS ORDERED: IPRATROPIUM/ALBUTEROL 3 ML DEYVIAL IH ONE (11:10)
[2018-02-17] MEDS ORDERED: predniSONE 20 MG TAB ONE (11:13)
--- NOTE | 2018-02-17 11:15 | EDPHY ---
H & P Stated Complaint: SOB Time Seen by Provider: 02/17/18 11:07 HPI/ROS: CHIEF COMPLAINT: Shortness of breath HISTORY OF PRESENT ILLNESS: 62-year-old male with oxygen dependent COPD presents with shortness of breath. On 2 L of oxygen by nasal cannula chronically. Shortness of breath started yesterday and has been gradually progressive. Associated with a moist cough. No fever. Similar to prior episodes of COPD exacerbation. REVIEW OF SYSTEMS: complete 10 point ROS reviewed and is negative except for the noted elements in the HPI - Personal History Current Tetanus Diphtheria and Acellular Pertussis (TDAP): Unsure - Medical/Surgical History Hx Asthma: No Hx Chronic Respiratory Disease: Yes Hx Diabetes: No Hx Cardiac Disease: No Hx Renal Disease: No Hx Cirrhosis: No Hx Alcoholism: No Hx HIV/AIDS: No Hx Splenectomy or Spleen Trauma: No Other PMH: chronic back pain. COPD. Pneumonia, anxiety disorder - Social History Smoking Status: Current every day smoker Drug Use: None - Physical Exam Exam: General Appearance: Alert, pleasant Eyes: Pupils equal and round, no conjunctival pallor ENT, Mouth: Mucous membranes moist Neck: Normal inspection Respiratory: Tachypneic, Diffuse end-expiratory wheezing Cardiovascular: Regular rate and rhythm Gastrointestinal: Abdomen is soft and nontender Neurological: A&O, nonfocal, normal gait Skin: Warm and dry, no rash Extremities: Normal inspection Psychiatric: Anxious Constitutional: Initial Vital Signs Temperature (C) 36.8 C 02/17/18 11:07 Heart Rate 103 H 02/17/18 11:07 Respiratory Rate 26 H 02/17/18 11:07 Blood Pressure 140/96 H 02/17/18 11:07 O2 Sat (%) 88 L 02/17/18 11:07 O2 Delivery Mode Room Air O2 (L/minute) 2 Allergies/Adverse Reactions: No Known Allergies Allergy (Verified 02/19/18 18:33) Home Medications: Medication Instructions Recorded Albuterol [Proventil Inhaler HFA 2 puffs IH Q4HRS PRN #1 mdi 08/01/17 (*)] Aspirin EC [Aspirin EC 81 mg (*)] 81 mg PO DAILY #30 tab 08/01/17 Atorvastatin Calcium [Lipitor 10 10 mg PO DAILY #30 tab 08/01/17 mg (*)] Fluticasone/Salmeter 250/50Mcg 1 puffs IH BID 08/02/17 [Advair 250/50 (*)] Acetaminophen [Tylenol 325mg (*)] 650 mg PO Q4HRS PRN tab 08/16/17 Gabapentin [Neurontin 100 MG (*)] 100 mg PO TID #90 cap 08/16/17 Ibuprofen [Motrin (*)] 600 mg PO TID PRN tab 08/16/17 Tiotropium Inhaler [Spiriva 18 mcg IH DAILY #1 mdi 08/16/17 Handihaler] busPIRone [Buspar (*)] 5 mg PO TID #90 tab 08/16/17 Albuterol [Proventil Inhaler HFA 2 puffs IH QID PRN #1 mdi 10/13/17 (*)] Doxycycline Hyclate 100 mg PO BID #20 tablet 10/13/17 levOFLOXACIN [levAQUIN (*)] 750 mg PO DAILY #10 tab 02/17/18 predniSONE 1 tab PO DAILY #15 tab 02/17/18 Medical Decision Making ED Course/Re-evaluation: A DuoNeb was given on patient arrival. Prednisone 60 mg orally. Feels much better after the DuoNeb. Chest x-ray discussed with Dr. Garcia and reveals a possible lingular infiltrate. Results discussed with the patient. He has had no fever. He also tells me that he will not fill a prescription for antibiotics. The restaurant hourly manager was involved in the patient's care. She filled a prescription for Levaquin and prednisone for the patient, though I doubt he will take the abx. Pt supposed to be on oxygen, but left his O2 at home. O2 sat 91% RA on discharge. Chest-good air exchange, few expir wheezes. Encouraged pt to use O2 regularly. Differential Diagnosis: includes though not limited to acute bronchitis, PE, PTX, pulm edema - Data Points Medications Given: Discontinued Medications Albuterol/Ipratropium (Duoneb) 3 ml IH EDNOW ONE Stop: 02/17/18 11:11 Last Admin: 02/17/18 11:11 Dose: 3 ml Prednisone (Prednisone) 60 mg PO ONCE ONE Stop: 02/17/18 11:20 Last Admin: 02/17/18 11:20 Dose: 60 mg Departure - Departure Disposition: Home, Routine, Self-Care Clinical Impression: COPD exacerbation Condition: Good Instructions: COPD (Chronic Obstructive Pulmonary Disease) (ED) Referrals: [facility],. [Clinic] - As per Instructions Prescriptions: levOFLOXACIN [levAQUIN (*)] 750 mg PO DAILY #10 tab predniSONE 1 tab PO DAILY #15 tab
[2018-02-17] MEDS ORDERED: predniSONE 20 MG TAB PO ONE (11:19)
[2018-02-17 13:30] VITALS: BP 101/56
--- NOTE | 2018-02-19 14:22 | ASMTCMCOM ---
CM Note CM Note Notes: Late Entry from 02/17/18: Pt presented to the ED for SOB. Pt has a hx of COPD. Pt assessed and chest xray shows possible PNA. Pt stabilized and ready for discharge. Pt repeatedly asking to be admitted. This is the pt's 9th ED visit this year and pt has been admitted 6 times in the past year for respiratory reasons (COPD exacerbation, resp failure, sepsis, PNA). Pt states he has been staying at the [facility] when it is open, otherwise he sleeps outside due to being on a waitlist for a [facility] bed. Pt states he follows up with [facility] and they helped him get his home oxygen set up. Pt states he has not had his home O2 for the past 2 weeks or so because he left it at his previous place of residence after he and his girlfriend, Quin, left without paying rent. Pt states he probably won't fill his Rxns because he can't get to a pharmacy and doesn't have any money for possible copays. This CM called [facility] to ensure pt would not have a copay and the pharmacist said pt's Medicaid is inactive. This CM called [facility] for Medicaid cab transport (at least to [facility] area) and they also state pt's Medicaid is inactive/ineligible. Pt provided medications through [facility] due to pt's Medicaid being inactive at this time. Pt encouraged to follow up with [facility] and Medicaid. CM available for further assistance if needed. Date Signed: 02/18/2018 03:09 PM Electronically Signed By:Lita Anderson RN
== END 2018-02-17 14:28 | disposition home or self-care (01) ==
DX: J44.1 Chronic obstructive pulmonary disease with (acute) exacerbation (principal); M54.9 Dorsalgia, unspecified; G89.29 Other chronic pain; F41.9 Anxiety disorder, unspecified
CPT/HCPCS: J7512

== ENCOUNTER 2018-02-19 18:27 | Inpatient (IN) | payer MEDICAID ==
[2018-02-19] MEDS ORDERED: ALBUTEROL 3 ML DEYVIAL IH ONE (18:34)
[2018-02-19] MEDS ORDERED: NS 1,000 ML IV ONE ×3 (18:34→19:24)
--- NOTE | 2018-02-19 18:38 | EDPHY ---
H & P Time Seen by Provider: 02/19/18 18:31 HPI/ROS: Chief complaint. Shortness of breath HPI. 62-year-old male with history of COPD and 24/7 oxygen at 2 liters/minute here with respiratory distress by EMS. EMS found the patient to have a room air pulse oximetry of about 70%. They started the patient on BiPAP. Gave him DuoNeb and albuterol neb. Gave the patient Solu-Medrol IV. Patient was seen 2 days ago in the emergency department for COPD exacerbation and question lingular pneumonia. He was treated with Levaquin and prednisone. He apparently was kicked out of the place he was staying and has been without oxygen and medication. No chest pain or abdominal pain. ROS 10 systems were reviewed and negative with the exception of the elements mentioned in the history of present illness Past Medical/Surgical History: Chronic back pain, COPD, pneumonia, anxiety Social History: Single, daily smoker, no alcohol Smoking Status: Current every day smoker Physical Exam: General Appearance: Alert well-developed male moderate distress vital signs stable. Patient is on BiPAP Eyes: Pupils equal and round no pallor or injection. ENT, Mouth: Mucous membranes are moist. Respiratory: There are retractions. Tachypnea. Decreased breath sounds especially in both lower lung hutson Cardiovascular: Regular rate and rhythm. Gastrointestinal: Abdomen is soft and nontender, no masses, bowel sounds normal. Neurological: Awake and alert, sensory and motor exams grossly normal. Skin: Warm and dry, no rashes. Musculoskeletal: Neck is supple nontender. Extremities symmetrical, full range of motion. Psychiatric: Patient is oriented X 3, there is no agitation. Constitutional: Initial Vital Signs Temperature (C) 36.9 C 02/19/18 18:27 Heart Rate 104 H 02/19/18 18:27 Respiratory Rate 26 H 02/19/18 18:27 Blood Pressure 131/72 H 02/19/18 18:27 O2 Sat (%) 98 02/19/18 18:27 O2 Delivery Mode Bi-Pap O2 (L/minute) 15 Allergies/Adverse Reactions: No Known Allergies Allergy (Verified 02/19/18 18:33) Home Medications: Medication Instructions Recorded levOFLOXACIN [levAQUIN (*)] 750 mg PO DAILY #10 tab 02/17/18 predniSONE 1 tab PO AD 02/19/18 Medical Decision Making - Diagnostics EKG Interpretation: EKG interpreted by me shows normal sinus rhythm normal interval and axis. QRS is normal there is no significant ST elevation or depression. No arrhythmia. T -wave inversion in V3 and V4. Rate is 96 Imaging Results: Chest x-ray interpreted by me shows severe COPD with probable left lower lobe infiltrate Procedures: IV normal saline Respiratory therapy for BiPAP Albuterol updraft ED Course/Re-evaluation: Lactate is elevated at 2.3. Severe sepsis declared. Patient is given 30 milliliters/kilogram IV fluid bolus. IV Levaquin is given. Differential Diagnosis: I considered COPD exacerbation, pneumonia, bronchitis - Data Points Laboratory Results: Laboratory Results 02/19/18 18:59 02/19/18 18:59 Medications Given: Acetaminophen (Tylenol) 650 mg PO Q4HRS PRN PRN Reason: Pain, Mild/Fever, Can Take PO Stop: 08/18/18 20:18 Last Admin: 02/22/18 14:05 Dose: 650 mg Acetylcysteine (Acetylcysteine 10% Ih/Po) 2 ml IH Q6HRS [facility] Stop: 08/19/18 11:59 Last Admin: 02/22/18 11:03 Dose: 2 ml Albuterol/Ipratropium (Duoneb) 3 ml IH QID [facility] Stop: 08/18/18 20:59 Last Admin: 02/22/18 11:03 Dose: 3 ml Benzonatate (Tessalon Pearles) 200 mg PO TID PRN PRN Reason: Cough, Mild Stop: 08/20/18 14:02 Last Admin: 02/22/18 14:05 Dose: 200 mg Bismuth Subsalicylate (Pepto-Bismol) 262 mg PO QID PRN PRN Reason: abd discomfort Stop: 08/21/18 14:15 Last Admin: 02/22/18 14:39 Dose: 262 mg Calcium Carbonate (Tums) 500 mg PO TID PRN PRN Reason: Indigestion Stop: 08/20/18 17:27 Last Admin: 02/21/18 18:29 Dose: 500 mg Enoxaparin Sodium (Lovenox) 40 mg SC DAILY [facility] Stop: 08/19/18 08:59 Last Admin: 02/22/18 10:07 Dose: Not Given Guaifenesin (Mucinex) 1,200 mg PO BID [facility] Stop: 08/20/18 14:14 Last Admin: 02/22/18 08:25 Dose: 1,200 mg Guaifenesin/Codeine Phosphate (Robitussin Ac) 10 ml PO Q6HRS PRN PRN Reason: Cough, Moderate Stop: 08/21/18 08:48 Last Admin: 02/22/18 09:39 Dose: 10 ml Levofloxacin/Dextrose (Levaquin 750 Mg (Premix)) 150 mls @ 100 mls/hr IV Q24H [facility] PRN Reason: Protocol Stop: 03/22/18 19:59 Last Admin: 02/21/18 21:36 Dose: 150 mls Methylprednisolone Sodium Succinate (Solu-Medrol) 125 mg IVP Q6HRS [facility] Stop: 08/19/18 09:59 Last Admin: 02/22/18 12:03 Dose: 125 mg Nicotine (Nicoderm Cq) 21 mg TD DAILY [facility] Stop: 08/21/18 08:59 Last Admin: 02/22/18 09:21 Dose: 21 mg Discontinued Medications Albuterol (Proventil Neb) 3 ml IH EDNOW ONE Stop: 02/19/18 18:35 Last Admin: 02/19/18 18:40 Dose: 3 ml Sodium Chloride (Ns) 1,000 mls @ 0 mls/hr IV ONCE ONE; Wide Open PRN Reason: Protocol Stop: 02/19/18 18:35 Last Admin: 02/19/18 18:40 Dose: 1,000 mls Levofloxacin/Dextrose (Levaquin 750 Mg (Premix)) 150 mls @ 100 mls/hr IV EDNOW ONE PRN Reason: Protocol Stop: 02/19/18 20:50 Last Admin: 02/19/18 19:37 Dose: 150 mls Sodium Chloride (Ns) 1,000 mls @ 0 mls/hr IV ONCE ONE PRN Reason: Wide Open Stop: 02/19/18 19:23 Last Admin: 02/19/18 19:25 Dose: 1,000 mls Sodium Chloride (Ns) 1,000 mls @ 0 mls/hr IV ONCE ONE PRN Reason: Wide Open Stop: 02/19/18 19:25 Last Admin: 02/19/18 19:38 Dose: 1,000 mls Sodium Chloride (Ns) 1,000 mls @ 150 mls/hr IV CONT [facility] Stop: 08/18/18 20:29 Last Admin: 02/22/18 08:25 Dose: 1,000 mls Ketorolac Tromethamine (Toradol) 30 mg IVP EDNOW ONE Stop: 02/19/18 19:25 Last Admin: 02/19/18 19:39 Dose: 30 mg Lorazepam (Ativan) 1 mg PO Q4HRS PRN PRN Reason: Anxiety, Able to Take PO Stop: 08/19/18 12:43 Last Admin: 02/22/18 08:25 Dose: 1 mg Prednisone (Prednisone) 40 mg PO DAILY [facility] Stop: 08/19/18 08:59 Last Admin: 02/20/18 10:41 Dose: Not Given Point of Care Test Results: Chemistry 02/19/18 02/19/18 18:40 18:36 POC Sodium 144 mEq/L mEq/L (135-145) POC Potassium 4.5 mEq/L mEq/L (3.3-5.0) POC Chloride 104 mEq/L mEq/L (97-110) POC BUN 11 mg/dL mg/dL (7-23) POC Creatinine 0.7 mg/dL mg/dL (0.7-1.3) POC Glucose 100 mg/dL mg/dL (70-100) POC Troponin I 0.01 ng/mL ng/mL (0.00-0.08) ISTAT H&H 02/19/18 18:40 POC Hgb 19.7 gm/dL H gm/dL (13.7-17.5) POC Hct 58 % H % (40-51) Departure - Departure Disposition: [facility] Inpatient Acute Clinical Impression: Pneumonia Qualifiers: Pneumonia type: due to unspecified organism Laterality: left Lung location: lower lobe of lung Qualified Code(s): J18.1 - Lobar pneumonia, unspecified organism Condition: Fair
[2018-02-19 19:04] LABS: PLATELET COUNT 341 10^3/uL (150-400)
[2018-02-19 19:13] LABS: PROTIME(PATIENT) 13.4 SEC (12.0-15.0)
[2018-02-19] MEDS ORDERED: KETOROLAC 30 MG/1 ML SDV IVP ONE (19:24)
[2018-02-19] MEDS ORDERED: ONDANSETRON DISINTEGRATING 4 MG TAB PO PRN (20:19)
[2018-02-19] MEDS ORDERED: ONDANSETRON 4 MG/2 ML VIAL IVP PRN (20:19)
--- NOTE | 2018-02-19 20:22 | PDGENHP ---
History and Physical - Chief Complaint SOB - History of Present Illness Yuriy Jarrett is a 62-year-old male with a PMHx of COPD, Chronic 02 dependent @ 2 LPM who presents to [facility] via EMS for respiratory distress. Per ED reports, EMS found the patient to have a pulse oximetry on room air of about 70%. Patient was started on BiPAP en route and given DuoNeb and Solu-Medrol IV. Of note, patient was seen 2 days ago in the ED for COPD exacerbation and questionable lingular pneumonia. He was treated with and discharged on Levaquin and prednisone. He apparently was kicked out of the place he was staying and has been without oxygen and medications. He currently denies any chest pain, edema, palpitations, headache, n/v, d/c. History Information - Allergies/Home Medication List Allergies/Adverse Reactions: No Known Allergies Allergy (Verified 02/19/18 18:33) Home Medications: Fluticasone/Salmeter 250/50Mcg [Advair 250/50 (*)] 1 puffs IH BID 08/02/17 [ Last Taken 08/01/17] I have personally reviewed and updated: family history, medical history, social history, surgical history - Past Medical History coronary artery disease (non obstructive), COPD Additional medical history: pneumonia. Hep C - Surgical History Reports: no pertinent surgical hx - Family History Positive for: non-pertinent - Social History Smoking Status: Current every day smoker Review of Systems Review of Systems: ROS: 10pt was reviewed & negative except for what was stated in HPI & below Physical Exam Physical Exam: Temp Pulse Resp BP Pulse Ox 36.9 C 87 18 93/57 L 98 02/19/18 18:27 02/19/18 20:00 02/19/18 20:00 02/19/18 20:00 02/19/18 20:00 Constitutional: chronically ill appearing, unkempt Eyes: PERRL Ears, Nose, Mouth, Throat: moist mucous membranes Cardiovascular: regular rate and rhythym Respiratory: reduced air movement, expiratory wheeze Gastrointestinal: soft, non-tender abdomen Skin: warm Neurologic: AAOx3 Psychiatric: interacting appropriately Lab Data & Imaging Review 02/19/18 18:59 02/19/18 18:59 WBC 23.61 10^3/uL (3.80-9.50) H 12/17/18 18:59 RBC 6.42 10^6/uL (4.40-6.38) H 18 18:59 Hgb 17.6 g/dL (13.7-17.5) H 18 18:59 POC Hgb 19.7 gm/dL (13.7-17.5) H 18 18:40 Hct 54.9 % (40.0-51.0) H 18 18:59 POC Hct 58 % (40-51) H 18 18:40 MCV 85.5 fL (81.5-99.8) 18 18:59 MCH 27.4 pg (27.9-34.1) L 02/19/18 18:59 MCHC 32.1 g/dL (32.4-36.7) L 18 18:59 RDW 18.7 % (11.5-15.2) H 02/19/18 18:59 Plt Count 341 10^3/uL (150-400) 18 18:59 MPV 9.5 fL (8.7-11.7) 18 18:59 Neut % (Auto) 90.3 % (39.3-74.2) H 18 18:59 Lymph % (Auto) 4.3 % (15.0-45.0) L 18 18:59 [place] % (Auto) 4.1 % (4.5-13.0) L 18 18:59 Eos % (Auto) 0.0 % (0.6-7.6) L 18 18:59 Baso % (Auto) 0.2 % (0.3-1.7) L 18 18:59 Nucleat RBC Rel Count 0.0 % (0.0-0.2) 18 18:59 Absolute Neuts (auto) 21.32 10^3/uL (1.70-6.50) H 18 18:59 Absolute Lymphs (auto) 1.02 10^3/uL (1.00-3.00) 18 18:59 Absolute Monos (auto) 0.97 10^3/uL (0.30-0.80) H 18 18:59 Absolute Eos (auto) 0.00 10^3/uL (0.03-0.40) L 18 18:59 Absolute Basos (auto) 0.05 10^3/uL (0.02-0.10) 18 18:59 Absolute Nucleated RBC 0.00 10^3/uL (0-0.01) 18 18:59 Immature Gran % 1.1 % (0.0-1.1) 18 18:59 Immature Gran # 0.26 10^3/uL (0.00-0.10) H 02/19/18 18:59 RBC/WBC/PLT Morphology TNP 02/19/18 18:59 Platelet Estimate TNP 02/19/18 18:59 PT 13.4 SEC (12.0-15.0) 02/19/18 18:59 INR 1.00 (0.83-1.16) 18 18:59 APTT 28.5 SEC (23.0-38.0) 18 18:59 VBG Lactic Acid 2.7 mmol/L (0.7-2.1) H 02/19/18 18:52 POC Sodium 144 mEq/L (135-145) 18 18:40 Sodium 141 mEq/L (135-145) 02/19/18 18:59 POC Potassium 4.5 mEq/L (3.3-5.0) 18 18:40 Potassium 5.1 mEq/L (3.5-5.2) 18 18:59 POC Chloride 104 mEq/L (97-110) 18 18:40 Chloride 104 mEq/L (97-110) 18 18:59 Carbon Dioxide 21 mEq/l (22-31) L 18 18:59 Anion Gap 16 mEq/L (6-14) H 18 18:59 POC BUN 11 mg/dL (7-23) 18 18:40 BUN 12 mg/dL (7-23) 18 18:59 Creatinine 0.7 mg/dL (0.7-1.3) 18 18:59 POC Creatinine 0.7 mg/dL (0.7-1.3) 18 18:40 Estimated GFR > 60 18 18:59 Glucose 90 mg/dL (70-100) 1218 18:59 POC Glucose 100 mg/dL (70-100) 18 18:40 Calcium 9.0 mg/dL (8.5-10.4) 18 18:59 Total Bilirubin 0.6 mg/dL (0.1-1.4) 18 18:59 POC Troponin I 0.01 ng/mL (0.00-0.08) 18 18:36 NT-Pro-B Natriuret Pep 831 pg/mL (0-125) H 18 18:59 Assessment & Plan Assessment: Acute Hypoxic Respiratory Failure - Per ED report, patient 70% on RA - 02 saturation improved to 90's on BiPAP - Etiology likely COPD exacerbation, possible PNA - Management of COPD, PNA as below - Wean 02 as tolerated COPD Exacerbation - Presents with SOB, increased wheezing - Acute hypoxic resp failure as above - S/p 125 mg IV Solumedrol, IV Levaquin in ED - Will continue PO Prednisone 40 mg qd - Will treat with IV Levaquin 750 mg qd - Will order PRN and scheduled Duonebs PNA - CXR showing b/l basilar interstitial thickening - Afebrile on admisison, WBC 23.6 - Will treat with Levaquin as above FEN: NPO while on BiPAP DVT PPx: Lovenox Code: FULL Dispo: Admit to Medicine -
--- NOTE | 2018-02-19 21:08 | CPEKG ---
Test Reason : OPEN Blood Pressure : / mmHG Vent. Rate : 096 BPM Atrial Rate : 097 BPM P-R Int : 138 ms QRS Dur : 073 ms QT Int : 329 ms P-R-T Axes : 072 087 067 degrees QTc Int : 416 ms Sinus rhythm Borderline right axis deviation Nonspecific T abnrm, anterolateral leads Confirmed by Kang Jay ([id number]) on 02/19/2018 9:08:29 PM Referred By: Confirmed By:Kang Jay
[2018-02-19] MEDS: IPRATROPIUM/ALBUTEROL 3 ML DEYVIAL IH SCH (21:28)
[2018-02-20 05:23] LABS: PLATELET COUNT 201 10^3/uL (150-400)
[2018-02-20] MEDS: IPRATROPIUM/ALBUTEROL 3 ML DEYVIAL IH SCH ×4 (06:09→20:06)
--- NOTE | 2018-02-20 08:35 | PDMN ---
Medical Necessity Medical necessity: Pt meets IP criteria as of 02/19/2018 per and MCG M-100; est los > 2 mn for ongoing tx and management of COPD exacerbation with acute hypoxic respiratory failure (70% on RA) and possible PNA; requiring respiratory support, BiPap, IV steroids, IV ABX, and therapies.
--- NOTE | 2018-02-20 08:42 | ASMTLACE ---
ABDON Acuity / Level of Answers: Yes Care: Did the patient have an inpatient admission? Comorbidities - select Answers: Chronic pulmonary disease all that apply Coronary Artery Disease Opioid dependence / Chronic pain Other Notes: Hep C # of Emergency department Answers: 3-4 visits in the last 6 months Social determinants Answers: Homelessness (street, senior care) Mental health diagnosis (anxiety, depression, pers onality disorders, etc.) Lack of community resources and/or lack of social support (no pcp, lives alone, transportation, luanne d) Score: 25 Date Signed: 02/20/2018 08:42 AM Electronically Signed By:Cecelia Grewal
[2018-02-20] MEDS ORDERED: predniSONE 20 MG TAB PO SCH (09:00)
--- NOTE | 2018-02-20 09:07 | HOSPPROG ---
Hospitalist Progress Note Assessment/Plan: #Acute on chronic hypoxemic resp failure: from PNA #CAP: Levaquin #Acute COPD exacerbation: d #CAD: on May 2017. Rec ASA, statin, but he is noncompliant with meds #Leukocytosis: improved on abx #Lactic acidosis: resolved with fluids #Hyperkalemia: mild. Hydrate, repeat in AM #Disp: inpatient admission for Duonebs, abx. Case d/w Dr. Cantu Subjective: very SOB Objective: Vital Signs Temp Pulse Resp BP Pulse Ox 36.4 C 66 32 H 134/88 H 94 02/20/18 08:00 02/20/18 08:00 02/20/18 08:00 02/20/18 08:00 02/20/18 08:00 Laboratory Results 02/20/18 04:55 02/20/18 04:55 02/19/18 02/20/18 02/21/18 05:59 05:59 05:59 Intake Total 3835 Output Total 1250 Balance 2585 PT 13.4 SEC (12.0-15.0) 02/19/18 18:59 INR 1.00 (0.83-1.16) 02/19/18 18:59 - Time Spent With Patient Time Spent with Patient: greater than 35 minutes Time Spent with Patient: Greater than 35 minutes spent on this patients care, greater than 50% of time spent counseling, educating, and coordinating care regarding the above mentioned plan. - Physical Exam Constitutional: cachectic Eyes: PERRL Ears, Nose, Mouth, Throat: dry mucous membranes Cardiovascular: regular rate and rhythym Respiratory: expiratory wheeze, rhonchi, other (increased WOB) Gastrointestinal: normoactive bowel sounds Genitourinary: no bladder fullness Skin: warm Musculoskeletal: full muscle strength Neurologic: AAOx3, CN II-XII Intact Psychiatric: interacting appropriately ICD10 Worksheet Patient Problems: Problems Problem Status Onset COPD (chronic obstructive pulmonary disease) Acute COPD exacerbation Acute Chest pain Acute Chronic obstructive pulmonary disease with acute exacerbation Acute Pneumonia Acute Respiratory failure with hypoxia Acute Sepsis Acute Severe sepsis Acute Shortness of breath Acute
--- NOTE | 2018-02-20 09:50 | ASMTCMCOM ---
CM Note CM Note Notes: 62yo Male admitted for COPD, PNA, Sepsis, SOB. He is O2 dependent and was kicked out of house where he was living with no O2. Patient has a Hx of CAD, COPD, Hep C, PNA and he is a smoker. Therapies to eval. CM to follow. Date Signed: 02/20/2018 09:49 AM Electronically Signed By:Debra Conner LCSW
--- NOTE | 2018-02-20 10:16 | GCON ---
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 HISTORY OF PRESENT ILLNESS: The patient is a 62-year-old white male with a past medical history incl uding emphysema, coronary artery disease, and hepatitis C. His emphysema is oxygen dependent. He pr esented via EMS with complaints of respiratory distress. He was markedly hypoxemic upon presentation . He was in the ER 2 days prior, treated for COPD and a lingular pneumonia and discharged on Levaqui n. He currently is homeless and living without oxygen. He feels somewhat improved but is still dilia edly breathless, especially with any form of exertion. He admits to a cough productive of greenish s putum but denies hemoptysis. There is no chest pain, pleuritic-type chest pain or angina equivalent. REVIEW OF SYSTEMS: Ten-point review of systems is performed and negative, with the exception of what is listed in the HPI. ALLERGIES: None known. MEDICATIONS: Medications at home include, presumably, Levaquin and prednisone, as well as Advair. PAST MEDICAL HISTORY: Significant for emphysema and coronary artery disease, as well as hepatitis C. FAMILY HISTORY: Noncontributory. SOCIAL HISTORY: Current everyday smoker. He denies any alcohol use. He is currently unemployed. Shannan vargas is single, without children. He has lived in [place] for many years but is originally from [facility]. PHYSICAL EXAM: VITAL SIGNS: Blood pressure 134/88, pulse 66, respirations of 32. Temperature is 36 .4. Oxygen saturation 94% on 4 L. GENERAL: He is a thin, somewhat unkempt 62-year-old white male w ho is in moderate respiratory distress. HEENT: Eyes: PERRL, EOMI. Throat shows no erythema nor to nsillar hypertrophy. NECK: Supple. No cervical adenopathy. HEART: Regular rate and rhythm, with a 2/6 systolic murmur, left sternal border, without radiation. LUNGS: Diminished breath sounds, with significant prolongation of expiratory phase. There are bibasilar crackles. ABDOMEN: Soft, nonten ken. Bowel sounds are present. EXTREMITIES: No clubbing, cyanosis, or edema. LABORATORIES: White count 11.5, hemoglobin 12, hematocrit 40. Platelet count is 201. Sodium 137, p otassium 5.3, chloride 112. CO2 is 19, BUN 18, creatinine 0.7. Glucose is 110. Chest x-ray shows si gnificant hyperinflation. There are bibasilar infiltrates. IMPRESSION: 1. Community-acquired pneumonia. 2. Emphysema. 3. Acute exacerbation of chronic obstructive pulmonary disease. 4. Acute respiratory failure secondary to above. 5. History of coronary artery disease. 6. Hepatitis C. RECOMMENDATIONS: 1. Agree with frequent nebulized treatment of both albuterol and Atrovent. 2. Agree with BiPAP at night. 3. IV antibiotics as you are doing. 4. We will discontinue prednisone. Start patient on Solu-Medrol 125 q.6. 5. Aggressive pulmonary toilet. 6. Adequate nutrition. 7. DVT and PE prophylaxis. 8. Stress ulcer prophylaxis. Thank you very much for allowing me to participate in the care of this interesting patient. Will fol low along with you. /[id number]/MODL
[2018-02-20] MEDS: ENOXAPARIN 40 MG/0.4 ML SYR SC SCH ×2 (10:46→13:22)
[2018-02-20] MEDS: methylPREDNISolone SOD SUCC 125 MG/2 ML VIAL IVP SCH ×2 (10:46→17:46)
[2018-02-20] MEDS: ACETYLCYSTEINE 10% IH/PO 4 ML VIAL IH SCH ×3 (11:40→23:50)
[2018-02-20] MEDS ORDERED: methylPREDNISolone SOD SUCC 125 MG/2 ML VIAL IVP SCH (12:00)
[2018-02-20] MEDS: LORazepam 1 MG TAB PO PRN (13:19)
--- NOTE | 2018-02-20 15:11 | ASMTCMCOM ---
CM Note CM Note Notes: Patient has had numerous admits to [facility]. He is familiar to [facility]. 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 Besides his disability check-$600 it would be hard for him to live without those two checks. It's too exhausting for him to carry an O2 tank being homeless. Unless placement is found for both the patient and the person he cares for, he will continue to come to [facility] as needed. Date Signed: 02/20/2018 03:11 PM Electronically Signed By:Debra Conner LCSW
[2018-02-21] MEDS: ACETAMINOPHEN 325 MG TAB PO PRN ×2 (00:53→08:21)
[2018-02-21] MEDS: methylPREDNISolone SOD SUCC 125 MG/2 ML VIAL IVP SCH ×4 (01:18→18:22)
[2018-02-21] MEDS: ACETYLCYSTEINE 10% IH/PO 4 ML VIAL IH SCH ×3 (06:13→17:10)
[2018-02-21] MEDS: IPRATROPIUM/ALBUTEROL 3 ML DEYVIAL IH SCH ×3 (06:13→14:23)
[2018-02-21] MEDS: ENOXAPARIN 40 MG/0.4 ML SYR SC SCH (08:22)
--- NOTE | 2018-02-21 08:32 | PDINTPN ---
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 Still complaining of some back pain Objective: Vital Signs Temp Pulse Resp BP Pulse Ox 36.7 C 63 33 H 123/69 H 98 02/21/18 08:00 02/21/18 08:00 02/21/18 08:00 02/21/18 08:00 02/21/18 08:00 Laboratory Results 02/20/18 04:55 02/21/18 06:25 02/20/18 02/21/18 02/22/18 05:59 05:59 05:59 Intake Total 3835 1150 Output Total 1250 2400 250 Balance 2585 -1250 -250 PT 13.4 SEC (12.0-15.0) 02/19/18 18:59 INR 1.00 (0.83-1.16) 02/19/18 18:59 - Time Spent With Patient Time Spent With Patient: 35 min of time spent with patient, over 1/2 involved with coordination of care or counseling. Case discussed with nursing. Physical Exam - Physical Exam General Appearance: alert, mild distress, thin EENT: PERRL/EOMI Neck: non-tender, full range of motion Respiratory: respiratory distress (Mild), rhonchi (Scattered), prolonged expiration, No wheezing Cardiac/Chest: normal peripheral pulses, regular rate, rhythm Peripheral Pulses: 2+: carotid (R), carotid (L), femoral (R), femoral (L), dorsalis-pedis (R), dorsalis-pedis (L) Abdomen: normal bowel sounds, non-tender, soft Male Genitalia: deferred Rectal: deferred Skin: normal color, warm/dry Extremities: normal range of motion, non-tender, normal inspection, normal capillary refill Neuro/Psych: alert, oriented x 3 ICD10 Worksheet Patient Problems: Problems Problem Status Onset COPD (chronic obstructive pulmonary disease) Acute COPD exacerbation Acute Chest pain Acute Chronic obstructive pulmonary disease with acute exacerbation Acute Pneumonia Acute Respiratory failure with hypoxia Acute Sepsis Acute Severe sepsis Acute Shortness of breath Acute
[2018-02-21] MEDS: NS 1,000 ML IV SCH ×2 (11:55→18:25)
[2018-02-21] MEDS: LORazepam 1 MG TAB PO PRN (13:53)
--- NOTE | 2018-02-21 14:03 | HOSPPROG ---
Hospitalist Progress Note Assessment/Plan: #Acute on chronic hypoxemic resp failure: from PNA #CAP: Levaquin (Day 3) #Acute COPD exacerbation: nebs, steroids -encouraged him to take nebs when scheduled (has been refusing) #CAD: on May 2017. Rec ASA, statin, but he is noncompliant with meds #Leukocytosis: improved on abx #Lactic acidosis: resolved with fluids #Hyperkalemia: mild. Hydrate, repeat in AM #Disp: inpatient admission for Duonebs, abx. Case d/w Dr. Cantu Subjective: still having hard time breathing. Coughing green sputum Objective: Vital Signs Temp Pulse Resp BP Pulse Ox 37.2 C 94 18 125/82 H 95 02/21/18 10:23 02/21/18 10:23 02/21/18 10:23 02/21/18 10:23 02/21/18 10:23 Laboratory Results 02/20/18 04:55 02/21/18 06:25 02/20/18 02/21/18 02/22/18 05:59 05:59 05:59 Intake Total 3835 1150 Output Total 1250 2400 600 Balance 2585 -1250 -600 PT 13.4 SEC (12.0-15.0) 02/19/18 18:59 INR 1.00 (0.83-1.16) 02/19/18 18:59 - Time Spent With Patient Time Spent with Patient: greater than 35 minutes Time Spent with Patient: Greater than 35 minutes spent on this patients care, greater than 50% of time spent counseling, educating, and coordinating care regarding the above mentioned plan. - Physical Exam Constitutional: cachectic Eyes: PERRL Ears, Nose, Mouth, Throat: moist mucous membranes, poor dentition Cardiovascular: regular rate and rhythym Respiratory: reduced air movement, expiratory wheeze, other (increased WOB) Gastrointestinal: normoactive bowel sounds Genitourinary: no bladder fullness Skin: warm ICD10 Worksheet Patient Problems: Problems Problem Status Onset COPD (chronic obstructive pulmonary disease) Acute COPD exacerbation Acute Chest pain Acute Chronic obstructive pulmonary disease with acute exacerbation Acute Pneumonia Acute Respiratory failure with hypoxia Acute Sepsis Acute Severe sepsis Acute Shortness of breath Acute
[2018-02-21] MEDS: BENZONATATE 100 MG CAP PO PRN (14:47)
[2018-02-21] MEDS: guaiFENesin 600 MG TAB.ER PO SCH ×2 (14:47→21:36)
[2018-02-21] MEDS ORDERED: CALCIUM CARBONATE 500 MG CHEWABLE TAB PO PRN (17:28)
[2018-02-22] MEDS: IPRATROPIUM/ALBUTEROL 3 ML DEYVIAL IH SCH ×6 (00:42→23:00)
[2018-02-22] MEDS: ACETYLCYSTEINE 10% IH/PO 4 ML VIAL IH SCH ×6 (00:42→23:00)
[2018-02-22] MEDS: methylPREDNISolone SOD SUCC 125 MG/2 ML VIAL IVP SCH ×4 (01:16→18:19)
[2018-02-22] MEDS: NS 1,000 ML IV SCH ×2 (01:17→08:25)
[2018-02-22] MEDS: LORazepam 1 MG TAB PO PRN (08:25)
[2018-02-22] MEDS: BENZONATATE 100 MG CAP PO PRN ×3 (08:25→20:38)
[2018-02-22] MEDS: guaiFENesin 600 MG TAB.ER PO SCH ×2 (08:25→20:32)
[2018-02-22] MEDS: ENOXAPARIN 40 MG/0.4 ML SYR SC SCH ×2 (08:26→10:07)
[2018-02-22] MEDS: ACETAMINOPHEN 325 MG TAB PO PRN ×3 (08:29→18:18)
--- NOTE | 2018-02-22 09:00 | HOSPPROG ---
Hospitalist Progress Note Assessment/Plan: #Acute on chronic hypoxemic resp failure: some improvement today #CAP: Levaquin (Day 4/5) #Acute COPD exacerbation: nebs, steroids -encouraged him to take nebs when scheduled (has been refusing) #CAD: on May 2017. Rec ASA, statin, but he is noncompliant with meds #Leukocytosis: improved on abx #Lactic acidosis: resolved with fluids #Hyperkalemia: resolved with IVFs #Tobacco dependence: nicotine patch #Disp: inpatient admission for Duonebs, abx. Case d/w Dr. Cantu Subjective: some improvement in SOB, but still coughing Objective: Vital Signs Temp Pulse Resp BP Pulse Ox 35.7 C L 99 24 H 112/86 H 93 02/22/18 08:32 02/22/18 08:32 02/22/18 08:32 02/22/18 08:32 02/22/18 08:32 Laboratory Results 02/20/18 04:55 02/21/18 06:25 02/21/18 02/22/18 02/23/18 05:59 05:59 05:59 Intake Total 1150 1914 Output Total 2400 3225 Balance -1250 -1311 PT 13.4 SEC (12.0-15.0) 02/19/18 18:59 INR 1.00 (0.83-1.16) 02/19/18 18:59 - Time Spent With Patient Time Spent with Patient: greater than 35 minutes Time Spent with Patient: Greater than 35 minutes spent on this patients care, greater than 50% of time spent counseling, educating, and coordinating care regarding the above mentioned plan. - Physical Exam Constitutional: cachectic Ears, Nose, Mouth, Throat: poor dentition Cardiovascular: regular rate and rhythym Respiratory: expiratory wheeze, other (some improvement in air movement) Gastrointestinal: normoactive bowel sounds Genitourinary: no bladder fullness Musculoskeletal: full muscle strength Neurologic: AAOx3, CN II-XII Intact Psychiatric: interacting appropriately ICD10 Worksheet Patient Problems: Problems Problem Status Onset COPD (chronic obstructive pulmonary disease) Acute COPD exacerbation Acute Chest pain Acute Chronic obstructive pulmonary disease with acute exacerbation Acute Pneumonia Acute Respiratory failure with hypoxia Acute Sepsis Acute Severe sepsis Acute Shortness of breath Acute
[2018-02-22] MEDS: NICOTINE 21 MG/24 HR PATCH TD SCH (09:21)
[2018-02-22] MEDS: guaiFENesin/CODEINE PHOS 10 ML UDCUP PO PRN ×3 (09:39→22:00)
[2018-02-22] MEDS: BISMUTH SUBSALICYLATE 262 MG CHEWABLE TAB PO PRN ×2 (14:39→18:22)
--- NOTE | 2018-02-22 15:58 | ASMTCMCOM ---
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 She wanted to relay that pt is willing to go to SNF and if he goes she may be able to get her in d/t her severe dissability. CM met with pt to discuss, he agreed to relay monthly income, to stay 30 days, and that Quin will not automatically get in at the same time, that he will need to be a bit flexible. I also stated that PT/OT have not recommended SNF so I was not guaranteeing that he would be accepted. Pt understands and wishes CM to proceed with paperwork. DC Plan:TBD Date Signed: 02/22/2018 03:57 PM Electronically Signed By:Zena Ramirez RN
[2018-02-23] MEDS: guaiFENesin/CODEINE PHOS 10 ML UDCUP PO PRN ×3 (04:53→21:49)
[2018-02-23] MEDS: ACETYLCYSTEINE 10% IH/PO 4 ML VIAL IH SCH ×3 (05:49→16:34)
[2018-02-23] MEDS: IPRATROPIUM/ALBUTEROL 3 ML DEYVIAL IH SCH ×4 (05:49→20:42)
[2018-02-23] MEDS: methylPREDNISolone SOD SUCC 125 MG/2 ML VIAL IVP SCH ×4 (05:58→21:06)
--- NOTE | 2018-02-23 08:28 | HOSPPROG ---
Hospitalist Progress Note Assessment/Plan: #Acute on chronic hypoxemic resp failure: some improvement today #CAP: Levaquin completed today #Acute COPD exacerbation: nebs, steroids -encouraged him to take nebs when scheduled (has been refusing) -decrease IV dose/frequency today. Will need long taper #CAD: on May 2017. Rec ASA, statin, but he is noncompliant with meds #Leukocytosis: improved on abx #Lactic acidosis: resolved with fluids #Hyperkalemia: resolved with IVFs #Tobacco dependence: nicotine patch #Social: pt requesting for SNF placement. [facility]-100 pending #Disp: inpatient admission for Duonebs, abx. Subjective: improved SOB today, less cough Objective: Vital Signs Temp Pulse Resp BP Pulse Ox 36.6 C 79 16 124/81 H 94 02/23/18 07:47 02/23/18 07:47 02/23/18 07:47 02/23/18 07:47 02/23/18 07:47 Laboratory Results 02/20/18 04:55 02/21/18 06:25 02/22/18 02/23/18 02/24/18 05:59 05:59 05:59 Intake Total 1914 150 Output Total 3225 1750 Balance -1311 -1600 PT 13.4 SEC (12.0-15.0) 02/19/18 18:59 INR 1.00 (0.83-1.16) 02/19/18 18:59 - Time Spent With Patient Time Spent with Patient: greater than 35 minutes Time Spent with Patient: Greater than 35 minutes spent on this patients care, greater than 50% of time spent counseling, educating, and coordinating care regarding the above mentioned plan. - Physical Exam Constitutional: cachectic Ears, Nose, Mouth, Throat: poor dentition Cardiovascular: tachycardia Respiratory: reduced air movement, No expiratory wheeze Gastrointestinal: normoactive bowel sounds Genitourinary: no bladder fullness Skin: warm Musculoskeletal: full muscle strength Neurologic: AAOx3, CN II-XII Intact Psychiatric: interacting appropriately ICD10 Worksheet Patient Problems: Problems Problem Status Onset Pneumonia Acute COPD (chronic obstructive pulmonary disease) Acute COPD exacerbation Acute Chest pain Acute Chronic obstructive pulmonary disease with acute exacerbation Acute Respiratory failure with hypoxia Acute Sepsis Acute Severe sepsis Acute Shortness of breath Acute
[2018-02-23] MEDS: guaiFENesin 600 MG TAB.ER PO SCH ×2 (09:43→21:10)
[2018-02-23] MEDS: NICOTINE 21 MG/24 HR PATCH TD SCH (09:44)
[2018-02-23] MEDS: ENOXAPARIN 40 MG/0.4 ML SYR SC SCH (09:45)
[2018-02-23] MEDS: ACETAMINOPHEN 325 MG TAB PO PRN ×2 (12:12)
[2018-02-23] MEDS: BENZONATATE 100 MG CAP PO PRN (20:58)
[2018-02-23] MEDS: MELATONIN 3 MG TAB PO PRN (21:49)
[2018-02-24] MEDS: IPRATROPIUM/ALBUTEROL 3 ML DEYVIAL IH SCH ×4 (05:28→20:13)
[2018-02-24] MEDS: methylPREDNISolone SOD SUCC 125 MG/2 ML VIAL IVP SCH ×4 (05:34→20:24)
[2018-02-24] MEDS: guaiFENesin/CODEINE PHOS 10 ML UDCUP PO PRN ×3 (05:40→20:23)
[2018-02-24] MEDS: NICOTINE 21 MG/24 HR PATCH TD SCH (09:04)
[2018-02-24] MEDS: guaiFENesin 600 MG TAB.ER PO SCH ×3 (09:04→20:14)
[2018-02-24] MEDS: ENOXAPARIN 40 MG/0.4 ML SYR SC SCH (09:06)
[2018-02-24 10:40] LABS: PLATELET COUNT 190 10^3/uL (150-400)
[2018-02-24] MEDS: BENZONATATE 100 MG CAP PO PRN (12:47)
--- NOTE | 2018-02-24 14:48 | ASMTCMCOM ---
CM Note CM Note Notes: Spoke with pt in the room. Therapies recommending SNF and [facility]-100 sent to [facility] for eval which will likely happen after holiday. 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 Referrals sent to [facility], per pt preference, including [facility] and [facility]. CM to follow. Discharge likely after the holidays and [facility] eval. D/C Plan: SNF Date Signed: 02/24/2018 02:47 PM Electronically Signed By:Taylor Ling
--- NOTE | 2018-02-24 17:50 | HOSPPROG ---
Hospitalist Progress Note Assessment/Plan: Subjective Follow-up on respiratory failure. Patient states he has fluid somewhat more labored breathing today but otherwise no acute events overnight. Objective Vital signs as detailed below Exam General-awake alert conversant no acute distress Heart-regular rate and rhythm no murmurs Lungs-Clear to auscultation with normal respiratory effort but relatively poor air movement throughout Abdomen-soft nontender nondistended normal bowel sounds -no Hdz catheter in place Extremities-no significant pitting edema or calf pain with palpation Skin-no concerning skin rashes noted Labs as detailed below. Assessment and plan Acute on chronic hypoxic respiratory failure-wean Solu-Medrol to 40 mg IV twice a day. Continue nebulizers. Pneumonia-antibiotics completed. Monitor for fevers. Leukocytosis-suspecting elevation secondary to steroid use. Hyperkalemia-resolved with potassium 4.3 today. Coronary artery disease-history of. Chronic hypoxic respiratory failure secondary to COPD-patient is on 2 L chronically. Tobacco use-patient is on nicotine patch. Cessation advised. DVT prophylaxis-Lovenox. Disposition-awaiting placement for short-term rehab. Objective: Vital Signs Temp Pulse Resp BP Pulse Ox 36.5 C 100 20 158/97 H 91 L 02/24/18 16:02 02/24/18 16:25 02/24/18 16:25 02/24/18 16:02 02/24/18 16:25 Laboratory Results 02/24/18 10:32 02/24/18 10:32 02/23/18 02/24/18 02/25/18 05:59 05:59 05:59 Intake Total 150 600 Output Total 1750 1500 500 Balance -1600 -900 -500 PT 13.4 SEC (12.0-15.0) 02/19/18 18:59 INR 1.00 (0.83-1.16) 02/19/18 18:59 ICD10 Worksheet Patient Problems: Problems Problem Status Onset Pneumonia Acute COPD (chronic obstructive pulmonary disease) Acute COPD exacerbation Acute Chest pain Acute Chronic obstructive pulmonary disease with acute exacerbation Acute Respiratory failure with hypoxia Acute Sepsis Acute Severe sepsis Acute Shortness of breath Acute
[2018-02-24] MEDS: MELATONIN 3 MG TAB PO PRN (20:23)
[2018-02-25] MEDS: guaiFENesin/CODEINE PHOS 10 ML UDCUP PO PRN ×4 (02:48→21:24)
[2018-02-25] MEDS: IPRATROPIUM/ALBUTEROL 3 ML DEYVIAL IH SCH ×4 (05:40→21:10)
[2018-02-25] MEDS: methylPREDNISolone SOD SUCC 125 MG/2 ML VIAL IVP SCH ×2 (08:25→20:09)
[2018-02-25] MEDS: NICOTINE 21 MG/24 HR PATCH TD SCH (08:25)
[2018-02-25] MEDS: ENOXAPARIN 40 MG/0.4 ML SYR SC SCH (08:49)
[2018-02-25] MEDS: guaiFENesin 600 MG TAB.ER PO SCH ×2 (09:03→20:09)
[2018-02-25] MEDS: BENZONATATE 100 MG CAP PO PRN ×2 (09:03→15:11)
[2018-02-25] MEDS: ACETAMINOPHEN 325 MG TAB PO PRN ×3 (09:03→20:08)
--- NOTE | 2018-02-25 15:23 | HOSPPROG ---
Hospitalist Progress Note Assessment/Plan: Subjective Follow-up on respiratory failure. Patient states his breathing has not worsened and states slightly better over the past 24 hr. We did wean down the amount of Solu-Medrol he has been on. Objective Vital signs as detailed below Exam General-awake alert conversant no acute distress Heart-regular rate and rhythm no murmurs Lungs-Clear to auscultation with normal respiratory effort but relatively poor air movement throughout Abdomen-soft nontender nondistended normal bowel sounds -no Hdz catheter in place Extremities-no significant pitting edema or calf pain with palpation Skin-no concerning skin rashes noted Labs as detailed below. Assessment and plan Acute on chronic hypoxic respiratory failure-wean steroids to prednisone 40 mg daily. Continue nebulizers. Pneumonia-antibiotics completed. Monitor for fevers. Leukocytosis-suspecting elevation secondary to steroid use. Repeat ordered for tomorrow. Hyperkalemia-resolved with potassium 4.3 today. Repeat ordered tomorrow. Coronary artery disease-history of. Chronic hypoxic respiratory failure secondary to COPD-patient is on 2 L chronically. Tobacco use-patient is on nicotine patch. Cessation advised. DVT prophylaxis-Lovenox. Disposition-awaiting placement for short-term rehab. He tells me he has been accepted to a facility this coming Monday. Objective: Vital Signs Temp Pulse Resp BP Pulse Ox 35.5 C L 87 20 137/90 H 91 L 02/25/18 07:59 02/25/18 07:59 02/25/18 07:59 02/25/18 07:59 02/25/18 07:59 Laboratory Results 02/24/18 10:32 02/24/18 10:32 02/24/18 02/25/18 02/26/18 05:59 05:59 05:59 Intake Total 600 650 100 Output Total 1500 1800 700 Balance -900 -1150 -600 PT 13.4 SEC (12.0-15.0) 02/19/18 18:59 INR 1.00 (0.83-1.16) 02/19/18 18:59 ICD10 Worksheet Patient Problems: Problems Problem Status Onset Pneumonia Acute COPD (chronic obstructive pulmonary disease) Acute COPD exacerbation Acute Chest pain Acute Chronic obstructive pulmonary disease with acute exacerbation Acute Respiratory failure with hypoxia Acute Sepsis Acute Severe sepsis Acute Shortness of breath Acute
[2018-02-25] MEDS: MELATONIN 3 MG TAB PO PRN (20:09)
[2018-02-26] MEDS: ACETAMINOPHEN 325 MG TAB PO PRN (00:18)
[2018-02-26] MEDS: BENZONATATE 100 MG CAP PO PRN (03:42)
[2018-02-26] MEDS: guaiFENesin/CODEINE PHOS 10 ML UDCUP PO PRN ×4 (03:42→22:05)
[2018-02-26 05:22] LABS: PLATELET COUNT 143 10^3/uL (150-400)
[2018-02-26] MEDS: IPRATROPIUM/ALBUTEROL 3 ML DEYVIAL IH SCH ×4 (05:48→21:21)
[2018-02-26] MEDS: NICOTINE 21 MG/24 HR PATCH TD SCH (08:19)
[2018-02-26] MEDS: methylPREDNISolone SOD SUCC 125 MG/2 ML VIAL IVP SCH (08:19)
[2018-02-26] MEDS: guaiFENesin 600 MG TAB.ER PO SCH ×2 (08:38→21:41)
[2018-02-26] MEDS: ENOXAPARIN 40 MG/0.4 ML SYR SC SCH (08:39)
[2018-02-26] MEDS ORDERED: IOPAMIDOL (ISOVUE 370) 100 ML BTL IV ONE (13:16)
--- NOTE | 2018-02-26 13:21 | HOSPPROG ---
Hospitalist Progress Note Assessment/Plan: DIAGNSOSES: * acute hypoxemic respiratory failure - worsening today by symptoms and exam * suspicion for acute PE with pleuritic pain, tachycardia, and worsening dyspnea on tx for copd * known severe copd with chronic hypoxemic resp failure * ? pneumonia or respiratory infection: there has been no fever, but wbc's high ; procalcitonin not done so far and no resp pathogen panel; blood cx's neg (has tested neg for flu * Rising BUN, ? of po intake poor, not receiving any diuretic * Hx of CAD, stable at present *ongoing tobacco abuse Not clear why he is getting worse. Concern for PE, doubt infection; further imaging will be useful but needs increased medication - need to determine if treating copd, clot, or other illness however. PLANS: * CT to eval for PE, other cause of worsening resp function, chest pain * increase steroid to qid dosing * add symbicort * recheck renal fxn tomorrow, encourage po fluids * check procalcitonin SUBJ: feels notably more sob today has some pleuritic pain still a lot of cough no fever sxs OBJ: vitals: tachycardic 110, tachypneic during my exam at 28-30; bps good with no fever Oxygen is at 3 L ExaM: alert, oriented in some resp distress with high work of breathing evident skin warm dry lungs clear BSs that are moderately diminshed heart regular tachy no edema of legs or otherwise abd nl mentation nl Labs: BUN up to 35 today w stable Cr wbc still up at 15 k, platelets down somewhat at 143 micro: blood cx's neg to date I reviewed todays CXR image, compared with 02/23 image, and also CT chest images from earlier this year and last year: there is evidence of advance emphysema, but could not currently rule out some interstitial abnormality from current xray Objective: Vital Signs Temp Pulse Resp BP Pulse Ox 36.6 C 91 24 H 148/92 H 92 02/26/18 08:00 02/26/18 11:17 02/26/18 11:17 02/26/18 08:00 02/26/18 11:17 Laboratory Results 02/26/18 04:54 02/26/18 04:54 02/25/18 02/26/18 02/27/18 06:59 06:59 06:59 Intake Total 650 1050 Output Total 1800 3100 1000 Balance -1150 -2050 -1000 PT 13.4 SEC (12.0-15.0) 02/19/18 18:59 INR 1.00 (0.83-1.16) 02/19/18 18:59 - Time Spent With Patient Time Spent with Patient: greater than 35 minutes Time Spent with Patient: Greater than 35 minutes spent on this patients care, greater than 50% of time spent counseling, educating, and coordinating care regarding the above mentioned plan. ICD10 Worksheet Patient Problems: Problems Problem Status Onset Pneumonia Acute COPD (chronic obstructive pulmonary disease) Acute COPD exacerbation Acute Chest pain Acute Chronic obstructive pulmonary disease with acute exacerbation Acute Respiratory failure with hypoxia Acute Sepsis Acute Severe sepsis Acute Shortness of breath Acute
[2018-02-26] MEDS: methylPREDNISolone SOD SUCC 40 MG/ML VIAL IVP SCH ×2 (17:44→23:19)
[2018-02-26] MEDS: traMADol 50 MG TAB PO PRN ×2 (17:45→23:46)
[2018-02-26] MEDS: BUDESONIDE/FORMOTEROL 160/4.5 60 PUFFS/MDI IH SCH (21:32)
[2018-02-26] MEDS: MELATONIN 3 MG TAB PO PRN (22:05)
[2018-02-27] MEDS: guaiFENesin/CODEINE PHOS 10 ML UDCUP PO PRN ×3 (04:01→17:03)
[2018-02-27] MEDS: IPRATROPIUM/ALBUTEROL 3 ML DEYVIAL IH SCH ×4 (05:34→21:32)
[2018-02-27] MEDS: methylPREDNISolone SOD SUCC 40 MG/ML VIAL IVP SCH ×3 (05:40→17:03)
[2018-02-27] MEDS: traMADol 50 MG TAB PO PRN ×2 (05:49→12:20)
[2018-02-27] MEDS: NICOTINE 21 MG/24 HR PATCH TD SCH (08:19)
[2018-02-27] MEDS: guaiFENesin 600 MG TAB.ER PO SCH (08:20)
[2018-02-27] MEDS: ENOXAPARIN 40 MG/0.4 ML SYR SC SCH (08:20)
[2018-02-27] MEDS: BUDESONIDE/FORMOTEROL 160/4.5 60 PUFFS/MDI IH SCH ×2 (10:13→21:38)
--- NOTE | 2018-02-27 13:52 | ASMTCMCOM ---
CM Note CM Note Notes: Pt admitted with COPD, pneumonia. 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 The pt is willing to go to SNF, ultc done and pending eval here after holidays. PT/OT recommend SNF, pt understands that Quin may not get into the same SNF at exactly the same time frame and that he will need to be a bit fexible. Quin has a CW from [facility] ([phone]) to notifiy if pt gets discharged. DC Plan: SNF Date Signed: 02/27/2018 01:51 PM Electronically Signed By:Zena Ramirez RN
--- NOTE | 2018-02-27 14:20 | HOSPPROG ---
Hospitalist Progress Note Assessment/Plan: > 45 mins of CRITICAL CARE TIME with pt at bedside today DIAGNSOSES: * acute hypoxemic respiratory failure * acute copd exacerbation; known severe copd with chronic hypoxemic resp failure * ? pneumonia or respiratory infection: there has been no fever, but wbc's high ; procalcitonin not done at admission; blood cx's neg (has tested neg for flu * Rising BUN, ? of po intake poor, not receiving any diuretic * Hx of CAD, stable at present * ongoing tobacco abuse Pt is having acute worsening this afternoon with very high work of breathing and notably higher PF ratio. I suspect may be mucous plugging though did not see that on yesteday's CT. He did not have PE on yesterdays CT, has no leg pain or swelling, and is on lovenox prevention dose. No fever. PLANS: * stat CXR ordered * stat abg * will add azithromycin, and add some mucomyst and flutter valve * if is not improving may need bipap * I have reviewed case with Dr Hernández at this time and he will see the pt * continue current steroid dosing * continue symbicort, duonebs * Continue attempt increase activity as able * Repeat CBC and metabolic panel ordered for tomorrow * Tobacco cessation strongly recommended and reviewed with the patient SUBJ: did well overnight and this am, but states to me he has had significant worsening of sob this afternoon no chest pain still a lot of coughing no leg pain or swelling OBJ: vitals: pulse in 70-80s this am but 110 on my exam, rr was good in am but 38/ min and very labored on my exam, no fever BPs good Oxygen is at 3L O2 sat 80; I turned up to 10 L NC with no change in RR and sat only up to 88; I placed oxymask on at 9 L and got 90% sat with HR still at 100 and resps still labored though RR now at 30 Exam: alert, oriented, mild anxiety in marked resp distress with high work of breathing evident skin warm dry lungs diminished BSs heart regular tachy no edema of legs or otherwise abd nl mentation nl micro: blood cx's neg to date Objective: Vital Signs Temp Pulse Resp BP Pulse Ox 36.6 C 102 H 18 140/90 H 90 L 02/27/18 07:46 02/27/18 10:10 02/27/18 10:10 02/27/18 07:46 02/27/18 10:10 Laboratory Results 02/26/18 04:54 02/26/18 04:54 02/26/18 02/27/18 02/28/18 06:59 06:59 06:59 Intake Total 1050 1500 450 Output Total 3100 1950 500 Balance -2050 -450 -50 PT 13.4 SEC (12.0-15.0) 02/19/18 18:59 INR 1.00 (0.83-1.16) 02/19/18 18:59 ICD10 Worksheet Patient Problems: Problems Problem Status Onset Pneumonia Acute COPD (chronic obstructive pulmonary disease) Acute COPD exacerbation Acute Chest pain Acute Chronic obstructive pulmonary disease with acute exacerbation Acute Respiratory failure with hypoxia Acute Sepsis Acute Severe sepsis Acute Shortness of breath Acute
--- NOTE | 2018-02-27 16:57 | PDCONSULT ---
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 Patient may have worsening of his AE COPD versus anxiety. CT PE yesterday negative for PE or pneumonia and shows chronic emphysematous changes. # AECOPD # acute on chronic hypoxemic respiratory failure # hypercarbic respiratory failure # pulmonary nodule # left forearm abscess PLAN # stat chest x-ray an ABG now # suggest decreasing dose of methylprednisolone to 40 IV q.12 hours as this may be contributing to anxiety # if worsening hypercarbia will start NIPPV # suggest ceftriaxone and azithromycin # consider bedside I&D of left forearm abscess # trend serum electrolytes # supplemental oxygen goal saturation 90-92% but not greater than 94% as hyperoxia worsens V/Q matching and hypercarbia # NIPPV versus intubation pending abg and clinical course # Feeding - NPO # thank you for this consult and allowing me to participate in the care of this patient. Please call or page with questions. IMAGING I personally reviewed interpreted radiographic images well as formal radiology reads 02/26/2018 CTA chest-no PE severe paraseptal emphysema worsen the apices. Spiculated nodule and superior segment of right lower lobe. Chief complaint Shortness of breath MADHU Weinstein is a very pleasant 62-year-old male with history of severe COPD chronic hypoxemic respiratory failure, homelessness and polysubstance abuse who was as well as mood disorder who is brought in by ambulance with tachypnea and hypoxemia. He was initially started on BiPAP and given dual nebs as well as Solu-Medrol. Patient denies fevers chills or nausea and vomiting. Prior to this admission he was seen briefly in the emergency department for a mild COPD exacerbation given Levaquin and prednisone. He is homeless was intermittent how seen and has not been using oxygen, Symbicort or steroids. At time of my interview patient complains of worsening shortness of breath and productive cough as well as generalized malaise. Allergies No known drug allergies Past medical history Severe COPD, no recent PFTs for comparison, anxiety, polysubstance abuse, hepatitis-C virus Family history No history of severe COPD with recurrent admissions Social history homeless, everyday smoker 1 pack per day as able to afford cigarettes, history of crack cocaine use and other drugs Review of systems A comprehensive 10 point review of systems was obtained is negative except as per HPI Physical exam Vitals Afebrile, pulse 100, blood pressure 150/100 map 117, respiratory rate 20 4-3891 % on 4-8 L oxygen face mask GEN: Moderate respiratory distress lying in bed NEURO: A&Ox3, CN 2-12 GI HEENT: PERRL, EOMI, MMM, OP clear NECK: supple, trachea midline CHEST normal shape, no pes excavatum CVS: Tachy no m/r/g PULM: Decreased air movement bilaterally, no rhonchi no rales. Tachypneic ABD: soft, NT, ND, NABS EXT: no swelling, no cyanosis, full ROM SKIN: Left forearm with 3-4 cm fluctuant mass, dorsal surface PSYCH CAM negative, anxious affect Labs Reviewed significant for leukocytosis without significant peripheral eosinophilia Imaging As above
[2018-02-27] MEDS: AZITHROMYCIN 250 MG TAB PO SCH (17:03)
[2018-02-27] MEDS: ALBUTEROL 3 ML DEYVIAL IH PRN (18:45)
[2018-02-27] MEDS ORDERED: LORazepam 2 MG/ML INJ ONE (18:59)
[2018-02-27] MEDS ORDERED: LORazepam 2 MG/ML INJ IVP ONE ×2 (19:45→20:30)
[2018-02-27] MEDS ORDERED: HALOPERIDOL LACT 5 MG/ML INJ IVP ONE (20:00)
[2018-02-27] MEDS ORDERED: DEXMEDETOMIDINE HCL 400 MCG in NS 100 ML IV SCH (21:30)
[2018-02-27] MEDS ORDERED: HALOPERIDOL LACT 5 MG/ML INJ ONE (23:44)
[2018-02-27] MEDS ORDERED: HALOPERIDOL LACT 5 MG/ML INJ IV ONE (23:45)
[2018-02-28] MEDS ORDERED: PROPOFOL/EMULSION 1,000 MG/100 ML BOTTLE IV ONE (00:03)
[2018-02-28] MEDS ORDERED: fentaNYL/NACL 100 ML IV SCH (00:15)
[2018-02-28] MEDS ORDERED: LIDOCAINE 1% 2 ML INJ ONE (00:20)
[2018-02-28] MEDS ORDERED: PHENYLEPHRINE HCL 100 MCG/ML SYR ONE ×2 (00:26)
[2018-02-28] MEDS ORDERED: LR 1,000 ML IV ONE (00:30)
--- NOTE | 2018-02-28 01:03 | SUROPNOTE ---
[facility] Operative Report - Surgery Emergency Endotracheal Intubation Date and Time 02/28/18 0015 Operators S Duong Hernández MD Indication Respiratory failure Consent Verbal consent was obtained via patient and next of kin Preoxygenation NRM Medications Versed 4 mg Ketamine 200 mg Rocuronium 100 mg Equipment Mac 3 7.5 ETT Maccormick rascon grade view intubation 1 Number of Attempts 1 Post Procedure Placement was confirmed with capnography, breath sounds were auscultated bilaterally., ETT calero, 24 cm at teeth, CXR ordered Complications None
--- NOTE | 2018-02-28 01:08 | SUROPNOTE ---
[facility] Operative Report - Surgery CENTRAL LINE INSERTION NOTE Procedure: left Subclavian CVC placement Attending Physician: Dr. Rachel Hernández Anesthesiologist: N/A Anesthesia Type: N/A Indication: vascular access Consent: the patient was counseled as to the risks, benefits, and alternatives to the procedure and they agreed to proceed. Signed consent was obtained and placed into chart. Time-Out: prior to the procedure, time-out was performed to verify patient's name, date of , correct procedure, correct side, correct site, correct patient position, correct radiographic data, and special equipment required. Pre-Op Dx: hypotension-presumed sepsis Post-Op Dx: hypotension-presumed sepsis Medications: none Description: Hand hygiene was perfomed. Pt was positioned in the Trendelenburg position. Skin above the left clavicle and left chest were prepped with Chloraprep (with time allowed to dry) prior to catheter insertion and with maximal sterile precautions (including gown, sterile gloves, mask, cap , and large sterile draping). The site was locally anesthetized with lidocaine 1% (2 ml). The left subclavian vein was punctured was punctured with the finder needle -> passage of guidewire -> passage of guidewire -> passage of dilator -> passage of CVC over guidewire. Return of venous blood from all ports , catheter was flushed. Catheter was sutured in place with silk suture and dressed with sterile dressing. Placement was confirmed by portable CXR. EBL: 1 ml Complications: none Specimens Sent: none Implants: N/A F/U: routine CVC care CLIP Form (completed) Procedure Location: ICU Date of Insertion: 02/28/18 Person Recording Insertion Practice Data: TANA Castaneda (Observer) Electrical Design Technician #1: Rachel Hernández MD Occupation #1: Attending Physician Reason for Insertion: new indication for CVC If Suspected CVC-Associated Infection, Was Exchange Over Guidewire: NO Electrical Design Technician Performed Hand Hygiene Prior to CVC Insertion: YES Maximal Sterile Barriers Used: Mask: YES Hat: YES Sterile Gown: YES Sterile Gloves: YES Large Sterile Drape: YES Skin Preparation: Chlorhexidine Gluconate If Skin Prep was not Chlorhexidine, was there a Contraindication to Chrlorhexidine: NO Was Skin Prep Agent Completely Dry at Time of First Skin Puncture?: YES Rachel Hernández MD Pulmonary and Critical Care Medicine
--- NOTE | 2018-02-28 01:16 | PDINTPN ---
Mask Designer Progress Note Assessment/Plan: ASSESSMENT 62-year-old male with severe COPD, polysubstance abuse, homelessness and medication non adherence admitted with recurrent COPD exacerbation, severely transferred to the ICU 02/27/2018 with worsening respiratory status, anxiety and agitation despite aggressive medical management leading to endotracheal intubation mechanical ventilation and subsequently found to have pneumonia. # AECOPD, no focal infiltrate on initial imaging however subsequent imaging with left-sided pneumonia # acute on chronic hypoxemic respiratory failure requiring intubation and mechanical ventilation # HCAP- L focal infiltrate # hypercarbic respiratory failure # hypotension, sedation related # pulmonary nodule # left forearm abscess # anxiety, prior to intubation required Ativan, Haldol and Precedex PLAN # lung protective mechanical ventilation, daily VBG to assess pH and pCO2 # continue azithromycin # zosyn added 02/28/18 # methylprednisolone 40 mg IV twice daily # consider bedside I&D of left forearm abscess # trend serum electrolytes # supplemental oxygen goal saturation 90-92% but not greater than 94% as hyperoxia worsens V/Q matching and hypercarbia # Feeding - NPO # analgesia-p.r.n. Fentanyl # sedation propofol # thromboprophylaxis-Lovenox # head of bed elevated # stress ulcer prophylaxis famotidine # glucose sliding scale insulin # skin-possible abscess on left forearm no other breakdown # full code IMAGING I personally reviewed interpreted radiographic images well as formal radiology reads 02/26/2018 CTA chest-no PE severe paraseptal emphysema worsen the apices. Spiculated nodule and superior segment of right lower lobe. 02/28/2018 chest x-ray ET tube high, interval development of left-sided infiltrate, left subclavian catheter in place 02/28/18 01:22 Subjective: Progressive anxiety, agitation respiratory distress throughout the evening. Transfer to the ICU for closer monitoring. Initial ABGs with respiratory alkalosis consistent with anxiety. Some initial improvement with low-dose Ativan and Haldol. However due to worsening agitation, inability to tolerate BiPAP and respiratory distress patient was intubated and a central line was placed for hypotension and venous access. Serial imaging with interval development of left-sided infiltrate Objective: Vital Signs Temp Pulse Resp BP Pulse Ox 36.2 C 110 H 27 H 153/100 H 89 L 02/27/18 16:00 02/27/18 21:32 02/27/18 21:32 02/27/18 16:00 02/27/18 21:32 Laboratory Results 02/26/18 04:54 02/26/18 04:54 02/26/18 02/27/18 02/28/18 05:59 05:59 05:59 Intake Total 1050 1500 650 Output Total 3100 1950 1875 Balance -0 -450 -1225 PT 13.4 SEC (12.0-15.0) 02/19/18 18:59 INR 1.00 (0.83-1.16) 02/19/18 18:59 Physical Exam - Physical Exam General Appearance: obtunded, cachetic EENT: ET tube Neck: non-tender, full range of motion Respiratory: other (Decreased breath sounds bilateral bases) Cardiac/Chest: normal peripheral pulses, regular rate, rhythm Abdomen: normal bowel sounds, non-tender Skin: normal color, warm/dry, other (Left forearm abscess) Extremities: non-tender, No pedal edema Neuro/Psych: other (Intubated sedated, no focal deficit) ICD10 Worksheet Patient Problems: Problems Problem Status Onset Pneumonia Acute COPD (chronic obstructive pulmonary disease) Acute COPD exacerbation Acute Chest pain Acute Chronic obstructive pulmonary disease with acute exacerbation Acute Respiratory failure with hypoxia Acute Sepsis Acute Severe sepsis Acute Shortness of breath Acute
[2018-02-28] MEDS ORDERED: FAMOTIDINE 20 MG/2 ML SDV IVP SCH (01:30)
[2018-02-28] MEDS: NOREPINEPHRINE BITARTRATE 4 MG in NS 500 ML IV SCH ×4 (01:30→22:56)
[2018-02-28] MEDS ORDERED: fentaNYL 100 MCG/2 ML INJ ONE (01:37)
[2018-02-28] MEDS ORDERED: IPRATROPIUM/ALBUTEROL 3 ML DEYVIAL IH PRN (02:02)
--- NOTE | 2018-02-28 02:05 | SUROPNOTE ---
[facility] Operative Report - Surgery PROCEDURE NOTE: Flexible bronchoscopy with bronchoalveolar lavage and therapeutic aspiration Procedure Vice President Process S Duong Hernández MD Procedure: Flexible bronchoscopy with bronchoalveolar lavage and therapeutic aspiration Indication: Pneumonia Consent: Obtained from patient and next of kin prior to procedure after explanation of the procedure, alternatives, risks, and benefits. Anesthesiologist NA Sedation Type: deep sedation Sedation Medications: propofol, fentanyl Preoperative diagnosis-pneumonia Postoperative diagnosis-pneumonia Medications: None Procedure Summary: Time out was performed. The bronchoscope was then introduced via the endotracheal tube nasopharynx, oropharynx into the trachea. Entire tracheobronchial tree was examined. The main hardeep appeared sharp. The right- sided airways were inspected first and had thick proximal and distal secretions. The left-sided airways were then inspected and had distal secretions. All secretions were therapeutically aspirated. Airway mucosa appeared erythematous throughout. Bronchoalveolar lavage was then performed in the lingula with instillation of 120 mL with return of 45 mL of purulent- appearing fluid. Upon completion of the procedure, tube placement was reconfirmed during withdrawal of the bronchoscope. Patient tolerated procedure well without complication. EBL none Complications: None Impression: Thick putrid secretions consistent with pneumonia and COPD exacerbation Items to Follow-up: BAL fluid sent for cell count diff, Gram stain culture S Duong Hernández MD Pulmonary and Critical Care Medicine [phone]
[2018-02-28] MEDS ORDERED: ROCURONIUM 100 MG/10 ML VIAL IVP ONE (02:30)
[2018-02-28] MEDS ORDERED: MIDAZOLAM 2 MG/2 ML VIAL IVP ONE (02:30)
[2018-02-28] MEDS ORDERED: PHENYLEPHRINE HCL 100 MCG/ML SYR IVP ONE (02:30)
[2018-02-28] MEDS ORDERED: KETAMINE 200 MG/20 ML VIAL IVP ONE (02:30)
[2018-02-28] MEDS: PIPERACILLIN/TAZO 3.375 GM/DEX 50 ML IV SCH ×4 (02:34→17:58)
[2018-02-28] MEDS: guaiFENesin 600 MG TAB.ER PO SCH (03:32)
[2018-02-28] MEDS: FAMOTIDINE 20 MG/NACL 50 ML IV SCH ×3 (03:56→21:16)
[2018-02-28] MEDS: PROPOFOL/EMULSION 100 ML IV SCH ×4 (05:21→21:04)
[2018-02-28] MEDS: fentaNYL/NACL 100 ML IV SCH ×2 (06:32→14:54)
[2018-02-28 07:06] LABS: PLATELET COUNT 185 10^3/uL (150-400)
[2018-02-28] MEDS: methylPREDNISolone SOD SUCC 40 MG/ML VIAL IVP SCH ×3 (07:31→21:16)
[2018-02-28] MEDS: BUDESONIDE/FORMOTEROL 160/4.5 60 PUFFS/MDI IH SCH (08:58)
[2018-02-28] MEDS ORDERED: VANCOMYCIN HCL/NORMAL SALINE 250 ML IV SCH (09:00)
--- NOTE | 2018-02-28 09:02 | PDINTPN ---
Seat Covers Trimmer Progress Note Assessment/Plan: ASSESSMENT 62-year-old male with severe COPD, polysubstance abuse, homelessness and medication non adherence admitted with recurrent COPD exacerbation, severely transferred to the ICU 02/27/2018 with worsening respiratory status, anxiety and agitation despite aggressive medical management leading to endotracheal intubation mechanical ventilation and subsequently found to have pneumonia, septic shock # AECOPD, no focal infiltrate on initial imaging however subsequent imaging with left-sided pneumonia # septic shock # acute on chronic hypoxemic respiratory failure requiring intubation and mechanical ventilation # HCAP- L focal infiltrate # hypercarbic respiratory failure # hypotension, sedation related # pulmonary nodule # left forearm abscess # anxiety, prior to intubation required Ativan, Haldol and Precedex PLAN # lung protective mechanical ventilation, daily VBG to assess pH and pCO2 # NE for BP support # if patient is dyssynchronous will paralyze # continue azithromycin, vancomycin, Zosyn # appreciate hospitalist and ID management # will follow-up on culture data in urine Legionella antigen, HIV abs # methylprednisolone 40 mg IV twice daily # follow-up bedside 90 cultures # trend serum electrolytes # supplemental oxygen goal saturation 90-92% but not greater than 94% as hyperoxia worsens V/Q matching and hypercarbia # Feeding - trickle feeds # analgesia-p.r.n. Fentanyl # sedation propofol # thromboprophylaxis-Lovenox # head of bed elevated # stress ulcer prophylaxis famotidine # glucose sliding scale insulin # skin-possible abscess on left forearm no other breakdown # full code Patient is critically ill with multiorgan failure and high risk of mortality. Additional critical care time spent: 65min. This time was spent re-evaluating patient morning rounds, titrating ventilator and sedation medications discussing with subspecialists. IMAGING CULTURE DATA 02/28/18 resp viral PCR positive for coronavirus 02/28/18 BAL Cx NGTD 4+ PMNs and GPCs in clusters 02/28/18 BCx pending 02/19/18 BCx negative PROCEDURES 02/28/18 intubation, L subclavian CVC, bronch with bal and therapeutic aspiration I personally reviewed interpreted radiographic images well as formal radiology reads 02/26/2018 CTA chest-no PE severe paraseptal emphysema worsen the apices. Spiculated nodule and superior segment of right lower lobe. 02/28/2018 chest x-ray ET tube high, interval development of left-sided infiltrate, left subclavian catheter in place 02/28/18 15:04 Subjective: Interval worsening overnight requiring intubation, central line placement. Bronch with copious secretions. Viral PCR with coronavirus. Dr Yeboah doing bedside I&D this AM. Objective: Vital Signs Temp Pulse Resp BP Pulse Ox 36.2 C 101 H 26 H 93/61 L 89 L 02/27/18 16:00 02/28/18 08:00 02/28/18 08:00 02/28/18 08:00 02/28/18 08:00 Microbiology 02/28/18 02:26 Respiratory Panel (PCR) - Final Nasal, Sinus - [place] Viral Transport Coronavirus [id number] Detected Laboratory Results 02/28/18 05:55 02/28/18 05:55 02/27/18 02/28/18 03/01/18 05:59 05:59 05:59 Intake Total 1500 2479 Output Total 1950 2525 Balance -450 -46 PT 13.4 SEC (12.0-15.0) 02/19/18 18:59 INR 1.00 (0.83-1.16) 02/19/18 18:59 ICD10 Worksheet Patient Problems: Problems Problem Status Onset Pneumonia Acute COPD (chronic obstructive pulmonary disease) Acute COPD exacerbation Acute Chest pain Acute Chronic obstructive pulmonary disease with acute exacerbation Acute Respiratory failure with hypoxia Acute Sepsis Acute Severe sepsis Acute Shortness of breath Acute
[2018-02-28] MEDS: ENOXAPARIN 40 MG/0.4 ML SYR SC SCH (09:07)
--- NOTE | 2018-02-28 09:08 | HOSPPROG ---
Hospitalist Progress Note Assessment/Plan: > 50 mins of CRITICAL CARE TIME with pt at bedside today DIAGNSOSES: * acute hypoxemic respiratory failure requiring mechanical ventilation * acute sepsis with hypotension requiring pressor support * L lung pneumonia, post viral * coronavirus respiratory infection * acute copd exacerbation; known severe copd with chronic hypoxemic resp failure * Abscess L arm, likely due to IV drug use * Hx of CAD, stable at present * ongoing tobacco abuse After making good recovery from acute resp distress yest afternoon, he developed acute resp failure again last night and required intubation, mech vent , and with hypotension. New infiltrate L lung. Coronavirus positive PCR. At this time he remains hypotensive on high dose levofed infusion, and will need either better fluid resuscitation and or 2nd pressor. High risk for further complications He also has an abscess on L forearm; this has been not red or tender or warm and so was felt to be likely a hematoma, but given his drug use hx suspect this may be abscess and will need to be drained. PLANS: * continue mech vent, with sedation and hygiene protocols * contine * will need suspected abscess drained for diagnosis/tx * continue current steroid dosing * continue symbicort, duonebs * continue zosyn, if the lesion on L arm is an abscess will add vanco * repeat blood cx's * have requested cvp monitor to begin * repeat daily cxr for now on vent * Repeat CBC and metabolic panel ordered for tomorrow * DVT prophylaxis w lovenox, mech * SUP * Tobacco cessation strongly recommended and reviewed with the patient I reviewed pt's condition and care plan in detail with Dr Hernández today SUBJ: currently sedated on vent, unable to provide sxs developed resp distress after midnight requiring mech vent, also sepsis with hypotension persisting after fluid resusc so on pressor OBJ: vitals: remains hypotensive on norepi drip; P 100, resps per vent on AC FiO2 Vent pressures ok Exam: sedated OT tube in good position, secured L subclav line looks ok breathing w vent, skin warm dry; Large L forearm abscess is not red or warm lungs very diminished BSs heart regular tachy no edema of legs or otherwise abd nl micro: blood cx's 02/19 final negative resp PCR + for coronavirus flu negative I reviewed CXR image from this am: new L lung infiltrate; ET tube good position Objective: Vital Signs Temp Pulse Resp BP Pulse Ox 36.2 C 101 H 26 H 93/61 L 89 L 02/27/18 16:00 02/28/18 08:00 02/28/18 08:00 02/28/18 08:00 02/28/18 08:00 Microbiology 02/28/18 02:26 Respiratory Panel (PCR) - Final Nasal, Sinus - [facility] Coronavirus Nl63 Detected Laboratory Results 02/28/18 05:55 02/28/18 05:55 02/27/18 02/28/18 03/01/18 06:59 06:59 06:59 Intake Total 1500 2479 Output Total 1950 2525 Balance -450 -46 PT 13.4 SEC (12.0-15.0) 02/19/18 18:59 INR 1.00 (0.83-1.16) 02/19/18 18:59 ICD10 Worksheet Patient Problems: Problems Problem Status Onset Pneumonia Acute COPD (chronic obstructive pulmonary disease) Acute COPD exacerbation Acute Chest pain Acute Chronic obstructive pulmonary disease with acute exacerbation Acute Respiratory failure with hypoxia Acute Sepsis Acute Severe sepsis Acute Shortness of breath Acute
--- NOTE | 2018-02-28 09:13 | SUROPNOTE ---
[facility] Operative Report - Surgery PROCEDURE NOTE I&D of Abscess L forearm Pt sedated on vent, no other anesthesia needed Emergent procedure, unable to obtain consent Large palpable subQ fluid collection L forearm, sterile prep Incised 1 cm with # 11 scalpel. Large amount of thick fluid pus removed, approximately 25 ml estimated Wound was then irrigated, and packed with sterile gauze tape Minimal bleeding, < 1cc Will need at least daily repacking Sample of pus sent to lab for Cx
[2018-02-28] MEDS: VASOPRESSIN 25 UNIT in NS 250 ML IV SCH ×2 (10:30→21:09)
[2018-02-28] MEDS ORDERED: ALBUMIN 5% 250 ML IV ONE (10:38)
[2018-02-28] MEDS ORDERED: VECURONIUM BROMIDE 50 MG in NS 50 ML IV SCH ×2 (10:45→11:00)
--- NOTE | 2018-02-28 11:19 | GCON ---
INFECTIOUS DISEASES CONSULTATION DATE OF CONSULTATION: 02/28/2018 REFERRING PHYSICIAN: Molina Yeboah MD REASON FOR CONSULTATION: Septic shock due to pneumonia. HISTORY OF PRESENT ILLNESS: Patient is a 62-year-old male with a past medical history of COPD, chron ic oxygen dependence, and possible IV methamphetamine use, whom I am asked to see in consultation for septic shock due to pneumonia. The patient was admitted on 02/19/2018, with a COPD exacerbation. A t that time, he received treatment with 5 days of levofloxacin. He was noted to have a white count o f 23.6 at the time of presentation. Blood cultures obtained at the time of his presentation were neg ative, and influenza testing by PCR was also negative. In review of patient's history, he also was n oted to have recent loss of housing. The patient is currently intubated and sedated, so cannot provi de any history, with all of the history being obtained from his medical record. The patient initiall y was showing clinical improvement up until yesterday, at which point in time he developed acute resp iratory failure, ultimately requiring intubation. The patient also had hypotension, requiring use of Levophed, as well as IV fluid resuscitation. His white count has climbed today to 43,000. The galindo ent also was noted to have an abscess over the left forearm, which was incised and drained earlier to day. The patient underwent bronchoscopy overnight with cultures currently pending. A respiratory PC R performed yesterday showed evidence of coronavirus. The patient is now on droplet precautions. He has now been started empirically on vancomycin, Zosyn, and azithromycin. Currently, he is requiring 80% FiO2. Given the above findings, I am now asked to assist in his ongoing management. PAST MEDICAL HISTORY: COPD with oxygen dependence, hepatitis C, reported methamphetamine injection d rug use, coronary artery disease. PAST SURGICAL HISTORY: [facility] note wrist and ankle surgery, incision and drainage of left fore arm abscess as above. CURRENT MEDICATIONS: Vancomycin 1 g IV daily, azithromycin 500 mg orally daily, Zosyn 3.375 g IV q.6 hours, Levophed drip, prednisone 20 mg orally daily, Solu-Medrol 40 mg IV q.12 hours, Pepcid 20 mg I V b.i.d., fentanyl drip, Lovenox 40 mg subcu daily, Symbicort inhaler 2 puffs b.i.d., Tessalon Perles as needed, DuoNeb as needed, albuterol nebs as needed. ALLERGIES: No known drug allergies. SOCIAL HISTORY: The patient is a current smoker; no history of alcohol use; description of possible IV methamphetamine use. REVIEW OF SYSTEMS: Outside that noted in the HPI, the remainder of a 10-system review cannot be obta ined. FAMILY HISTORY: Cannot be obtained. PHYSICAL EXAMINATION: VITAL SIGNS: Temperature minimum 35.5, temperature current 37.0, heart rate 9 9, respiratory rate 22, blood pressure 87/66, oxygen saturation 90% on 80% FiO2. GENERAL: Patient i s a thin male, who is intubated and sedated. HEENT: There is no scleral icterus or conjunctival pet echiae. There is mild conjunctival injection bilaterally. ET tube is in place. NECK: Supple, with out palpable lymphadenopathy or thyromegaly. CHEST: There are coarse breath sounds bilaterally. Th e respiratory effort is increased. CARDIOVASCULAR: Tachycardic, without murmurs, gallops, or rubs. ABDOMEN: Soft, nontender, nondistended. Bowel sounds are hypoactive. No palpable organomegaly. G U: Hdz catheter is in place, with some blood-tinged urine output. MUSCULOSKELETAL: Left forearm shows drained abscess with some bloody discharge and no surrounding cellulitis. There are no stigmat a of endocarditis. SKIN: No other rashes are noted. NEUROLOGIC: Patient is intubated and sedated. LYMPHATICS: No cervical or supraclavicular nodes; minimal bilateral shotty inguinal nodes. LABORATORY DATA: White blood cell count 43.6, hematocrit 47.9, platelets 185, neutrophils 86%. Seru m creatinine 0.5, procalcitonin 0.2. A venous blood gas shows pH 7.32. Influenza swabs at time of pr esentation on 02/19/2018, are negative. Respiratory pathogen PCR panel on 02/28/2018, shows coronavi rosas. Bronchoscopy specimens are pending. Arm abscess is pending. Chest x-ray shows bilateral infil trates, most prominent on the left, which are new from prior x-rays and versus prior CT scan of 02/26. IMPRESSION: 1. Septic shock due to pneumonia: Patient with evidence of septic shock, including hypothermia, pro minent leukocytosis, and hypotension, with etiology likely being new-onset pneumonia. We will contin ue treatment with broad-spectrum antibiotics for healthcare-associated pneumonia. Doubt that coronav irus is sole explanation for current findings. Will obtain urine Legionella antigen, although this s hould be unlikely in the setting of hospitalization and recent fluoroquinolones use. We will continu e azithromycin pending this result, and if negative, feel this can be discontinued as atypical pathog ens would seem unlikely. Repeat blood cultures will be performed. 2. Left forearm abscess, status post incision and drainage: Await culture data and antibiotic cover age as outlined above. 3. History of hepatitis C. 4. Reported history of injection drug use: Will repeat HIV antibody. RECOMMENDATIONS: 1. Agree with empiric vancomycin, Zosyn, and azithromycin. 2. Check urine Legionella antigen. 3. Blood cultures x2 sets. 4. Follow up arm abscess cultures as above. 5. Continued ICU supportive care for septic shock. 6. HIV antibody. 7. Continue droplet precautions based on coronavirus isolation. Thank you for this consultation. We will continue to follow the patient with you. /[id number]/MODL
[2018-02-28] MEDS: AZITHROMYCIN IV 500 MG in NS 250 ML IV SCH (11:20)
[2018-02-28] MEDS: AZITHROMYCIN 250 MG TAB PO SCH (11:54)
[2018-02-28 12:49] LABS: HIV TYPE 1 AND 2 NEGATIVE (NEGATIVE)
--- NOTE | 2018-02-28 16:42 | ASMTCMCOM ---
CM Note CM Note Notes: Patient's Medicaid has lapsed and Medicaid Specialist working on new application. Date Signed: 02/28/2018 04:41 PM Electronically Signed By:Debra Conner LCSW
[2018-02-28] MEDS: VANCOMYCIN HCL/NORMAL SALINE 250 ML IV SCH (21:09)
[2018-03-01] MEDS: PIPERACILLIN/TAZO 3.375 GM/DEX 50 ML IV SCH ×2 (01:10→05:31)
[2018-03-01] MEDS: NOREPINEPHRINE BITARTRATE 4 MG in NS 500 ML IV SCH ×2 (05:00→11:03)
[2018-03-01 05:23] LABS: PLATELET COUNT 147 10^3/uL (150-400)
[2018-03-01] MEDS: PROPOFOL/EMULSION 100 ML IV SCH ×2 (06:03→15:17)
[2018-03-01] MEDS: fentaNYL/NACL 100 ML IV SCH ×2 (06:08→20:06)
[2018-03-01] MEDS: FAMOTIDINE 20 MG/NACL 50 ML IV SCH ×2 (08:13→20:01)
[2018-03-01] MEDS: methylPREDNISolone SOD SUCC 40 MG/ML VIAL IVP SCH ×2 (08:13→20:01)
[2018-03-01] MEDS: AZITHROMYCIN IV 500 MG in NS 250 ML IV SCH (08:13)
[2018-03-01] MEDS: ENOXAPARIN 40 MG/0.4 ML SYR SC SCH (08:14)
--- NOTE | 2018-03-01 08:53 | PDINTPN ---
Farm Operations Manager Progress Note Assessment/Plan: ASSESSMENT 62-year-old male with severe COPD, polysubstance abuse, homelessness and medication non adherence admitted with recurrent COPD exacerbation, severely transferred to the ICU 02/27/2018 with worsening respiratory status, anxiety and agitation despite aggressive medical management leading to endotracheal intubation mechanical ventilation and subsequently found to have MSSA pneumonia , septic shock # AECOPD, no focal infiltrate on initial imaging however subsequent imaging with left-sided pneumonia # septic shock # acute on chronic hypoxemic respiratory failure requiring intubation and mechanical ventilation # HCAP- L focal infiltrate, suspect MSSA given BAL results # hypercarbic respiratory failure # pulmonary nodule # left forearm abscess s/p I&D 02/28/18 # leukocytosis - 40K x 2 days. No diarrhea to suggest cdiff. No known underlying malignancy. # anxiety, prior to intubation required Ativan, Haldol and Precedex # IVDU # HCV abs + PLAN # appreciate hospital medicine and ID input # lung protective mechanical ventilation, daily VBG to assess pH and pCO2 # NE and vaso for shock # azithro stopped 03/01/18, previously received 5 days of levaquin # Continue vanc and zosyn, will likely narrow tomorrow assuming cultures remain negative for other organisms as per ID # if patient is dyssynchronous will paralyze # appreciate hospitalist and ID management # will follow-up on culture data in urine Legionella antigen, HIV abs # methylprednisolone 40 IV BID # follow-up cultures # trend serum electrolytes # supplemental oxygen goal saturation 90-92% but not greater than 94% as hyperoxia worsens V/Q matching and hypercarbia # Feeding - tube feeds # analgesia-p.r.n. Fentanyl # sedation propofol # thromboprophylaxis-Lovenox # head of bed elevated # stress ulcer prophylaxis famotidine # glucose sliding scale insulin # skin-possible abscess on left forearm no other breakdown # full code Patient is critically ill with multiorgan failure and high risk of mortality. Total critical care time 80 minutes. This time was spent re-evaluating patient morning rounds, titrating ventilator and sedation medications discussing with subspecialists. IMAGING I personally reviewed interpreted radiographic images well as formal radiology reads 03/01/2018 CXR persistent multifocal opacities with underlying severe COPD support devices in appropriate position 02/26/2018 CTA chest-no PE severe paraseptal emphysema worsen the apices. Spiculated nodule and superior segment of right lower lobe. CULTURE DATA 02/28/18 resp viral PCR positive for coronavirus 02/28/18 BAL Cx prelim MSSA. NGTD 4+ PMNs and GPCs in clusters 02/28/18 wound culture with MSSA 02/28/18 BCx no growth to date 02/19/18 BCx negative PROCEDURES 02/28/18 intubation, L subclavian CVC, bronch with bal and therapeutic aspiration Subjective: intubated and placed on vasopressors yesterday. Bedside I&D of L forearm. Still with high oxygen requirements. MSSA in BAL Objective: Vital Signs Temp Pulse Resp BP Pulse Ox 36.5 C 51 L 20 108/64 97 03/01/18 06:00 03/01/18 07:55 03/01/18 07:55 03/01/18 07:55 03/01/18 07:55 Microbiology 02/28/18 02:34 Mycobacterial Smear ([facility]) - Final Bronchial Alveolar Lavage - Lung 02/28/18 08:55 Gram Stain - Final Arm - Aspirate 02/28/18 02:34 Gram Stain - Final Bronchial Alveolar Lavage - Lung 02/28/18 02:26 Respiratory Panel (PCR) - Final Nasal, Sinus - [facility] Coronavirus Nl63 Detected Laboratory Results 03/01/18 05:18 03/01/18 05:18 02/28/18 03/01/18 03/02/18 05:59 05:59 05:59 Intake Total 2479 4994 Output Total 2525 1200 Balance -46 3794 PT 13.4 SEC (12.0-15.0) 02/19/18 18:59 INR 1.00 (0.83-1.16) 02/19/18 18:59 ICD10 Worksheet Patient Problems: Problems Problem Status Onset Pneumonia Acute COPD (chronic obstructive pulmonary disease) Acute COPD exacerbation Acute Chest pain Acute Chronic obstructive pulmonary disease with acute exacerbation Acute Respiratory failure with hypoxia Acute Sepsis Acute Severe sepsis Acute Shortness of breath Acute
[2018-03-01] MEDS: VANCOMYCIN HCL/NORMAL SALINE 250 ML IV SCH (08:54)
--- NOTE | 2018-03-01 09:06 | HOSPPROG ---
Hospitalist Progress Note Assessment/Plan: DIAGNSOSES: * acute hypoxemic respiratory failure requiring ongoing mechanical ventilation * acute sepsis with hypotension requiring ongoing pressor support * L lung pneumonia, post viral; ? Etiology, apparent strep in bronch Gram stain but cultures pending and Legionella titer pending * coronavirus respiratory infection * Abscess L arm, with likely strep in culture based on Gram stain; likely due to IV drug use * acute copd exacerbation; known severe copd with chronic hypoxemic resp failure * Hx of CAD, stable at present * ongoing tobacco abuse PLANS: * continue mech vent, with sedation and hygiene protocols; attempt to wean FiO2 down * contine pressor support * Will give some IV albumin today try to get CVP up better * continue current steroid dosing * continue symbicort, duonebs * continue zosyn; Vanco until cultures identify gram-positive organism, azithromycin until Legionella titer back * Follow cultures for definitive results * repeat daily cxr for now on vent * Repeat CBC and metabolic panel ordered for tomorrow * DVT prophylaxis w lovenox, mech * SUP with Pepcid * Continue NG tube feeds * Wound care for the drained abscess left forearm; will x-ray that today to be sure no needle fragments I reviewed pt's condition and care plan in detail with Dr Hernández today SUBJ: currently sedated on vent, unable to provide sxs Has remained on the mechanical ventilator overnight still requiring pressor support though does has decreased somewhat Has been tolerating tube feeds well OBJ: vitals: Pulse and blood pressure okay on norepinephrine and vasopressin; resps per vent on AC; no fever CVP is 5 FiO2 has been 80% overnight though he is 98% saturation right now Vent pressures ok; we have paralyzed him through yesterday and last night due to difficulty coordinating his breathing with the ventilator and this has worked nicely Exam: sedated OT tube in good position, secured L subclav line looks ok breathing w vent skin of feet and fingers cool otherwise warm dry; abscess left forearm which was drained yesterday has some blood but no purulent material at this time lungs very diminished BSs with some rales heart regular tachy His hands are somewhat edematous but not proximal to the wrists abd soft nondistended with bowel sounds present Laboratory data: White blood cell count at 40K+ Hemoglobin stable platelets slightly decreased 140,000 BUN up to 43 but with stable creatinine Liver enzymes improved Electrolytes good Abdomen lower at 2.5 Venous ABG 7. micro: Legionella serology still pending blood cx's 02/19 final negative; repeat blood cultures no growth so far Wound culture left arm g positive cocci in clusters not ID'd yet Bronchoscopy cultures gram-positive cocci in clusters not yet identified, no other growth resp PCR + for coronavirus flu negative HIV negative I reviewed CXR image from this am: new L lung infiltrate; ET tube good position Objective: Vital Signs Temp Pulse Resp BP Pulse Ox 36.5 C 51 L 20 108/64 97 03/01/18 06:00 03/01/18 07:55 03/01/18 07:55 03/01/18 07:55 03/01/18 07:55 Microbiology 02/28/18 02:34 Mycobacterial Smear ([facility]) - Final Bronchial Alveolar Lavage - Lung 02/28/18 08:55 Gram Stain - Final Arm - Aspirate 02/28/18 02:34 Gram Stain - Final Bronchial Alveolar Lavage - Lung 02/28/18 02:26 Respiratory Panel (PCR) - Final Nasal, Sinus - [facility] Coronavirus Nl63 Detected Laboratory Results 03/01/18 05:18 03/01/18 05:18 02/28/18 03/01/18 03/02/18 06:59 06:59 06:59 Intake Total 2479 4994 Output Total 2525 1200 Balance -46 3794 PT 13.4 SEC (12.0-15.0) 02/19/18 18:59 INR 1.00 (0.83-1.16) 02/19/18 18:59 ICD10 Worksheet Patient Problems: Problems Problem Status Onset Pneumonia Acute COPD (chronic obstructive pulmonary disease) Acute COPD exacerbation Acute Chest pain Acute Chronic obstructive pulmonary disease with acute exacerbation Acute Respiratory failure with hypoxia Acute Sepsis Acute Severe sepsis Acute Shortness of breath Acute
[2018-03-01] MEDS ORDERED: ALBUMIN 25% 200 ML IV ONE (09:08)
--- NOTE | 2018-03-01 10:18 | PCMIDPN ---
Assessment/Plan: 1. Severe multilobar pneumonia in patient with underlying COPD, substance use disorder, and probable chronic hepatitis-C: So far, infection appears to be monomicrobial with Staph aureus. Doubt Legionella given 5 days of quinolone. Will discontinue azithromycin, and await PBP testing of Staph aureus in bronch specimen to ensure not MRSA before simplifying antibiotics to cefazolin alone. Blood cultures remain negative. 2. Left forearm abscess status post I&D: Culture with 2+ MSSA. No surrounding cellulitis. 3. Hepatitis-C antibody positive, prior history of IVDU: Obtain hepatitis C RNA. Will also check hepatitis B and A serologies to ensure that he is immune to these entities. HIV antibody negative. 4. Zaman virus isolated from RPP: Continue droplet precautions. Suspect this probably contributed to present infection with Staph aureus. Over 25 min spent with this patient today. Subjective: Patient down to 70% FiO2. Otherwise, no significant improvement. Wound culture from left arm abscess is growing 2+ MSSA, bronch wash is growing 4+ Staph aureus, P BP pending. Objective: Zosyn 3.375 g IV q.6 hours day 1 Vancomycin 1 g IV q.12 hours day 1 Azithromycin 500 mg IV daily day 2 Solu-Medrol 40 mg IV q.12 hours 98% on 80% FiO2 No fevers Vital Signs Temp Pulse Resp BP Pulse Ox 36.5 C 50 L 15 108/64 98 03/01/18 06:00 03/01/18 08:15 03/01/18 08:15 03/01/18 07:55 03/01/18 08:15 Microbiology 02/28/18 02:34 Mycobacterial Smear ([facility]) - Final Bronchial Alveolar Lavage - Lung Mycobacterium tuberculosis DNA (PCR - Final Pcr Negative For M. Tb Complex 02/28/18 08:55 Gram Stain - Final Arm - Aspirate 02/28/18 02:34 Gram Stain - Final Bronchial Alveolar Lavage - Lung 02/28/18 02:26 Respiratory Panel (PCR) - Final Nasal, Sinus - [place] [facility] Coronavirus Nl63 Detected Laboratory Results 03/01/18 05:18 03/01/18 05:18 02/28/18 03/01/18 03/02/18 05:59 05:59 05:59 Intake Total 9457 7684 Output Total 9715 1200 Balance -46 3794 12 17 blood cultures x2 negative February 28 wound culture left arm 3+ GP sees in clusters, 2+ MSSA February 28 bronch wash 4+ Gram-positive cocci in clusters culture with 4+ Staph aureus Urine Legionella antigen pending - Physical Exam General Appearance: other (Intubated, sedated. Appears cachectic.) Respiratory: coarse breath sounds, other Cardiac/Chest: regular rate, rhythm, No systolic murmur Extremities: other (Left forearm with small, subcentimeter incision that has packing in place. It is oozing blood, but no surrounding cellulitis. No fluctuance or expressible pus.) Abdomen: non-tender, soft Skin: other (Patient has old track mueller on his forearms bilaterally), No embolic lesions ICD10 Worksheet Patient Problems: Problems Problem Status Onset Pneumonia Acute COPD (chronic obstructive pulmonary disease) Acute COPD exacerbation Acute Chest pain Acute Chronic obstructive pulmonary disease with acute exacerbation Acute Respiratory failure with hypoxia Acute Sepsis Acute Severe sepsis Acute Shortness of breath Acute
[2018-03-01 13:00] LABS: HEPATITIS B SURFACE ANTIGEN NEGATIVE (NEGATIVE)
[2018-03-01 13:23] LABS: HEPATITIS A ANTIBODY TOTAL POSITIVE (NEGATIVE); HEPATITIS B CORE AB TOTAL NEGATIVE (NEGATIVE)
[2018-03-01] MEDS: ceFAZolin 2 GM/DEXTROSE 100 ML IV SCH ×2 (13:33→21:35)
[2018-03-01 14:11] LABS: HEPATITIS A ANTIBODY IGM (BCH) NEGATIVE (NEGATIVE)
--- NOTE | 2018-03-01 16:06 | ASMTCMCOM ---
CM Note CM Note Notes: Proxy Note: Received a request from the Ethics team to do a detailed search on patient's Next of Kin listed, Anshu Mcqueen. This CM does not have access to the [employer] and password for our software. Mary Mercado looking into this search. Updated Rylee with Ethics team at 1600. Ethics has also reached out to one of our Ethics MD's to inquire about possible MD proxy if friend cannot be found. CM will continue to follow. Date Signed: 03/01/2018 04:06 PM Electronically Signed By:Nat Wynn RN
[2018-03-01] MEDS ORDERED: ALBUMIN 25% 100 ML IV ONE (16:32)
--- NOTE | 2018-03-01 16:41 | ASMTCMCOM ---
CM Note CM Note Notes: Contact made to Jael at [facility] to ask if she could contact Quin's CM Arlene [phone] and let her know that our patient Js was vented and unable to be a care provider for Quin at this time. Jael said she would have Arlene contact the ICU CM Monday. Date Signed: 03/01/2018 04:40 PM Electronically Signed By:Debra Conner LCSW
[2018-03-02] MEDS: PROPOFOL/EMULSION 100 ML IV SCH ×2 (00:40→04:45)
[2018-03-02] MEDS: ceFAZolin 2 GM/DEXTROSE 100 ML IV SCH ×3 (05:17→21:04)
[2018-03-02] MEDS: methylPREDNISolone SOD SUCC 40 MG/ML VIAL IVP SCH ×2 (09:28→20:51)
[2018-03-02] MEDS: FAMOTIDINE 20 MG/NACL 50 ML IV SCH ×2 (09:28→20:50)
[2018-03-02] MEDS: ENOXAPARIN 40 MG/0.4 ML SYR SC SCH (09:28)
--- NOTE | 2018-03-02 10:10 | PCMIDPN ---
Assessment/Plan: 1. Severe multilobar pneumonia in patient with underlying COPD, substance use disorder, and probable chronic hepatitis-C: Status post extubation; given clinical appearance, may require re-intubation. Continue Ancef at present dose. Infection continues to be mono microbial with MSSA. Legionella urine antigen negative. Repeat CBC today. 2. Left forearm abscess status post I&D: Culture with 2+ MSSA. No surrounding cellulitis. Will ask wound Care to see him today. 3. Hepatitis-C antibody positive, prior history of IVDU: HIV antibody negative. He is immune to hepatitis a. Quantitative hepatitis C RNA pending, as is hepatitis-B surface antibody. 4. Zaman virus isolated from RPP: Continue droplet precautions. Suspect this probably contributed to present infection with Staph aureus. 03/02/18 10:09 Subjective: Just extubated. BiPAP initiated given increased work of breathing, and desaturation. No pressors. Objective: Ancef 2 g IV q.8 hours day 1 (antibiotics day 2) T-max 37.4 Presently on BiPAP Vital Signs Temp Pulse Resp BP Pulse Ox 37.4 C 79 20 132/97 H 91 L 03/02/18 07:47 03/02/18 08:14 03/02/18 07:47 03/02/18 07:47 03/02/18 08:14 Microbiology 02/28/18 08:55 Gram Stain - Final Arm - Aspirate 02/28/18 02:34 Gram Stain - Final Bronchial Alveolar Lavage - Lung 02/28/18 02:34 Mycobacterial Smear (EVANGELINA) - Final Bronchial Alveolar Lavage - Lung Mycobacterium tuberculosis DNA (PCR - Final Pcr Negative For M. Tb Complex Laboratory Results 03/01/18 05:18 03/01/18 05:18 03/01/18 03/02/18 03/03/18 05:59 05:59 05:59 Intake Total 4994 3220 Output Total 1200 2450 Balance 3794 770 Bronch wash with 4+ MSSA Arm abscess 2+ MSSA Urine Legionella antigen negative Laboratory Tests 02/19/18 02/28/18 02/28/18 20:05 11:30 11:30 Band Neutrophils % Nasal Influenza A PCR NEGATIVE FOR FLU A Nasal Influenza B PCR NEGATIVE FOR FLU B Hepatitis A Ab Total Hep Bs Antibody HCV RNA (PCR) IUs/ml HIV 1&2 Antibody NEGATIVE Urine Legionella Ag Negative 03/01/18 03/01/18 03/01/18 05:18 10:40 10:40 Band Neutrophils % 43.0 Nasal Influenza A PCR Nasal Influenza B PCR Hepatitis A Ab Total POSITIVE Hep Bs Antibody Pending HCV RNA (PCR) IUs/ml Pending HIV 1&2 Antibody Urine Legionella Ag - Physical Exam General Appearance: cachetic, other (BiPAP mask on, tachypneic) Respiratory: coarse breath sounds Cardiac/Chest: tachycardia Extremities: other (Left forearm abscess, dorsal forearm with a wick in place. No surrounding cellulitis.) Skin: No rash ICD10 Worksheet Patient Problems: Problems Problem Status Onset Pneumonia Acute COPD (chronic obstructive pulmonary disease) Acute COPD exacerbation Acute Chest pain Acute Chronic obstructive pulmonary disease with acute exacerbation Acute Respiratory failure with hypoxia Acute Sepsis Acute Severe sepsis Acute Shortness of breath Acute
--- NOTE | 2018-03-02 10:40 | ASMTCMCOM ---
MARK Note MARK Note Notes: Received call from Cristina at [facility] [phone]. She was calling to follow up on mr Luiza, at the time of her eval he did not qualify for snf. MARK informed her that pt was now intubated in the ICU. She requests to be updated on his status. DC Plan: TBD Date Signed: 03/02/2018 10:39 AM Electronically Signed By:Zena Ramirez RN
[2018-03-02 11:24] LABS: PLATELET COUNT 99 10^3/uL (150-400)
--- NOTE | 2018-03-02 13:12 | HOSPPROG ---
Hospitalist Progress Note Assessment/Plan: DIAGNSOSES: * acute hypoxemic respiratory failure requiring mechanical ventilation * acute sepsis with hypotension requiring pressor support * L lung pneumonia, with kinney virus in respiratory pathogen panel and MSSA in bronch cultures * coronavirus respiratory infection * Abscess L arm, MSSA; likely due to IV drug use * acute copd exacerbation; known severe copd with chronic hypoxemic resp failure * Hx of CAD, stable at present * ongoing tobacco abuse PLANS: * continue current steroid dosing * continue symbicort, duonebs * continue Ancef * Repeat CBC and metabolic panel ordered for tomorrow * DVT prophylaxis w lovenox, mech * SUP with Pepcid * Attempt p.o. Intake once his breathing settles a bit * Wound care for the drained abscess left forearm; * Begin increase activity as soon as he is able to tolerate from a respiratory standpoint I reviewed pt's condition and care plan in detail with Dr Hernández today and Dr. Silvana Mayes SUBJ: Recently extubated now on BiPAP, and has been weaned off pressor support Patient still feels short of breath weak tired, little pain Not hungry OBJ: vitals: Blood pressure and pulse good, respirations rapid now on the BiPAP after extubation but not alarmingly so, afebrile radiation monitor: All sinus rhythm Exam: Awake, attentive, somewhat conversant, knows he is in hospital for respiratory illness, not 100% oriented but just coming off of sedation still L subclav line looks ok Better perfusion of fingers and toes today Respirations somewhat rapid but effective on BiPAP lungs very diminished BSs with some rales heart regular Left arm abscess I reviewed with Lala Elizalde of wound care nursing. At this point he is not bleeding or draining pus anymore, there is no cellulitis, overall doing well. Still undermined quite a bit from the incision but at this point we can start some Hydrofera Blue and other materials to promote granulation and healing Less edema of the hands today, no leg edema abd soft nondistended with bowel sounds present Laboratory data: White blood cell count at 17 K Hemoglobin and platelets slightly decreased today BUN improved, stable creatinine and electrolytes micro: blood cx's 02/19 final negative; repeat blood cultures 02/28 no growth so far Wound culture left arm abscess MSSA Bronchoscopy cultures MSSA resp PCR + for coronavirus flu negative HIV negative I reviewed CXR image from this am: Persistent marked good patchy infiltrates left greater than right lung along with chronic changes from severe COPD and likely fibrosis from IV drug use Objective: Vital Signs Temp Pulse Resp BP Pulse Ox 37.4 C 74 17 124/71 H 97 03/02/18 07:47 03/02/18 11:00 03/02/18 11:00 03/02/18 11:00 03/02/18 11:00 Microbiology 02/28/18 02:34 Gram Stain - Final Bronchial Alveolar Lavage - Lung Bronchial Culture - Final Staphylococcus Aureus 02/28/18 08:55 Gram Stain - Final Arm - Aspirate Wound Culture - Final Staphylococcus Aureus 02/28/18 02:34 Mycobacterial Smear (EVANGELINA) - Final Bronchial Alveolar Lavage - Lung Mycobacterium tuberculosis DNA (PCR - Final Pcr Negative For M. Tb Complex Laboratory Results 03/02/18 10:00 03/02/18 10:00 03/01/18 03/02/18 03/03/18 06:59 06:59 06:59 Intake Total 4994 3220 Output Total 1200 2450 Balance 3794 770 PT 13.4 SEC (12.0-15.0) 02/19/18 18:59 INR 1.00 (0.83-1.16) 02/19/18 18:59 - Time Spent With Patient Time Spent with Patient: greater than 35 minutes Time Spent with Patient: Greater than 35 minutes spent on this patients care, greater than 50% of time spent counseling, educating, and coordinating care regarding the above mentioned plan. ICD10 Worksheet Patient Problems: Problems Problem Status Onset Pneumonia Acute COPD (chronic obstructive pulmonary disease) Acute COPD exacerbation Acute Chest pain Acute Chronic obstructive pulmonary disease with acute exacerbation Acute Respiratory failure with hypoxia Acute Sepsis Acute Severe sepsis Acute Shortness of breath Acute
--- NOTE | 2018-03-02 13:45 | ASMTCMCOM ---
CM Note CM Note Notes: CM spoke with Arlene Mario, Heel Lift Gouger from [facility] ([phone]). Pt does not have any family supports and no advanced directives. They are working towards getting pt's significant other, Quin into a facility but would like to get her into the same facility as pt. Arlene reports the [facility] Heel Lift Gouger is Marvin Cordero ([phone]) who needs to be contacted when coordinating discharge. At this time, pending PT/OT recommendations. Plan: TBD Date Signed: 03/02/2018 01:44 PM Electronically Signed By:CASTRO Orona
[2018-03-02 14:30] LABS: PLATELET COUNT 98 10^3/uL (150-400)
[2018-03-02] MEDS ORDERED: HYDROCORTISONE 100 MG/2 ML VIAL ONE (14:31)
--- NOTE | 2018-03-02 15:29 | WOCRNPDOC ---
WOCRN Advanced Assessment Note - Skin Integrity Problem, Advanced Assess Left Lower Arm Abscess Dressing Type: ABD Pad Dressing Description: Clean/Dry, Intact Exudate Amount: Minimal Exudate Characteristic(s): Serosanguinous Integumentary Issue Intervention: Dressing Applied, Dressing Initialed & Dated Praveena Wound Tissue: Erythema Praveena Wound Swelling: Mild Wound Bed Constitution: Undermining (circumferentially but deepest at 12 oclock to 4 cm and shallowest is 1 cm at 9 oclock) Site Measurement - Head-to-Toe Length X Width X Depth (cm): 1.1x0.5x0.9 Skin Integrity Problem Comment: Per Dr. Yeboah wound dressing has been changed BID with gauze packing. No further purulence noted. Flushed wound with ns and applied strip of purachol plus Ag+ collagen into wound bed. 1/2 of hydrofera blue tunneling strip was moistened with ns, and packed over the collagen into the wound bed. The entire length of the HFB strip was able to be placed into the cavity. Next dressing change due Monday. Anticipate that wound will begin to close down over the next week as long as it is not overpacked. Wound care will round again early next week.
[2018-03-02] MEDS: fentaNYL 100 MCG/2 ML INJ IVP PRN (20:51)
[2018-03-03] MEDS: fentaNYL 100 MCG/2 ML INJ IVP PRN ×2 (01:07→05:22)
[2018-03-03] MEDS: ceFAZolin 2 GM/DEXTROSE 100 ML IV SCH ×3 (05:58→22:24)
[2018-03-03] MEDS: FAMOTIDINE 20 MG/NACL 50 ML IV SCH ×2 (08:48→19:59)
[2018-03-03] MEDS: ENOXAPARIN 40 MG/0.4 ML SYR SC SCH ×2 (08:48→08:50)
[2018-03-03] MEDS: methylPREDNISolone SOD SUCC 40 MG/ML VIAL IVP SCH (08:49)
--- NOTE | 2018-03-03 10:00 | HOSPPROG ---
Hospitalist Progress Note Assessment/Plan: #acute on chronic hypoxemic respiratory failure requiring mechanical ventilation -extubate 03/03 #Septic shock: off pressors #Coronavirus complicated by PNA. Cont Ancef #MSSA abscess left arm: s/p bedside I&D. Ancef #Acute COPD exacerbation: will need prolonged steroid taper #h/o CAD #Leukocytosis: much improved #Tobacco abuse: counseled on cessation #Homelessness: contributes to many hospitalizations given no place to store oxygen #Goals: I had discussion with patient today about goals. States that "I don't want to go through this treatment again". His goal is to stay out of hospital and focus on comfort. During my interview, he has medical decisional capacity and able to tell me consequences of DNR, which include . -now DNR. Would benefit from Palliative involvement here; they could follow him outpatient if he agrees/eligible to placement Additional time spent: 30min discussing goals, Palliative and completing DNR. ( 11:15:11:45am) Subjective: "don't want to go through this treatment again". Very weak Objective: Vital Signs Temp Pulse Resp BP Pulse Ox 37.2 C 77 21 H 140/79 H 95 03/03/18 04:00 03/03/18 06:00 03/03/18 06:00 03/03/18 06:00 03/03/18 06:00 Microbiology 02/28/18 02:34 Gram Stain - Final Bronchial Alveolar Lavage - Lung Bronchial Culture - Final Staphylococcus Aureus 02/28/18 08:55 Gram Stain - Final Arm - Aspirate Wound Culture - Final Staphylococcus Aureus Laboratory Results 03/02/18 10:00 03/02/18 10:00 03/02/18 03/03/18 03/04/18 05:59 05:59 05:59 Intake Total 3220 1686 Output Total 2450 2125 Balance 770 -439 PT 13.4 SEC (12.0-15.0) 02/19/18 18:59 INR 1.00 (0.83-1.16) 02/19/18 18:59 - Time Spent With Patient Time Spent with Patient: greater than 35 minutes Time Spent with Patient: Greater than 35 minutes spent on this patients care, greater than 50% of time spent counseling, educating, and coordinating care regarding the above mentioned plan. - Physical Exam Constitutional: cachectic Eyes: PERRL Ears, Nose, Mouth, Throat: moist mucous membranes Cardiovascular: regular rate and rhythym Respiratory: no rales or rhonchi, reduced air movement, expiratory wheeze Gastrointestinal: normoactive bowel sounds Genitourinary: no bladder fullness Skin: warm Musculoskeletal: generalized weakness Neurologic: AAOx3, CN II-XII Intact Psychiatric: No not encephalopathic ICD10 Worksheet Patient Problems: Problems Problem Status Onset Pneumonia Acute COPD (chronic obstructive pulmonary disease) Acute COPD exacerbation Acute Chest pain Acute Chronic obstructive pulmonary disease with acute exacerbation Acute Respiratory failure with hypoxia Acute Sepsis Acute Severe sepsis Acute Shortness of breath Acute
--- NOTE | 2018-03-03 12:19 | PCMIDPN ---
Assessment/Plan: 1. Severe multilobar pneumonia in patient with underlying COPD, substance use disorder, and probable chronic hepatitis-C: Stable, although respiratory status tenuous. Continue Ancef as is. No new recommendations. Blood cultures remain negative. 2. Left forearm abscess status post I&D: Culture with 2+ MSSA. No surrounding cellulitis. 3. Hepatitis-C antibody positive, prior history of IVDU: HIV antibody negative. He is immune to hepatitis a. Quantitative hepatitis C RNA pending, as is hepatitis-B surface antibody. 4. Zaman virus isolated from RPP: Continue droplet precautions. Suspect this probably contributed to present infection with Staph aureus. Subjective: Has not required re-intubation. Feels tired. Eating his lunch. Constipated. Objective: Ancef 2 g IV q.8 hours day 2 (antibiotics day 3) T-max 37 degrees for 50% FiO2 95% Vital Signs Temp Pulse Resp BP Pulse Ox 37.2 C 77 21 H 140/79 H 95 03/03/18 04:00 03/03/18 06:00 03/03/18 06:00 03/03/18 06:00 03/03/18 06:00 Microbiology 02/28/18 02:34 Gram Stain - Final Bronchial Alveolar Lavage - Lung Bronchial Culture - Final Staphylococcus Aureus 02/28/18 08:55 Gram Stain - Final Arm - Aspirate Wound Culture - Final Staphylococcus Aureus Laboratory Results 03/02/18 10:00 03/02/18 10:00 03/02/18 03/03/18 03/04/18 05:59 05:59 05:59 Intake Total 3220 1686 Output Total 2450 2125 Balance 770 -439 Blood cultures February 28 remain no growth - Physical Exam General Appearance: cachetic EENT: No thrush Respiratory: wheezing, coarse breath sounds Extremities: other (Left forearm abscess covered; I did not take the bandage off today.) Abdomen: non-tender, soft Skin: No rash Neuro/Psych: oriented x 3 ICD10 Worksheet Patient Problems: Problems Problem Status Onset Pneumonia Acute COPD (chronic obstructive pulmonary disease) Acute COPD exacerbation Acute Chest pain Acute Chronic obstructive pulmonary disease with acute exacerbation Acute Respiratory failure with hypoxia Acute Sepsis Acute Severe sepsis Acute Shortness of breath Acute
[2018-03-03] MEDS: predniSONE 20 MG TAB PO SCH (13:00)
[2018-03-03] MEDS: guaiFENesin/CODEINE PHOS 10 ML UDCUP PO PRN ×2 (13:01→20:03)
--- NOTE | 2018-03-03 15:20 | PDINTPN ---
Horse Race Timer Progress Note Assessment/Plan: ASSESSMENT 62-year-old male with severe COPD, polysubstance abuse, homelessness and medication non adherence admitted with recurrent COPD exacerbation, severely transferred to the ICU 02/27/2018 with worsening respiratory status, anxiety and agitation despite aggressive medical management leading to endotracheal intubation mechanical ventilation and subsequently found to have MSSA pneumonia , septic shock # AECOPD, no focal infiltrate on initial imaging however subsequently developed progressive respiratory failure in the setting of kinney virus that led to MSSA pneumonia # septic shock, now weaned off pressors. # acute on chronic hypoxemic respiratory failure requiring intubation and mechanical ventilation. Next bed on high-flow nasal cannula. # MSSA pneumonia # hypercarbic respiratory failure # left forearm abscess s/p I&D 02/28/18 # leukocytosis -reactive # anxiety, prior to intubation required Ativan, Haldol and Precedex # IVDU # HCV abs + PLAN # appreciate hospital medicine and ID input # continue high-flow nasal cannula, goal oxygen saturation 90-92% but not greater than 94% as hyperoxia worsens V/Q matching and hypercarbia # aggressive CPT with flutter valve and frequencer # continue antibiotics per ID # rapidly taper off steroids, as prolonged use can increase immunosuppression and recurrent infection # trend serum electrolytes # Feeding - advance diet as tolerated # analgesia-avoid narcotics if possible # sedation at bedtime trazodone as needed # thromboprophylaxis-Lovenox # head of bed elevated # stress ulcer prophylaxis famotidine # glucose sliding scale insulin # skin-possible abscess on left forearm no other breakdown # full code IMAGING I personally reviewed interpreted radiographic images well as formal radiology reads 03/01/2018 CXR persistent multifocal opacities with underlying severe COPD support devices in appropriate position 02/26/2018 CTA chest-no PE severe paraseptal emphysema worsen the apices. Spiculated nodule and superior segment of right lower lobe. CULTURE DATA 02/28/18 resp viral PCR positive for coronavirus 02/28/18 BAL Cx prelim MSSA. NGTD 4+ PMNs and GPCs in clusters 02/28/18 wound culture with MSSA 02/28/18 BCx no growth to date 02/19/18 BCx negative PROCEDURES 02/28/18 intubation, L subclavian CVC, bronch with bal and therapeutic aspiration 03/02/18 extubation Subjective: Extubated to BiPAP yesterday. Although tenuous respiratory status avoid re- intubation. Bedside discussion multidisciplinary rounds about goals of care. Patient participated and had decision making capacity with hospitalist Dr. Sheron Bryan who stated he would not want to be reintubated or undergo CPR and code status was appropriately changed to DNR I. Still complains of mild shortness of breath improved from prior. No syncope, no new rash. Continues on antibiotics that complication. Increased productive cough which I suspect is good given severe pneumonia Objective: Vital Signs Temp Pulse Resp BP Pulse Ox 36.8 C 102 H 27 H 166/82 H 92 03/03/18 12:00 03/03/18 12:00 03/03/18 12:00 03/03/18 12:00 03/03/18 12:00 Microbiology 02/28/18 02:34 Gram Stain - Final Bronchial Alveolar Lavage - Lung Bronchial Culture - Final Staphylococcus Aureus 02/28/18 08:55 Gram Stain - Final Arm - Aspirate Wound Culture - Final Staphylococcus Aureus Laboratory Results 03/02/18 10:00 03/02/18 10:00 03/02/18 03/03/18 03/04/18 05:59 05:59 05:59 Intake Total 3220 1686 Output Total 2450 2125 Balance 770 -439 PT 13.4 SEC (12.0-15.0) 02/19/18 18:59 INR 1.00 (0.83-1.16) 02/19/18 18:59 Physical Exam - Physical Exam General Appearance: mild distress, cachetic EENT: PERRL/EOMI, normal ENT inspection, other (Coughing up thick green secretions) Neck: non-tender Respiratory: other (Decreased breath sounds bilaterally. Rhonchi present. Able to expectorates sputum. No excessive distress. Mildly tachypneic.) Cardiac/Chest: normal peripheral pulses, regular rate, rhythm, No edema Abdomen: soft Skin: normal color, warm/dry, No cyanosis Extremities: normal range of motion, non-tender, normal inspection, normal capillary refill Neuro/Psych: no motor/sensory deficits, alert, other (Anxious affect) ICD10 Worksheet Patient Problems: Problems Problem Status Onset Pneumonia Acute COPD (chronic obstructive pulmonary disease) Acute COPD exacerbation Acute Chest pain Acute Chronic obstructive pulmonary disease with acute exacerbation Acute Respiratory failure with hypoxia Acute Sepsis Acute Severe sepsis Acute Shortness of breath Acute
[2018-03-03] MEDS: ALBUTEROL 3 ML DEYVIAL IH PRN (20:05)
[2018-03-04] MEDS: guaiFENesin/CODEINE PHOS 10 ML UDCUP PO PRN ×4 (01:28→19:55)
[2018-03-04] MEDS: ceFAZolin 2 GM/DEXTROSE 100 ML IV SCH ×3 (05:02→21:50)
[2018-03-04] MEDS: ENOXAPARIN 40 MG/0.4 ML SYR SC SCH ×2 (08:37→08:40)
[2018-03-04] MEDS: FAMOTIDINE 20 MG/NACL 50 ML IV SCH (08:37)
[2018-03-04] MEDS: predniSONE 20 MG TAB PO SCH (08:37)
--- NOTE | 2018-03-04 10:18 | PDINTPN ---
Chain Carrier Progress Note Assessment/Plan: ASSESSMENT 62-year-old male with severe COPD, polysubstance abuse, homelessness and medication non adherence admitted with recurrent COPD exacerbation, severely transferred to the ICU 02/27/2018 with worsening respiratory status, anxiety and agitation despite aggressive medical management leading to endotracheal intubation mechanical ventilation and subsequently found to have MSSA pneumonia , septic shock # AECOPD, no focal infiltrate on initial imaging however subsequently developed progressive respiratory failure in the setting of kinney virus that led to MSSA pneumonia # septic shock, now weaned off pressors. # acute on chronic hypoxemic respiratory failure requiring intubation and mechanical ventilation. Next bed on high-flow nasal cannula. # MSSA pneumonia # hypercarbic respiratory failure # left forearm abscess s/p I&D 02/28/18 # leukocytosis -reactive # anxiety, prior to intubation required Ativan, Haldol and Precedex # IVDU # HCV abs + PLAN # appreciate hospital medicine and ID input # continue anceph for total 10 day abx course per ID # stop famotidine # continue high-flow nasal cannula, goal oxygen saturation 90-92% but not greater than 94% as hyperoxia worsens V/Q matching and hypercarbia # aggressive CPT with flutter valve and frequencer # rapidly taper off steroids, as prolonged use can increase immunosuppression and recurrent infection # trend serum electrolytes # Feeding - advance diet as tolerated # analgesia-avoid narcotics if possible # sedation at bedtime trazodone as needed # thromboprophylaxis-Lovenox # head of bed elevated # stress ulcer prophylaxis famotidine # glucose sliding scale insulin # skin-possible abscess on left forearm no other breakdown # full code IMAGING I personally reviewed interpreted radiographic images well as formal radiology reads 03/01/2018 CXR persistent multifocal opacities with underlying severe COPD support devices in appropriate position 02/26/2018 CTA chest-no PE severe paraseptal emphysema worsen the apices. Spiculated nodule and superior segment of right lower lobe. CULTURE DATA 02/28/18 resp viral PCR positive for coronavirus 02/28/18 BAL Cx prelim MSSA. NGTD 4+ PMNs and GPCs in clusters 02/28/18 wound culture with MSSA 02/28/18 BCx no growth to date 02/19/18 BCx negative PROCEDURES 02/28/18 intubation, L subclavian CVC, bronch with bal and therapeutic aspiration 03/02/18 extubation 03/04/18 15:52 Subjective: goals of care discussion yesterday, made Objective: Vital Signs Temp Pulse Resp BP Pulse Ox 36.5 C 80 33 H 133/83 H 95 03/04/18 08:00 03/04/18 08:00 03/04/18 08:00 03/04/18 08:00 03/04/18 08:00 Laboratory Results 03/04/18 05:15 03/02/18 10:00 03/03/18 03/04/18 03/05/18 05:59 05:59 05:59 Intake Total 1686 2450 Output Total 2125 2260 650 Balance -439 190 -650 PT 13.4 SEC (12.0-15.0) 02/19/18 18:59 INR 1.00 (0.83-1.16) 02/19/18 18:59 Physical Exam - Physical Exam General Appearance: alert, mild distress Neck: non-tender, full range of motion Respiratory: chest non-tender, other (Decreased breath sounds bilaterally. No accessory use. Mild tachypnea.) Cardiac/Chest: normal peripheral pulses, regular rate, rhythm Abdomen: normal bowel sounds, non-tender, soft Skin: normal color, warm/dry, No cyanosis Neuro/Psych: no motor/sensory deficits, alert, normal mood/affect, oriented x 3 , abnormal cerebellar tests ICD10 Worksheet Patient Problems: Problems Problem Status Onset Pneumonia Acute COPD (chronic obstructive pulmonary disease) Acute COPD exacerbation Acute Chest pain Acute Chronic obstructive pulmonary disease with acute exacerbation Acute Respiratory failure with hypoxia Acute Sepsis Acute Severe sepsis Acute Shortness of breath Acute
--- NOTE | 2018-03-04 10:29 | PCMIDPN ---
Assessment/Plan: 1. Severe multilobar pneumonia 2/2 MSSA in patient with underlying COPD, substance use disorder, and probable chronic hepatitis-C: Chest x-ray looks better, although patient continues to have significant work of breathing. Continue Ancef as is for now. When shows more clinical improvement, can likely transition to oral doxycycline, but not yet. 2. Left forearm abscess status post I&D: On Ancef as per the above. 3. Hepatitis-C antibody positive, prior history of IVDU: HIV antibody negative. He is immune to hepatitis a. Quantitative hepatitis C RNA pending. Hepatitis B booster today. 4. Zaman virus isolated from RPP: Continue droplet precautions. Suspect this probably contributed to present infection with Staph aureus. Subjective: Still fairly short of breath, but by report this is close to baseline. No diarrhea. Objective: Ancef 2 g IV q.8 hours day 3 (antibiotics day 4) T-max 37.2 degrees 95% on 50% FiO2 Vital Signs Temp Pulse Resp BP Pulse Ox 36.5 C 80 33 H 133/83 H 95 03/04/18 08:00 03/04/18 08:00 03/04/18 08:00 03/04/18 08:00 03/04/18 08:00 Laboratory Results 03/04/18 05:15 03/02/18 10:00 03/03/18 03/04/18 03/05/18 05:59 05:59 05:59 Intake Total 1686 2450 Output Total 2125 2260 650 Balance -439 190 -650 Bronch with MSSA Blood cultures remain negative Laboratory Tests 03/01/18 03/01/18 10:40 10:40 Hepatitis A Ab Total POSITIVE Hep Bs Antibody Negative HCV RNA PCR log IUs/ml Pending - Physical Exam General Appearance: cachetic, other (To keep neck) EENT: other (Right-sided facial droop, old) Respiratory: wheezing (End-expiratory, barrel chested), coarse breath sounds Cardiac/Chest: tachycardia Abdomen: non-tender, soft Skin: No rash Neuro/Psych: oriented x 3 ICD10 Worksheet Patient Problems: Problems Problem Status Onset Pneumonia Acute COPD (chronic obstructive pulmonary disease) Acute COPD exacerbation Acute Chest pain Acute Chronic obstructive pulmonary disease with acute exacerbation Acute Respiratory failure with hypoxia Acute Sepsis Acute Severe sepsis Acute Shortness of breath Acute
[2018-03-04] MEDS ORDERED: HEPATITIS B VIRUS VACCINE-PF 20 MCG/ML INJ IM ONE (10:32)
[2018-03-04] MEDS: BENZONATATE 100 MG CAP PO PRN (12:50)
[2018-03-04] MEDS: ACETAMINOPHEN 325 MG TAB PO PRN (12:54)
--- NOTE | 2018-03-04 13:58 | HOSPPROG ---
Hospitalist Progress Note Assessment/Plan: #Acute on chronic hypoxemic respiratory failure requiring mechanical ventilation -extubated 03/03. Requiring Vapotherm #Septic shock: off pressors #Coronavirus complicated by PNA. Cont Ancef. Day 06/13 #MSSA abscess left arm: s/p bedside I&D. Ancef #Acute COPD exacerbation: will need prolonged steroid taper #h/o CAD: no chest pain #Leukocytosis: much improved #Tobacco abuse: counseled on cessation #Homelessness: contributes to many hospitalizations given no place to store oxygen #Goals: I have had several conversations with patient about goals. States that "I don't want to go through this treatment again". His goal is to stay out of hospital and focus on comfort. During my interview, he has medical decisional capacity and able to tell me consequences of DNR, which include . -now DNR. Would benefit from Palliative involvement here; they could follow him outpatient if he agrees/eligible to placement Subjective: SOB with exertion Objective: Vital Signs Temp Pulse Resp BP Pulse Ox 36.7 C 88 29 H 141/80 H 95 03/04/18 12:00 03/04/18 12:00 03/04/18 12:00 03/04/18 12:00 03/04/18 12:00 Laboratory Results 03/04/18 05:15 03/02/18 10:00 03/03/18 03/04/18 03/05/18 05:59 05:59 05:59 Intake Total 1686 2450 315 Output Total 2125 2260 1400 Balance -439 190 -1085 PT 13.4 SEC (12.0-15.0) 02/19/18 18:59 INR 1.00 (0.83-1.16) 02/19/18 18:59 - Time Spent With Patient Time Spent with Patient: greater than 35 minutes Time Spent with Patient: Greater than 35 minutes spent on this patients care, greater than 50% of time spent counseling, educating, and coordinating care regarding the above mentioned plan. - Physical Exam Constitutional: cachectic Eyes: PERRL Ears, Nose, Mouth, Throat: moist mucous membranes Cardiovascular: regular rate and rhythym Respiratory: reduced air movement, expiratory wheeze, other (increased WOB) Gastrointestinal: normoactive bowel sounds Genitourinary: no bladder fullness Skin: warm Musculoskeletal: generalized weakness, other (left forearm I&D site, packed. No purulence or surrounding erthyema) Neurologic: CN II-XII Intact Psychiatric: interacting appropriately, not encephalopathic ICD10 Worksheet Patient Problems: Problems Problem Status Onset Pneumonia Acute COPD (chronic obstructive pulmonary disease) Acute COPD exacerbation Acute Chest pain Acute Chronic obstructive pulmonary disease with acute exacerbation Acute Respiratory failure with hypoxia Acute Sepsis Acute Severe sepsis Acute Shortness of breath Acute
[2018-03-05] MEDS: guaiFENesin/CODEINE PHOS 10 ML UDCUP PO PRN ×4 (02:34→20:34)
[2018-03-05] MEDS: ceFAZolin 2 GM/DEXTROSE 100 ML IV SCH ×3 (06:48→21:05)
[2018-03-05] MEDS: predniSONE 20 MG TAB PO SCH (08:49)
[2018-03-05] MEDS: ENOXAPARIN 40 MG/0.4 ML SYR SC SCH (08:49)
--- NOTE | 2018-03-05 13:00 | PDINTPN ---
Oil Gauger Progress Note Assessment/Plan: Assessment: 62-year-old male with severe COPD, polysubstance abuse, homelessness and medication non adherence admitted with recurrent COPD exacerbation, severely transferred to the ICU 02/27/2018 with worsening respiratory status, anxiety and agitation despite aggressive medical management leading to endotracheal intubation mechanical ventilation and subsequently found to have MSSA pneumonia , septic shock # AECOPD, no focal infiltrate on initial imaging however subsequently developed progressive respiratory failure in the setting of kinney virus that led to MSSA pneumonia #PTX; Suspected on CXR this AM on right, subsequent CXR does not support the presence or a pneumothorax, likely was a skin fold. # septic shock, now weaned off pressors. # acute on chronic hypoxemic respiratory failure requiring intubation and mechanical ventilation. Next bed on high-flow nasal cannula. # MSSA pneumonia # hypercarbic respiratory failure # left forearm abscess s/p I&D 02/28/18 # leukocytosis -reactive # anxiety, prior to intubation required Ativan, Haldol and Precedex # IVDU # HCV abs + PLAN # appreciate hospital medicine and ID input # continue anceph for total 10 day abx course per ID # stop famotidine # continue high-flow nasal cannula, goal oxygen saturation 90-92% but not greater than 94% as hyperoxia worsens V/Q matching and hypercarbia # aggressive CPT with flutter valve and frequencer # rapidly taper off steroids, as prolonged use can increase immunosuppression and recurrent infection # trend serum electrolytes # Feeding - advance diet as tolerated # analgesia-avoid narcotics if possible # sedation at bedtime trazodone as needed # thromboprophylaxis-Lovenox # head of bed elevated # stress ulcer prophylaxis famotidine # glucose sliding scale insulin # skin-possible abscess on left forearm no other breakdown # full code 03/05/18 13:01 Subjective: Still feels quite dyspneic, unchanged. Non-productive cough persists. C/O anterior CP worse with cough. Appetite fairly good. Still feels quite weak. Objective: Vital Signs Temp Pulse Resp BP Pulse Ox 36.8 C 110 H 25 H 128/82 H 93 03/05/18 08:00 03/05/18 12:00 03/05/18 12:00 03/05/18 12:00 03/05/18 12:00 Laboratory Results 03/05/18 04:40 03/04/18 13:57 03/04/18 03/05/18 03/06/18 05:59 05:59 05:59 Intake Total 2450 1895 Output Total 2260 5005 1000 Balance 190 -3110 -1000 PT 13.4 SEC (12.0-15.0) 02/19/18 18:59 INR 1.00 (0.83-1.16) 02/19/18 18:59 CXR: Small right PTX seen on AM CXR. Follow-up CXR does not show a PTX...felt that suspected PTX was likely a skinfold. Infiltrate improved. Images reviewed by me. Physical Exam - Physical Exam General Appearance: alert, no apparent distress EENT: normal ENT inspection Neck: normal inspection Respiratory: rales (on left), other (no tenderness over location of CP.) Cardiac/Chest: regular rate, rhythm, No edema Abdomen: normal bowel sounds, non-tender Skin: normal color, warm/dry Extremities: normal inspection Neuro/Psych: alert, normal mood/affect, oriented x 3 ICD10 Worksheet Patient Problems: Problems Problem Status Onset Pneumonia Acute COPD (chronic obstructive pulmonary disease) Acute COPD exacerbation Acute Chest pain Acute Chronic obstructive pulmonary disease with acute exacerbation Acute Respiratory failure with hypoxia Acute Sepsis Acute Severe sepsis Acute Shortness of breath Acute
--- NOTE | 2018-03-05 13:15 | PCMIDPN ---
Assessment/Plan: Assessment: Staphylococcus aureus pneumonia in setting of underlying COPD. Patient is currently on IV Ancef. Clinically he is not getting any worse and does admit that he is feeling slightly better than he did yesterday or the day before. Continues to have breathing complaints that are worse than baseline however. Plan to continue the Ancef as dosed and follow course of clinical improvement. It is expected that his improvement course will be slow secondary to his underlying comorbidities. Plan: 1. Continue IV cefazolin. 2. Follow his clinical improvement. 03/05/18 15:38 Subjective: Pt reports difficulty breathing and mediastinal chest pain that is exacerbated with coughing. Denies associated nausea, vomiting, diarrhea, or rash. ILi, am scribing for, and in the presence of, Kenney Sylvester MD. IKenney MD, personally performed the services described in this documentation, as scribed by Li Watkins in my presence, and it is both accurate and complete. Objective: Vital Signs Temp Pulse Resp BP Pulse Ox 36.8 C 110 H 25 H 128/82 H 93 03/05/18 08:00 03/05/18 12:00 03/05/18 12:00 03/05/18 12:00 03/05/18 12:00 Microbiology 02/28/18 11:30 Blood Culture - Final Blood Laboratory Results 03/05/18 04:40 03/04/18 13:57 03/04/18 03/05/18 03/06/18 05:59 05:59 05:59 Intake Total 2450 1895 750 Output Total 2260 5005 1500 Balance 190 3110 -750 Microbiology: 02/28/18 Respiratory panel PCR positive for coronavirus Nl63. 02/28/18 BAL grew 4+ MSSA and gram stain is positive for 4+ PMNs, 1+ epithelial , 4+ GPC in clusters. Fungal cx grew Kori albicans. PCR negative for M. TB complex. 02/28/18 L arm aspirate cx grew 2+ MSSA and gram stain is positive for 3+ PMNs and 3+ GPC in clusters. 02/28/18 Blood cx 2/2 sets, NGTD. Imaging studies: Chest XRays reviewed 03/02 through 03/05/18 with most recent impression notable for persistent nodular opacity left midlung and improving bronchopneumonia. - Physical Exam General Appearance: alert, thin Respiratory: No respiratory distress ICD10 Worksheet Patient Problems: Problems Problem Status Onset Pneumonia Acute COPD (chronic obstructive pulmonary disease) Acute COPD exacerbation Acute Chest pain Acute Chronic obstructive pulmonary disease with acute exacerbation Acute Respiratory failure with hypoxia Acute Sepsis Acute Severe sepsis Acute Shortness of breath Acute
[2018-03-05] MEDS: BENZONATATE 100 MG CAP PO PRN (13:48)
[2018-03-05] MEDS: IBUPROFEN 600 MG TAB PO PRN (13:48)
[2018-03-05] MEDS: TIOTROPIUM INHALER 18 MCG/DOSE 5 DOSE/MDI IH SCH (14:32)
--- NOTE | 2018-03-05 16:03 | ASMTCMCOM ---
CM Note CM Note Notes: Patient needs his Medicaid re-instated, left message with Medicaid Specialist. Updated referral to [facility]. Date Signed: 03/05/2018 04:03 PM Electronically Signed By:Debra Conner LCSW
--- NOTE | 2018-03-05 16:21 | HOSPPROG ---
Hospitalist Progress Note Assessment/Plan: #Acute on chronic hypoxemic respiratory failure requiring mechanical ventilation -extubated 03/03. Requiring Vapotherm #Possible PTX: noted on AM film, but not present on repeat #Septic shock: off pressors #Atypical CP: suspect pleuritic. Advil PRN #Coronavirus complicated by PNA. Cont Ancef. Day 07/13 #MSSA abscess left arm: s/p bedside I&D. Ancef #Acute COPD exacerbation: taper steroids to avoid recurrent infections #h/o CAD: no chest pain #Leukocytosis: much improved #Tobacco abuse: counseled on cessation #Homelessness: contributes to many hospitalizations given no place to store oxygen #Goals: I have had several conversations with patient about goals. States that "I don't want to go through this treatment again". His goal is to stay out of hospital and focus on comfort. During my interview, he has medical decisional capacity and able to tell me consequences of DNR, which include . -now DNR. Would benefit from Palliative involvement here; they could follow him outpatient if he agrees/eligible to placement #DVT ppx:SCD Inpatient: for IV abx, high-oxygen needs Subjective: mild chest pain this morning. No radiation, diaphoresis, nausea Objective: Vital Signs Temp Pulse Resp BP Pulse Ox 36.6 C 92 35 H 157/92 H 93 03/05/18 16:00 03/05/18 16:00 03/05/18 16:00 03/05/18 16:00 03/05/18 16:00 Microbiology 02/28/18 11:30 Blood Culture - Final Blood Laboratory Results 03/05/18 04:40 03/04/18 13:57 03/04/18 03/05/18 03/06/18 05:59 05:59 05:59 Intake Total 2450 1895 750 Output Total 2260 5005 1675 Balance 190 -3110 -925 PT 13.4 SEC (12.0-15.0) 02/19/18 18:59 INR 1.00 (0.83-1.16) 02/19/18 18:59 - Time Spent With Patient Time Spent with Patient: greater than 35 minutes Time Spent with Patient: Greater than 35 minutes spent on this patients care, greater than 50% of time spent counseling, educating, and coordinating care regarding the above mentioned plan. - Physical Exam Constitutional: cachectic Eyes: PERRL Ears, Nose, Mouth, Throat: moist mucous membranes Cardiovascular: regular rate and rhythym Respiratory: other (rales) Gastrointestinal: normoactive bowel sounds Genitourinary: no bladder fullness Musculoskeletal: generalized weakness (forearm abscess site dressed, no surrounding redness), other Neurologic: AAOx3 Psychiatric: interacting appropriately, not encephalopathic ICD10 Worksheet Patient Problems: Problems Problem Status Onset Pneumonia Acute COPD (chronic obstructive pulmonary disease) Acute COPD exacerbation Acute Chest pain Acute Chronic obstructive pulmonary disease with acute exacerbation Acute Respiratory failure with hypoxia Acute Sepsis Acute Severe sepsis Acute Shortness of breath Acute
[2018-03-05] MEDS: ALBUTEROL 3 ML DEYVIAL IH SCH ×2 (16:56→19:38)
[2018-03-06] MEDS: guaiFENesin/CODEINE PHOS 10 ML UDCUP PO PRN ×4 (02:35→22:06)
[2018-03-06] MEDS: ceFAZolin 2 GM/DEXTROSE 100 ML IV SCH ×3 (05:05→21:17)
[2018-03-06] MEDS: ALBUTEROL 3 ML DEYVIAL IH SCH ×4 (05:32→20:38)
[2018-03-06] MEDS: ENOXAPARIN 40 MG/0.4 ML SYR SC SCH (07:46)
[2018-03-06] MEDS: predniSONE 20 MG TAB PO SCH (09:27)
[2018-03-06] MEDS: TIOTROPIUM INHALER 18 MCG/DOSE 5 DOSE/MDI IH SCH (09:42)
--- NOTE | 2018-03-06 10:58 | PCMIDPN ---
Assessment/Plan: Assessment: Staphylococcus aureus pneumonia in setting of underlying COPD. Patient is currently on IV Ancef. Clinically he appears to be stable. Still has significant work of breathing but just switched to 4 L nasal oxygen from high- flow. Plan to continue the Ancef as dosed and follow course of clinical improvement. It is expected that his improvement course will be slow secondary to his underlying comorbidities. Plan: 1. Continue IV cefazolin. 2. Follow his clinical improvement. Subjective: Complains that breathing is still bad but same compared to yesterday. Reports insomnia due to dyspnea. ILi, am scribing for, and in the presence of, Kenney Sylvester MD. IKenney MD, personally performed the services described in this documentation, as scribed by Li Watkins in my presence, and it is both accurate and complete. Objective: Vital Signs Temp Pulse Resp BP Pulse Ox 36.7 C 91 31 H 116/80 92 03/06/18 07:39 03/06/18 09:43 03/06/18 09:43 03/06/18 07:39 03/06/18 09:43 Microbiology 02/28/18 17:50 Blood Culture - Final Blood 02/28/18 11:30 Blood Culture - Final Blood Laboratory Results 03/05/18 04:40 03/04/18 13:57 03/05/18 03/06/18 03/07/18 05:59 05:59 05:59 Intake Total 1895 2690 Output Total 5005 3965 Balance -0419 -7370 Microbiology: 02/28/18 Respiratory panel PCR positive for coronavirus Nl63. 02/28/18 BAL grew 4+ MSSA and gram stain is positive for 4+ PMNs, 1+ epithelial , 4+ GPC in clusters. Fungal cx grew Kori albicans. PCR negative for M. TB complex. 02/28/18 L arm aspirate cx grew 2+ MSSA and gram stain is positive for 3+ PMNs and 3+ GPC in clusters. 02/28/18 Blood cx (2), negative. Imaging studies: 03/06/18 CXR impression of recurrent left lung consolidation. Query aspiration. - Physical Exam General Appearance: alert, thin Respiratory: other (Sp02 91% on 20 L/min via nasal cannula ) Skin: No rash ICD10 Worksheet Patient Problems: Problems Problem Status Onset Pneumonia Acute COPD (chronic obstructive pulmonary disease) Acute COPD exacerbation Acute Chest pain Acute Chronic obstructive pulmonary disease with acute exacerbation Acute Respiratory failure with hypoxia Acute Sepsis Acute Severe sepsis Acute Shortness of breath Acute
--- NOTE | 2018-03-06 11:02 | WOCRNPDOC ---
WOCRN Advanced Assessment Note - Skin Integrity Problem, Advanced Assess Left Lower Arm Abscess Dressing Type: Allevyn Life, Hydrofera Blue (tunneling) Dressing Description: Intact, Shadowed Exudate Amount: Scant Exudate Characteristic(s): Serosanguinous Integumentary Issue Intervention: Dressing Changed, Dressing Initialed & Dated Wound Bed Constitution: Red/[place] - Non Granular Tissue, Undermining ( circumferentially up to 2.2 cm at 12 oclock) Site Measurement - Head-to-Toe Length X Width X Depth (cm): 1x0.8x0.5 Skin Integrity Problem Comment: Wound largely unchanged, except the undermining at 12 oclock which has closed down by about 50% since previous assessment. Packed with 50% less hydrofera blue tunneling packing this time. Flushed with ns. Puracol Ag+ placed in wound bed then HFB tunneling after it was moistened with ns. Covered with Allevyn life dressing. Report to Anabelle FAJARDO. Wound care will follow.
--- NOTE | 2018-03-06 11:29 | PDINTPN ---
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 CXR a bit worse, but O2 needs down, able to change to nasal cammula. # septic shock, now weaned off pressors. # acute on chronic hypoxemic respiratory failure requiring intubation and mechanical ventilation. Next bed on high-flow nasal cannula. # MSSA pneumonia # hypercarbic respiratory failure. Chronic. pH compensated with CO2 of 52, which is probably near his baseline. # left forearm abscess s/p I&D 02/28/18. MSSA # leukocytosis -reactive # anxiety, prior to intubation required Ativan, Haldol and Precedex # IVDU # HCV abs + PLAN # appreciate hospital medicine and ID input # continue Ancef for total 14+ day abx course per ID # stop famotidine # continue high-flow nasal cannula, goal oxygen saturation 90-92% but not greater than 94% as hyperoxia worsens V/Q matching and hypercarbia # aggressive CPT with flutter valve and frequencer # Stop steroids # Transfer to Med Surg # trend serum electrolytes # Feeding - advance diet as tolerated # analgesia-avoid narcotics if possible # sedation at bedtime trazodone as needed # thromboprophylaxis-Lovenox # head of bed elevated # stress ulcer prophylaxis famotidine # glucose sliding scale insulin # skin-possible abscess on left forearm no other breakdown # full code 03/06/18 12:54 Subjective: Still feels quite weak. Continues to have a cough productive of discolored sputum. Objective: Vital Signs Temp Pulse Resp BP Pulse Ox 36.7 C 91 31 H 116/80 92 03/06/18 07:39 03/06/18 09:43 03/06/18 09:43 03/06/18 07:39 03/06/18 09:43 Microbiology 02/28/18 17:50 Blood Culture - Final Blood 02/28/18 11:30 Blood Culture - Final Blood Laboratory Results 03/05/18 04:40 03/04/18 13:57 03/05/18 03/06/18 03/07/18 05:59 05:59 05:59 Intake Total 1897 6980 Output Total 5003 7255 Balance -3110 -1275 PT 13.4 SEC (12.0-15.0) 02/19/18 18:59 INR 1.00 (0.83-1.16) 02/19/18 18:59 Laboratory Tests 03/06/18 12:23 VBG pH 7.39 VBG HCO3 31 H VBG Total CO2 32 H VBG O2 Saturation 55 L Mixed VBG pCO2 52 H Mixed VBG pO2 33 L CXR: Increased left infiltrate. Images reviewed by me. Physical Exam - Physical Exam General Appearance: alert, no apparent distress EENT: normal ENT inspection Neck: normal inspection Respiratory: rales, rhonchi, No lungs clear Cardiac/Chest: regular rate, rhythm, No edema Abdomen: normal bowel sounds, non-tender Skin: normal color, warm/dry Extremities: normal inspection Neuro/Psych: alert, normal mood/affect, oriented x 3 ICD10 Worksheet Patient Problems: Problems Problem Status Onset Pneumonia Acute COPD (chronic obstructive pulmonary disease) Acute COPD exacerbation Acute Chest pain Acute Chronic obstructive pulmonary disease with acute exacerbation Acute Respiratory failure with hypoxia Acute Sepsis Acute Severe sepsis Acute Shortness of breath Acute
--- NOTE | 2018-03-06 13:35 | HOSPPROG ---
Hospitalist Progress Note Assessment/Plan: #Acute on chronic hypercarbic respiratory failure -extubated 03/03 -goal O2 sat 90-92% #Atypical CP: suspect pleuritic. Advil PRN #MSSA PNA/Coronavirus: Cont Ancef. Day 08/13 #MSSA abscess left arm: s/p bedside I&D. Ancef #Acute COPD exacerbation: wean off steroids over next couple of days to avoid recurrent infections #h/o CAD: no chest pain #Tobacco abuse: counseled on cessation #Leukocytosis: reactive #Homelessness: contributes to many hospitalizations given no place to store oxygen #Possible PTX: noted on AM film, but not present on repeat #Septic shock: off pressors #Goals: I have had several conversations with patient about goals. States that "I don't want to go through this treatment again". His goal is to stay out of hospital and focus on comfort. During my interview, he has medical decisional capacity and able to tell me consequences of DNR, which include . -now DNR. Would benefit from Palliative involvement here; they could follow him outpatient if he agrees/eligible to placement #DVT ppx:SCD #Disp: CM assisting with placement Inpatient: for IV abx, high-oxygen needs. Transfer to med-surg. Discussed with Dr. Back Subjective: "feel terrible". Eating well Objective: Vital Signs Temp Pulse Resp BP Pulse Ox 36.8 C 99 30 H 118/70 92 03/06/18 11:50 03/06/18 11:50 03/06/18 11:50 03/06/18 11:50 03/06/18 11:50 Microbiology 02/28/18 02:34 Mycobacterial Smear (EVANGELINA) - Final Bronchial Alveolar Lavage - Lung Mycobacterium tuberculosis DNA (PCR - Final Pcr Negative For M. Tb Complex 02/28/18 17:50 Blood Culture - Final Blood 02/28/18 11:30 Blood Culture - Final Blood Laboratory Results 03/05/18 04:40 03/04/18 13:57 03/05/18 03/06/18 03/07/18 05:59 05:59 05:59 Intake Total 1895 2690 Output Total 5006 7025 Balance -3110 -1275 PT 13.4 SEC (12.0-15.0) 02/19/18 18:59 INR 1.00 (0.83-1.16) 02/19/18 18:59 - Time Spent With Patient Time Spent with Patient: greater than 35 minutes Time Spent with Patient: Greater than 35 minutes spent on this patients care, greater than 50% of time spent counseling, educating, and coordinating care regarding the above mentioned plan. - Physical Exam Constitutional: unkempt, cachectic Eyes: PERRL Ears, Nose, Mouth, Throat: moist mucous membranes Cardiovascular: regular rate and rhythym Respiratory: other (diminished BS throughout. No wheeze or crackles) Gastrointestinal: normoactive bowel sounds Genitourinary: no bladder fullness Skin: warm Musculoskeletal: full muscle strength, other (left I&D site, CDI) Neurologic: CN II-XII Intact Psychiatric: flat affect, No not encephalopathic ICD10 Worksheet Patient Problems: Problems Problem Status Onset Pneumonia Acute COPD (chronic obstructive pulmonary disease) Acute COPD exacerbation Acute Chest pain Acute Chronic obstructive pulmonary disease with acute exacerbation Acute Respiratory failure with hypoxia Acute Sepsis Acute Severe sepsis Acute Shortness of breath Acute
[2018-03-06] MEDS: ACETAMINOPHEN 325 MG TAB PO PRN (20:42)
[2018-03-07] MEDS: guaiFENesin/CODEINE PHOS 10 ML UDCUP PO PRN ×4 (04:07→22:07)
[2018-03-07] MEDS: ceFAZolin 2 GM/DEXTROSE 100 ML IV SCH ×3 (05:13→22:20)
[2018-03-07] MEDS: ALBUTEROL 3 ML DEYVIAL IH SCH ×4 (05:47→21:11)
[2018-03-07] MEDS: ENOXAPARIN 40 MG/0.4 ML SYR SC SCH (07:13)
--- NOTE | 2018-03-07 09:12 | PCMIDPN ---
Assessment/Plan: Assessment/Plan: * MSSA pneumonia with underlying COPD: Overall slowly improving but still with increased work of breathing. Will continue cefazolin pending additional clinical improvement. Ultimately plan to complete treatment with oral doxycycline with anticipated 2 week antibiotic (# 7/14) course in total. * Leukocytosis: Likely multifactorial including pneumonia and recent receipt of steroids. 03/07/18 09:09 03/07/18 09:11 Subjective: Patient complains of persistent cough and shortness of breath. Able to ambulate across room. Objective: Vital Signs Temp Pulse Resp BP Pulse Ox 36.7 C 77 24 H 123/73 H 96 03/07/18 08:00 03/07/18 08:00 03/07/18 08:00 03/07/18 08:00 03/07/18 08:00 Microbiology 02/28/18 02:34 Mycobacterial Smear (EVANGELINA) - Final Bronchial Alveolar Lavage - Lung Mycobacterium tuberculosis DNA (PCR - Final Pcr Negative For M. Tb Complex 02/28/18 17:50 Blood Culture - Final Blood Laboratory Results 03/07/18 05:15 03/07/18 05:15 03/06/18 03/07/18 03/08/18 05:59 05:59 05:59 Intake Total 2690 2335 Output Total 3965 3100 500 Balance -1275 -765 -500 Cefazolin # 6 (antibiotics # 7) - Physical Exam General Appearance: alert, apparent distress (Mild increase in respiratory effort) EENT: No scleral icterus, No thrush Respiratory: other (Decreased breath sounds throughout) Cardiac/Chest: regular rate, rhythm Extremities: other (Left forearm abscess resolved with Hydrofera Blue in place) Abdomen: non-tender, No distended Skin: No embolic lesions ICD10 Worksheet Patient Problems: Problems Problem Status Onset Pneumonia Acute COPD (chronic obstructive pulmonary disease) Acute COPD exacerbation Acute Chest pain Acute Chronic obstructive pulmonary disease with acute exacerbation Acute Respiratory failure with hypoxia Acute Sepsis Acute Severe sepsis Acute Shortness of breath Acute
[2018-03-07] MEDS: ACETAMINOPHEN 325 MG TAB PO PRN ×3 (09:51→22:08)
[2018-03-07] MEDS: TIOTROPIUM INHALER 18 MCG/DOSE 5 DOSE/MDI IH SCH (10:39)
[2018-03-07] MEDS: IBUPROFEN 600 MG TAB PO PRN (12:48)
--- NOTE | 2018-03-07 12:54 | HOSPPROG ---
Hospitalist Progress Note Assessment/Plan: #Acute on chronic hypercarbic respiratory failure -extubated 03/03 -goal O2 sat 90-92%. Now off Vapotherm #Atypical CP: suspect pleuritic. Advil PRN #MSSA PNA/Coronavirus: Cont Ancef. Day 09/12 #MSSA abscess left arm: s/p bedside I&D. Ancef #Acute COPD exacerbation: wean off steroids over next couple of days to avoid recurrent infections #h/o CAD: no chest pain #Tobacco abuse: counseled on cessation #Leukocytosis: reactive #Homelessness: contributes to many hospitalizations given no place to store oxygen #Possible PTX: noted on AM film, but not present on repeat #Septic shock: off pressors #Deconditioning: encourage ambulation, out of bed #Goals: I have had several conversations with patient about goals. States that "I don't want to go through this treatment again". His goal is to stay out of hospital and focus on comfort. During my interview, he has medical decisional capacity and able to tell me consequences of DNR, which include . -now DNR. Would benefit from Palliative involvement here; they could follow him outpatient if he agrees/eligible to placement #DVT ppx:SCD #Disp: CM assisting with placement Inpatient: for IV abx, PT Subjective: "didn't sleep overnight" Objective: Vital Signs Temp Pulse Resp BP Pulse Ox 36.7 C 103 H 18 123/73 H 96 03/07/18 08:00 03/07/18 10:40 03/07/18 10:40 03/07/18 08:00 03/07/18 08:00 Microbiology 02/28/18 02:34 Mycobacterial Smear (EVANGELINA) - Final Bronchial Alveolar Lavage - Lung Mycobacterium tuberculosis DNA (PCR - Final Pcr Negative For M. Tb Complex 02/28/18 17:50 Blood Culture - Final Blood Laboratory Results 03/07/18 05:15 03/07/18 05:15 03/06/18 03/07/18 03/08/18 05:59 05:59 05:59 Intake Total 2690 2335 Output Total 3965 3100 500 Balance -1275 -765 -500 PT 13.4 SEC (12.0-15.0) 02/19/18 18:59 INR 1.00 (0.83-1.16) 02/19/18 18:59 - Time Spent With Patient Time Spent with Patient: greater than 35 minutes Time Spent with Patient: Greater than 35 minutes spent on this patients care, greater than 50% of time spent counseling, educating, and coordinating care regarding the above mentioned plan. - Physical Exam Constitutional: no apparent distress, cachectic Eyes: PERRL Ears, Nose, Mouth, Throat: moist mucous membranes Cardiovascular: regular rate and rhythym Respiratory: reduced air movement Gastrointestinal: normoactive bowel sounds Genitourinary: no bladder fullness Skin: other (left arm incision site, CDI) Musculoskeletal: full muscle strength Neurologic: AAOx3, CN II-XII Intact ICD10 Worksheet Patient Problems: Problems Problem Status Onset Pneumonia Acute COPD (chronic obstructive pulmonary disease) Acute COPD exacerbation Acute Chest pain Acute Chronic obstructive pulmonary disease with acute exacerbation Acute Respiratory failure with hypoxia Acute Sepsis Acute Severe sepsis Acute Shortness of breath Acute
--- NOTE | 2018-03-07 13:02 | PDINTPN ---
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 CXR a bit better today, O2 needs down, productive cough persists. # septic shock, now weaned off pressors. # acute on chronic hypoxemic respiratory failure requiring intubation and mechanical ventilation. Weaned down to 4 liters/minute via nasal cannula. # MSSA pneumonia # hypercarbic respiratory failure. Chronic. pH compensated with CO2 of 52, which is probably near his baseline. # left forearm abscess s/p I&D 02/28/18. MSSA # leukocytosis -reactive # anxiety, prior to intubation required Ativan, Haldol and Precedex # IVDU # HCV abs + PLAN # appreciate hospital medicine and ID input # continue Ancef for total 14+ day abx course per ID # stop famotidine # continue nasal cannula oxygen, gal saturations 90-92%. # aggressive CPT with flutter valve # Stop steroids # trend serum electrolytes # Feeding - advance diet as tolerated # analgesia-avoid narcotics if possible # sedation at bedtime trazodone as needed # thromboprophylaxis-Lovenox # head of bed elevated # stress ulcer prophylaxis famotidine # glucose sliding scale insulin # skin-possible abscess on left forearm no other breakdown # full code 03/06/18 12:54 03/07/18 13:09 Subjective: Feels about the same, still has productive cough. Feels quite weak. Complains of anterior chest pain related to the cough. Objective: Vital Signs Temp Pulse Resp BP Pulse Ox 36.7 C 103 H 18 123/73 H 96 03/07/18 08:00 03/07/18 10:40 03/07/18 10:40 03/07/18 08:00 03/07/18 08:00 Microbiology 02/28/18 02:34 Mycobacterial Smear (EVANGELINA) - Final Bronchial Alveolar Lavage - Lung Mycobacterium tuberculosis DNA (PCR - Final Pcr Negative For M. Tb Complex 02/28/18 17:50 Blood Culture - Final Blood Laboratory Results 03/07/18 05:15 03/07/18 05:15 03/06/18 03/07/18 03/08/18 05:59 05:59 05:59 Intake Total 2690 2335 Output Total 3965 3100 500 Balance -1275 -765 -500 PT 13.4 SEC (12.0-15.0) 02/19/18 18:59 INR 1.00 (0.83-1.16) 02/19/18 18:59 Chest x-ray: Improved consolidation. Images reviewed by me. Physical Exam - Physical Exam General Appearance: alert, mild distress EENT: normal ENT inspection Neck: normal inspection Respiratory: rhonchi Cardiac/Chest: regular rate, rhythm, No edema Abdomen: normal bowel sounds, non-tender Skin: normal color, warm/dry Extremities: normal inspection Neuro/Psych: alert, normal mood/affect, oriented x 3 ICD10 Worksheet Patient Problems: Problems Problem Status Onset Pneumonia Acute COPD (chronic obstructive pulmonary disease) Acute COPD exacerbation Acute Chest pain Acute Chronic obstructive pulmonary disease with acute exacerbation Acute Respiratory failure with hypoxia Acute Sepsis Acute Severe sepsis Acute Shortness of breath Acute
[2018-03-07] MEDS ORDERED: METOPROLOL TARTRATE 25 MG TAB PO ONE (16:00)
[2018-03-07] MEDS: BUDESONIDE/FORMOTEROL 160/4.5 60 PUFFS/MDI IH SCH (21:11)
[2018-03-08] MEDS: ACETAMINOPHEN 325 MG TAB PO PRN ×4 (03:23→22:11)
[2018-03-08] MEDS: guaiFENesin/CODEINE PHOS 10 ML UDCUP PO PRN ×4 (04:02→22:11)
[2018-03-08] MEDS: ALBUTEROL 3 ML DEYVIAL IH SCH ×4 (05:21→20:51)
[2018-03-08] MEDS: BUDESONIDE/FORMOTEROL 160/4.5 60 PUFFS/MDI IH SCH ×2 (05:24→20:52)
[2018-03-08] MEDS: TIOTROPIUM INHALER 18 MCG/DOSE 5 DOSE/MDI IH SCH (05:24)
[2018-03-08] MEDS: ceFAZolin 2 GM/DEXTROSE 100 ML IV SCH ×3 (06:08→21:11)
[2018-03-08] MEDS: ENOXAPARIN 40 MG/0.4 ML SYR SC SCH (08:20)
[2018-03-08 11:04] LABS: HCV QT RNA PCR 34672107 IU/mL (<10)
--- NOTE | 2018-03-08 13:01 | HOSPPROG ---
Hospitalist Progress Note Assessment/Plan: 62 year old homeless male with hx of COPD admitted with acute hypoxic respiratory failure,MSSA PNA, COPD exacerbation, subsequently intubated, now extubated and transferred to floor. #Acute on chronic hypercarbic respiratory failure- patient extubated on 03/03. Now on baseline oxygen of 2 liters. Etiology likely 2/2 to MSSA pna. continue abx for PNA and duonebs. #MSSA PNA/Coronavirus: Cont Ancef. Day 10/13. ID consulted who is currently recommending likely 14 day course with possible transition to doxy. continue ancef for now. #MSSA abscess left arm: s/p bedside I&D. Ancef #Acute COPD exacerbation: wean off steroids over next couple of days to avoid recurrent infections #h/o CAD: no chest pain #Tobacco abuse: counseled on cessation #Leukocytosis: reactive, but downtrending. #Homelessness: contributes to many hospitalizations given no place to store oxygen #Septic shock: No longer meeting criteria. #Deconditioning: encourage ambulation, out of bed. Will likely need rehab. #DVT ppx:SCD #Disp: CM assisting with placement Inpatient: for continued IV ancef, oxygen, debility Subjective: still weak. breathing better. Objective: Vital Signs Temp Pulse Resp BP Pulse Ox 36.5 C 73 18 120/72 91 L 03/08/18 07:29 03/08/18 07:29 03/08/18 07:29 03/08/18 07:29 03/08/18 07:29 Laboratory Results 03/07/18 05:15 03/07/18 05:15 03/07/18 03/08/18 03/09/18 05:59 05:59 05:59 Intake Total 2335 700 Output Total 3100 2500 375 Balance -765 -1800 -375 PT 13.4 SEC (12.0-15.0) 02/19/18 18:59 INR 1.00 (0.83-1.16) 02/19/18 18:59 - Physical Exam Constitutional: no apparent distress, appears nourished, not in pain Eyes: PERRL, anicteric sclera, EOMI Ears, Nose, Mouth, Throat: moist mucous membranes, hearing normal, ears appear normal, no oral mucosal ulcers Cardiovascular: regular rate and rhythym, no murmur, rub, or gallop Respiratory: no respiratory distress, reduced air movement, expiratory wheeze Gastrointestinal: normoactive bowel sounds, soft, non-tender abdomen, no palpable masses Genitourinary: no bladder fullness, no bladder tenderness, no renal bruits Skin: no rashes or abrasions, no fluctuance, no induration Musculoskeletal: full muscle strength, no muscle tenderness, normal joint ROM Neurologic: AAOx3, sensation intact bilaterally Psychiatric: interacting appropriately, not anxious, not encephalopathic, thought process linear Lymph, Heme, Immunologic: no cervical LAD, no supraclavicular LAD ICD10 Worksheet Patient Problems: Problems Problem Status Onset Pneumonia Acute COPD (chronic obstructive pulmonary disease) Acute COPD exacerbation Acute Chest pain Acute Chronic obstructive pulmonary disease with acute exacerbation Acute Respiratory failure with hypoxia Acute Sepsis Acute Severe sepsis Acute Shortness of breath Acute
--- NOTE | 2018-03-08 16:49 | PCMIDPN ---
Assessment/Plan: # MSSA pneumonia with underlying COPD: Overall slowly improving but still with increased work of breathing. --Plan 14 days of antibiotics, today is day 8. Will complete IV cefazolin through today and transition to p.o. Doxycycline 100 mg twice daily tomorrow. --Mar adjusted and drugs which interact with doxycycline were discontinued --remove central line tomorrow --call ID for additional questions, no ID follow-up needed # Leukocytosis: Likely multifactorial including pneumonia and recent receipt of steroids, gradually improving, not repeated today # the coronavirus: Continue droplet precautions for now but can discontinue when discharged to SNF # tobacco dependence: Supported continue discontinuation of tobacco Meds Cefazolin 2 g IV Q 8, # 7 Subjective: Pt states Im doing better. Provides that his breathing is okay, with no improvement compared to yesterday. Reports associated dry cough. States he is too weak to ambulate. Denies side effects to the abx, no diarrhea. Also states that he will quit smoking now. ILi, am scribing for, and in the presence of, Olinda Trejo MD IOlinda MD, personally performed the services described in this documentation, as scribed by Li Watkins in my presence, and it is both accurate and complete. Objective: Vital Signs Temp Pulse Resp BP Pulse Ox 36.6 C 90 20 94/66 L 91 L 03/08/18 15:04 03/08/18 16:10 03/08/18 16:10 03/08/18 15:04 03/08/18 16:10 Laboratory Results 03/07/18 05:15 03/07/18 05:15 03/07/18 03/08/18 03/09/18 05:59 05:59 05:59 Intake Total 2335 700 Output Total 3100 6712 9728 [facility] -196 [phone] Microbiology: 02/28/18 Respiratory panel PCR positive for coronavirus [id number]. 02/28/18 BAL grew 4+ MSSA. Fungal cx grew Kori albicans. AFB PCR negative for M. TB complex. 02/28/18 L arm aspirate cx grew 2+ MSSA 02/28/18 Blood cx (2), negative. Imaging studies: 03/08/18 CXR 1V impression: Stable patchy consolidation/pneumonia left mid to lower lung as well as right lung base on top of underlying interstitial lung disease and COPD. Personally reviewed by me. - Physical Exam General Appearance: alert, no apparent distress, thin, other (chronically ill appearing ) EENT: dry mucous membranes, No thrush Respiratory: other (pursed lip breathing, occasional crackles, decreased breath sounds throughout, is on 2L of O2 ), No accessory muscle use Cardiac/Chest: regular rate, rhythm (distant heart sounds ) Abdomen: non-tender, soft Male Genitalia: No barboza Skin: No rash Neuro/Psych: alert, normal mood/affect, oriented x 3 - Line/s other Lines: other (Left subclavian with surrounding ecchymosis ), No drainage, No erythema - Time Spent With Patient Time Spent with Patient: greater than 25 minutes Time Spent with Patient: Greater than 25 minutes spent on this patients care, greater than 50% of time spent counseling, educating, and coordinating care regarding the above mentioned plan. ICD10 Worksheet Patient Problems: Problems Problem Status Onset Pneumonia Acute COPD (chronic obstructive pulmonary disease) Acute COPD exacerbation Acute Chest pain Acute Chronic obstructive pulmonary disease with acute exacerbation Acute Respiratory failure with hypoxia Acute Sepsis Acute Severe sepsis Acute Shortness of breath Acute
[2018-03-09] MEDS ORDERED: NS 500 ML IV ONE (02:20)
[2018-03-09] MEDS: guaiFENesin/CODEINE PHOS 10 ML UDCUP PO PRN ×3 (04:12→16:15)
[2018-03-09] MEDS: ACETAMINOPHEN 325 MG TAB PO PRN ×3 (04:12→16:15)
[2018-03-09] MEDS: ALBUTEROL 3 ML DEYVIAL IH SCH ×3 (05:35→15:35)
[2018-03-09] MEDS: ENOXAPARIN 40 MG/0.4 ML SYR SC SCH (08:32)
[2018-03-09] MEDS ORDERED: DOXYCYCLINE HYCLATE 100 MG CAP/TAB PO SCH (09:00)
[2018-03-09] MEDS: BUDESONIDE/FORMOTEROL 160/4.5 60 PUFFS/MDI IH SCH (09:53)
[2018-03-09] MEDS: TIOTROPIUM INHALER 18 MCG/DOSE 5 DOSE/MDI IH SCH (09:53)
--- NOTE | 2018-03-09 12:44 | HOSPPROG ---
Hospitalist Progress Note Assessment/Plan: 62 year old homeless male with hx of COPD admitted with acute hypoxic respiratory failure,MSSA PNA, COPD exacerbation, subsequently intubated, now extubated and transferred to floor. #Acute on chronic hypercarbic respiratory failure- patient extubated on 03/03. Now on baseline oxygen of 2 liters. Etiology likely 2/2 to MSSA pna. continue abx for PNA and duonebs. #MSSA PNA/Coronavirus: Cont Ancef. Day 11/13. ID consulted who is currently recommending likely 14 day course. Discussed case with ID who transitioned to doxy. Continue unless decompensates #MSSA abscess left arm: s/p bedside I&D. On doxy #Acute COPD exacerbation: continue nebs. #h/o CAD: no chest pain #Tobacco abuse: counseled on cessation #Leukocytosis: resolving #Homelessness: contributes to many hospitalizations given no place to store oxygen #Septic shock: No longer meeting criteria. #Deconditioning: encourage ambulation, out of bed. Will likely need rehab. #DVT ppx:SCD #Disp: Medicaid in process of evaluating patient. To SNF when approved by medicaid. Inpatient: for abx, debility Subjective: breathing better. still very weak all over. Objective: Vital Signs Temp Pulse Resp BP Pulse Ox 36.4 C 94 20 105/63 90 L 03/09/18 08:00 03/09/18 09:54 03/09/18 09:54 03/09/18 08:00 03/09/18 09:54 Laboratory Results 03/07/18 05:15 03/07/18 05:15 03/08/18 03/09/18 03/10/18 05:59 05:59 05:59 Intake Total 700 500 Output Total 0655 5942 325 Balance -1800 -2125 -325 PT 13.4 SEC (12.0-15.0) 02/19/18 18:59 INR 1.00 (0.83-1.16) 02/19/18 18:59 - Physical Exam Constitutional: no apparent distress, appears nourished, not in pain Eyes: PERRL, anicteric sclera, EOMI Ears, Nose, Mouth, Throat: moist mucous membranes, hearing normal, ears appear normal, no oral mucosal ulcers Cardiovascular: regular rate and rhythym, no murmur, rub, or gallop Respiratory: no respiratory distress, no rales or rhonchi, clear to auscultation Gastrointestinal: normoactive bowel sounds, soft, non-tender abdomen, no palpable masses Genitourinary: no bladder fullness, no bladder tenderness, no renal bruits Skin: no rashes or abrasions, no fluctuance, no induration Musculoskeletal: full muscle strength, no muscle tenderness, normal joint ROM Neurologic: AAOx3, sensation intact bilaterally Psychiatric: interacting appropriately, not anxious, not encephalopathic, thought process linear Lymph, Heme, Immunologic: no cervical LAD, no supraclavicular LAD ICD10 Worksheet Patient Problems: Problems Problem Status Onset Pneumonia Acute COPD (chronic obstructive pulmonary disease) Acute COPD exacerbation Acute Chest pain Acute Chronic obstructive pulmonary disease with acute exacerbation Acute Respiratory failure with hypoxia Acute Sepsis Acute Severe sepsis Acute Shortness of breath Acute
[2018-03-09 15:34] VITALS: BP 119/80
--- NOTE | 2018-03-09 15:49 | PDIAF ---
- Diagnosis Code Status: Do Not Resuscitate - Medication Management Discharge Medications: electronically signed and located in the Home Medication List. PICC Care - Routine: N/A - Orders Services needed: Registered Nurse, Certified Director Index, Physical Therapy, Occupational Therapy, Speech Language Pathologist Isolation Type: Droplet Isolation Diet Recommendation: no restrictions on diet Diet Texture: Regular Texture Diet, Thin Liquids Additional Instructions: activity as tolerated. work with PT/OT to get stronger. Take doxycycline as Rx until march 14. continue all other prescribed medications while in rehab. stop smoking. - Labs/Radiology BMP Date: 03/13/18 CBC w/diff Date: 03/13/18 - Follow Up Care Current Providers and Referrals: NONE *PRIMARY CARE P,. [Primary Care Provider] - As per Instructions
--- NOTE | 2018-03-09 16:43 | ASMTDCNOTE ---
Case Management Discharge Discharge Order Complete? Answers: Yes Patient to Obtain Answers: Other Notes: [facility] Medications Transportation Arranged Answers: Other Notes: [facility] Faxed Final Orders Answers: Yes Agency/Facility Transfer Answers: Yes Report Printed & Faxed to Receiving Agency Family Notified Answers: Yes Discharge Comments Notes: Pt is being discharged to [facility]. Obtained approval from Cristina from [facility] and Felipe from [facility]. 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 CM spoke with Arlene ([phone]) from [facility] who informed me to tell Quin she needs [facility] stay [facility] the [facility] until a bed comes available at [facility] so they can be together. CM informed pt and Quin of plan and were agreeable. Arlene reported Quin has money and does not need assistance with transportation. Felipe from [facility] scheduled stretcher transport for 7pm tonight. CM submit orders. Pt is agreeable with discharge plan. Date Signed: 03/09/2018 04:42 PM Electronically Signed By:CASTRO Orona
--- NOTE | 2018-03-09 16:44 | ASDISCHSUM ---
Discharge Information Plan Status:SNF Medically Cleared to Leave: Discharge Date: D/C Disposition:Halfway Facility ADT D/C Disposition:Halfway Facility Projected Discharge Date:03/08/2018 11:00 AM Transportation at D/C:ALS/BLS Discharge Delay Reason: Follow-Up Date:03/08/2018 11:00 AM Discharge Slot: Final Diagnosis:COPD, PNA, Sepsis, SOB Placement Information Referral Type:*Residential/SNF Referral ID:[id number] Provider Name:Chino Mckeon/ROSIE Ramesh Address 1:[address] [facility] Address 2: Fax Number: [facility]:[place] Selection Factors: State:[place] Patient Contact Information Contact Name:ADA Relationship:Friend Address:[address] [place] [address] [place]2 City:[place] Alternate Phone: State/Zip Code:[place] [address] Email: Financial Information Financial Class:Medicaid Primary Plan Desc:[facility]ICA[facility] Primary Plan Number:[id number] Secondary Plan Desc: Secondary Plan Number: Assessment Information LACE LACE Acuity / Level of Answers: Yes Care: Did the patient have an inpatient admission? Comorbidities - select Answers: Chronic pulmonary disease all that apply Coronary Artery Disease Opioid dependence / Chronic pain Other Notes: Hep C # of Emergency department Answers: 3-4 visits in the last 6 months Social determinants Answers: Homelessness (street, senior care) Mental health diagnosis (anxiety, depression, pers onality disorders, etc.) Lack of community resources and/or lack of social support (no pcp, lives alone, transportation, luanne d) Score: 25 Date Signed: 02/20/2018 08:42 AM Electronically Signed By:Cecelia Grewal [facility] CM Progress Note CM Note CM Note Notes: 62yo Male admitted for COPD, PNA, Sepsis, SOB. He is O2 dependent and was kicked out of house where he was living with no O2. Patient has a Hx of CAD, COPD, Hep C, PNA and he is a smoker. Therapies to eval. CM to follow. Date Signed: 02/20/2018 09:49 AM Electronically Signed By:Debra Conner LCSW [facility] CM Progress Note CM Note CM Note Notes: Patient has had numerous admits to [facility]. He is familiar to [facility]. 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 Besides his disability check-$600 it would be hard for him to live without those two checks. It's too exhausting for him to carry an O2 tank being homeless. Unless placement is found for both the patient and the person he cares for, he will continue to come to [facility] as needed. Date Signed: 02/20/2018 03:11 PM Electronically Signed By:Debra Conner LCSW [facility] CM Progress Note CM Note CM Note Notes: CM met with Arlene from 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 She wanted to relay that pt is willing to go to SNF and if he goes she may be able to get her in d/t her severe dissability. MARK met with pt to discuss, he agreed to relay monthly income, to stay 30 days, and that Quin will not automatically get in at the same time, that he will need to be a bit flexible. I also stated that PT/OT have not recommended SNF so I was not guaranteeing that he would be accepted. Pt understands and wishes CM to proceed with paperwork. DC Plan:TBD Date Signed: 02/22/2018 03:57 PM Electronically Signed By:Zena Ramirez RN [facility] MARK Progress Note CM Note CM Note Notes: Spoke with pt in the room. Therapies recommending SNF and ULTC-100 sent to [facility] for eval which will likely happen after holiday. 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 Referrals sent to [facility], per pt preference, including [facility] and [facility]. CM to follow. Discharge likely after the holidays and [facility] eval. D/C Plan: SNF Date Signed: 02/24/2018 02:47 PM Electronically Signed By:Taylor Ling [facility] MARK Progress Note CM Note MARK Note Notes: Pt admitted with COPD, pneumonia. 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 The pt is willing to go to SNF, ultc done and pending eval here after holidays. PT/OT recommend SNF, pt understands that Quin may not get into the same SNF at exactly the same time frame and that he will need to be a bit fexible. Quin has a CW from Arlene ALICEA ([phone]) to notifiy if pt gets discharged. DC Plan: SNF Date Signed: 02/27/2018 01:51 PM Electronically Signed By:Zena Ramirez RN [facility] CM Progress Note CM Note CM Note Notes: Patient's Medicaid has lapsed and Medicaid Specialist working on new application. Date Signed: 02/28/2018 04:41 PM Electronically Signed By:Debra Conner LCSW [facility] CM Progress Note CM Note CM Note Notes: Proxy Note: Received a request from the Ethics team to do a detailed search on patient's Next of Kin listed, Anshu Lernerb. This CM does not have access to the [employer] and password for our software. Mary Mercado looking into this search. Updated Rylee with Ethics team at 1600. Ethics has also reached out to one of our Ethics MD's to inquire about possible MD proxy if friend cannot be found. CM will continue to follow. Date Signed: 03/01/2018 04:06 PM Electronically Signed By:Nat Wynn RN [facility] Progress Note CM Note CM Note Notes: Contact made to Jael at [facility] to ask if she could contact Quin's CM Arlene [phone] and let her know that our patient Js was vented and unable to be a care provider for Quin at this time. Jael said she would have Arlene contact the ICU CM Monday. Date Signed: 03/01/2018 04:40 PM Electronically Signed By:Debra Conner LCSW [facility] CM Progress Note CM Note CM Note Notes: Received call from Cristina at [facility] [phone]. She was calling to follow up on mr Jarrett, at the time of her eval he did not qualify for snf. MARK informed her that pt was now intubated in the ICU. She requests to be updated on his status. DC Plan: TBD Date Signed: 03/02/2018 10:39 AM Electronically Signed By:Zena Ramirez RN [facility] Progress Note CM Note CM Note Notes: MARK spoke with Arlene Mario, Ton Container Filler from [facility] ([phone]). Pt does not have any family supports and no advanced directives. They are working towards getting pt's significant other, Quin into a facility but would like to get her into the same facility as pt. Arlene reports the [facility] [employer] Filler is Marvin Cordero ([phone]) who needs to be contacted when coordinating discharge. At this time, pending PT/OT recommendations. Plan: TBD Date Signed: 03/02/2018 01:44 PM Electronically Signed By:CASTRO Orona [facility] CM Progress Note CM Note CM Note Notes: Patient needs his Medicaid re-instated, left message with Medicaid Specialist. Updated referral to [facility]. Date Signed: 03/05/2018 04:03 PM Electronically Signed By:Debra Conner LCSW Case Management Discharge Plan Note Case Management Discharge Discharge Order Complete? Answers: Yes Patient to Obtain Answers: Other Notes: [facility] Medications Transportation Arranged Answers: Other Notes: [facility] Faxed Final Orders Answers: Yes Agency/Facility Transfer Answers: Yes Report Printed & Faxed to Receiving Agency Family Notified Answers: Yes Discharge Comments Notes: Pt is being discharged to [facility]. Obtained approval from Cristina from [facility] and Felipe from [facility]. MARK spoke with pt and pt's children's service supervisor Quin to discuss plan. MARK spoke with Arlene ([phone]) from [facility] who informed me to tell Quin she needs to stay at the senior care until a bed comes available at [facility] so they can be together. MARK informed pt and Quin of plan and were agreeable. Arlene reported Quin has money and does not need assistance with transportation. Felipe from [facility] scheduled stretcher transport for 7pm tonight. CM submit orders. Pt is agreeable with discharge plan. Date Signed: 03/09/2018 04:42 PM Electronically Signed By:CASTRO Orona Intervention Information
--- NOTE | 2018-03-12 18:35 | PDDCSUM ---
Discharge Summary Discharge Summary: Yuriy Jarrett is a 62 year old homeless male who was admitted with hypoxic respiratory failure. He declined and required intubation. he was found to have MSSA bacteremia/pneumonia and coronavirus. He was started on antibiotics and recovered quickly and was able to be extubated. He was continued on ancef but then was transitioned to doxycycline to complete a course. He remained weak and so was transferred to a snf for continued rehab. Discharge diagnosis acute resp failure MSSA bacteremia COPD continued tobacco abuse coronavirus pneumonia
--- NOTE | 2018-03-13 15:27 | PQFORM ---
PHYSICIAN QUERY FORM Needs Your Response This query form is being sent to you to assure this patient record is coded properly. Please respond to the question below: STRATEGIC COMMUNICATIONS MANAGER QUESTION: Dear Dr. Davis, In reviewing this patient medical record, it is noted patient held the diagnosis of 'sepsis w/ septic shock.' In the ER report patient's Lactate was noted to be elevated at 2.3 and noted "severe sepsis declared. Patient given 30 milliliters/kilogram IV fluid bolus. IV Levaquin is given." Dr. Alberto noted in the 02/28 consult report that the reason for the consult was "septic shock due to pneumonia," and later diagnosed with "septic shock due to pneumonia evident by hypothermia, leukocytosis, and hypotension." In the Hospitalist progress notes dated 02/28-03/08 patient held the diagnosis of "Acute Sepsis." In the Copy Manager progress notes dated 03/01-03/07 patient held the diagnosis of "septic shock." After study, should the diagnosis of "Sepsis w/ septic shock " be included in the Discharge Summary? ___x__ Yes No Clinically Undetermined Other (please specify) Thank you AL De Santiago [facility]/Coding Dept. [phone] INSTRUCTIONS FOR RESPONSE: Answer question by clicking on the "Edit Document" button. Move cursor to area below the stars. When complete, hit "Save." Click on the "Sign" button, then click "Sign" again. Type in your PIN and hit "Enter." MTDD
== END 2018-03-09 18:44 | DRG 720 ==
LOC: EDUNIT# → F2N 21:00 → F3E 02-21 09:26 → F2N 02-27 19:15 → F3E 03-07 16:17
PROVIDERS: ADMIT Internal Medicine; ATTEND Internal Medicine
PROC: 0BH17EZ Insertion of Endotracheal Airway into Trachea, Via Natural or Artificial Opening (ICD-10-PCS; principal; 2018-02-28)
PROC: 5A1945Z Respiratory Ventilation, 24-96 Consecutive Hours (ICD-10-PCS; principal; 2018-02-28)
PROC: 0B978ZZ Drainage of Left Main Bronchus, Via Natural or Artificial Opening Endoscopic (ICD-10-PCS; principal; 2018-02-28)
PROC: 02HV33Z Insertion of Infusion Device into Superior Vena Cava, Percutaneous Approach (ICD-10-PCS; principal; 2018-02-28)
PROC: 0B998ZX Drainage of Lingula Bronchus, Via Natural or Artificial Opening Endoscopic, Diagnostic (ICD-10-PCS; principal; 2018-02-28)
PROC: 0J9H0ZX Drainage of Left Lower Arm Subcutaneous Tissue and Fascia, Open Approach, Diagnostic (ICD-10-PCS; 2018-02-28)
DX: A41.9 Sepsis, unspecified organism (principal); J15.211 Pneumonia due to Methicillin susceptible Staphylococcus aureus; J96.21 Acute and chronic respiratory failure with hypoxia; R65.21 Severe sepsis with septic shock; Z99.81 Dependence on supplemental oxygen; E86.9 Volume depletion, unspecified; R78.81 Bacteremia; L02.414 Cutaneous abscess of left upper limb; B97.29 Other coronavirus as the cause of diseases classified elsewhere; J44.1 Chronic obstructive pulmonary disease with (acute) exacerbation; F17.200 Nicotine dependence, unspecified, uncomplicated; I25.10 Atherosclerotic heart disease of native coronary artery without angina pectoris; B19.20 Unspecified viral hepatitis C without hepatic coma; Z59.0 Homelessness; Z91.19 Patient's noncompliance with other medical treatment and regimen
CPT/HCPCS: 82435-PO; 82565-PO; 82947-PO; 84132-PO; 84295-PO; 84484-PO; 84520-PO; 85014-PO; 86704-90; 86708-90; 86709-90; 87449-90; 92526-GN; 92610-GN; 96365; 97110-GP; 97116-GP; 97161-GP; 97164-GP; 97165-GO; 97168-GO; 97530-GO; 97530-GP; 97535-GO; G0010; J0456; J0690; J1630; J1650; J1720; J1885; J1956; J2060; J2250; J2370; J2543; J2704; J2920; J2930; J3010; J3370; J7512; J7613; P9041; P9047; Q9967